=== PATIENT | female | born 1955 | race Caucasian/White ===

== ENCOUNTER 2017-07-22 06:58 | Inpatient (IN) | payer OTHER ==
[2017-07-22] MEDS ORDERED: PANTOPRAZOLE SODIUM 40 MG in SODIUM CHLORIDE 100 ML IVPB ONE (08:08)
[2017-07-22 08:09] LABS: BASOPHIL 0.5 % (0-2.0); EOSINOPHIL 3.2 % (0-4.5); MCH 30.1 pg (25.7-33.7); MCHC 33.1 g/dl (32.0-36.0); MEAN CELL VOLUME 90.8 fl (80-96); MEAN PLT VOLUME 9.5 fl (7.5-11.1); NEUTROPHILS 77.1 % (42.8-82.8); PLATELET COUNT 285 K/MM3 (134-434); RDW 13.4 % (11.6-15.6); WHITE BLOOD COUNT 8.1 K/mm3 (4.0-10.0)
[2017-07-22 08:22] LABS: INR 1.79 (0.82-1.09); PROTHROMBIN TIME (PATIENT) 19.9 SEC (9.98-11.88)
[2017-07-22 08:24] LABS: ACTIVATED PTT 32.5 SECONDS (26.9-34.4)
[2017-07-22 08:38] LABS: ALBUMIN 2.9 g/dl (3.4-5.0); ALK PHOS 155 U/L (45-117); ANION GAP 5 (8-16); BILIRUBIN,TOTAL 0.3 mg/dL (0.2-1.0); CALCIUM 8.8 mg/dL (8.5-10.1); CO2 30 mmol/L (21-32); CREATININE 0.4 mg/dL (0.55-1.02); GLUCOSE,RANDOM 115 mg/dL (74-106); SGOT/AST 32 U/L (15-37); SGPT/ALT 14 U/L (12-78); TOT PROT 6.4 g/dl (6.4-8.2)
[2017-07-22] MEDS ORDERED: PANTOPRAZOLE SODIUM 100 ML IVPB ONE (08:42)
--- NOTE | 2017-07-22 08:50 | PDOC ---
History of Present Illness <Denisse Potts - Last Filed: 07/22/17 12:14> - History of Present Illness Initial Comments: 07/22/17 08:49 "The patient is a 62 year old female, with a significant past medical history of Parkinsons disease, anemia, A-Fib(s/p AICD; on xarelto), NICM, CHF, and hypertension, who presents to the emergency department with rectal bleeding since this morning. As per daughter, home health aide reported noting bright red blood in the patients diaper at approximately 05:30. Daughter states, patient went to bed with no blood per rectum and at her baseline. Daughter states patient is typically constipated, but during the past 2 days patient has had increased bowel movements. Daughter reports noting dark black stool in the toilet bowl during patients bowel movement yesterday. Patient denies any associated abdominal pain, nausea, vomiting, diarrhea, or constipation. Daughter denies any history of GI bleeds or aneurysm. Patient denies any fever, chills, headache, or dizziness. She denies any chest pain, shortness of breath, diaphoresis, palpitations, or lower extremity edema. Last dose of xarelto was last night at 7:30PM. Allergies: NKDA Past Surgical History: AICD Social History: Nonsmoker. No ETOH or recreational drug use. <Hans Roa - Last Filed: 07/26/17 12:56> - General Chief Complaint: Rectal Bleed Stated Complaint: RECTAL BLEED Time Seen by Provider: 07/22/17 07:17 Past History <Denisse Potts - Last Filed: 07/22/17 12:14> - Past Medical History Anemia: Yes Asthma: No Cardiac Disorders: Yes (A fib, ICD IMPLANT) CHF: Yes GI Disorders: Yes (incontinence) Disorders: Yes (incontinence) HTN: Yes Suicide Attempt (Hx): No Thyroid Disease: No Other medical history: Deny's - Surgical History Cardiac Surgery: Yes (CARDIAC CATH 2009) Orthopedic Surgery: Yes (B/L KNEE REPLACEMENT 2007 2008) - Immunization History Immunization Up to Date: Yes - Suicide/Smoking/Psychosocial Hx Anxiety: No Suicidal Ideation: No Smoking History: Never smoked Have you smoked in the past 12 months: No Information on smoking cessation initiated: No Hx Alcohol Use: No Drug/Substance Use Hx: No Substance Use Type: None Hx Substance Use Treatment: No <Hans Roa - Last Filed: 07/26/17 12:56> - Past Medical History Allergies/Adverse Reactions: Allergies Allergy/AdvReac Type Severity Reaction Status Date / Time No Known Allergies Allergy Verified 07/22/17 07:42 Home Medications: Ambulatory Orders Ascorbic Acid [Vitamin C] 250 mg PO DAILY 07/22/17 Ca/D3/Mag#11/Zinc/Hotel [employer] Motel Room Service Supervisor/Dre/Bor [Caltrate 600+D Plus Tablet] 2 each PO DAILY Carbidopa/Levodopa [Carbidopa-Levodopa 25-100 Tab] 1 each PO QID 07/22/17 Carbidopa/Levodopa [Rytary ER 23.75 mg-95 mg Cap] 1 each PO QID 07/22/17 Carbidopa/Levodopa [Rytary ER 36.25 mg-145 mg Cap] 1 each PO QID 07/22/17 Collagenase Clostridium Hist. [Santyl] 90 gm TP DAILY 07/22/17 Metoprolol Succinate [Toprol Xl] 100 mg PO DAILY 07/22/17 Multivitamin [Zoo Chews] 1 each PO DAILY 07/22/17 Mupirocin Cream [Bactroban 2% Cream -] 1 applic TP DAILY 07/22/17 Patient's Own Medication [Patient's Own Med (Nf) -] 1 each PO DAILY 07/22/17 Pimavanserin Tartrate [Nuplazid] 34 mg PO DAILY 07/22/17 Quetiapine Fumarate [Seroquel -] 50 mg PO HS 07/22/17 RX: Furosemide 20 mg PO DAILY 07/22/17 RX: Iron 65 mg PO DAILY 07/22/17 RX: Losartan Potassium 25 mg PO DAILY 07/22/17 RX: Melatonin 3 mg PO DAILY 07/22/17 RX: Olanzapine 2.5 mg PO DAILY 07/22/17 RX: Spironolactone 25 mg PO DAILY 07/22/17 RX: Zinc 50 mg PO DAILY 07/22/17 Rasagiline Mesylate [Azilect] 1 mg PO DAILY 07/22/17 Rivaroxaban [Xarelto -] 20 mg PO DAILY 07/22/17 Rotigotine [Neupro] 1 each TD DAILY 07/22/17 Review of Systems - Review of Systems Comments:: 07/22/17 08:57 "GENERAL/CONSTITUTIONAL: No fever or chills. No weakness. HEAD, EYES, EARS, NOSE AND THROAT: No change in vision. No ear pain or discharge. No sore throat. CARDIOVASCULAR: No chest pain or shortness of breath. RESPIRATORY: No cough, wheezing, or hemoptysis. GASTROINTESTINAL: Yes: +melena, +hematochezia. No nausea, vomiting, diarrhea or constipation. GENITOURINARY: No dysuria, frequency, or change in urination. MUSCULOSKELETAL: No joint or muscle swelling or pain. No neck or back pain. SKIN: No rash NEUROLOGIC: No headache, vertigo, loss of consciousness, or change in strength/ sensation. ENDOCRINE: No increased thirst. No abnormal weight change. HEMATOLOGIC/LYMPHATIC: No anemia, easy bleeding, or history of blood clots. ALLERGIC/IMMUNOLOGIC: No hives or skin allergy." <Hans Roa - Last Filed: 07/26/17 12:56> *Physical Exam - Vital Signs Last Vital Signs Temp Pulse Resp BP Pulse Ox 98.2 F 120 H 20 88/62 100 07/22/17 10:10 07/22/17 10:25 07/22/17 10:25 07/22/17 10:25 07/22/17 10:25 <Denisse Potts - Last Filed: 07/22/17 12:14> - Vital Signs Last Vital Signs Temp Pulse Resp BP Pulse Ox 98.1 F 104 H 16 87/67 97 07/22/17 07:10 07/22/17 07:10 07/22/17 07:10 07/22/17 07:10 07/22/17 07:10 - Physical Exam Comments: 07/22/17 08:58 "GENERAL: Awake, alert, and fully oriented, in no acute distress HEAD: No signs of trauma EYES: PERRLA, EOMI, sclera anicteric, conjunctiva clear ENT: Auricles normal inspection, hearing grossly normal, nares patent, oropharynx clear without exudates. Moist mucosa NECK: Nontender, no stepoffs, Normal ROM, supple, no lymphadenopathy, JVD, or masses LUNGS: Breath sounds equal, clear to auscultation bilaterally. No wheezes, and no crackles HEART: Regular rate and rhythm, normal S1 and S2, no murmurs, rubs or gallops ABDOMEN: Soft, nontender, NO pulsatile masses, normoactive bowel sounds. No guarding, no rebound. RECTAL: bright red blood oozing from rectum, no melena EXTREMITIES: Normal range of motion, no edema. No clubbing or cyanosis. No cords, erythema, or tenderness NEUROLOGICAL: Cranial nerves II through XII intact. 5/5 strength and sensation in all extremities, Normal speech, normal gait SKIN: Warm, Dry, normal turgor, no rashes or lesions noted. " <Hans Roa - Last Filed: 07/26/17 12:56> ED Treatment Course - LABORATORY CBC & Chemistry Diagram: 07/22/17 08:02 07/22/17 08:02 - ADDITIONAL ORDERS Additional order review: Laboratory Results 07/22/17 07/22/17 07/22/17 08:26 08:02 08:02 PT with INR INR PTT (Actin FS) Sodium Potassium Chloride Carbon Dioxide Anion Gap BUN Creatinine Creat Clearance w eGFR Random Glucose Lactic Acid 2.4 H* Calcium Total Bilirubin AST ALT Alkaline Phosphatase Total Protein Albumin Blood Type A POSITIVE A POSITIVE Antibody Screen Cancelled Negative Crossmatch See Detail Spec Expiration Date Cancelled 07/22/17 07/22/17 08:02 08:02 PT with INR 19.90 H INR 1.79 H D PTT (Actin FS) 32.5 Sodium 141 Potassium 3.6 Chloride 106 Carbon Dioxide 30 Anion Gap 5 L BUN 32 H D Creatinine 0.4 L D Creat Clearance w eGFR > 60 Random Glucose 115 H D Lactic Acid Calcium 8.8 Total Bilirubin 0.3 AST 32 D ALT 14 D Alkaline Phosphatase 155 H D Total Protein 6.4 Albumin 2.9 L Blood Type Antibody Screen Crossmatch Spec Expiration Date 07/22/17 08:02 RBC 3.86 MCV 90.8 MCHC 33.1 RDW 13.4 MPV 9.5 Neutrophils % 77.1 Lymphocytes % 12.5 Monocytes % 6.7 Eosinophils % 3.2 D Basophils % 0.5 - RADIOLOGY Radiograph Interpretation: 07/22/17 11:32 EXAM: CXR INTERPRETED BY: Dr. Hahn REVIEWED BY: Dr. Roa IMPRESSION: No acute pathology. No significant change since 01/07/2015. Pacemaker. - Medications Given in the ED: ED Medications Discontinued Medications Generic Name Dose Route Start Last Admin Trade Name Freq PRN Reason Stop Dose Admin Pantoprazole Sodium 40 mg/ 100 mls @ 200 mls/hr 07/22/17 08:08 07/22/17 08:50 Sodium Chloride IVPB 07/22/17 08:37 200 mls/hr ONCE ONE Administration <Denisse Potts - Last Filed: 07/22/17 12:14> - LABORATORY CBC & Chemistry Diagram: 07/26/17 08:20 07/26/17 08:20 - ADDITIONAL ORDERS Additional order review: Laboratory Results 07/22/17 07/22/17 07/22/17 08:02 08:02 08:02 PT with INR 19.90 H INR 1.79 H D PTT (Actin FS) 32.5 Sodium 141 Potassium 3.6 Chloride 106 Carbon Dioxide 30 Anion Gap 5 L BUN 32 H D Creatinine 0.4 L D Creat Clearance w eGFR > 60 Random Glucose 115 H D Calcium 8.8 Total Bilirubin 0.3 AST 32 D ALT 14 D Alkaline Phosphatase 155 H D Total Protein 6.4 Albumin 2.9 L Crossmatch See Detail 07/22/17 08:02 RBC 3.86 MCV 90.8 MCHC 33.1 RDW 13.4 MPV 9.5 Neutrophils % 77.1 Lymphocytes % 12.5 Monocytes % 6.7 Eosinophils % 3.2 D Basophils % 0.5 - RADIOLOGY Radiology Studies Ordered: Category Date Time Status CHEST X-RAY PORTABLE* [RAD] Stat Radiology 07/22/17 08:09 Completed <Hans Roa - Last Filed: 07/26/17 12:56> Medical Decision Making - Medical Decision Making 07/22/17 12:14 First call placed to Dr. Aguilar at 08:17. Awaiting call back. Case discussed with Dr. Aguilar at 08:48. <Denisse Potts - Last Filed: 07/22/17 12:14> - Critical Care Time Total Critical Care Time (minutes): 30 Critical Care Statement: The care of this patient involved high complexity decision making to prevent further life threatening deterioration of the patient 's condition and/or to evaluate & treat vital organ system(s) failure or risk of failure. - Medical Decision Making 07/22/17 08:59 62 F with afib on xarelto presenting with rectal bleed x 1 day, hypotensive and tachycardic in ER. Likely lower GI source. However, family reports seeing dark stools yesterday, suggestive of possible UGIB. Pt with benign abdomen. Aortoenteric fistula possible as bleed is relatively brisk. However, pt with no h/o AAA and no palpable masses on exam. Bedside sono reveals no evidence of AAA. Will send lactate to r/o ischemic bowel. - Labs, T&S, coags - PPI - Transfuse - GI consult - Admit ICU 07/22/17 09:16 Pt accepted to ICU. 2u PRBC ordered. <Hans Roa - Last Filed: 07/26/17 12:56> *DC/Admit/Observation/Transfer - Attestations Scribe Attestion: 07/22/17 11:31 Documentation prepared by Denisse Potts, acting as back office medical assistant for Hans Roa MD. <Denisse Potts - Last Filed: 07/22/17 12:14> - Discharge Dispostion Admit: Yes - Attestations Physician Attestion: 07/22/17 09:18 I, Dr. Hans Roa MD, attest that this document has been prepared under my direction and personally reviewed by me in its entirety. I further attest, that it accurately reflects all work, treatment, procedures and medical decision -making performed by me. <Hans Roa - Last Filed: 07/26/17 12:56> Diagnosis at time of Disposition: Anticoagulant-induced bleeding, GI bleed - Discharge Dispostion Condition at time of disposition: Guarded
--- NOTE | 2017-07-22 10:58 | HP ---
CHIEF COMPLAINT: Lower GI bleed x1 day PCP: Basket Patcher: Dr Gilbert HISTORY OF PRESENT ILLNESS: Patient is a 62 year old female with parkinson's disease, afib on xarelto (last dose yesterday, 7.30pm) and s/p AICD, CHF, NICM , immobile at baseline living now with brother at home with 24hr care. Found this morning to have significant bleed in diaper when the aid tried to change her this morning. Patient was found still sleeping when the bleeding was discovered. There was a two day history of dark colored stool prior, soft, non diarrheal. Prior to that she had hard stools, that she got prune juice on Sunday for, but no medication. No other bleeding from any other site. Patient in the past has had nose bleeds that resolve on their own with pressure, last episode of nose bleeds was December 2016. No history of abdominal pain, nausea or vomiting. No diarrhea. Patient at baseline usually is constipated. No history of fever or chills. No history of trauma or fall. Patient has not been on NSAIDS or ASA. No SOB, no chest pain or abdominal pain. No episode of syncope, headaches or dizziness. 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 90 gm TP DAILY 07/22/17 [Santyl] Furosemide 20 mg PO DAILY 07/22/17 Iron 65 mg PO DAILY 07/22/17 Losartan Potassium 25 mg PO DAILY 07/22/17 Melatonin 3 mg PO DAILY 07/22/17 Metoprolol Succinate [Toprol Xl] 100 mg PO DAILY 07/22/17 Multivitamin [Zoo Chews] 1 each PO DAILY 07/22/17 Mupirocin Cream [Bactroban 2% 1 applic TP DAILY 07/22/17 Cream -] Olanzapine 2.5 mg PO DAILY 07/22/17 Pimavanserin Tartrate [Nuplazid] 2 tab PO DAILY 07/22/17 Quetiapine Fumarate [Seroquel -] 25 mg PO BID 07/22/17 Rasagiline Mesylate [Azilect] 1 mg PO DAILY 07/22/17 Rivaroxaban [Xarelto -] 20 mg PO DAILY 07/22/17 Rotigotine [Neupro] 1 each TD DAILY 07/22/17 Spironolactone 25 mg PO DAILY 07/22/17 REVIEW OF SYSTEMS CONSTITUTIONAL: Absent: fever, chills, diaphoresis, generalized weakness, malaise, loss of appetite, weight change HEENT: Absent: rhinorrhea, nasal congestion, throat pain, throat swelling, difficulty swallowing, mouth swelling, ear pain, eye pain, visual changes CARDIOVASCULAR: Absent: chest pain, syncope, palpitations, irregular heart rate, lightheadedness , peripheral edema RESPIRATORY: Absent: cough, shortness of breath, dyspnea with exertion, orthopnea, wheezing, stridor, hemoptysis GASTROINTESTINAL: Absent: abdominal pain, abdominal distension, nausea, vomiting, diarrhea, constipation, melena, hematochezia GENITOURINARY: Absent: dysuria, frequency, urgency, hesitancy, hematuria, flank pain, genital pain MUSCULOSKELETAL: Absent: myalgia, arthralgia, joint swelling, back pain, neck pain SKIN: Absent: rash, itching, pallor HEMATOLOGIC/IMMUNOLOGIC: Absent: easy bleeding, easy bruising, lymphadenopathy, frequent infections ENDOCRINE: Absent: unexplained weight gain, unexplained weight loss, heat intolerance, cold intolerance NEUROLOGIC: Absent: headache, focal weakness or paresthesias, dizziness, unsteady gait, seizure, mental status changes, bladder or bowel incontinence PSYCHIATRIC: Absent: anxiety, depression, suicidal or homicidal ideation, hallucinations. PHYSICAL EXAMINATION Vital Signs - 24 hr 07/22/17 07/22/17 07/22/17 09:46 09:53 10:10 Temperature 98.1 F 98 F 98.2 F Pulse Rate [ 116 H 116 H 121 H Left Radial] Respiratory 18 18 21 Rate Blood Pressure 88/71 90/64 84/62 [Right Arm] O2 Sat by Pulse 98 98 99 Oximetry (%) 07/22/17 10:25 Temperature Pulse Rate [ 120 H Left Radial] Respiratory 20 Rate Blood Pressure 88/62 [Right Arm] O2 Sat by Pulse 100 Oximetry (%) GENERAL: Awake, alert, some confusion, memory loss and difficult verbal expression at baseline, in no acute respiratory distress. HEAD: Normal with no signs of trauma. EYES: Pupils equal, round and reactive to light, extraocular movements intact, sclera anicteric, conjunctiva clear. No lid lag. EARS, NOSE, THROAT: Nares patent, some redness seen around the opening of the nostrils, oropharynx clear without exudates, no evidence of bleeding in mouth NECK: No JVD. LUNGS: Breath sounds equal, clear to auscultation bilaterally. No wheezes, and no crackles. No accessory muscle use. HEART: Regular rate and rhythm, normal S1 and S2 without murmur, rub or gallop. ABDOMEN: Soft, nontender, not distended, normoactive bowel sounds, no guarding, no rebound, no masses. No hepatomegaly or splenomegaly. TANJA : Diaper was soaked in dark blood, with some clots, with impacted feces palpated within the rectum. MUSCULOSKELETAL: Normal range of motion at all joints. No bony deformities or tenderness. No CVA tenderness. UPPER EXTREMITIES: 2+ pulses, warm, well-perfused. No cyanosis. No clubbing. No peripheral edema. LOWER EXTREMITIES: 2+ pulses, warm, well-perfused. No calf tenderness. No peripheral edema. Pressure point on left sole NEUROLOGICAL: Hypertonia with rigidity in upper limbs. Babinski- upward bilaterally. PSYCHIATRIC: Cooperative. Good eye contact. Some confusion, memory loss and difficult verbal expression ASSESSMENT/PLAN: #Active Massive upper GI bleeding R/O Lower GI bleed: 2 PRBCS stat Iv lasix 20mg in between transfusion Hold xarelto IV pantoprazole 40mg stat Repeat CBC after transfusion EKG- Normal sinus rhythm with PVCs GI consult Per GI - give Vit K stat for elevated INR Tachycardic following lasix administration, up to 146 and hypotensive at 60/36 - gave bolus 500mls IV N/saline stat Vitals pr-136, BP-88/60 #Pressure point Left sole: Foot padding Frequent turns #Afib: Hold Xarelto for now Reduce metoprolol to 50mg XL Cardiology consult #Parkinsons disease: Currently immobile with some difficult to comprehend speech' In diapers- continue Carbidopa/Levodopa- hold for now Continue Collagenase Clostridium Hist. Continue Mupirocin Cream Continue Rasagiline Mesylate Rotigotine [Neupro] #Psychosis Continue Pimavanserin Tartrate [Nuplazid] Continue Olanzapine #CHF No signs of failure Hold spironolactone for now Hold Losartan Potassium for now Hold Furosemide PO for now Hold Metoprolol for now, reduce to 50mg XL Strict ins and outs #NICM Hold spironolactone for now Hold Losartan Potassium for now #FEN: Iv Normal saline Continue [place] oral fluids CBC NPO for now #Prophylaxis: DVT: SCD Heparin contraindicated due to current bleed GI: Pepcid #Dispo: Admit ICU Visit type - Emergency Visit Emergency Visit: Yes ED Registration Date: 07/22/17 Care time: The patient presented to the Emergency Department on the above date and was hospitalized for further evaluation of their emergent condition. - New Patient This patient is new to me today: Yes Date on this admission: 07/22/17 - Critical Care Critical Care patient: Yes Total Critical Care Time (in minutes): 40 Critical Care Statement: The care of this patient involved high complexity decision making to prevent further life threatening deterioration of the patient 's condition and/or to evaluate & treat vital organ system(s) failure or risk of failure.
--- NOTE | 2017-07-22 11:22 | PN ---
Teaching Attending Note Name of Resident: Gracia Casillas ATTENDING PHYSICIAN STATEMENT I saw and evaluated the patient. I reviewed the resident's note and discussed the case with the resident. I agree with the resident's findings and plan as documented. SUBJECTIVE: Patient is 62yo female presented with active GI bleeding. with hx of Parkinsonism. OBJECTIVE: Vital Signs Temperature 98.2 F 07/22/17 10:10 Pulse Rate 120 H 07/22/17 10:25 Respiratory Rate 20 07/22/17 10:25 Blood Pressure 88/62 07/22/17 10:25 O2 Sat by Pulse Oximetry (%) 100 07/22/17 10:25 CBCD WBC 8.1 K/mm3 (4.0-10.0) D 07/22/17 08:02 RBC 3.86 M/mm3 (3.60-5.2) 07/22/17 08:02 Hgb 11.6 GM/dL (10.7-15.3) 07/22/17 08:02 Hct 35.1 % (32.4-45.2) 07/22/17 08:02 MCV 90.8 fl (80-96) 07/22/17 08:02 MCHC 33.1 g/dl (32.0-36.0) 07/22/17 08:02 RDW 13.4 % (11.6-15.6) 07/22/17 08:02 Plt Count 285 K/MM3 (134-434) D 07/22/17 08:02 MPV 9.5 fl (7.5-11.1) 07/22/17 08:02 CMP Sodium 141 mmol/L (136-145) 07/22/17 08:02 Potassium 3.6 mmol/L (3.5-5.1) 07/22/17 08:02 Chloride 106 mmol/L (98-107) 07/22/17 08:02 Carbon Dioxide 30 mmol/L (21-32) 07/22/17 08:02 Anion Gap 5 (8-16) L 07/22/17 08:02 BUN 32 mg/dL (7-18) H D 07/22/17 08:02 Creatinine 0.4 mg/dL (0.55-1.02) L D 07/22/17 08:02 Creat Clearance w eGFR > 60 (>60) 07/22/17 08:02 Random Glucose 115 mg/dL (74-106) H D 07/22/17 08:02 Calcium 8.8 mg/dL (8.5-10.1) 07/22/17 08:02 Total Bilirubin 0.3 mg/dL (0.2-1.0) 07/22/17 08:02 AST 32 U/L (15-37) D 07/22/17 08:02 ALT 14 U/L (12-78) D 07/22/17 08:02 Alkaline Phosphatase 155 U/L (45-117) H D 07/22/17 08:02 Total Protein 6.4 g/dl (6.4-8.2) 07/22/17 08:02 Albumin 2.9 g/dl (3.4-5.0) L 07/22/17 08:02 Home Medications Medication Instructions Recorded Ca/D3/Mag#11/Zinc/Senior Application Programmer/Dre/Bor 2 each PO DAILY 07/22/17 [Caltrate 600+D Plus Tablet] Carbidopa/Levodopa 1 each PO QID 07/22/17 [Carbidopa-Levodopa 25-100 Tab] Carbidopa/Levodopa [Rytary ER 1 each PO QID 07/22/17 23.75 mg-95 mg Cap] Carbidopa/Levodopa [Rytary ER 1 each PO QID 07/22/17 36.25 mg-145 mg Cap] Collagenase Clostridium Hist. 90 gm TP DAILY 07/22/17 [Santyl] Furosemide 20 mg PO DAILY 07/22/17 Iron 65 mg PO DAILY 07/22/17 Losartan Potassium 25 mg PO DAILY 07/22/17 Melatonin 3 mg PO DAILY 07/22/17 Metoprolol Succinate [Toprol Xl] 100 mg PO DAILY 07/22/17 Multivitamin [Zoo Chews] 1 each PO DAILY 07/22/17 Mupirocin Cream [Bactroban 2% 1 applic TP DAILY 07/22/17 Cream -] Olanzapine 2.5 mg PO DAILY 07/22/17 Pimavanserin Tartrate [Nuplazid] 2 tab PO DAILY 07/22/17 Quetiapine Fumarate [Seroquel -] 25 mg PO BID 07/22/17 Rasagiline Mesylate [Azilect] 1 mg PO DAILY 07/22/17 Rivaroxaban [Xarelto -] 20 mg PO DAILY 07/22/17 Rotigotine [Neupro] 1 each TD DAILY 07/22/17 Spironolactone 25 mg PO DAILY 07/22/17 PE: per resident's note Rectal exam as per resident: grossly blood, positive for hard stool in the vault ASSESSMENT AND PLAN: Patient is a 62 year old female with PMHx of parkinson's disease, afib on xarelto for 3 years (last dose 7.30pm, last night) and s/p AICD, CHF, NICM, immobile at baseline living now with brother at home with 24hr care presented with Acute GI bleed. # Acute GI bleed Upper vs Lower : patient was on Xarelto for 3 yrs. with hx of Afib.possible and possible diverticulosis as well ,H/h q6h, GI consult for consult. Protonix IV 8mg/hr. Patient is getting transfused since bleeding actively, give lasix in b/t transfusion # Hx of Afib with AICD on Xarelto, hold the xarelto for now, cardio consult for consult # Hx of Parkinsonism continue home meds. # hx of systolic CHF s/p AICD on lasix, Losartan , will hold for now since presented with low BP. DVT Px: SCds only since actively bleeding contraindicated. critical care time of 35 mintues
[2017-07-22] MEDS ORDERED: FUROSEMIDE 40 MG/4 ML INJECTABLE VIAL IVPB SCH (11:32)
[2017-07-22 11:57] VITALS: BMI 21.3
--- NOTE | 2017-07-22 12:33 | HP ---
Admitting History and Physical - Primary Care Physician PCP: Arelis Lehman - Admission Chief Complaint: GI bleeding History of Present Illness: 62F with PMH significant for parkinsons disease (bed bound as a result), A-Fib( s/p AICD; on xarelto), Non ischemic cardiomyopathy, CHF s/p AICD, and hypertension, who presents to the emergency department with a chief complaint of rectal bleeding since this morning. As per the sister and brother, home health aide reported noting bright red blood in the patients diaper at approximately 05:30am while she was changing her diaper. Of note the patient is bed bound has 24hour home health aide and her brotherly recently moved in with her. Sister is the healthcare proxy. Family is very involved with patient's care and they are knowledgable about her history and ongoing medical problems. Per the sister and brother they noticed her stools were black for the past 2 days and have been coming darker and darker until this Am when she had red blood per rectum. The family states she is usually constipated at baseline and has very hard pebble like stools but last couple of days she has had increase in frequency of stools. The patient is able to understand and is able to answer a little more than yes or no and has a hard time talking due to parkinson's. Patient denies any associated abdominal pain, nausea, vomiting, diarrhea, or constipation. She denies fevers chills chest pain palpitations orthopneaor shortness of breath. She denies dizziness lightheadedness or visual changes. Family denies any new medication changes or recent intake of large amount of NSAIDs. family denies any history of GI bleeds or aneurysm. Last dose of xarelto was last night at 7:30PM. Sister stated she recently received a letter that the patient is due for colonoscopy not sure of she has had it once or twice and not cure when the last colonoscopy. She recently had a mammogram in the last year and it was negative per sister. Denies recent travel or recent illness. In the ED she was noted to be hypotensive to low 90's SBP and tachycardic to 110's. Per sister and brother patiet's BP is constantly monitored and she runs low 90's persistently due to parkinsons medications. 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 ) - Past Surgical History Past Surgical History: Yes: Joint Replacement (TKR, bilaterally) Additional Past Surgical History: AICD - Smoking History Smoking history: Never smoked Have you smoked in the past 12 months: No - Alcohol/Substance Use Hx Alcohol Use: No - Social History ADL: Support Services (8 hour day home health aid) History of Recent Travel: No Home Medications - Allergies Allergies/Adverse Reactions: Allergies Allergy/AdvReac Type Severity Reaction Status Date / Time No Known Allergies Allergy Verified 07/22/17 07:42 - Home Medications Home Medications: Ambulatory Orders Ascorbic Acid [Vitamin C] 250 mg PO DAILY 07/22/17 Ca/D3/Mag#11/Zinc/Formulator/Dre/Bor [Caltrate 600+D Plus Tablet] 2 each PO DAILY Carbidopa/Levodopa [Carbidopa-Levodopa 25-100 Tab] 1 each PO QID 07/22/17 Carbidopa/Levodopa [Rytary ER 23.75 mg-95 mg Cap] 4 each PO QID 07/22/17 Carbidopa/Levodopa [Rytary ER 36.25 mg-145 mg Cap] 4 each PO QID 07/22/17 Collagenase Clostridium Hist. [Santyl] 90 gm TP DAILY 07/22/17 Furosemide 20 mg PO DAILY 07/22/17 Iron 65 mg PO DAILY 07/22/17 Losartan Potassium 25 mg PO DAILY 07/22/17 Melatonin 3 mg PO DAILY 07/22/17 Metoprolol Succinate [Toprol Xl] 100 mg PO DAILY 07/22/17 Multivitamin [Zoo Chews] 1 each PO DAILY 07/22/17 Mupirocin Cream [Bactroban 2% Cream -] 1 applic TP DAILY 07/22/17 Olanzapine 2.5 mg PO DAILY 07/22/17 Patient's Own Medication [Patient's Own Med (Nf) -] 1 each PO DAILY 07/22/17 Pimavanserin Tartrate [Nuplazid] 34 mg PO DAILY 07/22/17 Quetiapine Fumarate [Seroquel -] 25 mg PO BID 07/22/17 Rasagiline Mesylate [Azilect] 1 mg PO DAILY 07/22/17 Rivaroxaban [Xarelto -] 20 mg PO DAILY 07/22/17 Rotigotine [Neupro] 1 each TD DAILY 07/22/17 Spironolactone 25 mg PO DAILY 07/22/17 Zinc 50 mg PO DAILY 07/22/17 Family Disease History - Family Disease History Family Disease History: Other: Brother (CAD), Sister (DVT thought to be related to inactivity and control pills. She is now off anticoagulation) Physical Examination Vital Signs: Vital Signs Temperature 98.4 F 07/22/17 11:35 Pulse Rate 128 H 07/22/17 11:35 Respiratory Rate 21 07/22/17 10:28 Blood Pressure 82/65 07/22/17 10:28 O2 Sat by Pulse Oximetry (%) 97 07/22/17 10:28 Constitutional: Yes: No Distress, Thin Eyes: Yes: Other (slight conjunctival pallor) HENT: Yes: Atraumatic, Normocephalic, Other (dry mucous membranes) Neck: Yes: Supple, Trachea Midline Cardiovascular: Yes: Regular Rate and Rhythm Respiratory: Yes: CTA Bilaterally Gastrointestinal: Yes: Soft, Rectal Bleeding. No: Palpable Mass, Pulsatile Mass , Tenderness, Tenderness, Epigastrium, Tenderness, Rebound ...Rectal Exam: Yes: Sphincter Tone Normal, Other (macy red blood with clots and melena) Extremities: Yes: Other (extremtities tremulous and shaking. with cogwheel rigidity) Edema: No Neurological: Yes: Alert, Oriented Imaging - Results Chest X-ray: Report Reviewed, Image Reviewed Assessment/Plan 62F with mutliple medical problems presents with GI bleed. hypovolemic shock stage 3 secondary to acute blood loss anemia-tachycardic and hypotensive Hematochezia possible Upper GI Bleed likely lower GI bleed-diverticular bleed vs stercoral ulcer GI bleed in the setting of Xarelto use bed bound functional quadriplegia Parkinsons non ischemic cardiomyopathy CHF consitpation-chronic hypotension HTN A fib medical marijuana use elevated INR Plan: Admit to ICU 2 units PRBCs and transfuse more PRN-lasix between units trend CBC GI consult NPO IVF PRN Restart home meds-patient on many non formulary meds patient's family to bring medications restart metoprolol at half the dose with hold parameters restart cinemet Stop Xarelto DVT PPx with SCDs Will give FFP Protonix gtt echo cardiology consult continue zyprexa family to bring in home meds that are not on formulary FUll H&P to follow case discussed with attending Dr. Ambrocio Proof Operator on the case Full H&P to follow Visit type - Emergency Visit Emergency Visit: Yes ED Registration Date: 07/22/17 Care time: The patient presented to the Emergency Department on the above date and was hospitalized for further evaluation of their emergent condition. - New Patient This patient is new to me today: Yes Date on this admission: 07/22/17 - Critical Care Critical Care patient: Yes Total Critical Care Time (in minutes): 60 Critical Care Statement: The care of this patient involved high complexity decision making to prevent further life threatening deterioration of the patient 's condition and/or to evaluate & treat vital organ system(s) failure or risk of failure.
[2017-07-22] MEDS ORDERED: METOPROLOL SUCCINATE 50 MG TAB.SR.24H (FP) PO ONE (13:03)
[2017-07-22] MEDS ORDERED: COLLAGENASE CLOSTRIDIUM HIST. 30 GRAMS TUBE TP SCH (14:00)
--- NOTE | 2017-07-22 14:07 | CONSULT ---
Consult Consult Specialty:: PULM/CCM Referred by:: DUKE Reason for Consultation:: Acute GI Bleed - History of Present Illness Chief Complaint: Bright blood from rectum History of Present Illness: 62 F, Parkinson's disease, AFib on xarelto (last dose 7:30pm last night) and S /p AICD, CHF, NICM, with baseline immobilization. This AM was found to have significant bright blood in her diaper. Apparently there was a 2 day history of dark colored stool. No fever or chills. No CP or SOB. 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 ) - Past Surgical History Past Surgical History: Yes: Joint Replacement (TKR, bilaterally) - Alcohol/Substance Use Hx Alcohol Use: No - Smoking History Smoking history: Never smoked Have you smoked in the past 12 months: No - Social History Usual Living Arrangement: Alone ADL: Support Services (8 hour day home health aid) History of Recent Travel: No Home Medications - Allergies Allergies/Adverse Reactions: Allergies Allergy/AdvReac Type Severity Reaction Status Date / Time No Known Allergies Allergy Verified 07/22/17 07:42 - Home Medications Home Medications: Ambulatory Orders Ascorbic Acid [Vitamin C] 250 mg PO DAILY 07/22/17 Ca/D3/Mag#11/Zinc/Collar Pointer/Dre/Bor [Caltrate 600+D Plus Tablet] 2 each PO DAILY Carbidopa/Levodopa [Carbidopa-Levodopa 25-100 Tab] 1 each PO QID 07/22/17 Carbidopa/Levodopa [Rytary ER 23.75 mg-95 mg Cap] 4 each PO QID 07/22/17 Carbidopa/Levodopa [Rytary ER 36.25 mg-145 mg Cap] 4 each PO QID 07/22/17 Collagenase Clostridium Hist. [Santyl] 90 gm TP DAILY 07/22/17 Furosemide 20 mg PO DAILY 07/22/17 Iron 65 mg PO DAILY 07/22/17 Losartan Potassium 25 mg PO DAILY 07/22/17 Melatonin 3 mg PO DAILY 07/22/17 Metoprolol Succinate [Toprol Xl] 100 mg PO DAILY 07/22/17 Multivitamin [Zoo Chews] 1 each PO DAILY 07/22/17 Mupirocin Cream [Bactroban 2% Cream -] 1 applic TP DAILY 07/22/17 Olanzapine 2.5 mg PO DAILY 07/22/17 Patient's Own Medication [Patient's Own Med (Nf) -] 1 each PO DAILY 07/22/17 Pimavanserin Tartrate [Nuplazid] 34 mg PO DAILY 07/22/17 Quetiapine Fumarate [Seroquel -] 25 mg PO BID 07/22/17 Rasagiline Mesylate [Azilect] 1 mg PO DAILY 07/22/17 Rivaroxaban [Xarelto -] 20 mg PO DAILY 07/22/17 Rotigotine [Neupro] 1 each TD DAILY 07/22/17 Spironolactone 25 mg PO DAILY 07/22/17 Zinc 50 mg PO DAILY 07/22/17 Family Disease History - Family Disease History Family Disease History: Other: Brother (CAD), Sister (DVT thought to be related to inactivity and control pills. She is now off anticoagulation) Review of Systems Unable to obtain ROS, reason: Not able to provide Physical Exam Vital Signs: Vital Signs Temperature 98.4 F 07/22/17 11:35 Pulse Rate 128 H 07/22/17 11:35 Respiratory Rate 21 07/22/17 10:28 Blood Pressure 82/65 07/22/17 10:28 O2 Sat by Pulse Oximetry (%) 97 07/22/17 10:28 Constitutional: Yes: No Distress, Thin. No: Diaphoresis Eyes: Yes: Conjunctiva Clear HENT: Yes: Atraumatic, Normocephalic Neck: Yes: Supple, Trachea Midline Cardiovascular: Yes: Pulse Irregular Respiratory: Yes: CTA Bilaterally, On Nasal O2. No: Accessory Muscle Use Gastrointestinal: Yes: Normal Bowel Sounds, Soft Renal/: Yes: WNL Musculoskeletal: Yes: WNL Extremities: Yes: WNL Edema: No Peripheral Pulses WNL: Yes Integumentary: Yes: WNL Neurological: Yes: Confusion Imaging - Results Chest X-ray: Report Reviewed, Image Reviewed Problem List - Problems (1) Anticoagulant-induced bleeding Code(s): T45.7X1A - POISN BY ANTICOAG ANTAG, VITAMIN K AND OTH COAG, ACC, INIT D68.9 - COAGULATION DEFECT, UNSPECIFIED (2) Atrial fibrillation Code(s): I48.91 - UNSPECIFIED ATRIAL FIBRILLATION (3) GI bleed Code(s): K92.2 - GASTROINTESTINAL HEMORRHAGE, UNSPECIFIED (4) CHF (congestive heart failure), NYHA class I Code(s): I50.9 - HEART FAILURE, UNSPECIFIED (5) HTN (hypertension) Code(s): I10 - ESSENTIAL (PRIMARY) HYPERTENSION (6) Nonischemic cardiomyopathy Code(s): I42.9 - CARDIOMYOPATHY, UNSPECIFIED (7) Parkinson disease Code(s): G20 - PARKINSON'S DISEASE Assessment/Plan Follow H&H Normal transfusion thresholds O2 as needed GI evaluation NPO IVF PPI ICU monitoring Thank you. Dr Lewis Critical care time spent in reviewing chart, evaluating patient and formulating plan - 35 minutes.
--- NOTE | 2017-07-22 14:35 | PN ---
Progress Note (short form) - Note Progress Note: GI CONSULTATION: SEE FULL DICTATION IN BRIEF: 62F UNABLE TO ELICIT ANY HX VIA CHART--NUMEROUS MEDICAL PROBLEMS NOTED ADMIT WITH ACUTE ONSET HEMATOCHEZIA ON A/C WITH XARELTO INITIALLY HEMODYNE UNSTABLE, NOW MORE STABLE AFTER INITIAL RESUCCITATION AND NOW GETTING PRBC'S LUANN BRBPR NO OTHER C/O PRE-HYDRATION HGB 11.4 INR 1.8 XARELTO SHOULD WEAR OFF IN 10-12 HOURS IF BLEED ESCALATES WOULD CONSIDER [facility] AND FFP ADMINISTRATION AND OBTAIN CT ANGIO IF NECESSARY COULD OCTREOTIDE WELL WHICH HAS HAD SOME SUCCESS IN DIVERTICULAR BLEEDING UNCLEAR IF PT HAD PRIOR GI EVAL NOT SEEN BY OUR TEAM IN PAST SUPP CARE F/U H/H OBSERVE NPO FOR NOW THANKS, MD INES
[2017-07-22] MEDS ORDERED: FLU VACCINE QUAD 60 MCG/0.5 ML (MDV 17-18) IM ONE (16:00)
--- NOTE | 2017-07-22 16:07 | CON.CARD ---
Consult Consult Specialty:: Cardiology for dr. Haynes Reason for Consultation:: af aicd - History of Present Illness History of Present Illness: "The patient is a 62 year old female, with a significant past medical history of Parkinsons disease, anemia, A-Fib(s/p AICD; on xarelto), NICM, CHF, and hypertension, who presents to the emergency department with rectal bleeding since this morning. As per daughter, home health aide reported noting bright red blood in the patients diaper at approximately 05:30. Daughter states, patient went to bed with no blood per rectum and at her baseline. Daughter states patient is typically constipated, but during the past 2 days patient has had increased bowel movements. Daughter reports noting dark black stool in the toilet bowl during patients bowel movement yesterday. Patient denies any associated abdominal pain, nausea, vomiting, diarrhea, or constipation. Daughter denies any history of GI bleeds or aneurysm. Patient denies any fever, chills, headache, or dizziness. She denies any chest pain, shortness of breath, diaphoresis, palpitations, or lower extremity edema. Last dose of xarelto was last night at 7:30PM. Allergies: NKDA Past Surgical History: AICD Social History: Nonsmoker. No ETOH or recreational drug use. 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 ) - Past Surgical History Past Surgical History: Yes: Joint Replacement (TKR, bilaterally) - Alcohol/Substance Use Hx Alcohol Use: No - Smoking History Smoking history: Never smoked Have you smoked in the past 12 months: No - Social History Usual Living Arrangement: Alone ADL: Support Services (8 hour day home health aid) History of Recent Travel: No Home Medications - Allergies Allergies/Adverse Reactions: Allergies Allergy/AdvReac Type Severity Reaction Status Date / Time No Known Allergies Allergy Verified 07/22/17 07:42 - Home Medications Home Medications: Ambulatory Orders Ascorbic Acid [Vitamin C] 250 mg PO DAILY 07/22/17 Ca/D3/Mag#11/Zinc/Rehab Director Occupational Therapist/Dre/Bor [Caltrate 600+D Plus Tablet] 2 each PO DAILY Carbidopa/Levodopa [Carbidopa-Levodopa 25-100 Tab] 1 each PO QID 07/22/17 Carbidopa/Levodopa [Rytary ER 23.75 mg-95 mg Cap] 4 each PO QID 07/22/17 Carbidopa/Levodopa [Rytary ER 36.25 mg-145 mg Cap] 4 each PO QID 07/22/17 Collagenase Clostridium Hist. [Santyl] 90 gm TP DAILY 07/22/17 Furosemide 20 mg PO DAILY 07/22/17 Iron 65 mg PO DAILY 07/22/17 Losartan Potassium 25 mg PO DAILY 07/22/17 Melatonin 3 mg PO DAILY 07/22/17 Metoprolol Succinate [Toprol Xl] 100 mg PO DAILY 07/22/17 Multivitamin [Zoo Chews] 1 each PO DAILY 07/22/17 Mupirocin Cream [Bactroban 2% Cream -] 1 applic TP DAILY 07/22/17 Olanzapine 2.5 mg PO DAILY 07/22/17 Patient's Own Medication [Patient's Own Med (Nf) -] 1 each PO DAILY 07/22/17 Pimavanserin Tartrate [Nuplazid] 34 mg PO DAILY 07/22/17 Quetiapine Fumarate [Seroquel -] 25 mg PO BID 07/22/17 Rasagiline Mesylate [Azilect] 1 mg PO DAILY 07/22/17 Rivaroxaban [Xarelto -] 20 mg PO DAILY 07/22/17 Rotigotine [Neupro] 1 each TD DAILY 07/22/17 Spironolactone 25 mg PO DAILY 07/22/17 Zinc 50 mg PO DAILY 07/22/17 Family Disease History - Family Disease History Family Disease History: Other: Brother (CAD), Sister (DVT thought to be related to inactivity and control pills. She is now off anticoagulation) Vital Signs: Vital Signs Temperature 97.5 F L 07/22/17 13:35 Pulse Rate 144 H 07/22/17 13:35 Respiratory Rate 21 07/22/17 14:34 Blood Pressure 82/71 07/22/17 13:35 O2 Sat by Pulse Oximetry (%) 97 07/22/17 14:34 Constitutional: Yes: Well Nourished, No Distress, Calm Eyes: Yes: WNL, Conjunctiva Clear, EOM Intact HENT: Yes: WNL, Atraumatic, Normocephalic Neck: Yes: WNL, Supple, Trachea Midline Respiratory: Yes: WNL, Regular, CTA Bilaterally Gastrointestinal: Yes: WNL, Normal Bowel Sounds Renal/: Yes: WNL Cardiovascular: Yes: WNL, Regular Rate and Rhythm Musculoskeletal: Yes: WNL Extremities: Yes: WNL Integumentary: Yes: WNL ...Motor Strength: WNL Psychiatric: Yes: WNL, Alert, Oriented - Other Data Labs, Other Data: INR, PTT INR 1.79 (0.82-1.09) H D 07/22/17 08:02 Laboratory Tests 07/22/17 07/22/17 07/22/17 08:02 08:02 08:02 WBC 8.1 D RBC 3.86 Hgb 11.6 Hct 35.1 MCV 90.8 MCH 30.1 MCHC 33.1 RDW 13.4 Plt Count 285 D MPV 9.5 Neutrophils % 77.1 Lymphocytes % 12.5 Monocytes % 6.7 Eosinophils % 3.2 D Basophils % 0.5 PT with INR 19.90 H INR 1.79 H D PTT (Actin FS) 32.5 Sodium 141 Potassium 3.6 Chloride 106 Carbon Dioxide 30 Anion Gap 5 L BUN 32 H D Creatinine 0.4 L D Creat Clearance w eGFR > 60 Random Glucose 115 H D Lactic Acid Calcium 8.8 Total Bilirubin 0.3 AST 32 D ALT 14 D Alkaline Phosphatase 155 H D Total Protein 6.4 Albumin 2.9 L Blood Type Antibody Screen Crossmatch Spec Expiration Date 07/22/17 07/22/17 07/22/17 08:02 08:02 08:26 WBC RBC Hgb Hct MCV MCH MCHC RDW Plt Count MPV Neutrophils % Lymphocytes % Monocytes % Eosinophils % Basophils % PT with INR INR PTT (Actin FS) Sodium Potassium Chloride Carbon Dioxide Anion Gap BUN Creatinine Creat Clearance w eGFR Random Glucose Lactic Acid 2.4 H* Calcium Total Bilirubin AST ALT Alkaline Phosphatase Total Protein Albumin Blood Type A POSITIVE A POSITIVE Antibody Screen Negative Cancelled Crossmatch See Detail Spec Expiration Date Cancelled 07/22/17 12:00 WBC RBC Hgb Hct MCV MCH MCHC RDW Plt Count MPV Neutrophils % Lymphocytes % Monocytes % Eosinophils % Basophils % PT with INR INR PTT (Actin FS) Sodium Potassium Chloride Carbon Dioxide Anion Gap BUN Creatinine Creat Clearance w eGFR Random Glucose Lactic Acid 2.0 Calcium Total Bilirubin AST ALT Alkaline Phosphatase Total Protein Albumin Blood Type Antibody Screen Crossmatch Spec Expiration Date Imaging - Results Chest X-ray: Image Reviewed (no i/e icd in place) EKG: Image Reviewed (s tachy at 104 rep abn) Problem List - Problems (1) Anticoagulant-induced bleeding Code(s): T45.7X1A - POISN BY ANTICOAG ANTAG, VITAMIN K AND OTH COAG, ACC, INIT D68.9 - COAGULATION DEFECT, UNSPECIFIED (2) Atrial fibrillation Code(s): I48.91 - UNSPECIFIED ATRIAL FIBRILLATION (3) GI bleed Code(s): K92.2 - GASTROINTESTINAL HEMORRHAGE, UNSPECIFIED (4) CHF (congestive heart failure), NYHA class I Code(s): I50.9 - HEART FAILURE, UNSPECIFIED (5) HTN (hypertension) Code(s): I10 - ESSENTIAL (PRIMARY) HYPERTENSION (6) Nonischemic cardiomyopathy Code(s): I42.9 - CARDIOMYOPATHY, UNSPECIFIED (7) Parkinson disease Code(s): G20 - PARKINSON'S DISEASE (8) Hypomagnesemia Code(s): 275.2 - DIS MAGNESIUM METABOLISM (9) Chest pain Code(s): R07.9 - CHEST PAIN, UNSPECIFIED Assessment/Plan Parkinsons disease, anemia, pA-Fib in SR CMP (s/p AICD; on xarelto), NICM, CHF systolic, hypertension, lactic acidosis hypovolemic shock admitted with rectal bleeding Plan Agree with holding xarelto ICU monitoring prbc transfussion echo
[2017-07-22] MEDS ORDERED: SODIUM CHLORIDE 1,000 ML IV SCH (16:15)
[2017-07-22] MEDS: CARBIDOPA/LEVODOPA 25/100 TABLET (FP) PO SCH ×4 (16:39→21:53)
[2017-07-22] MEDS: PANTOPRAZOLE SODIUM 80 MG in SODIUM CHLORIDE 100 ML IVPB SCH (16:54)
[2017-07-22 17:28] LABS: MCH 30.3 pg (25.7-33.7); MCHC 34.7 g/dl (32.0-36.0); MEAN CELL VOLUME 87.3 fl (80-96); MEAN PLT VOLUME 9.5 fl (7.5-11.1); PLATELET COUNT 290 K/MM3 (134-434); RDW 14.5 % (11.6-15.6)
--- NOTE | 2017-07-22 20:01 | CONS ---
DATE OF CONSULTATION: 07/22/2017 I was asked by the ICU and to evaluate this patient for hematochezia. The patient is a 62-year-old woman, whom we have never seen before. She is poor informant and unable to be understood in terms of her spoken history. Apparently she has multiple medical problems including Parkinson disease, chronic anemia, and atrial fibrillation. She is status post an AICD. She is on chronic anticoagulation Xarelto. She has a history of congestive heart failure, hypertension, and cardiomyopathy. Apparently she came to the hospital this morning when she awakened at 5:30 and when it was noted that her home health aide noted that she had bright red blood in her diaper. The patient was brought to the hospital. The daughter came and stated that the patient is typically constipated but had had diarrhea for the past 2 days. It was noted that she has been having some rectal bleeding but no associated complaints of pain, nausea, vomiting, fevers, chills, or sweats. She has no prior history of gastrointestinal disease. The patient received a dose of Xarelto last evening. It is unclear whether she has ever had GI evaluation. The patient's history, again, is unreliable and unable to be understood. The patient apparently does not have diabetes. She has no known drug allergies. She comes in on a lot of medications, including vitamin C, Sinemet, Lasix, iron, losartan, melatonin, metoprolol multivitamins, Bactroban, olanzapine, Nuplazid, Seroquel, Azilect, Xarelto, Nepro, Aldactone, and zinc. At the present time, on physical exam, the patient is not in acute distress but she is pale, she is tachycardic, and she is mildly hypotensive. She is not diaphoretic. Her dentition is extremely poor. Her abdomen is flat and dull-like. There is no significant scarring. Bowel sounds are quite active. There is no tenderness to deep palpation. It is thin, symmetric, with no masses, rebound, or guarding. Rectal exam reveals macy maroon blood. The patient had received a unit of packed cells in the ER and she is now receiving a 2nd unit of packed cells. In addition, at the hospital the patient is also getting Sinemet, Nuplazid, Azilect, Nepro, Zyprexa, Seroquel, Toprol, Sinemet, Lasix, and IV Protonix. The social history and family history is essentially unobtainable. Currently her heart rate is in the 120s, 130s, and her blood pressure has been in the 80s to 90s systolic. Her laboratory data notes a sodium 141, potassium 3.6, chloride 106, bicarbonate of 30, BUN 32, creatinine 0.4, calcium 8.8, total bilirubin 0.3, AST 32, ALT 14, alkaline phosphatase 155, albumin 2.9. Her coagulation studies reveal an INR of 1.8 and her hemoglobin is 11.6, hematocrit 35, with a white count of 8.1, and 285,000 platelets. It is my impression that the patient is a 62-year-old woman with numerous medical problems, significant cardiac disease as noted, who has history of arrhythmia status post AICD, she is on anticoagulation, and she comes in with acute onset of hematochezia with some hemodynamic instability in the setting of chronic anticoagulation with Xarelto. At this time I would recommend, as you are doing, complete supportive care. If the bleeding does not slow down or resolve, then we may need to give reversal agents for Xarelto. In addition, she should probably get some FFP as her INR is elevated at this time as well. For now, we can keep her on proton pump inhibition. It is unclear that will be helpful but it certainly will not hurt, and in addition, if need be, we can add IV octreotide. If the bleeding becomes more aggressive, then we can obtain a CT angiogram and possible embolization. We will continue to be available to aid in management of this patient. Thank you kindly. DINO CHACON M.D. CHUCK/[id number]
[2017-07-22] MEDS: CARBIDOPA PO SCH ×2 (21:52)
[2017-07-22] MEDS: LEVODOPA PO SCH ×2 (21:52)
[2017-07-22] MEDS: MUPIROCIN 2% TOPICAL OINTMENT FOR DECOLONIZATION NS SCH (21:53)
[2017-07-22] MEDS: QUEtiapine FUMARATE 25 MG TABLET (FP) PO SCH (21:53)
[2017-07-22] MEDS: CHLORHEXIDINE GLUCONATE 4% CLEANSER FOR DECOLONIZATION TP SCH (21:53)
[2017-07-22 23:37] LABS: BASOPHIL 0.2 % (0-2.0); MCH 30.5 pg (25.7-33.7); MCHC 35.3 g/dl (32.0-36.0); MEAN CELL VOLUME 86.4 fl (80-96); MEAN PLT VOLUME 9.6 fl (7.5-11.1); NEUTROPHILS 86.1 % (42.8-82.8); PLATELET COUNT 219 K/MM3 (134-434); RDW 14.4 % (11.6-15.6)
--- NOTE | 2017-07-23 01:08 | PN ---
Progress Note (short form) - Note Progress Note: Was signed out from the day team resident regarding patient's medical condition- GI bleed. Evaluated the patient, currently sleeping comfortably. DENTAL HYGIENE INSTRUCTOR notified that patients heart rate increased to 160's, had bright red blood per rectum, received total of three PRBC and 2 units of FFP. Vitals: BP: 90/71 mmHg MAP 78; HR- 140's; Afebrile A/P: Patient is a 62 year old Female with PMH significant for parkinsons disease ( bed bound as a result), A-Fib(s/p AICD; on xarelto), Non ischemic cardiomyopathy , CHF s/p AICD, and hypertension, who presented to the emergency department with the chief complaint of rectal bleeding x1 day. # Possible lower GI bleed Bright red blood per rectum Another PRBC ordered, she will receive total of 4 PRBC today. 2 FFP received Octreotide drip started. Will continue to monitor. Discussed with patients sister in the evening. 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 Kenna Dasilva [phone] Neurologist: Dr. Saul Espinoza [phone] Alfaro.
[2017-07-23] MEDS ORDERED: OCTREOTIDE ACETATE 1,200 MCG in DEXTROSE 5%-WATER - 488 ML IVPB SCH (01:15)
[2017-07-23] MEDS: OCTREOTIDE ACETATE 1,200 MCG in DEXTROSE 5%-WATER - 488 ML IVPB SCH (01:29)
[2017-07-23] MEDS ORDERED: SODIUM CHLORIDE 1,000 ML IV SCH (02:30)
--- NOTE | 2017-07-23 02:39 | HOSP ---
Subjective - Review of Symptoms Subjective: Saw pt. for GI Bleed, with decreased BP 40/60, repeat 90/60 - Pt. already on Sandostatin, Protonix gtt - STAT CBC and Coags, 2 FPP given Recieved total 4U PRBC and 2 FFP so far - STAT transfusion PRBCs - CT Angio pending will contact IR - GI Called awaiting call back - [address] L[address] in [address] - H/O consulted- Cryo ordered Repeat VS 91/61 HR 135 Rectal Exam: Maroon blood from rectum with clots in diaper Rest as per resident note Physical Examination Vital Signs: Vital Signs Temperature 98.5 F 07/22/17 22:00 Pulse Rate 125 H 07/22/17 22:00 Respiratory Rate 18 07/22/17 22:00 Blood Pressure 106/73 07/22/17 22:00 O2 Sat by Pulse Oximetry (%) 95 07/22/17 21:00 Labs: CBC, BMP 07/22/17 23:20
[2017-07-23 02:41] LABS: MCHC 34.7 g/dl (32.0-36.0); MEAN CELL VOLUME 86.4 fl (80-96); MEAN PLT VOLUME 9.4 fl (7.5-11.1); PLATELET COUNT 154 K/MM3 (134-434); RDW 13.8 % (11.6-15.6); WHITE BLOOD COUNT 8.2 K/mm3 (4.0-10.0)
[2017-07-23 02:54] LABS: INR 1.58 (0.82-1.09); PROTHROMBIN TIME (PATIENT) 17.5 SEC (9.98-11.88)
--- NOTE | 2017-07-23 04:39 | HOSP ---
Physical Examination Vital Signs: Vital Signs Temperature 97.8 F 07/23/17 02:00 Pulse Rate 122 H 07/23/17 04:00 Respiratory Rate 18 07/23/17 04:00 Blood Pressure 93/57 07/23/17 04:00 O2 Sat by Pulse Oximetry (%) 95 07/22/17 21:00 Labs: CBC, BMP 07/23/17 01:50 Hospitalist Encounter Assessment: At around 2:30 am, patient started having massive bleed-bright red blood per rectum with clots. She became hypotensive to 40/30mm Hg and HR 160's. After fluid resuscitation and additional 2PRBCs to 4 PRBC that patient had received earlier, patient's blood pressure improved to 80/90mm Hg with a MAP of 60. She stopped bleeding. Dr. Aguilar was called and informed. He recommended Hemonc to be on board. Call placed to Dr Bowens (Hemon) who recommended to give PCC. However, pharmacy doesn't carry PCC. Hence she recommended to give 1 bag of Cryoppt and to give another bag of cryoppt after [address] she bleeds. Dr. Bowens asked to let Dr. Aguilar know about the situation (not having PCC in the pharmacy). Call placed to Dr. Aguilar (as per Dr. Bowens) and conveyed the message from her that patient might need emergent IR guided or GI guided arterial embolization. Discussed with Dr. Alfaro. Visit type - Emergency Visit Emergency Visit: Yes ED Registration Date: 07/22/17 Care time: The patient presented to the Emergency Department on the above date and was hospitalized for further evaluation of their emergent condition. - New Patient This patient is new to me today: Yes Date on this admission: 07/23/17 - Critical Care Critical Care patient: No
--- NOTE | 2017-07-23 05:52 | PROC ---
Central Line Insertion Indication: Poor Venous Access Risks and Benefits Explained: Yes Consent on Chart: Yes (Sister over phone, Corinne) Central Line: Other (Introducter 10ga. 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 Placed without incident
[2017-07-23 06:24] LABS: MCH 30.6 pg (25.7-33.7); MCHC 35.4 g/dl (32.0-36.0); MEAN CELL VOLUME 86.3 fl (80-96); MEAN PLT VOLUME 9.6 fl (7.5-11.1); PLATELET COUNT 133 K/MM3 (134-434); RDW 13.7 % (11.6-15.6); WHITE BLOOD COUNT 9.8 K/mm3 (4.0-10.0)
[2017-07-23 06:41] LABS: INR 1.41 (0.82-1.09); PROTHROMBIN TIME (PATIENT) 15.6 SEC (9.98-11.88)
[2017-07-23 06:44] LABS: ACTIVATED PTT 24.7 SECONDS (26.9-34.4)
[2017-07-23 06:51] LABS: ALBUMIN 2.1 g/dl (3.4-5.0); ALK PHOS 70 U/L (45-117); ANION GAP 9 (8-16); BILIRUBIN,TOTAL 2.3 mg/dL (0.2-1.0); CO2 24 mmol/L (21-32); CREATININE 0.4 mg/dL (0.55-1.02); GLUCOSE,RANDOM 168 mg/dL (74-106); MAGNESIUM 1.7 mg/dL (1.8-2.4); SGOT/AST 18 U/L (15-37); SGPT/ALT < 6 U/L (12-78); TOT PROT 3.9 g/dl (6.4-8.2)
[2017-07-23 07:02] LABS: CALCIUM 6.3 mg/dL (8.5-10.1)
--- NOTE | 2017-07-23 07:52 | PN ---
Physical Exam: 24H Events: -RIJ placed 07/23 -s/p 6U PRBC, 2x FFP, 1x cryo SUBJECTIVE: Patient seen and examined in ICU. Poor verbal expression, and difficult to understand. States "no" when asked if having any abdominal pain, nausea, SOB or chest pain. OBJECTIVE: Vital Signs Period Temp Pulse Resp BP Sys/German Pulse Ox Last 24 Hr 96.8 F-98.5 F 116-153 18-22 60-106/30-75 95-100 Intake & Output 07/20/17 07/21/17 07/22/17 07/23/17 23:59 23:59 23:59 23:59 Intake Total 1450 5291.6 Balance 1450 5291.6 Weight 51.256 kg 47.854 kg GENERAL: The patient is awake, alert and interactive. some confusion, nad EYES: sclera anicteric, conjunctiva clear ENT: moist mucous membranes LUNGS: CTAB, no wheezes, rales or crackles HEART: tachycardic, normal rhythm, normal S1/S2, no murmur, rub or gallop ABDOMEN: Soft, ntnd EXTREMITIES: 2+ pulses, warm, well-perfused, no LE edema NEUROLOGICAL: UE rigidity SKIN: Warm, dry, normal turgor CBC, BMP 07/23/17 06:00 07/23/17 06:00 Laboratory Tests 07/22/17 07/23/17 07/23/17 23:20 01:50 06:00 Hgb 8.1 L D 8.6 L 10.8 D Laboratory Results - last 24 hr 07/22/17 07/22/17 07/22/17 08:02 08:02 08:02 WBC 8.1 D RBC 3.86 Hgb 11.6 Hct 35.1 MCV 90.8 MCH 30.1 MCHC 33.1 RDW 13.4 Plt Count 285 D MPV 9.5 Neutrophils % 77.1 Lymphocytes % 12.5 Monocytes % 6.7 Eosinophils % 3.2 D Basophils % 0.5 PT with INR 19.90 H INR 1.79 H D PTT (Actin FS) 32.5 Sodium 141 Potassium 3.6 Chloride 106 Carbon Dioxide 30 Anion Gap 5 L BUN 32 H D Creatinine 0.4 L D Creat Clearance w eGFR > 60 Random Glucose 115 H D Lactic Acid Calcium 8.8 Phosphorus Magnesium Total Bilirubin 0.3 AST 32 D ALT 14 D Alkaline Phosphatase 155 H D Total Protein 6.4 Albumin 2.9 L Blood Type Antibody Screen Crossmatch Spec Expiration Date 07/22/17 07/22/17 07/22/17 08:02 08:02 08:26 WBC RBC Hgb Hct MCV MCH MCHC RDW Plt Count MPV Neutrophils % Lymphocytes % Monocytes % Eosinophils % Basophils % PT with INR INR PTT (Actin FS) Sodium Potassium Chloride Carbon Dioxide Anion Gap BUN Creatinine Creat Clearance w eGFR Random Glucose Lactic Acid 2.4 H* Calcium Phosphorus Magnesium Total Bilirubin AST ALT Alkaline Phosphatase Total Protein Albumin Blood Type A POSITIVE A POSITIVE Antibody Screen Negative Cancelled Crossmatch See Detail See Detail Spec Expiration Date Cancelled 07/22/17 07/22/17 07/22/17 12:00 17:20 23:20 WBC 15.0 H D 10.0 D RBC 4.15 2.66 L D Hgb 12.6 8.1 L D Hct 36.2 23.0 L D MCV 87.3 86.4 MCH 30.3 30.5 MCHC 34.7 35.3 RDW 14.5 14.4 Plt Count 290 219 D MPV 9.5 9.6 Neutrophils % 86.1 H Lymphocytes % 7.2 L D Monocytes % 6.5 Eosinophils % 0.0 D Basophils % 0.2 PT with INR INR PTT (Actin FS) Sodium Potassium Chloride Carbon Dioxide Anion Gap BUN Creatinine Creat Clearance w eGFR Random Glucose Lactic Acid 2.0 Calcium Phosphorus Magnesium Total Bilirubin AST ALT Alkaline Phosphatase Total Protein Albumin Blood Type Antibody Screen Crossmatch Spec Expiration Date 07/23/17 07/23/17 07/23/17 01:50 01:50 06:00 WBC 8.2 RBC 2.85 L Hgb 8.6 L Hct 24.6 L MCV 86.4 MCH 30.0 MCHC 34.7 RDW 13.8 Plt Count 154 D MPV 9.4 Neutrophils % Lymphocytes % Monocytes % Eosinophils % Basophils % PT with INR 17.50 H 15.60 H INR 1.58 H 1.41 H PTT (Actin FS) 30.0 24.7 L Sodium Potassium Chloride Carbon Dioxide Anion Gap BUN Creatinine Creat Clearance w eGFR Random Glucose Lactic Acid Calcium Phosphorus Magnesium Total Bilirubin AST ALT Alkaline Phosphatase Total Protein Albumin Blood Type Antibody Screen Crossmatch Spec Expiration Date 07/23/17 07/23/17 06:00 06:00 WBC 9.8 RBC 3.53 L D Hgb 10.8 D Hct 30.4 L D MCV 86.3 MCH 30.6 MCHC 35.4 RDW 13.7 Plt Count 133 L MPV 9.6 Neutrophils % Lymphocytes % Monocytes % Eosinophils % Basophils % PT with INR INR PTT (Actin FS) Sodium 151 H Potassium 3.4 L Chloride 118 H D Carbon Dioxide 24 Anion Gap 9 BUN 44 H D Creatinine 0.4 L Creat Clearance w eGFR > 60 Random Glucose 168 H D Lactic Acid Calcium 6.3 L* D Phosphorus 3.0 Magnesium 1.7 L Total Bilirubin 2.3 H D AST 18 D ALT < 6 L D Alkaline Phosphatase 70 D Total Protein 3.9 L D Albumin 2.1 L D Blood Type Antibody Screen Crossmatch Spec Expiration Date Imaging: ECHO 07/23/17: The study was technically limited. No regional wall motion abnormalities noted. There is mild MR, mild TR, elevated R ventricular systolic pressure at 30-40mmHg. Mild Pulm hypertension with pace maker lead in R ventricle. No pericardial effusion. Abdominal/pelvis CTA 07/23/17: No CTA e/o acute upper or lower GIB. Large amount of stool throughout colon particularly in the rectum which demonstrates significant wall thickening, hyperemia, and perirectal edema. Active Medications Calcium Gluconate (Calcium Gluconate 10% -) 1,000 mg IVPB ONCE ONE Stop: 07/23/17 07:29 Carbidopa/Levodopa (Sinemet 25/100 -) 1 each PO QID JOE Last Admin: 07/22/17 21:53 Dose: 1 each Chlorhexidine Gluconate (Hibiclens For Decolonization -) 1 applic TP HS JOE Last Admin: 07/22/17 21:53 Dose: 1 applic Collagenase (Santyl -) 1 applic TP DAILY JOE Last Admin: 07/22/17 16:36 Dose: Not Given Pantoprazole Sodium 80 mg/ (Sodium Chloride) 100 mls @ 10 mls/hr IVPB Q10H JOE PRN Reason: 8 MG/HR Last Admin: 07/22/17 16:54 Dose: 10 mls/hr Octreotide Acetate 1,200 mcg/ (Dextrose) 500 mls @ 20.83 mls/hr IVPB ASDIR JOE ; 50 MCG/HR PRN Reason: Protocol Last Admin: 07/23/17 01:29 Dose: 20.83 mls/hr Sodium Chloride (1/2 Normal Saline) 1,000 mls @ 150 mls/hr IV ASDIR [facility] Magnesium Sulfate (Magnesium Sulfate) 1 gm IVPB ONCE ONE Stop: 07/23/17 07:57 Metoprolol Succinate (Toprol Xl -) 50 mg PO DAILY [facility] Mupirocin (Bactroban Ointment (For Decolonization) -) 1 applic NS BID [facility] Stop: 07/27/17 21:59 Last Admin: 07/22/17 21:53 Dose: 1 applic Ptt's Own Med( Carbidopa/Levodopa [ Rytary Er 23.75 Mg- 95 Mg Cap 4 each PO QID [facility] Last Admin: 07/22/17 21:52 Dose: 4 each Ptnt's Own Med (Non- Formulary) ( Carbidopa/Levodopa [ Rytary Er 36.25 Mg- 145 Mg Ca 4 each PO QID [facility] Last Admin: 07/22/17 21:52 Dose: 4 each Ptnt's Own Med( Pimavanserin Tartrate [Nuplazid] 34 Mg) 34 mg PO DAILY [facility] Ptnt's Own Med ( Rasagiline Mesylate [Azilect] 1 Mg) 1 mg PO DAILY [facility] Ptnt's Own Med( Rotigotine [Neupro] 1 Each) 1 each TD DAILY [facility] Olanzapine (Zyprexa -) 2.5 mg PO DAILY [facility] Quetiapine Fumarate (Seroquel -) 25 mg PO BID [facility] Last Admin: 07/22/17 21:53 Dose: 25 mg ASSESSMENT/PLAN: 62yo woman with PMH of PD (bed bound), A-Fib (s/p AICD; on xarelto, last dose 7:30pm), non-ischemic cardiomyopathy, CHF s/p AICD, and HTN who presented to the emergency department yesterday with PRBPR x1day. Patient was transferred to ICU overnight for hypovolemia and rectal bleeding. Abdominal/pelvis CTA this morning did not reveal any e/o acute bleed. Patient to have EGD and colonoscopy tomorrow for further assessment of bleeding source. #GI -GI following -Tagged RBC nuclear scan pending -EGD/Colonoscopy planned for tomorrow -Continue octreotide and pantoprazole gtt #Heme -Heme/Onc following -Hold home Xarelto -Monitor H&H q6H, transfuse 1U if hgb<7, -Give plts if <100K #CV -Cardiology following, per recommendations: -continue Metoprolol if BP permits -hold home losartan, lasix #Neuro -Continue home meds #Pulm -NC O2 therapy PRN, maintain pSaO2 >90% #FEN -D5 1/2NS with 40mEq KCl -Monitor lytes daily: s/p Mg sulfate 2gm IVPB and 10%Ca gluconate IVPB repletion this AM -NPO #PPX -DVT - SCDs only 2/2 to acute bleeding -GI - on protonix gtt #Dispo -FULL code -Continue ICU monitoring d/w with ICU attending Dr. Joshua Lisa MD PGY-1 Visit type - Emergency Visit Emergency Visit: No - New Patient This patient is new to me today: Yes Date on this admission: 07/23/17 - Critical Care Critical Care patient: Yes Total Critical Care Time (in minutes): 35 Critical Care Statement: The care of this patient involved high complexity decision making to prevent further life threatening deterioration of the patient 's condition and/or to evaluate & treat vital organ system(s) failure or risk of failure.
[2017-07-23] MEDS ORDERED: SODIUM CHLORIDE 0.45% 1,000 ML IV SCH (08:00)
[2017-07-23] MEDS ORDERED: CALCIUM GLUCONATE 10% - 1,000 MG/10 ML VIAL IVPB ONE (08:30)
[2017-07-23] MEDS ORDERED: LACTATED RINGERS SOLUTION 1,000 ML IV SCH (08:45)
[2017-07-23] MEDS ORDERED: MAGNESIUM SULF 50% (8.12 MEQ/2 ML-1 GM VIAL) IVPB ONE ×2 (09:30)
[2017-07-23] MEDS: CARBIDOPA PO SCH ×8 (09:51→21:06)
[2017-07-23] MEDS: LEVODOPA PO SCH ×8 (09:51→21:06)
[2017-07-23] MEDS: PANTOPRAZOLE SODIUM 80 MG in SODIUM CHLORIDE 100 ML IVPB SCH ×3 (09:51→21:00)
[2017-07-23] MEDS: [UNRECOGNIZED DRUG - OTHER] PO SCH (09:52)
[2017-07-23] MEDS: CARBIDOPA/LEVODOPA 25/100 TABLET (FP) PO SCH ×4 (09:52→21:06)
[2017-07-23] MEDS: QUEtiapine FUMARATE 25 MG TABLET (FP) PO SCH ×2 (09:52→21:06)
[2017-07-23] MEDS: OLANZapine 2.5 MG TABLET PO SCH (09:52)
[2017-07-23] MEDS: [UNRECOGNIZED DRUG - OTHER] TD SCH ×2 (09:52→18:36)
[2017-07-23] MEDS: [UNRECOGNIZED DRUG - OTHER] PO SCH (09:52)
[2017-07-23] MEDS: METOPROLOL SUCCINATE 50 MG TAB.SR.24H (FP) PO SCH (09:52)
[2017-07-23] MEDS: MUPIROCIN 2% TOPICAL OINTMENT FOR DECOLONIZATION NS SCH ×2 (09:53→21:06)
[2017-07-23] MEDS ORDERED: PT OWN MED DRAWER 7, Y5N ONE ×2 (09:55→18:32)
--- NOTE | 2017-07-23 09:59 | PN ---
Progress Note, Physician History of Present Illness: Patient seen and examined at bedside. Patient is able to speak but it is difficult for her to form coherent words and phrases. She is resting comfortably in no acute distress. - Current Medication List Current Medications: Active Medications Carbidopa/Levodopa (Sinemet 25/100 -) 1 each PO QID [facility] Last Admin: 07/22/17 21:53 Dose: 1 each Chlorhexidine Gluconate (Hibiclens For Decolonization -) 1 applic TP HS [facility] Last Admin: 07/22/17 21:53 Dose: 1 applic Pantoprazole Sodium 80 mg/ (Sodium Chloride) 100 mls @ 10 mls/hr IVPB Q10H JOE PRN Reason: 8 MG/HR Last Admin: 07/22/17 16:54 Dose: 10 mls/hr Octreotide Acetate 1,200 mcg/ (Dextrose) 500 mls @ 20.83 mls/hr IVPB ASDIR JOE ; 50 MCG/HR PRN Reason: Protocol Last Admin: 07/23/17 01:29 Dose: 20.83 mls/hr Lactated Ringer's (Lactated Ringers Solution) 1,000 mls @ 150 mls/hr IV ASDIR [facility] Last Admin: 07/23/17 09:23 Dose: 150 mls/hr Metoprolol Succinate (Toprol Xl -) 50 mg PO DAILY [facility] Mupirocin (Bactroban Ointment (For Decolonization) -) 1 applic NS BID [facility] Stop: 07/27/17 21:59 Last Admin: 07/22/17 21:53 Dose: 1 applic Ptt's Own Med( Carbidopa/Levodopa [ Rytary Er 23.75 Mg- 95 Mg Cap 4 each PO QID [facility] Last Admin: 07/22/17 21:52 Dose: 4 each Ptnt's Own Med (Non- Formulary) ( Carbidopa/Levodopa [ Rytary Er 36.25 Mg- 145 Mg Ca 4 each PO QID [facility] Last Admin: 07/22/17 21:52 Dose: 4 each Ptnt's Own Med( Pimavanserin Tartrate [Nuplazid] 34 Mg) 34 mg PO DAILY [facility] Ptnt's Own Med ( Rasagiline Mesylate [Azilect] 1 Mg) 1 mg PO DAILY [facility] Ptnt's Own Med( Rotigotine [Neupro] 1 Each) 1 each TD DAILY [facility] Olanzapine (Zyprexa -) 2.5 mg PO DAILY [facility] Quetiapine Fumarate (Seroquel -) 25 mg PO BID [facility] Last Admin: 07/22/17 21:53 Dose: 25 mg - Objective Vital Signs: Vital Signs Temperature 98.5 F 07/23/17 06:00 Pulse Rate 123 H 07/23/17 08:00 Respiratory Rate 18 07/23/17 08:00 Blood Pressure 88/50 07/23/17 08:00 O2 Sat by Pulse Oximetry (%) 95 07/22/17 21:00 Constitutional: Yes: No Distress, Calm Eyes: Yes: Conjunctiva Clear, EOM Intact HENT: Yes: Atraumatic, Normocephalic Neck: Yes: Supple, Trachea Midline Cardiovascular: Yes: Tachycardia, S1, S2 Respiratory: Yes: Regular, CTA Bilaterally Gastrointestinal: Yes: Normal Bowel Sounds, Soft, Melena (Noted in diaper), Rectal Bleeding ...Rectal Exam: Yes: Guaiac Positive Extremities: Yes: WNL Edema: No Peripheral Pulses WNL: Yes Psychiatric: Yes: Alert, Oriented Labs: CBC, BMP 07/23/17 06:00 07/23/17 06:00 INR, PTT INR 1.41 (0.82-1.09) H 07/23/17 06:00 CBC,CMP WBC 9.8 K/mm3 (4.0-10.0) 07/23/17 06:00 RBC 3.53 M/mm3 (3.60-5.2) L D 07/23/17 06:00 Hgb 10.8 GM/dL (10.7-15.3) D 07/23/17 06:00 Hct 30.4 % (32.4-45.2) L D 07/23/17 06:00 MCV 86.3 fl (80-96) 07/23/17 06:00 MCH 30.6 pg (25.7-33.7) 07/23/17 06:00 MCHC 35.4 g/dl (32.0-36.0) 07/23/17 06:00 RDW 13.7 % (11.6-15.6) 07/23/17 06:00 Plt Count 133 K/MM3 (134-434) L 07/23/17 06:00 MPV 9.6 fl (7.5-11.1) 07/23/17 06:00 Neutrophils % 86.1 % (42.8-82.8) H 07/22/17 23:20 Lymphocytes % 7.2 % (8-40) L D 07/22/17 23:20 Monocytes % 6.5 % (3.8-10.2) 07/22/17 23:20 Eosinophils % 0.0 % (0-4.5) D 07/22/17 23:20 Basophils % 0.2 % (0-2.0) 07/22/17 23:20 Sodium 151 mmol/L (136-145) H 07/23/17 06:00 Potassium 3.4 mmol/L (3.5-5.1) L 07/23/17 06:00 Chloride 118 mmol/L (98-107) H D 07/23/17 06:00 Carbon Dioxide 24 mmol/L (21-32) 07/23/17 06:00 Anion Gap 9 (8-16) 07/23/17 06:00 BUN 44 mg/dL (7-18) H D 07/23/17 06:00 Creatinine 0.4 mg/dL (0.55-1.02) L 07/23/17 06:00 Creat Clearance w eGFR > 60 (>60) 07/23/17 06:00 Random Glucose 168 mg/dL (74-106) H D 07/23/17 06:00 Lactic Acid 2.0 mmol/L (0.4-2.0) 07/22/17 12:00 Calcium 6.3 mg/dL (8.5-10.1) L* D 07/23/17 06:00 Phosphorus 3.0 mg/dL (2.5-4.9) 07/23/17 06:00 Magnesium 1.7 mg/dL (1.8-2.4) L 07/23/17 06:00 Total Bilirubin 2.3 mg/dL (0.2-1.0) H D 07/23/17 06:00 AST 18 U/L (15-37) D 07/23/17 06:00 ALT < 6 U/L (12-78) L D 07/23/17 06:00 Alkaline Phosphatase 70 U/L (45-117) D 07/23/17 06:00 Total Protein 3.9 g/dl (6.4-8.2) L D 07/23/17 06:00 Albumin 2.1 g/dl (3.4-5.0) L D 07/23/17 06:00 - ....Imaging Chest X-ray: Image Reviewed (No acute chest pathology) Cat Scan: Image Reviewed Problem List - Problems (1) Anticoagulant-induced bleeding Code(s): T45.7X1A - POISN BY ANTICOAG ANTAG, VITAMIN K AND OTH COAG, ACC, INIT D68.9 - COAGULATION DEFECT, UNSPECIFIED (2) Atrial fibrillation Code(s): I48.91 - UNSPECIFIED ATRIAL FIBRILLATION (3) GI bleed Code(s): K92.2 - GASTROINTESTINAL HEMORRHAGE, UNSPECIFIED Assessment/Plan 62 year old female with multiple past medical problems presents for hematochezia likely 2/2 xarelto use -patient is still having guiac positive, black stools -NGT inserted and revealed bilious return with no evidence of acute bleeding -Dr. Villanueva will defer EGD until tomorrow -consent for EGD/colonoscopy was obtained by Dr. Villanueva -obtain bleeding scan. suspect bleeding from R colon -Hgb stable at 10.8 and blood pressure MAP of 75 -retained stool in colon, stool softeners and disimpaction recommended -f/u report of CTA abdomen -octreotide is running -supportive care -correct electrolytes
[2017-07-23] MEDS ORDERED: METOPROLOL SUCCINATE 50 MG TAB.SR.24H (FP) PO SCH (10:00)
--- NOTE | 2017-07-23 11:59 | PN ---
<Agaba,Comfort I - Last Filed: 07/23/17 16:32> Physical Exam: SUBJECTIVE: Patient seen and examined. Received 1 cryoptt, 2 FFPs, 6PRBC since presentation. Severe hypotension improved since morning. Had CT scan today. OBJECTIVE: Vital Signs Period Temp Pulse Resp BP Sys/German Pulse Ox Last 24 Hr 96.8 F-98.5 F 118-153 18-22 60-106/30-75 95-97 GENERAL: Awake, alert, some confusion, memory loss and difficult verbal expression at baseline, in no acute respiratory distress. HEAD: Normal with no signs of trauma. EYES: Pupils equal, round and reactive to light, extraocular movements intact, sclera anicteric, conjunctiva clear. No lid lag. EARS, NOSE, THROAT: Nares patent, some redness seen around the opening of the nostrils, oropharynx clear without exudates, no evidence of bleeding in mouth NECK: No JVD. LUNGS: Breath sounds equal, clear to auscultation bilaterally. No wheezes, and no crackles. No accessory muscle use. HEART: Regular rate and rhythm, normal S1 and S2 without murmur, rub or gallop. ABDOMEN: Soft, nontender, not distended, normoactive bowel sounds, no guarding, no rebound, no masses. No hepatomegaly or splenomegaly. TANJA : Diaper now melena stools, no more macy blood, with impacted feces palpated within the rectum. MUSCULOSKELETAL: Normal range of motion at all joints. No bony deformities or tenderness. No CVA tenderness. UPPER EXTREMITIES: 2+ pulses, warm, well-perfused. No cyanosis. No clubbing. No peripheral edema. LOWER EXTREMITIES: 2+ pulses, warm, well-perfused. No calf tenderness. No peripheral edema. Pressure point on left sole NEUROLOGICAL: Hypertonia with rigidity in upper limbs. Babinski- upward bilaterally. PSYCHIATRIC: Cooperative. Good eye contact. Some confusion, memory loss and difficult verbal expression Laboratory Results - last 24 hr Laboratory Tests 07/22/17 07/23/17 07/23/17 23:20 01:50 06:00 Hgb 8.1 L D 8.6 L 10.8 D 07/23/17 12:27 Hgb 9.0 L D Laboratory Tests 07/23/17 07/23/17 06:00 12:27 Sodium 151 H 150 H Potassium 3.4 L 3.3 L ECHO: The study was technically limited. No regional wall motion abnormalities noted. There is mild MR, mild TR, elevated R ventricular systolic pressure at 30 -40mmHg. Mild Pulm hypertension with pace maker lead in R ventricle. No pericardial effusion. 07/22/17 07/22/17 07/22/17 12:00 17:20 23:20 WBC 15.0 H D 10.0 D RBC 4.15 2.66 L D Hgb 12.6 8.1 L D Hct 36.2 23.0 L D MCV 87.3 86.4 MCH 30.3 30.5 MCHC 34.7 35.3 RDW 14.5 14.4 Plt Count 290 219 D MPV 9.5 9.6 Neutrophils % 86.1 H Lymphocytes % 7.2 L D Monocytes % 6.5 Eosinophils % 0.0 D Basophils % 0.2 PT with INR INR PTT (Actin FS) Sodium Potassium Chloride Carbon Dioxide Anion Gap BUN Creatinine Creat Clearance w eGFR Random Glucose Lactic Acid 2.0 Calcium Phosphorus Magnesium Total Bilirubin AST ALT Alkaline Phosphatase Total Protein Albumin 07/23/17 07/23/17 07/23/17 01:50 01:50 06:00 WBC 8.2 RBC 2.85 L Hgb 8.6 L Hct 24.6 L MCV 86.4 MCH 30.0 MCHC 34.7 RDW 13.8 Plt Count 154 D MPV 9.4 Neutrophils % Lymphocytes % Monocytes % Eosinophils % Basophils % PT with INR 17.50 H 15.60 H INR 1.58 H 1.41 H PTT (Actin FS) 30.0 24.7 L Sodium Potassium Chloride Carbon Dioxide Anion Gap BUN Creatinine Creat Clearance w eGFR Random Glucose Lactic Acid Calcium Phosphorus Magnesium Total Bilirubin AST ALT Alkaline Phosphatase Total Protein Albumin 07/23/17 07/23/17 06:00 06:00 WBC 9.8 RBC 3.53 L D Hgb 10.8 D Hct 30.4 L D MCV 86.3 MCH 30.6 MCHC 35.4 RDW 13.7 Plt Count 133 L MPV 9.6 Neutrophils % Lymphocytes % Monocytes % Eosinophils % Basophils % PT with INR INR PTT (Actin FS) Sodium 151 H Potassium 3.4 L Chloride 118 H D Carbon Dioxide 24 Anion Gap 9 BUN 44 H D Creatinine 0.4 L Creat Clearance w eGFR > 60 Random Glucose 168 H D Lactic Acid Calcium 6.3 L* D Phosphorus 3.0 Magnesium 1.7 L Total Bilirubin 2.3 H D AST 18 D ALT < 6 L D Alkaline Phosphatase 70 D Total Protein 3.9 L D Albumin 2.1 L D Active Medications Generic Name Dose Route Start Last Admin Trade Name Radha PRN Reason Stop Dose Admin Carbidopa/Levodopa 1 each 07/22/17 14:00 07/23/17 09:52 Sinemet 25/100 - PO Not Given QID JOE Chlorhexidine Gluconate 1 applic 07/22/17 22:00 07/22/17 21:53 Hibiclens For Decolonization - TP 1 applic HS JOE Administration Pantoprazole Sodium 80 mg/ 100 mls @ 10 mls/hr 07/22/17 13:30 07/23/17 09:51 Sodium Chloride IVPB Not Given Q10H JOE 8 MG/HR Octreotide Acetate 1,200 mcg/ 500 mls @ 20.83 mls/hr 07/23/17 01:15 07/23/17 01 :29 Dextrose IVPB 20.83 mls/hr ASDIR JOE Administration Protocol 50 MCG/HR Lactated Ringer's 1,000 mls @ 150 mls/hr 07/23/17 08:45 07/23/17 09:23 Lactated Ringers Solution IV 150 mls/hr ASDIR JOE Administration Metoprolol Succinate 50 mg 07/23/17 10:00 07/23/17 09:52 Toprol Xl - PO Not Given DAILY JOE Mupirocin 1 applic 07/22/17 22:00 07/23/17 09:53 Bactroban Ointment (For Decolonization) - NS 07/27/17 21:59 1 applic BID JOE Administration Ptt's Own Med( 4 each 07/22/17 14:00 07/23/17 09:51 Carbidopa/Levodopa [ PO Not Given Rytary Er 23.75 Mg- QID JOE 95 Mg Cap Ptnt's Own Med (Non- 4 each 07/22/17 14:00 07/23/17 09:51 Formulary) ( PO Not Given Carbidopa/Levodopa [ QID JOE Rytary Er 36.25 Mg- 145 Mg Ca Ptnt's Own Med( 34 mg 07/23/17 10:00 07/23/17 09:52 Pimavanserin PO Not Given Tartrate [Nuplazid] DAILY [facility] 34 Mg) Ptnt's Own Med ( 1 mg 07/23/17 10:00 07/23/17 09:52 Rasagiline Mesylate PO Not Given [Azilect] 1 Mg) DAILY JOE Ptnt's Own Med( 1 each 07/23/17 10:00 07/23/17 09:52 Rotigotine [Neupro] TD Not Given 1 Each) DAILY [facility] Olanzapine 2.5 mg 07/23/17 10:00 07/23/17 09:52 Zyprexa - PO Not Given DAILY [facility] Quetiapine Fumarate 25 mg 07/22/17 22:00 07/23/17 09:52 Seroquel - PO Not Given BID [facility] ASSESSMENT/PLAN: #Upper GI bleeding R/O Lower GI bleed: Currently having more of melena stools Received 1 cryoptt, 2 FFPs, 6PRBC since presentation Hold xarelto IV pantoprazole 40mg stat On octreotide Follow CBC GI consulted- -retained stool in colon, stool softeners and disimpaction recommended #Pressure point Left sole: Foot padding Frequent turns #Hypernatremia Stop IVF N/saline Give D5in 1/2 Normal saline- per critical care team Follow BMP- #Hypomagnesemia Iv Magnesium sulphate 2 gm once #Afib: Hold Xarelto for now- per Cardio Reduce metoprolol to 50mg XL Cardiology consulted- recommended to continue metoprolol if the BP permits #Parkinsons disease: Currently immobile with some difficult to comprehend speech' In diapers- continue Carbidopa/Levodopa- hold for now Continue Collagenase Clostridium Hist. Continue Mupirocin Cream Continue Rasagiline Mesylate Rotigotine [Neupro] #Psychosis Continue Pimavanserin Tartrate [Nuplazid] Continue Olanzapine #CHF No signs of failure Hold spironolactone for now Hold Losartan Potassium for now Hold Furosemide PO for now To continue Metoprolol per cardio if BP permits Strict ins and outs #NICM Hold spironolactone for now Hold Losartan Potassium for now Pace maker in R ventricle #FEN: Iv Normal saline Continue [place] oral fluids CBC NPO for now #Prophylaxis: DVT: SCD Heparin contraindicated due to current bleed GI: Pepcid #Dispo: Admit ICU -f/u report of CTA abdomen -supportive care Visit type - Emergency Visit Emergency Visit: Yes ED Registration Date: 07/22/17 Care time: The patient presented to the Emergency Department on the above date and was hospitalized for further evaluation of their emergent condition. - New Patient This patient is new to me today: No - Critical Care Critical Care patient: Yes Total Critical Care Time (in minutes): 40 Critical Care Statement: The care of this patient involved high complexity decision making to prevent further life threatening deterioration of the patient 's condition and/or to evaluate & treat vital organ system(s) failure or risk of failure. - Discharge Referral Referred to [facility] No <Precious Ambrocio - Last Filed: 07/24/17 08:07> Physical Exam: Assessment: correction: Acute GIB upper vs lower.
--- NOTE | 2017-07-23 12:16 | CONSULT ---
- Consultation REQUESTING PROVIDER: Radha YORK CONSULT REQUEST: We have been asked to surgically evaluate this patient for GI bleeding PCP:Precious Ambrocio HISTORY OF PRESENT ILLNESS: ELMIRA who is a 62 y/o W/female wheelchair bound/bed bound for the past # years due to progressive Parkinsons disease; she was found to have BRBPR earlier yesterday prior to xfer to the ER; hx. obtained from family; received 6 units PRBC's ? since admission. PMHx: reviewed PSHx: b/l TKR; AICD placement Home Medications Medication Instructions Recorded Ascorbic Acid [Vitamin C] 250 mg PO DAILY 07/22/17 Ca/D3/Mag#11/Zinc/Travel Insurance Agent/Dre/Bor 2 each PO DAILY 07/22/17 [Caltrate 600+D Plus Tablet] Carbidopa/Levodopa 1 each PO QID 07/22/17 [Carbidopa-Levodopa 25-100 Tab] Carbidopa/Levodopa [Rytary ER 4 each PO QID 07/22/17 23.75 mg-95 mg Cap] Carbidopa/Levodopa [Rytary ER 4 each PO QID 07/22/17 36.25 mg-145 mg Cap] Collagenase Clostridium Hist. 90 gm TP DAILY 07/22/17 [Santyl] Furosemide 20 mg PO DAILY 07/22/17 Iron 65 mg PO DAILY 07/22/17 Losartan Potassium 25 mg PO DAILY 07/22/17 Melatonin 3 mg PO DAILY 07/22/17 Metoprolol Succinate [Toprol Xl] 100 mg PO DAILY 07/22/17 Multivitamin [Zoo Chews] 1 each PO DAILY 07/22/17 Mupirocin Cream [Bactroban 2% 1 applic TP DAILY 07/22/17 Cream -] Olanzapine 2.5 mg PO DAILY 07/22/17 Patient's Own Medication 1 each PO DAILY 07/22/17 [Patient's Own Med (Nf) -] Pimavanserin Tartrate [Nuplazid] 34 mg PO DAILY 07/22/17 Quetiapine Fumarate [Seroquel -] 25 mg PO BID 07/22/17 Rasagiline Mesylate [Azilect] 1 mg PO DAILY 07/22/17 Rivaroxaban [Xarelto -] 20 mg PO DAILY 07/22/17 Rotigotine [Neupro] 1 each TD DAILY 07/22/17 Spironolactone 25 mg PO DAILY 07/22/17 Zinc 50 mg PO DAILY 07/22/17 Allergies Allergy/AdvReac Type Severity Reaction Status Date / Time No Known Allergies Allergy Verified 07/22/17 07:42 ROS: obtained from family PHYSICAL EXAM: GENERAL: Awake, alert, and not oriented, in no acute distress. HEAD: Normal with no signs of trauma. EYES: sclera anicteric, conjunctiva clear. ABDOMEN: Soft, nontender, not distended, normoactive bowel sounds, no guarding, no rebound, no masses. No organomegaly. NO hernias; no scars UPPER EXTREMITIES: 2+ pulses, warm, well-perfused. No cyanosis. Cap refill <2 seconds. No peripheral edema. LOWER EXTREMITIES: 2+ pulses, warm, well-perfused. No calf tenderness. No peripheral edema. NEUROLOGICAL: gait not observed. RECTAL: No mass; dark stool; no fresh blood SKIN: Warm, dry, normal turgor, no rashes or lesions noted. Vital Signs Temperature 98.3 F 07/23/17 10:00 Pulse Rate 118 H 07/23/17 11:57 Respiratory Rate 18 07/23/17 11:57 Blood Pressure 90/66 07/23/17 11:57 O2 Sat by Pulse Oximetry (%) 95 07/22/17 21:00 Lab Results WBC 9.8 K/mm3 (4.0-10.0) 07/23/17 06:00 RBC 3.53 M/mm3 (3.60-5.2) L D 07/23/17 06:00 Hgb 10.8 GM/dL (10.7-15.3) D 07/23/17 06:00 Hct 30.4 % (32.4-45.2) L D 07/23/17 06:00 MCV 86.3 fl (80-96) 07/23/17 06:00 MCHC 35.4 g/dl (32.0-36.0) 07/23/17 06:00 RDW 13.7 % (11.6-15.6) 07/23/17 06:00 Plt Count 133 K/MM3 (134-434) L 07/23/17 06:00 Sodium 151 mmol/L (136-145) H 07/23/17 06:00 Potassium 3.4 mmol/L (3.5-5.1) L 07/23/17 06:00 Chloride 118 mmol/L (98-107) H D 07/23/17 06:00 Carbon Dioxide 24 mmol/L (21-32) 07/23/17 06:00 Anion Gap 9 (8-16) 07/23/17 06:00 BUN 44 mg/dL (7-18) H D 07/23/17 06:00 Creatinine 0.4 mg/dL (0.55-1.02) L 07/23/17 06:00 Random Glucose 168 mg/dL (74-106) H D 07/23/17 06:00 Calcium 6.3 mg/dL (8.5-10.1) L* D 07/23/17 06:00 Blood Type A POSITIVE 07/22/17 08:26 Antibody Screen Negative 07/22/17 08:02 INR 1.41 (0.82-1.09) H 07/23/17 06:00 CTA a/p done; results pending IMP: GIB PLAN: Continue present tx; asper GI/primary care team; will f/u; pt will have NGT inserted and have EGD and/or colonoscopy; d/w family. Hans Rodriguez MD FACS Visit type - Case Type Case Type: ED Admission - Emergency Emergency Visit: Yes ED Registration Date: 07/22/17 Care time: The patient presented to the Emergency Department on the above date and was hospitalized for further evaluation of their emergent condition. - New patient This patient is new to me today: Yes Date on this admission: 07/23/17 - Critical Care Total Critical Care Time: 20
[2017-07-23 12:40] LABS: MCH 30.6 pg (25.7-33.7); MCHC 36.1 g/dl (32.0-36.0); MEAN CELL VOLUME 84.5 fl (80-96); MEAN PLT VOLUME 9.3 fl (7.5-11.1); PLATELET COUNT 126 K/MM3 (134-434); RDW 14.1 % (11.6-15.6); WHITE BLOOD COUNT 9.2 K/mm3 (4.0-10.0)
--- NOTE | 2017-07-23 12:51 | PN ---
Teaching Attending Note Name of Resident: Latrice Lisa ATTENDING PHYSICIAN STATEMENT I saw and evaluated the patient. I reviewed the resident's note and discussed the case with the resident. I agree with the resident's findings and plan as documented. SUBJECTIVE: Patient seen and examined in the ICU. Hypotensive overnight requiring multiple transfusions and CVC placement. She is awake and interactive, but confused. No fever or chills. No CP or SOB. Intake & Output 07/20/17 07/21/17 07/22/17 07/23/17 23:59 23:59 23:59 23:59 Intake Total 1450 2872 Balance 1450 2872 Weight 113 lb 105 lb 8 oz Last Vital Signs Temp Pulse Resp BP Pulse Ox 98.3 F 118 H 18 90/66 95 07/23/17 10:00 07/23/17 11:57 07/23/17 11:57 07/23/17 11:57 07/22/17 21:00 Active Medications Carbidopa/Levodopa (Sinemet 25/100 -) 1 each PO QID JOE Last Admin: 07/23/17 09:52 Dose: Not Given Chlorhexidine Gluconate (Hibiclens For Decolonization -) 1 applic TP HS JOE Last Admin: 07/22/17 21:53 Dose: 1 applic Pantoprazole Sodium 80 mg/ (Sodium Chloride) 100 mls @ 10 mls/hr IVPB Q10H JOE PRN Reason: 8 MG/HR Last Admin: 07/23/17 09:51 Dose: Not Given Octreotide Acetate 1,200 mcg/ (Dextrose) 500 mls @ 20.83 mls/hr IVPB ASDIR JOE ; 50 MCG/HR PRN Reason: Protocol Last Admin: 07/23/17 01:29 Dose: 20.83 mls/hr Lactated Ringer's (Lactated Ringers Solution) 1,000 mls @ 150 mls/hr IV ASDIR JOE Last Admin: 07/23/17 09:23 Dose: 150 mls/hr Metoprolol Succinate (Toprol Xl -) 50 mg PO DAILY JOE Last Admin: 07/23/17 09:52 Dose: Not Given Mupirocin (Bactroban Ointment (For Decolonization) -) 1 applic NS BID JOE Stop: 07/27/17 21:59 Last Admin: 07/23/17 09:53 Dose: 1 applic Ptt's Own Med( Carbidopa/Levodopa [ Rytary Er 23.75 Mg- 95 Mg Cap 4 each PO QID [facility] Last Admin: 07/23/17 09:51 Dose: Not Given Ptnt's Own Med (Non- Formulary) ( Carbidopa/Levodopa [ Rytary Er 36.25 Mg- 145 Mg Ca 4 each PO QID [facility] Last Admin: 07/23/17 09:51 Dose: Not Given Ptnt's Own Med( Pimavanserin Tartrate [Nuplazid] 34 Mg) 34 mg PO DAILY [facility] Last Admin: 07/23/17 09:52 Dose: Not Given Ptnt's Own Med ( Rasagiline Mesylate [Azilect] 1 Mg) 1 mg PO DAILY [facility] Last Admin: 07/23/17 09:52 Dose: Not Given Ptnt's Own Med( Rotigotine [Neupro] 1 Each) 1 each TD DAILY [facility] Last Admin: 07/23/17 09:52 Dose: Not Given Olanzapine (Zyprexa -) 2.5 mg PO DAILY [facility] Last Admin: 07/23/17 09:52 Dose: Not Given Quetiapine Fumarate (Seroquel -) 25 mg PO BID [facility] Last Admin: 07/23/17 09:52 Dose: Not Given Constitutional: Yes: No Distress, Thin. No: Diaphoresis Eyes: Yes: Conjunctiva Clear HENT: Yes: Atraumatic, Normocephalic Neck: Yes: Supple, Trachea Midline Cardiovascular: Yes: Pulse Irregular Respiratory: Yes: CTA Bilaterally, On Nasal O2. No: Accessory Muscle Use Gastrointestinal: Yes: Normal Bowel Sounds, Soft Renal/: Yes: WNL Musculoskeletal: Yes: WNL Extremities: Yes: WNL Edema: No Peripheral Pulses WNL: Yes Integumentary: Yes: WNL Neurological: Yes: Confusion Laboratory Results - last 24 hr 07/22/17 07/22/17 07/22/17 08:02 08:26 17:20 WBC 15.0 H D RBC 4.15 Hgb 12.6 Hct 36.2 MCV 87.3 MCH 30.3 MCHC 34.7 RDW 14.5 Plt Count 290 MPV 9.5 Neutrophils % Lymphocytes % Monocytes % Eosinophils % Basophils % PT with INR INR PTT (Actin FS) Sodium Potassium Chloride Carbon Dioxide Anion Gap BUN Creatinine Creat Clearance w eGFR Random Glucose Calcium Phosphorus Magnesium Total Bilirubin AST ALT Alkaline Phosphatase Total Protein Albumin Blood Type A POSITIVE A POSITIVE Antibody Screen Negative Cancelled Crossmatch See Detail See Detail Spec Expiration Date Cancelled 07/22/17 07/23/17 07/23/17 23:20 01:50 01:50 WBC 10.0 D 8.2 RBC 2.66 L D 2.85 L Hgb 8.1 L D 8.6 L Hct 23.0 L D 24.6 L MCV 86.4 86.4 MCH 30.5 30.0 MCHC 35.3 34.7 RDW 14.4 13.8 Plt Count 219 D 154 D MPV 9.6 9.4 Neutrophils % 86.1 H Lymphocytes % 7.2 L D Monocytes % 6.5 Eosinophils % 0.0 D Basophils % 0.2 PT with INR 17.50 H INR 1.58 H PTT (Actin FS) 30.0 Sodium Potassium Chloride Carbon Dioxide Anion Gap BUN Creatinine Creat Clearance w eGFR Random Glucose Calcium Phosphorus Magnesium Total Bilirubin AST ALT Alkaline Phosphatase Total Protein Albumin Blood Type Antibody Screen Crossmatch Spec Expiration Date 07/23/17 07/23/17 07/23/17 06:00 06:00 06:00 WBC 9.8 RBC 3.53 L D Hgb 10.8 D Hct 30.4 L D MCV 86.3 MCH 30.6 MCHC 35.4 RDW 13.7 Plt Count 133 L MPV 9.6 Neutrophils % Lymphocytes % Monocytes % Eosinophils % Basophils % PT with INR 15.60 H INR 1.41 H PTT (Actin FS) 24.7 L Sodium 151 H Potassium 3.4 L Chloride 118 H D Carbon Dioxide 24 Anion Gap 9 BUN 44 H D Creatinine 0.4 L Creat Clearance w eGFR > 60 Random Glucose 168 H D Calcium 6.3 L* D Phosphorus 3.0 Magnesium 1.7 L Total Bilirubin 2.3 H D AST 18 D ALT < 6 L D Alkaline Phosphatase 70 D Total Protein 3.9 L D Albumin 2.1 L D Blood Type Antibody Screen Crossmatch Spec Expiration Date 07/23/17 12:27 WBC 9.2 RBC 2.95 L Hgb 9.0 L D Hct 25.0 L D MCV 84.5 MCH 30.6 MCHC 36.1 H RDW 14.1 Plt Count 126 L MPV 9.3 Neutrophils % Lymphocytes % Monocytes % Eosinophils % Basophils % PT with INR INR PTT (Actin FS) Sodium Potassium Chloride Carbon Dioxide Anion Gap BUN Creatinine Creat Clearance w eGFR Random Glucose Calcium Phosphorus Magnesium Total Bilirubin AST ALT Alkaline Phosphatase Total Protein Albumin Blood Type Antibody Screen Crossmatch Spec Expiration Date Problem List - Problems (1) Anticoagulant-induced bleeding Code(s): T45.7X1A - POISN BY ANTICOAG ANTAG, VITAMIN K AND OTH COAG, ACC, INIT D68.9 - COAGULATION DEFECT, UNSPECIFIED (2) Atrial fibrillation Code(s): I48.91 - UNSPECIFIED ATRIAL FIBRILLATION (3) GI bleed Code(s): K92.2 - GASTROINTESTINAL HEMORRHAGE, UNSPECIFIED (4) CHF (congestive heart failure), NYHA class I Code(s): I50.9 - HEART FAILURE, UNSPECIFIED (5) HTN (hypertension) Code(s): I10 - ESSENTIAL (PRIMARY) HYPERTENSION (6) Nonischemic cardiomyopathy Code(s): I42.9 - CARDIOMYOPATHY, UNSPECIFIED (7) Parkinson disease Code(s): G20 - PARKINSON'S DISEASE Assessment/Plan Follow H&H Normal transfusion thresholds NGT O2 as needed NPO IVF PPI For possible endoscopy ICU monitoring Dr Lewis Critical care time spent in reviewing chart, evaluating patient and formulating plan - 35 minutes. Problem List - Problems (1) Anticoagulant-induced bleeding Code(s): T45.7X1A - POISN BY ANTICOAG ANTAG, VITAMIN K AND OTH COAG, ACC, INIT D68.9 - COAGULATION DEFECT, UNSPECIFIED (2) Atrial fibrillation Code(s): I48.91 - UNSPECIFIED ATRIAL FIBRILLATION (3) GI bleed Code(s): K92.2 - GASTROINTESTINAL HEMORRHAGE, UNSPECIFIED (4) CHF (congestive heart failure), NYHA class I Code(s): I50.9 - HEART FAILURE, UNSPECIFIED (5) HTN (hypertension) Code(s): I10 - ESSENTIAL (PRIMARY) HYPERTENSION (6) Nonischemic cardiomyopathy Code(s): I42.9 - CARDIOMYOPATHY, UNSPECIFIED (7) Parkinson disease Code(s): G20 - PARKINSON'S DISEASE
--- NOTE | 2017-07-23 12:53 | PN ---
Progress Note, Physician History of Present Illness: seen and examined today after coming back from CT abd. speaking but difficult to understand. nad currently. - Current Medication List Current Medications: Active Medications Carbidopa/Levodopa (Sinemet 25/100 -) 1 each PO QID [facility] Last Admin: 07/23/17 09:52 Dose: Not Given Chlorhexidine Gluconate (Hibiclens For Decolonization -) 1 applic TP HS JOE Last Admin: 07/22/17 21:53 Dose: 1 applic Pantoprazole Sodium 80 mg/ (Sodium Chloride) 100 mls @ 10 mls/hr IVPB Q10H JOE PRN Reason: 8 MG/HR Last Admin: 07/23/17 09:51 Dose: Not Given Octreotide Acetate 1,200 mcg/ (Dextrose) 500 mls @ 20.83 mls/hr IVPB ASDIR JOE ; 50 MCG/HR PRN Reason: Protocol Last Admin: 07/23/17 01:29 Dose: 20.83 mls/hr Lactated Ringer's (Lactated Ringers Solution) 1,000 mls @ 150 mls/hr IV ASDIR JOE Last Admin: 07/23/17 09:23 Dose: 150 mls/hr Metoprolol Succinate (Toprol Xl -) 50 mg PO DAILY [facility] Last Admin: 07/23/17 09:52 Dose: Not Given Mupirocin (Bactroban Ointment (For Decolonization) -) 1 applic NS BID [facility] Stop: 07/27/17 21:59 Last Admin: 07/23/17 09:53 Dose: 1 applic Ptt's Own Med( Carbidopa/Levodopa [ Rytary Er 23.75 Mg- 95 Mg Cap 4 each PO QID [facility] Last Admin: 07/23/17 09:51 Dose: Not Given Ptnt's Own Med (Non- Formulary) ( Carbidopa/Levodopa [ Rytary Er 36.25 Mg- 145 Mg Ca 4 each PO QID [facility] Last Admin: 07/23/17 09:51 Dose: Not Given Ptnt's Own Med( Pimavanserin Tartrate [Nuplazid] 34 Mg) 34 mg PO DAILY [facility] Last Admin: 07/23/17 09:52 Dose: Not Given [facility] Own Med ( Rasagiline Mesylate [Azilect] 1 Mg) 1 mg PO DAILY [facility] Last Admin: 07/23/17 09:52 Dose: Not Given [facility] Own Med( Rotigotine [Neupro] 1 Each) 1 each TD DAILY [facility] Last Admin: 07/23/17 09:52 Dose: Not Given Olanzapine (Zyprexa -) 2.5 mg PO DAILY [facility] Last Admin: 07/23/17 09:52 Dose: Not Given Quetiapine Fumarate (Seroquel -) 25 mg PO BID [facility] Last Admin: 07/23/17 09:52 Dose: Not Given - Objective Vital Signs: Vital Signs Temperature 98.3 F 07/23/17 10:00 Pulse Rate 118 H 07/23/17 11:57 Respiratory Rate 18 07/23/17 11:57 Blood Pressure 90/66 07/23/17 11:57 O2 Sat by Pulse Oximetry (%) 95 07/22/17 21:00 Constitutional: Yes: No Distress, Calm Eyes: Yes: Conjunctiva Clear HENT: Yes: Atraumatic, Normocephalic Cardiovascular: Yes: Tachycardia, S1, S2. No: Bradycardia, Pulse Irregular, Bruit, JVD, Gallop, Murmur, Rub, S3, S4, Varicosities Respiratory: Yes: Regular, CTA Bilaterally. No: Rales, Rhonchi, Wheezes Gastrointestinal: Yes: Normal Bowel Sounds, Soft. No: Tenderness Extremities: Yes: Other (ecchymosis on RLE) Edema: No Peripheral Pulses WNL: Yes Peripheral Pulses: Left Doralis Pedis: 2+, Right Dorsalis Pedis: 2+ Neurological: Yes: Alert Psychiatric: Yes: Alert Labs: CBC, BMP 07/23/17 12:27 INR, PTT INR 1.41 (0.82-1.09) H 07/23/17 06:00 - ....Imaging Chest X-ray: Report Reviewed, Image Reviewed EKG: Report Reviewed, Image Reviewed Other: Report Reviewed, Image Reviewed (tele-sinus tach, PVCs, no afib recorded since admission) Assessment/Plan 59 year old woman with a history of a cardiomyopathy s/p [place] ICD, prior cardiac cath 2009 showed mild non-obs cad, Pafib on xarelto admitted with GI bleed. 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
[2017-07-23 13:01] LABS: ANION GAP 5 (8-16); BILIRUBIN,TOTAL 1.7 mg/dL (0.2-1.0); CALCIUM 7.2 mg/dL (8.5-10.1); CO2 25 mmol/L (21-32); CREATININE 0.3 mg/dL (0.55-1.02); GLUCOSE,RANDOM 149 mg/dL (74-106); SGOT/AST 18 U/L (15-37); SGPT/ALT 6 U/L (12-78); TOT PROT 3.8 g/dl (6.4-8.2)
[2017-07-23 13:02] LABS: ALK PHOS 61 U/L (45-117)
--- NOTE | 2017-07-23 13:05 | PN ---
GI Progress Note Subjective: GI NOte: Brisk bleeding now requiring 6 units of blood. Inserted NG tube which yielded bile and only small amount of bleeding which is likely NG trauma. I have obtained informed consent for both EGD and colonoscopy from Mahogany the sister of Sasha but also discussed the procedure with her brother Solo. I have informed them of the risks of perforation and hemorrhage. Will defer EGD unless brisk bleeding occur via NG tube and instead obtain bleeding scan and prep for EGD and colonoscopy tomorrow. . - Objective Vital Signs: Vital Signs Temperature 98.3 F 07/23/17 10:00 Pulse Rate 118 H 07/23/17 11:57 Respiratory Rate 18 07/23/17 11:57 Blood Pressure 90/66 07/23/17 11:57 O2 Sat by Pulse Oximetry (%) 95 07/22/17 21:00 Laboratory Tests 07/23/17 12:27 WBC 9.2 Hgb 9.0 L D Eyes: Yes: Conjunctiva Clear Cardiovascular: Yes: Regular Rate and Rhythm Respiratory: Yes: CTA Bilaterally ...Auscultate: Yes: Hyperactive Bowel Sounds ...Palpate: Yes: Soft, Other (nontender) Labs: CBC, BMP 07/23/17 12:27 INR, PTT INR 1.41 (0.82-1.09) H 07/23/17 06:00 Assessment/Plan Suspect right colon bleed. Will get bleeding scan. Will prep for EGD and colonoscopy tomorrow.
[2017-07-23] MEDS ORDERED: PEG3350/SOD SULF,BICARB,CL/KCL 4,000 ML SOLN.RECON PO ONE (13:09)
--- NOTE | 2017-07-23 13:55 | EKG ---
Test Reason : Blood Pressure : / mmHG Vent. Rate : 150 BPM Atrial Rate : 150 BPM P-R Int : 116 ms QRS Dur : 068 ms QT Int : 272 ms P-R-T Axes : 060 040 089 degrees QTc Int : 429 ms SINUS TACHYCARDIA WITH OCCASIONAL PREMATURE VENTRICULAR COMPLEXES NONSPECIFIC ST AND T WAVE ABNORMALITY ABNORMAL ECG WHEN COMPARED WITH ECG OF 22-JUL-2017 07:17, ST NOW DEPRESSED IN ANTEROLATERAL LEADS VENT. RATE HAS INCREASED Confirmed by ADELIA YORK, BRANDY ([id number]) on 07/23/2017 1:54:58 PM Referred By: Confirmed By:BRANDY DELVALLE MD
[2017-07-23] MEDS ORDERED: D5-1/2NS+40 MEQ KCL - 1,000 ML IV SCH (14:00)
--- NOTE | 2017-07-23 16:21 | PN ---
Teaching Attending Note Name of Resident: Gracia Casillas ATTENDING PHYSICIAN STATEMENT I saw and evaluated the patient. I reviewed the resident's note and discussed the case with the resident. I agree with the resident's findings and plan as documented. SUBJECTIVE: in ICU lying in bed, looks very lethargic, Allison color blood in the diaper. OBJECTIVE: Vital Signs Temperature 98 F 07/23/17 14:29 Pulse Rate 110 H 07/23/17 16:17 Respiratory Rate 22 07/23/17 16:17 Blood Pressure 101/59 07/23/17 16:17 O2 Sat by Pulse Oximetry (%) 97 07/23/17 09:00 CBCD WBC 9.2 K/mm3 (4.0-10.0) 07/23/17 12:27 RBC 2.95 M/mm3 (3.60-5.2) L 07/23/17 12:27 Hgb 9.0 GM/dL (10.7-15.3) L D 07/23/17 12:27 Hct 25.0 % (32.4-45.2) L D 07/23/17 12:27 MCV 84.5 fl (80-96) 07/23/17 12:27 MCHC 36.1 g/dl (32.0-36.0) H 07/23/17 12:27 RDW 14.1 % (11.6-15.6) 07/23/17 12:27 Plt Count 126 K/MM3 (134-434) L 07/23/17 12:27 MPV 9.3 fl (7.5-11.1) 07/23/17 12:27 CMP Sodium 150 mmol/L (136-145) H 07/23/17 12:27 Potassium 3.3 mmol/L (3.5-5.1) L 07/23/17 12:27 Chloride 120 mmol/L (98-107) H 07/23/17 12:27 Carbon Dioxide 25 mmol/L (21-32) 07/23/17 12:27 Anion Gap 5 (8-16) L 07/23/17 12:27 BUN 33 mg/dL (7-18) H D 07/23/17 12:27 Creatinine 0.3 mg/dL (0.55-1.02) L D 07/23/17 12:27 Creat Clearance w eGFR > 60 (>60) 07/23/17 12:27 Random Glucose 149 mg/dL (74-106) H 07/23/17 12:27 Calcium 7.2 mg/dL (8.5-10.1) L 07/23/17 12:27 Total Bilirubin 1.7 mg/dL (0.2-1.0) H D 07/23/17 12:27 AST 18 U/L (15-37) 07/23/17 12:27 ALT 6 U/L (12-78) L 07/23/17 12:27 Alkaline Phosphatase 61 U/L (45-117) 07/23/17 12:27 Total Protein 3.8 g/dl (6.4-8.2) L 07/23/17 12:27 Albumin 2.0 g/dl (3.4-5.0) L 07/23/17 12:27 Current Medications Generic Name Dose Route Start Last Admin Trade Name Freq PRN Reason Stop Dose Admin Carbidopa/Levodopa 1 each 07/22/17 14:00 07/23/17 14:00 Sinemet 25/100 - PO Not Given QID JOE Chlorhexidine Gluconate 1 applic 07/22/17 22:00 07/22/17 21:53 Hibiclens For Decolonization - TP 1 applic HS JOE Administration Pantoprazole Sodium 80 mg/ 100 mls @ 10 mls/hr 07/22/17 13:30 07/23/17 09:51 Sodium Chloride IVPB Not Given Q10H JOE 8 MG/HR Octreotide Acetate 1,200 mcg/ 500 mls @ 20.83 mls/hr 07/23/17 01:15 07/23/17 01 :29 Dextrose IVPB 20.83 mls/hr ASDIR JOE Administration Protocol 50 MCG/HR Dextrose/Sodium Chloride 1,000 mls @ 150 mls/hr 07/23/17 14:00 D5-1/2ns+40 Meq Kcl - IV ASDIR JOE Metoprolol Succinate 50 mg 07/23/17 10:00 07/23/17 09:52 Toprol Xl - PO Not Given DAILY JOE Mupirocin 1 applic 07/22/17 22:00 07/23/17 09:53 Bactroban Ointment (For Decolonization) - NS 07/27/17 21:59 1 applic BID JOE Administration Ptt's Own Med( 4 each 07/22/17 14:00 07/23/17 14:00 Carbidopa/Levodopa [ PO Not Given Rytary Er 23.75 Mg- QID JOE 95 Mg Cap Ptnt's Own Med (Non- 4 each 07/22/17 14:00 07/23/17 14:00 Formulary) ( PO Not Given Carbidopa/Levodopa [ QID JOE Rytary Er 36.25 Mg- 145 Mg Ca Ptnt's Own Med( 34 mg 07/23/17 10:00 07/23/17 09:52 Pimavanserin PO Not Given Tartrate [Nuplazid] DAILY JOE 34 Mg) Ptnt's Own Med ( 1 mg 07/23/17 10:00 07/23/17 09:52 Rasagiline Mesylate PO Not Given [Azilect] 1 Mg) DAILY JOE Ptnt's Own Med( 1 each 07/23/17 10:00 07/23/17 09:52 Rotigotine [Neupro] TD Not Given 1 Each) DAILY [facility] Olanzapine 2.5 mg 07/23/17 10:00 07/23/17 09:52 Zyprexa - PO Not Given DAILY [facility] Quetiapine Fumarate 25 mg 07/22/17 22:00 07/23/17 09:52 Seroquel - PO Not Given BID [facility] Home Medications Medication Instructions Recorded Ascorbic Acid [Vitamin C] 250 mg PO DAILY 07/22/17 Ca/D3/Mag#11/Zinc/Internal Grinder Set Up Operator/Dre/Bor 2 each PO DAILY 07/22/17 [Caltrate 600+D Plus Tablet] Carbidopa/Levodopa 1 each PO QID 07/22/17 [Carbidopa-Levodopa 25-100 Tab] Carbidopa/Levodopa [Rytary ER 4 each PO QID 07/22/17 23.75 mg-95 mg Cap] Carbidopa/Levodopa [Rytary ER 4 each PO QID 07/22/17 36.25 mg-145 mg Cap] Collagenase Clostridium Hist. 90 gm TP DAILY 07/22/17 [Santyl] Furosemide 20 mg PO DAILY 07/22/17 Iron 65 mg PO DAILY 07/22/17 Losartan Potassium 25 mg PO DAILY 07/22/17 Melatonin 3 mg PO DAILY 07/22/17 Metoprolol Succinate [Toprol Xl] 100 mg PO DAILY 07/22/17 Multivitamin [Zoo Chews] 1 each PO DAILY 07/22/17 Mupirocin Cream [Bactroban 2% 1 applic TP DAILY 07/22/17 Cream -] Olanzapine 2.5 mg PO DAILY 07/22/17 Patient's Own Medication 1 each PO DAILY 07/22/17 [Patient's Own Med (Nf) -] Pimavanserin Tartrate [Nuplazid] 34 mg PO DAILY 07/22/17 Quetiapine Fumarate [Seroquel -] 25 mg PO BID 07/22/17 Rasagiline Mesylate [Azilect] 1 mg PO DAILY 07/22/17 Rivaroxaban [Xarelto -] 20 mg PO DAILY 07/22/17 Rotigotine [Neupro] 1 each TD DAILY 07/22/17 Spironolactone 25 mg PO DAILY 07/22/17 Zinc 50 mg PO DAILY 07/22/17 PE: per resident's note :active gross bleeding ASSESSMENT AND PLAN: Patient is a 62 year old female with PMHx of parkinson's disease, afib on xarelto for 3 years (last dose 7.30pm, last night) and s/p AICD, CHF, NICM, immobile at baseline living now with brother at home with 24hr care presented with Acute GI bleed. # Acute GI bleed Upper vs Lower : patient was on Xarelto for 3 yrs. for Afib.possible diverticulosis as well ,H/h q6h, GI consult for consult. Protonix IV 8mg/hr. Patient is getting transfused since bleeding actively, give lasix in b/t transfusion, Octreotide drip # Hx of Afib with AICD on Xarelto, hold the xarelto for now, cardio consult for consult # Hx of Parkinsonism , since NPO can't give po meds. # hx of systolic CHF s/p AICD on lasix, Losartan , will hold for now since presented with low BP and patient is npo . DVT Px: SCds only since actively bleeding contraindicated. EGD/Colonoscopy in am as per critical care time of 35 minutes
--- NOTE | 2017-07-23 16:41 | CONSULT ---
Consult - text type - Consultation Consultation Note: 62 F, Parkinson's disease, AFib on xarelto (last dose 7:30pm Sat. 07/21 night) and S/p AICD, CHF, NICM, with baseline immobilization. On sunday am was found to have significant bright blood in her diaper. minimally conversant Sister and brother at bedside Received 6 units PRBCS since day Was seen by GI team - Past Medical History VIDEO EDITING INTERN: Yes: Parkinson's Cardio/Vascular: Yes: CHF (s/p AICD), HTN, Other (Atrial fibrillation, on Xarelto) Musculoskeletal: Yes: Other (h/o bilateral knee replacements. ) - Past Surgical History Past Surgical History: Yes: Joint Replacement (TKR, bilaterally) - Smoking History Smoking history: Never smoked - Social History Usual Living Arrangement: Alone ADL: Support Services (8 hour day home health aid) - Allergies Allergies/Adverse Reactions: Allergies Allergy/AdvReac Type Severity Reaction Status Date / Time No Known Allergies Allergy Verified 07/22/17 07:42 - Home Medications Home Medications: Ambulatory Orders Ascorbic Acid [Vitamin C] 250 mg PO DAILY 07/22/17 Ca/D3/Mag#11/Zinc/Patient Support Tech/Dre/Bor [Caltrate 600+D Plus Tablet] 2 each PO DAILY Carbidopa/Levodopa [Carbidopa-Levodopa 25-100 Tab] 1 each PO QID 07/22/17 Carbidopa/Levodopa [Rytary ER 23.75 mg-95 mg Cap] 4 each PO QID 07/22/17 Carbidopa/Levodopa [Rytary ER 36.25 mg-145 mg Cap] 4 each PO QID 07/22/17 Collagenase Clostridium Hist. [Santyl] 90 gm TP DAILY 07/22/17 Furosemide 20 mg PO DAILY 07/22/17 Iron 65 mg PO DAILY 07/22/17 Losartan Potassium 25 mg PO DAILY 07/22/17 Melatonin 3 mg PO DAILY 07/22/17 Metoprolol Succinate [Toprol Xl] 100 mg PO DAILY 07/22/17 Multivitamin [Zoo Chews] 1 each PO DAILY 07/22/17 Mupirocin Cream [Bactroban 2% Cream -] 1 applic TP DAILY 07/22/17 Olanzapine 2.5 mg PO DAILY 07/22/17 Patient's Own Medication [Patient's Own Med (Nf) -] 1 each PO DAILY 07/22/17 Pimavanserin Tartrate [Nuplazid] 34 mg PO DAILY 07/22/17 Quetiapine Fumarate [Seroquel -] 25 mg PO BID 07/22/17 Rasagiline Mesylate [Azilect] 1 mg PO DAILY 07/22/17 Rivaroxaban [Xarelto -] 20 mg PO DAILY 07/22/17 Rotigotine [Neupro] 1 each TD DAILY 07/22/17 Spironolactone 25 mg PO DAILY 07/22/17 Zinc 50 mg PO DAILY 07/22/17 Family Disease History - Family Disease History Family Disease History: Other: Brother (CAD), Sister (DVT thought to be related to inactivity and control pills. She is now off anticoagulation) Physical Exam Vital Signs: Last Vital Signs Temp Pulse Resp BP Pulse Ox 98 F 93 H 18 90/60 97 07/23/17 14:29 07/23/17 19:55 07/23/17 19:55 07/23/17 19:55 07/23/17 20:04 Cardiovascular: Yes: Pulse Irregular Respiratory: Yes: CTA Bilaterally, On Nasal O2. No: Accessory Muscle Use Gastrointestinal: Yes: Normal Bowel Sounds, Soft Renal/: Yes: WNL Musculoskeletal: Yes: WNL Extremities: Yes: WNL Edema: No Imaging - Results Chest X-ray: Report Reviewed, Image Reviewed Problem List - Problems (1) Anticoagulant-induced bleeding Code(s): T45.7X1A - POISN BY ANTICOAG ANTAG, VITAMIN K AND OTH COAG, ACC, INIT D68.9 - COAGULATION DEFECT, UNSPECIFIED (2) Atrial fibrillation Code(s): I48.91 - UNSPECIFIED ATRIAL FIBRILLATION (3) GI bleed Code(s): K92.2 - GASTROINTESTINAL HEMORRHAGE, UNSPECIFIED (4) CHF (congestive heart failure), NYHA class I Code(s): I50.9 - HEART FAILURE, UNSPECIFIED (5) HTN (hypertension) Code(s): I10 - ESSENTIAL (PRIMARY) HYPERTENSION (6) Nonischemic cardiomyopathy Code(s): I42.9 - CARDIOMYOPATHY, UNSPECIFIED (7) Parkinson disease Code(s): G20 - PARKINSON'S DISEASE Assessment/Plan 62 y/o with parkinsons disease, afib, on xeralto comes in with gi bleed. ? diverticular blee last dose xeralto--07/21 at 730pm received 6 units of PRBCs based on her nl renal fxn expect xeralto to have been cleared in 24-36 hrs. from last dosed dilutional thrombocytopenia--monitor and transfuse for plarelets <100,000 monitor CBC, transfuxe PRBCs as necessary f/u gi recommendations
[2017-07-23 17:06] LABS: URINE APPEARANCE SLCLOUDY; URINE BILIRUBIN NEGATIVE (NEGATIVE); URINE BLOOD NEGATIVE (NEGATIVE); URINE COLOR YELLOW; URINE GLUCOSE (UA) NEGATIVE (NEGATIVE); URINE KETONE TRACE (NEGATIVE); URINE LEUK ESTERASE NEGATIVE (NEGATIVE); URINE NITRITE NEGATIVE (NEGATIVE); URINE PROTEIN NEGATIVE (NEGATIVE); URINE UROBILINOGEN NEGATIVE mg/dL (0.2-1.0)
[2017-07-23 18:26] LABS: MCH 30.5 pg (25.7-33.7); MCHC 35.8 g/dl (32.0-36.0); MEAN CELL VOLUME 85.1 fl (80-96); MEAN PLT VOLUME 9.8 fl (7.5-11.1); PLATELET COUNT 133 K/MM3 (134-434); RDW 13.8 % (11.6-15.6); WHITE BLOOD COUNT 8.6 K/mm3 (4.0-10.0)
[2017-07-23 18:49] LABS: ALBUMIN 1.9 g/dl (3.4-5.0); ALK PHOS 57 U/L (45-117); ANION GAP 7 (8-16); BILIRUBIN,TOTAL 1.3 mg/dL (0.2-1.0); CO2 24 mmol/L (21-32); CREATININE 0.4 mg/dL (0.55-1.02); GLUCOSE,RANDOM 194 mg/dL (74-106); SGOT/AST 15 U/L (15-37); SGPT/ALT 6 U/L (12-78); TOT PROT 3.7 g/dl (6.4-8.2)
[2017-07-23 18:52] LABS: CALCIUM 6.9 mg/dL (8.5-10.1)
--- NOTE | 2017-07-23 20:15 | HOSP ---
Subjective - Review of Symptoms Events since last encounter: Tagged RBC scan negative. 5PM CBC notable for Hgb 8.0, down from 9.8, in setting IVFs. Platelets 133K. Per hematology, transfuse 1 unit platelets at count <100k. Midnight CBC ordered. Transfuse 1 unit at Hgb <7. Physical Examination Vital Signs: Vital Signs Temperature 98 F 07/23/17 14:29 Pulse Rate 93 H 07/23/17 19:55 Respiratory Rate 18 07/23/17 19:55 Blood Pressure 90/60 07/23/17 19:55 O2 Sat by Pulse Oximetry (%) 97 07/23/17 20:04 Labs: CBC, BMP 07/23/17 17:00 07/23/17 17:00 Visit type - Emergency Visit Emergency Visit: No - New Patient This patient is new to me today: Yes Date on this admission: 07/23/17 - Critical Care Critical Care patient: Yes Total Critical Care Time (in minutes): 15
[2017-07-23] MEDS: CHLORHEXIDINE GLUCONATE 4% CLEANSER FOR DECOLONIZATION TP SCH (21:06)
[2017-07-23 23:20] LABS: MCH 30.1 pg (25.7-33.7); MCHC 34.9 g/dl (32.0-36.0); MEAN CELL VOLUME 86.1 fl (80-96); PLATELET COUNT 131 K/MM3 (134-434); RDW 14.1 % (11.6-15.6); WHITE BLOOD COUNT 8.6 K/mm3 (4.0-10.0)
[2017-07-24] MEDS: OCTREOTIDE ACETATE 1,200 MCG in DEXTROSE 5%-WATER - 488 ML IVPB SCH (01:00)
[2017-07-24 04:32] LABS: MCH 29.7 pg (25.7-33.7); MCHC 35.2 g/dl (32.0-36.0); MEAN CELL VOLUME 84.4 fl (80-96); MEAN PLT VOLUME 8.9 fl (7.5-11.1); PLATELET COUNT 128 K/MM3 (134-434); RDW 14.8 % (11.6-15.6); WHITE BLOOD COUNT 8.4 K/mm3 (4.0-10.0)
[2017-07-24] MEDS: PANTOPRAZOLE SODIUM 80 MG in SODIUM CHLORIDE 100 ML IVPB SCH ×2 (06:26→11:14)
[2017-07-24 06:30] LABS: MCHC 35.7 g/dl (32.0-36.0); MEAN CELL VOLUME 84.1 fl (80-96); MEAN PLT VOLUME 9.4 fl (7.5-11.1); PLATELET COUNT 133 K/MM3 (134-434); WHITE BLOOD COUNT 8.5 K/mm3 (4.0-10.0)
[2017-07-24 06:45] LABS: INR 1.23 (0.82-1.09); PROTHROMBIN TIME (PATIENT) 13.6 SEC (9.98-11.88)
[2017-07-24 06:47] LABS: ACTIVATED PTT 26.7 SECONDS (26.9-34.4)
[2017-07-24 06:50] LABS: ALBUMIN 1.9 g/dl (3.4-5.0); ANION GAP 7 (8-16); CO2 26 mmol/L (21-32); GLUCOSE,RANDOM 171 mg/dL (74-106)
[2017-07-24 07:01] LABS: ALK PHOS 57 U/L (45-117); BILIRUBIN,TOTAL 0.8 mg/dL (0.2-1.0); CREATININE 0.2 mg/dL (0.55-1.02); SGOT/AST 18 U/L (15-37); SGPT/ALT 19 U/L (12-78); TOT PROT 3.8 g/dl (6.4-8.2)
[2017-07-24 07:04] LABS: CALCIUM 6.6 mg/dL (8.5-10.1); PHOSPHOROUS 0.8 mg/dL (2.5-4.9)
--- NOTE | 2017-07-24 08:28 | PN ---
Progress Note, Physician Chief Complaint: sleeping Per RN, prepped for C-scope - Current Medication List Current Medications: Active Medications Carbidopa/Levodopa (Sinemet 25/100 -) 1 each PO QID [facility] Last Admin: 07/23/17 21:06 Dose: Not Given Chlorhexidine Gluconate (Hibiclens For Decolonization -) 1 applic TP HS [facility] Last Admin: 07/23/17 21:06 Dose: 1 applic Pantoprazole Sodium 80 mg/ (Sodium Chloride) 100 mls @ 10 mls/hr IVPB Q10H JOE PRN Reason: 8 MG/HR Last Admin: 07/24/17 06:26 Dose: 10 mls/hr Octreotide Acetate 1,200 mcg/ (Dextrose) 500 mls @ 20.83 mls/hr IVPB ASDIR JOE ; 50 MCG/HR PRN Reason: Protocol Last Admin: 07/24/17 01:00 Dose: 20.83 mls/hr Dextrose/Sodium Chloride (D5-1/2ns+40 Meq Kcl -) 1,000 mls @ 150 mls/hr IV ASDIR [facility] Last Admin: 07/23/17 14:00 Dose: 150 mls/hr Insulin Aspart (Novolog Vial Sliding Scale -) 1 vial SQ Q6HPO [facility] PRN Reason: Protocol Metoprolol Succinate (Toprol Xl -) 50 mg PO DAILY [facility] Last Admin: 07/23/17 09:52 Dose: Not Given Mupirocin (Bactroban Ointment (For Decolonization) -) 1 applic NS BID [facility] Stop: 07/27/17 21:59 Last Admin: 07/23/17 21:06 Dose: 1 applic Ptt's Own Med( Carbidopa/Levodopa [ Rytary Er 23.75 Mg- 95 Mg Cap 4 each PO QID [facility] Last Admin: 07/23/17 21:06 Dose: Not Given Ptnt's Own Med (Non- Formulary) ( Carbidopa/Levodopa [ Rytary Er 36.25 Mg- 145 Mg Ca 4 each PO QID [facility] Last Admin: 07/23/17 21:06 Dose: Not Given Ptnt's Own Med( Pimavanserin Tartrate [Nuplazid] 34 Mg) 34 mg PO DAILY [facility] Last Admin: 07/23/17 09:52 Dose: Not Given Ptnt's Own Med ( Rasagiline Mesylate [Azilect] 1 Mg) 1 mg PO DAILY [facility] Last Admin: 07/23/17 09:52 Dose: Not Given Ptnt's Own Med( Rotigotine [Neupro] 1 Each) 1 each TD DAILY [facility] Last Admin: 07/23/17 18:36 Dose: 1 each Olanzapine (Zyprexa -) 2.5 mg PO DAILY [facility] Last Admin: 07/23/17 09:52 Dose: Not Given Quetiapine Fumarate (Seroquel -) 25 mg PO BID [facility] Last Admin: 07/23/17 21:06 Dose: Not Given - Objective Vital Signs: Vital Signs Temperature 98.2 F 07/24/17 06:00 Pulse Rate 92 H 07/24/17 06:00 Respiratory Rate 18 07/24/17 06:00 Blood Pressure 108/73 07/24/17 06:00 O2 Sat by Pulse Oximetry (%) 97 07/23/17 20:04 Constitutional: Yes: No Distress Cardiovascular: Yes: Pulse Irregular Respiratory: Yes: CTA Bilaterally (no rales or wheezing) Gastrointestinal: Yes: Soft Edema: No Labs: CBC, BMP 07/24/17 05:30 07/24/17 05:30 INR, PTT INR 1.23 (0.82-1.09) H 07/24/17 05:30 Fibrinogen 284.0 mg/dL (238-498) 07/23/17 12:27 Laboratory Tests 07/23/17 07/24/17 07/24/17 06:00 05:30 05:30 WBC Hgb 10.8 D Plt Count INR 1.23 H Sodium 149 H Potassium 3.8 Creatinine 0.2 L D Calcium 6.6 L* Phosphorus 0.8 L* 07/24/17 05:30 WBC 8.5 Hgb 8.3 L Plt Count 133 L INR Sodium Potassium Creatinine Calcium Phosphorus - ....Imaging EKG: Image Reviewed (Tremor artifact- no sustained V arrhythmias) Assessment/Plan GI Bleed PAF (maintained on Xarelto) Cardiomyopathy s/p ICD Parkinson's Disease REC: Holding AC for Colonoscopy. Resume when feasible from GI standpoint after source of bleeding determined and treated.
[2017-07-24] MEDS: INSULIN SLIDING SCALE (NOVOLOG) 1 VIAL SQ SCH ×3 (08:30→18:20)
--- NOTE | 2017-07-24 08:37 | PN ---
Physical Exam: 24H Events: overnight: 1U PRBC, golytely prep with dark brown stool SUBJECTIVE: Patient seen and examined in ICU. Improved mental status today, but remains confused. Denies fever, chills, abdominal pain, SOB, and chest pain. OBJECTIVE: Vital Signs Period Temp Pulse Resp BP Sys/German Pulse Ox Last 24 Hr 98 F-98.4 F 91-118 17-22 87-126/48-73 97-97 Intake & Output 07/21/17 07/22/17 07/23/17 07/24/17 23:59 23:59 23:59 23:59 Intake Total 1450 58100.1 4006.2 Output Total 500 700 Balance 1450 9692.1 3306.2 Weight 51.256 kg 47.854 kg 54.998 kg GENERAL: The patient is awake, alert and interactive. some confusion EYES: sclera anicteric, conjunctiva clear ENT: moist mucous membranes LUNGS: CTAB, no wheezes, rales or crackles HEART: tachycardic, irregular rhythm, normal S1/S2, no murmur, rub or gallop ABDOMEN: Soft, ntnd EXTREMITIES: 2+ pulses, warm, well-perfused, no LE edema NEUROLOGICAL: UE rigidity SKIN: Warm, dry, normal turgor CBC, BMP 07/24/17 05:30 07/24/17 05:30 Laboratory Results - last 24 hr 07/23/17 07/24/17 07/24/17 23:05 04:15 05:30 WBC 8.6 8.4 RBC 2.49 L 2.90 L Hgb 7.5 L 8.6 L D Hct 21.5 L 24.4 L MCV 86.1 84.4 MCH 30.1 29.7 MCHC 34.9 35.2 RDW 14.1 14.8 Plt Count 131 L 128 L MPV 9.0 8.9 PT with INR INR PTT (Actin FS) Fibrinogen Sodium 149 H Potassium 3.8 Chloride 116 H Carbon Dioxide 26 Anion Gap 7 L BUN 18 D Creatinine 0.2 L D Creat Clearance w eGFR > 60 Random Glucose 171 H Calcium 6.6 L* Phosphorus 0.8 L* Magnesium 2.0 Total Bilirubin 0.8 D AST 18 ALT 19 D Alkaline Phosphatase 57 Total Protein 3.8 L Albumin 1.9 L Urine Color Urine Appearance Urine pH Ur Specific [place] Urine Protein Urine Glucose (UA) Urine Ketones Urine Blood Urine Nitrite Urine Bilirubin Urine Urobilinogen 07/24/17 07/24/17 05:30 05:30 WBC 8.5 RBC 2.78 L Hgb 8.3 L Hct 23.3 L MCV 84.1 MCH 30.0 MCHC 35.7 RDW 15.0 Plt Count 133 L MPV 9.4 PT with INR 13.60 H INR 1.23 H PTT (Actin FS) 26.7 L Fibrinogen Sodium Potassium Chloride Carbon Dioxide Anion Gap BUN Creatinine Creat Clearance w eGFR Random Glucose Calcium Phosphorus Magnesium Total Bilirubin AST ALT Alkaline Phosphatase Total Protein Albumin Urine Color Urine Appearance Urine pH Ur Specific [place] Urine Protein Urine Glucose (UA) Urine Ketones Urine Blood Urine Nitrite Urine Bilirubin Urine Urobilinogen Active Medications Generic Name Dose Route Start Last Admin Trade Name Freq PRN Reason Stop Dose Admin Calcium Gluconate 2,000 mg 07/24/17 08:31 Calcium Gluconate 10% - IVPUSH 07/24/17 08:32 ONCE ONE Carbidopa/Levodopa 1 each 07/22/17 14:00 07/23/17 21:06 Sinemet 25/100 - PO Not Given QID JOE Chlorhexidine Gluconate 1 applic 07/22/17 22:00 07/23/17 21:06 Hibiclens For Decolonization - TP 1 applic HS JOE Administration Pantoprazole Sodium 80 mg/ 100 mls @ 10 mls/hr 07/22/17 13:30 07/24/17 06:26 Sodium Chloride IVPB 10 mls/hr Q10H JOE Administration 8 MG/HR Octreotide Acetate 1,200 mcg/ 500 mls @ 20.83 mls/hr 07/23/17 01:15 07/24/17 01 :00 Dextrose IVPB 20.83 mls/hr ASDIR JOE Administration Protocol 50 MCG/HR Potassium Phosphate 30 mm/ 260 mls @ 62.5 mls/hr 07/24/17 08:33 Dextrose IVPB 07/24/17 12:42 ONCE ONE Dextrose/Sodium Chloride 1,000 mls @ 125 mls/hr 07/24/17 08:45 D5-1/2ns - IV ASDIR JOE Insulin Aspart 1 vial 07/24/17 08:30 Novolog Vial Sliding Scale - SQ Q6HPO JOE Protocol Metoprolol Succinate 50 mg 07/23/17 10:00 07/23/17 09:52 Toprol Xl - PO Not Given DAILY JOE Mupirocin 1 applic 07/22/17 22:00 07/23/17 21:06 Bactroban Ointment (For Decolonization) - NS 07/27/17 21:59 1 applic BID JOE Administration Ptt's Own Med( 4 each 07/22/17 14:00 07/23/17 21:06 Carbidopa/Levodopa [ PO Not Given Rytary Er 23.75 Mg- QID JOE 95 Mg Cap Ptnt's Own Med (Non- 4 each 07/22/17 14:00 07/23/17 21:06 Formulary) ( PO Not Given Carbidopa/Levodopa [ QID JOE Rytary Er 36.25 Mg- 145 Mg Ca Ptnt's Own Med( 34 mg 07/23/17 10:00 07/23/17 09:52 Pimavanserin PO Not Given Tartrate [Nuplazid] DAILY JOE 34 Mg) Ptnt's Own Med ( 1 mg 07/23/17 10:00 07/23/17 09:52 Rasagiline Mesylate PO Not Given [Azilect] 1 Mg) DAILY JOE Ptnt's Own Med( 1 each 07/23/17 10:00 07/23/17 18:36 Rotigotine [Neupro] TD 1 each 1 Each) DAILY JOE Administration Olanzapine 2.5 mg 07/23/17 10:00 07/23/17 09:52 Zyprexa - PO Not Given DAILY JOE Quetiapine Fumarate 25 mg 07/22/17 22:00 07/23/17 21:06 Seroquel - PO Not Given BID JOE ASSESSMENT/PLAN: 62yo woman with PMH of PD (bed bound), A-Fib (s/p AICD; on xarelto, last dose 7:30pm), non-ischemic cardiomyopathy, CHF s/p AICD, and HTN who presents with hypovolemia and rectal bleeding. Abdominal/pelvis CTA and RBC tagged nuclear scan did not reveal any e/o of acute bleed. Patient prepped overnight with golytely for colonoscopy this morning; no dark stool per nursing. #GI -GI following -EGD/Colonoscopy planned for today -Continue octreotide and pantoprazole gtt #Heme -Heme/Onc following -Hold home Xarelto -Monitor H&H q6H, transfuse 1U if hgb<7, -Give plts if <100K #CV -Cardiology following, per recommendations: -continue Metoprolol if BP permits -hold home losartan, lasix #Neuro -Continue home meds #Pulm -NC O2 therapy PRN, maintain pSaO2 >90% #FEN -D5 1/2NS @ 125cc/hr -Mg, Phos, and Ca repleted -NPO #PPX -DVT - SCDs only 2/2 to acute bleeding -GI - on protonix gtt #Dispo -FULL code -Continue ICU monitoring d/w with ICU attending Dr. Joshua Lisa MD PGY-1 Visit type - Emergency Visit Emergency Visit: No - New Patient This patient is new to me today: No - Critical Care Critical Care patient: Yes Total Critical Care Time (in minutes): 35 Critical Care Statement: The care of this patient involved high complexity decision making to prevent further life threatening deterioration of the patient 's condition and/or to evaluate & treat vital organ system(s) failure or risk of failure.
[2017-07-24] MEDS ORDERED: CALCIUM GLUCONATE 10% - 1,000 MG/10 ML VIAL IVPUSH ONE (09:15)
--- NOTE | 2017-07-24 09:27 | PN ---
Progress Note, Physician History of Present Illness: Patient seen and examined at bedside. Patient is not speaking. Mild tremor is noted. She has an NGT in place. She is resting comfortably in no acute distress. Patient had no events overnight. She had course of GoLytely to prepare her for colonoscopy at 2pm today. She produced brown stool. - Current Medication List Current Medications: Active Medications Carbidopa/Levodopa (Sinemet 25/100 -) 1 each PO QID [facility] Last Admin: 07/23/17 21:06 Dose: Not Given Chlorhexidine Gluconate (Hibiclens For Decolonization -) 1 applic TP HS [facility] Last Admin: 07/23/17 21:06 Dose: 1 applic Pantoprazole Sodium 80 mg/ (Sodium Chloride) 100 mls @ 10 mls/hr IVPB Q10H JOE PRN Reason: 8 MG/HR Last Admin: 07/24/17 06:26 Dose: 10 mls/hr Octreotide Acetate 1,200 mcg/ (Dextrose) 500 mls @ 20.83 mls/hr IVPB ASDIR JOE ; 50 MCG/HR PRN Reason: Protocol Last Admin: 07/24/17 01:00 Dose: 20.83 mls/hr Potassium Phosphate 30 mm/ (Dextrose) 260 mls @ 62.5 mls/hr IVPB ONCE ONE Stop: 07/24/17 14:09 Dextrose/Sodium Chloride (D5-1/2ns -) 1,000 mls @ 125 mls/hr IV ASDIR JOE Insulin Aspart (Novolog Vial Sliding Scale -) 1 vial SQ Q6HPO JOE PRN Reason: Protocol Metoprolol Succinate (Toprol Xl -) 50 mg PO DAILY [facility] Last Admin: 07/23/17 09:52 Dose: Not Given Mupirocin (Bactroban Ointment (For Decolonization) -) 1 applic NS BID [facility] Stop: 07/27/17 21:59 Last Admin: 07/23/17 21:06 Dose: 1 applic Ptt's Own Med( Carbidopa/Levodopa [ Rytary Er 23.75 Mg- 95 Mg Cap 4 each PO QID [facility] Last Admin: 07/23/17 21:06 Dose: Not Given Ptnt's Own Med (Non- Formulary) ( Carbidopa/Levodopa [ Rytary Er 36.25 Mg- 145 Mg Ca 4 each PO QID [facility] Last Admin: 07/23/17 21:06 Dose: Not Given [facility]nt's Own Med( Pimavanserin Tartrate [Nuplazid] 34 Mg) 34 mg PO DAILY [facility] Last Admin: 07/23/17 09:52 Dose: Not Given [facility] Own Med ( Rasagiline Mesylate [Azilect] 1 Mg) 1 mg PO DAILY [facility] Last Admin: 07/23/17 09:52 Dose: Not Given Ptnt's Own Med( Rotigotine [Neupro] 1 Each) 1 each TD DAILY [facility] Last Admin: 07/23/17 18:36 Dose: 1 each Olanzapine (Zyprexa -) 2.5 mg PO DAILY [facility] Last Admin: 07/23/17 09:52 Dose: Not Given Quetiapine Fumarate (Seroquel -) 25 mg PO BID [facility] Last Admin: 07/23/17 21:06 Dose: Not Given - Objective Vital Signs: Vital Signs Temperature 98.2 F 07/24/17 06:00 Pulse Rate 90 07/24/17 08:00 Respiratory Rate 18 07/24/17 08:00 Blood Pressure 111/75 07/24/17 08:00 O2 Sat by Pulse Oximetry (%) 97 07/23/17 20:04 Constitutional: Yes: No Distress, Calm HENT: Yes: Atraumatic, Normocephalic Neck: Yes: Supple, Trachea Midline Cardiovascular: Yes: Regular Rate and Rhythm, S1, S2 Respiratory: Yes: Regular, CTA Bilaterally Gastrointestinal: Yes: Normal Bowel Sounds, Soft Edema: No Peripheral Pulses WNL: Yes Integumentary: Yes: WNL Neurological: No: Alert, Oriented Psychiatric: No: Alert, Oriented Labs: CBC, BMP 07/24/17 05:30 07/24/17 05:30 INR, PTT INR 1.23 (0.82-1.09) H 07/24/17 05:30 Fibrinogen 284.0 mg/dL (238-498) 07/23/17 12:27 Laboratory Tests 07/24/17 07/24/17 07/24/17 04:15 05:30 05:30 WBC 8.4 Hgb 8.6 L D Hct 24.4 L Plt Count 128 L INR 1.23 H Sodium 149 H Potassium 3.8 Chloride 116 H Carbon Dioxide 26 BUN 18 D Creatinine 0.2 L D Calcium 6.6 L* Phosphorus 0.8 L* Magnesium 2.0 Total Bilirubin 0.8 D AST 18 ALT 19 D Alkaline Phosphatase 57 - ....Imaging Other: Report Reviewed (Bleeding scan showed no abnormalities) Problem List - Problems (1) Anticoagulant-induced bleeding Code(s): T45.7X1A - POISN BY ANTICOAG ANTAG, VITAMIN K AND OTH COAG, ACC, INIT D68.9 - COAGULATION DEFECT, UNSPECIFIED (2) Atrial fibrillation Code(s): I48.91 - UNSPECIFIED ATRIAL FIBRILLATION (3) GI bleed Code(s): K92.2 - GASTROINTESTINAL HEMORRHAGE, UNSPECIFIED Assessment/Plan 62 year old female with multiple past medical problems presents for hematochezia likely 2/2 xarelto use -patient is producing brown stool, an improvement from yesterday -NGT inserted and revealed bilious return with no evidence of acute bleeding -consent for EGD/colonoscopy was obtained by Dr. Villanueva -bleeding scan negative -EGD/colonoscopy scheduled for 2pm -Hgb stable at 8.3 -supportive care -correct electrolytes
[2017-07-24] MEDS ORDERED: POTASSIUM PHOSPHATE 30 MM in DEXTROSE 5%-WATER - 250 ML IVPB ONE (10:00)
[2017-07-24] MEDS: MUPIROCIN 2% TOPICAL OINTMENT FOR DECOLONIZATION NS SCH ×2 (10:00→21:32)
[2017-07-24] MEDS: [UNRECOGNIZED DRUG - OTHER] TD SCH (10:00)
--- NOTE | 2017-07-24 10:14 | PN ---
Progress Note (short form) - Note Progress Note: Patient seen and examined. Chart/labs reviewed in detail Awaiting for GI procedures this am. Patient is sleepy, makes minimal conversation. Cardiovascular: Yes: Pulse Irregular Respiratory: Yes: CTA Bilaterally, On Nasal O2. No: Accessory Muscle Use Gastrointestinal: Yes: Normal Bowel Sounds, Soft Extremities: Yes: WNL Edema: No Last Vital Signs Temp Pulse Resp BP Pulse Ox 98.2 F 90 18 111/75 97 07/24/17 06:00 07/24/17 08:00 07/24/17 08:00 07/24/17 08:00 07/23/17 20:04 CBC, BMP 07/24/17 05:30 07/24/17 05:30 INR, PTT INR 1.23 (0.82-1.09) H 07/24/17 05:30 Fibrinogen 284.0 mg/dL (238-498) 07/23/17 12:27 Current Medications Generic Name Dose Route Start Last Admin Trade Name Freq PRN Reason Stop Dose Admin Carbidopa/Levodopa 1 each 07/22/17 14:00 07/23/17 21:06 Sinemet 25/100 - PO Not Given QID JOE Chlorhexidine Gluconate 1 applic 07/22/17 22:00 07/23/17 21:06 Hibiclens For Decolonization - TP 1 applic HS JOE Administration Pantoprazole Sodium 80 mg/ 100 mls @ 10 mls/hr 07/22/17 13:30 07/24/17 06:26 Sodium Chloride IVPB 10 mls/hr Q10H JOE Administration 8 MG/HR Octreotide Acetate 1,200 mcg/ 500 mls @ 20.83 mls/hr 07/23/17 01:15 07/24/17 01 :00 Dextrose IVPB 20.83 mls/hr ASDIR JOE Administration Protocol 50 MCG/HR Potassium Phosphate 30 mm/ 260 mls @ 62.5 mls/hr 07/24/17 10:00 Dextrose IVPB 07/24/17 14:09 ONCE ONE Dextrose/Sodium Chloride 1,000 mls @ 125 mls/hr 07/24/17 08:45 D5-1/2ns - IV ASDIR JOE Insulin Aspart 1 vial 07/24/17 08:30 Novolog Vial Sliding Scale - SQ Q6HPO JOE Protocol Metoprolol Succinate 50 mg 07/23/17 10:00 09/18/17 09:52 Toprol Xl - PO Not Given DAILY JOE Mupirocin 1 applic 07/22/17 22:00 07/23/17 21:06 Bactroban Ointment (For Decolonization) - NS 07/27/17 21:59 1 applic BID JOE Administration Ptt's Own Med( 4 each 07/22/17 14:00 07/23/17 21:06 Carbidopa/Levodopa [ PO Not Given Rytary Er 23.75 Mg- QID JOE 95 Mg Cap Ptnt's Own Med (Non- 4 each 07/22/17 14:00 07/23/17 21:06 Formulary) ( PO Not Given Carbidopa/Levodopa [ QID JOE Rytary Er 36.25 Mg- 145 Mg Ca Ptnt's Own Med( 34 mg 07/23/17 10:00 07/23/17 09:52 Pimavanserin PO Not Given Tartrate [Nuplazid] DAILY JOE 34 Mg) Ptnt's Own Med ( 1 mg 07/23/17 10:00 07/23/17 09:52 Rasagiline Mesylate PO Not Given [Azilect] 1 Mg) DAILY JOE Ptnt's Own Med( 1 each 07/23/17 10:00 07/23/17 18:36 Rotigotine [Neupro] TD 1 each 1 Each) DAILY JOE Administration Olanzapine 2.5 mg 07/23/17 10:00 07/23/17 09:52 Zyprexa - PO Not Given DAILY JOE Quetiapine Fumarate 25 mg 07/22/17 22:00 07/23/17 21:06 Seroquel - PO Not Given BID [facility] Assessment/Plan: 62 y/o with parkinsons disease, afib, on xeralto comes in with gi bleed. ? diverticular bleed last dose xeralto--07/21 at 730pm. based on her nl renal fxn expect xeralto to have been cleared in 24-36 hrs. from last dosed received 7 units of PRBCs, 1 cryo and 2 FFP. -pt at risk for dilutional coagulopathy, daily coags -and also at risk for severe hypocalcemia, daily Ca, s/p calcium gluconate -CBC [id number] and transfuse for platelets <100,000, maintain active type and screen. -transfuse PRBCs as necessary -f/u GI recommendations d/w
[2017-07-24] MEDS: [UNRECOGNIZED DRUG - OTHER] PO SCH (11:12)
[2017-07-24] MEDS: [UNRECOGNIZED DRUG - OTHER] PO SCH (11:12)
[2017-07-24] MEDS: LEVODOPA PO SCH ×8 (11:12→21:31)
[2017-07-24] MEDS: CARBIDOPA PO SCH ×8 (11:12→21:31)
[2017-07-24] MEDS: QUEtiapine FUMARATE 25 MG TABLET (FP) PO SCH ×2 (11:13→21:32)
[2017-07-24] MEDS: CARBIDOPA/LEVODOPA 25/100 TABLET (FP) PO SCH ×4 (11:13→21:32)
[2017-07-24] MEDS: METOPROLOL SUCCINATE 50 MG TAB.SR.24H (FP) PO SCH (11:14)
[2017-07-24] MEDS: OLANZapine 2.5 MG TABLET PO SCH (11:14)
--- NOTE | 2017-07-24 11:35 | PN ---
Progress Note (short form) - Note Progress Note: Attending Surgeon Seen in f/u; no c/o ?? VSS AF P 100 abdomen-soft; non tender; dark stool; no macy blood labs noted IMP: GIB PLAN: Colonoscopy today; will f/u. Hans Rodriguez MD FACS
[2017-07-24] MEDS: DEXTROSE 5%-0.45% SALINE 1,000 ML IV SCH (12:00)
[2017-07-24] MEDS ORDERED: ePHEDrine SULFATE 50 MG/1 ML AMPULE ONE (13:29)
[2017-07-24] MEDS ORDERED: PHENYLEPHRINE HCL 10 MG/1 ML SINGLE DOSE VIAL ONE (13:29)
[2017-07-24] MEDS ORDERED: PROPOFOL 20 ML ONE ×3 (13:29)
[2017-07-24] MEDS ORDERED: ATROPINE SULFATE 1 MG/10 ML DISP.SYRIN ONE (13:29)
--- NOTE | 2017-07-24 14:13 | PN ---
Progress Note (short form) - Note Progress Note: EGD report placed in procedural section of physical chart and to be scanned into [employer] No source of bleeding noted on upper endoscopy Unable to perform colonoscopy. Patient impacted and needed to be manually disimpacted: dark brown stool NGT replaced: 16Fr. at bedside post procedures without resistance. Air yusuf auscultated in LUQ / Upper abdomen Obtain CXR/AXR prior to using NGT Needs repeat bowel prep for colonoscopy tomorrow Replete lytes: repeat phosphorous ordered
--- NOTE | 2017-07-24 14:30 | PN ---
Teaching Attending Note Name of Resident: Latrice Lisa ATTENDING PHYSICIAN STATEMENT I saw and evaluated the patient. I reviewed the resident's note and discussed the case with the resident. I agree with the resident's findings and plan as documented. SUBJECTIVE: Patient seen and examined in the ICU. Mental status better today, but confused. No fever or chills. Denies CP or SOB. Intake & Output 07/21/17 07/22/17 07/23/17 07/24/17 23:59 23:59 23:59 23:59 Intake Total 1450 44320.1 1765.6 Output Total 500 700 Balance 1450 9692.1 1065.6 Weight 113 lb 105 lb 8 oz 121 lb 4 oz Last Vital Signs Temp Pulse Resp BP Pulse Ox 98 F 95 H 18 121/68 97 07/24/17 10:00 07/24/17 12:00 07/24/17 12:00 07/24/17 12:00 07/24/17 09:00 Active Medications Carbidopa/Levodopa (Sinemet 25/100 -) 1 each PO QID JOE Last Admin: 07/24/17 11:13 Dose: Not Given Chlorhexidine Gluconate (Hibiclens For Decolonization -) 1 applic TP HS JOE Last Admin: 07/23/17 21:06 Dose: 1 applic Pantoprazole Sodium 80 mg/ (Sodium Chloride) 100 mls @ 10 mls/hr IVPB Q10H JOE PRN Reason: 8 MG/HR Last Admin: 07/24/17 11:14 Dose: 10 mls/hr Octreotide Acetate 1,200 mcg/ (Dextrose) 500 mls @ 20.83 mls/hr IVPB ASDIR JOE ; 50 MCG/HR PRN Reason: Protocol Last Admin: 07/24/17 01:00 Dose: 20.83 mls/hr Dextrose/Sodium Chloride (D5-1/2ns -) 1,000 mls @ 125 mls/hr IV ASDIR JOE Last Admin: 07/24/17 12:00 Dose: 125 mls/hr Insulin Aspart (Novolog Vial Sliding Scale -) 1 vial SQ Q6HPO JOE PRN Reason: Protocol Last Admin: 07/24/17 08:30 Dose: Not Given Metoprolol Succinate (Toprol Xl -) 50 mg PO DAILY JOE Last Admin: 07/24/17 11:14 Dose: Not Given Mupirocin (Bactroban Ointment (For Decolonization) -) 1 applic NS BID [facility] Stop: 07/27/17 21:59 Last Admin: 07/24/17 10:00 Dose: 1 applic Ptt's Own Med( Carbidopa/Levodopa [ Rytary Er 23.75 Mg- 95 Mg Cap 4 each PO QID [facility] Last Admin: 07/24/17 11:12 Dose: Not Given Ptnt's Own Med (Non- Formulary) ( Carbidopa/Levodopa [ Rytary Er 36.25 Mg- 145 Mg Ca 4 each PO QID [facility] Last Admin: 07/24/17 11:12 Dose: Not Given Ptnt's Own Med( Pimavanserin Tartrate [Nuplazid] 34 Mg) 34 mg PO DAILY [facility] Last Admin: 07/24/17 11:12 Dose: Not Given [facility]'s Own Med ( Rasagiline Mesylate [Azilect] 1 Mg) 1 mg PO DAILY [facility] Last Admin: 07/24/17 11:12 Dose: Not Given [facility]nt's Own Med( Rotigotine [Neupro] 1 Each) 1 each TD DAILY [facility] Last Admin: 07/24/17 10:00 Dose: 1 each Olanzapine (Zyprexa -) 2.5 mg PO DAILY [facility] Last Admin: 07/24/17 11:14 Dose: Not Given Quetiapine Fumarate (Seroquel -) 25 mg PO BID [facility] Last Admin: 07/24/17 11:13 Dose: Not Given Constitutional: Yes: No Distress, Thin. No: Diaphoresis Eyes: Yes: Conjunctiva Clear HENT: Yes: Atraumatic, Normocephalic Neck: Yes: Supple, Trachea Midline Cardiovascular: Yes: Pulse Irregular Respiratory: Yes: Scattered bilateral rhonchi, On NC O2. No: Accessory Muscle Use Gastrointestinal: Yes: Normal Bowel Sounds, Soft Renal/: Yes: WNL Musculoskeletal: Yes: WNL Extremities: Yes: WNL Edema: No Peripheral Pulses WNL: Yes Integumentary: Yes: WNL Neurological: Yes: Confusion Laboratory Results - last 24 hr 07/22/17 07/23/17 07/23/17 08:26 16:45 17:00 WBC 8.6 RBC 2.63 L Hgb 8.0 L D Hct 22.4 L MCV 85.1 MCH 30.5 MCHC 35.8 RDW 13.8 Plt Count 133 L MPV 9.8 PT with INR INR PTT (Actin FS) Sodium Potassium Chloride Carbon Dioxide Anion Gap BUN Creatinine Creat Clearance w eGFR POC Glucometer Random Glucose Calcium Phosphorus Magnesium Total Bilirubin AST ALT Alkaline Phosphatase Total Protein Albumin Urine Color Yellow Urine Appearance Slcloudy Urine pH 5.0 Ur Specific Jeremiah 1.010 Urine Protein Negative Urine Glucose (UA) Negative Urine Ketones Trace H Urine Blood Negative Urine Nitrite Negative Urine Bilirubin Negative Urine Urobilinogen Negative Blood Type A POSITIVE Antibody Screen Cancelled Crossmatch See Detail Spec Expiration Date Cancelled 07/23/17 07/23/17 07/24/17 17:00 23:05 04:15 WBC 8.6 8.4 RBC 2.49 L 2.90 L Hgb 7.5 L 8.6 L D Hct 21.5 L 24.4 L MCV 86.1 84.4 MCH 30.1 29.7 MCHC 34.9 35.2 RDW 14.1 14.8 Plt Count 131 L 128 L MPV 9.0 8.9 PT with INR INR PTT (Actin FS) Sodium 150 H Potassium 3.7 Chloride 119 H Carbon Dioxide 24 Anion Gap 7 L BUN 28 H Creatinine 0.4 L D Creat Clearance w eGFR > 60 POC Glucometer Random Glucose 194 H D Calcium 6.9 L* Phosphorus Magnesium Total Bilirubin 1.3 H D AST 15 ALT 6 L Alkaline Phosphatase 57 Total Protein 3.7 L Albumin 1.9 L Urine Color Urine Appearance Urine pH Ur Specific Jeremiah Urine Protein Urine Glucose (UA) Urine Ketones Urine Blood Urine Nitrite Urine Bilirubin Urine Urobilinogen Blood Type Antibody Screen Crossmatch Spec Expiration Date 07/24/17 07/24/17 07/24/17 05:30 05:30 05:30 WBC 8.5 RBC 2.78 L Hgb 8.3 L Hct 23.3 L MCV 84.1 MCH 30.0 MCHC 35.7 RDW 15.0 Plt Count 133 L MPV 9.4 PT with INR 13.60 H INR 1.23 H PTT (Actin FS) 26.7 L Sodium 149 H Potassium 3.8 Chloride 116 H Carbon Dioxide 26 Anion Gap 7 L BUN 18 D Creatinine 0.2 L D Creat Clearance w eGFR > 60 POC Glucometer Random Glucose 171 H Calcium 6.6 L* Phosphorus 0.8 L* Magnesium 2.0 Total Bilirubin 0.8 D AST 18 ALT 19 D Alkaline Phosphatase 57 Total Protein 3.8 L Albumin 1.9 L Urine Color Urine Appearance Urine pH Ur Specific Jeremiah Urine Protein Urine Glucose (UA) Urine Ketones Urine Blood Urine Nitrite Urine Bilirubin Urine Urobilinogen Blood Type Antibody Screen Crossmatch Spec Expiration Date 07/24/17 11:33 WBC RBC Hgb Hct MCV MCH MCHC RDW Plt Count MPV PT with INR INR PTT (Actin FS) Sodium Potassium Chloride Carbon Dioxide Anion Gap BUN Creatinine Creat Clearance w eGFR POC Glucometer [phone] Random Glucose Calcium Phosphorus Magnesium Total Bilirubin AST ALT Alkaline Phosphatase Total Protein Albumin Urine Color Urine Appearance Urine pH Ur Specific Jeremiah Urine Protein Urine Glucose (UA) Urine Ketones Urine Blood Urine Nitrite Urine Bilirubin Urine Urobilinogen Blood Type Antibody Screen Crossmatch Spec Expiration Date Problem List - Problems (1) Anticoagulant-induced bleeding Code(s): T45.7X1A - POISN BY ANTICOAG ANTAG, VITAMIN K AND OTH COAG, ACC, INIT D68.9 - COAGULATION DEFECT, UNSPECIFIED (2) Atrial fibrillation Code(s): I48.91 - UNSPECIFIED ATRIAL FIBRILLATION (3) GI bleed Code(s): K92.2 - GASTROINTESTINAL HEMORRHAGE, UNSPECIFIED (4) CHF (congestive heart failure), NYHA class I Code(s): I50.9 - HEART FAILURE, UNSPECIFIED (5) HTN (hypertension) Code(s): I10 - ESSENTIAL (PRIMARY) HYPERTENSION (6) Nonischemic cardiomyopathy Code(s): I42.9 - CARDIOMYOPATHY, UNSPECIFIED (7) Parkinson disease Code(s): G20 - PARKINSON'S DISEASE Assessment/Plan Follow H&H Normal transfusion thresholds NGT O2 as needed NPO IVF PPI For endoscopy Dr Lewis Critical care time spent in reviewing chart, evaluating patient and formulating plan - 35 minutes. Problem List - Problems (1) Anticoagulant-induced bleeding Code(s): T45.7X1A - POISN BY ANTICOAG ANTAG, VITAMIN K AND OTH COAG, ACC, INIT D68.9 - COAGULATION DEFECT, UNSPECIFIED (2) Atrial fibrillation Code(s): I48.91 - UNSPECIFIED ATRIAL FIBRILLATION (3) GI bleed Code(s): K92.2 - GASTROINTESTINAL HEMORRHAGE, UNSPECIFIED (4) CHF (congestive heart failure), NYHA class I Code(s): I50.9 - HEART FAILURE, UNSPECIFIED (5) HTN (hypertension) Code(s): I10 - ESSENTIAL (PRIMARY) HYPERTENSION (6) Nonischemic cardiomyopathy Code(s): I42.9 - CARDIOMYOPATHY, UNSPECIFIED (7) Parkinson disease Code(s): G20 - PARKINSON'S DISEASE
[2017-07-24 15:21] LABS: MCH 29.7 pg (25.7-33.7); MEAN CELL VOLUME 84.7 fl (80-96); MEAN PLT VOLUME 9.5 fl (7.5-11.1); PLATELET COUNT 134 K/MM3 (134-434); RDW 15.4 % (11.6-15.6); WHITE BLOOD COUNT 8.5 K/mm3 (4.0-10.0)
[2017-07-24] MEDS ORDERED: PEG3350/SOD SULF,BICARB,CL/KCL 4,000 ML SOLN.RECON PO ONE ×2 (16:00→20:48)
--- NOTE | 2017-07-24 18:16 | PN ---
Teaching Attending Note Name of Resident: Gracia Casillas ATTENDING PHYSICIAN STATEMENT I saw and evaluated the patient. I reviewed the resident's note and discussed the case with the resident. I agree with the resident's findings and plan as documented. SUBJECTIVE: Patient looks better today, back to her normal color. OBJECTIVE: Vital Signs Temperature 99.4 F 07/24/17 16:00 Pulse Rate 89 07/24/17 16:00 Respiratory Rate 18 07/24/17 16:00 Blood Pressure 120/70 07/24/17 16:00 O2 Sat by Pulse Oximetry (%) 97 07/24/17 09:00 CBCD WBC 8.5 K/mm3 (4.0-10.0) 07/24/17 15:07 RBC 2.72 M/mm3 (3.60-5.2) L 07/24/17 15:07 Hgb 8.1 GM/dL (10.7-15.3) L 07/24/17 15:07 Hct 23.1 % (32.4-45.2) L 07/24/17 15:07 MCV 84.7 fl (80-96) 07/24/17 15:07 MCHC 35.0 g/dl (32.0-36.0) 07/24/17 15:07 RDW 15.4 % (11.6-15.6) 07/24/17 15:07 Plt Count 134 K/MM3 (134-434) 07/24/17 15:07 MPV 9.5 fl (7.5-11.1) 07/24/17 15:07 CMP Sodium 149 mmol/L (136-145) H 07/24/17 05:30 Potassium 3.8 mmol/L (3.5-5.1) 07/24/17 05:30 Chloride 116 mmol/L (98-107) H 07/24/17 05:30 Carbon Dioxide 26 mmol/L (21-32) 07/24/17 05:30 Anion Gap 7 (8-16) L 07/24/17 05:30 BUN 18 mg/dL (7-18) D 07/24/17 05:30 Creatinine 0.2 mg/dL (0.55-1.02) L D 07/24/17 05:30 Creat Clearance w eGFR > 60 (>60) 07/24/17 05:30 Random Glucose 171 mg/dL (74-106) H 07/24/17 05:30 Calcium 6.6 mg/dL (8.5-10.1) L* 07/24/17 05:30 Total Bilirubin 0.8 mg/dL (0.2-1.0) D 07/24/17 05:30 AST 18 U/L (15-37) 07/24/17 05:30 ALT 19 U/L (12-78) D 07/24/17 05:30 Alkaline Phosphatase 57 U/L (45-117) 07/24/17 05:30 Total Protein 3.8 g/dl (6.4-8.2) L 07/24/17 05:30 Albumin 1.9 g/dl (3.4-5.0) L 07/24/17 05:30 Current Medications Generic Name Dose Route Start Last Admin Trade Name Freq PRN Reason Stop Dose Admin Carbidopa/Levodopa 1 each 07/22/17 14:00 07/24/17 15:47 Sinemet 25/100 - PO Not Given QID [facility] Chlorhexidine Gluconate 1 applic 07/22/17 22:00 07/23/17 21:06 Hibiclens For Decolonization - TP 1 applic HS JOE Administration Dextrose/Sodium Chloride 1,000 mls @ 125 mls/hr 07/24/17 08:45 07/24/17 12:00 D5-1/2ns - IV 125 mls/hr ASDIR JOE Administration Insulin Aspart 1 vial 07/24/17 08:30 07/24/17 12:00 Novolog Vial Sliding Scale - SQ Not Given Q6HPO [facility] Protocol Metoprolol Succinate 50 mg 07/23/17 10:00 07/24/17 11:14 Toprol Xl - PO Not Given DAILY JOE Mupirocin 1 applic 07/22/17 22:00 07/24/17 10:00 Bactroban Ointment (For Decolonization) - NS 07/27/17 21:59 1 applic BID JOE Administration Ptt's Own Med( 4 each 07/22/17 14:00 07/24/17 15:47 Carbidopa/Levodopa [ PO Not Given Rytary Er 23.75 Mg- QID JOE 95 Mg Cap [facility] Own [facility] (Non- 4 each 07/22/17 14:00 07/24/17 15:47 Formulary) ( PO Not Given Carbidopa/Levodopa [ QID JOE Rytary Er 36.25 Mg- 145 Mg Ca [facility]( 34 mg 07/23/17 10:00 07/24/17 11:12 Pimavanserin PO Not Given Tartrate [Nuplazid] DAILY JOE 34 Mg) [facility] ( 1 mg 07/23/17 10:00 07/24/17 11:12 Rasagiline Mesylate PO Not Given [Azilect] 1 Mg) DAILY JOE [facility]nt[facility] Own Med( 1 each 07/23/17 10:00 07/24/17 10:00 Rotigotine [Neupro] TD 1 each 1 Each) DAILY JOE Administration Olanzapine 2.5 mg 07/23/17 10:00 07/24/17 11:14 Zyprexa - PO Not Given DAILY JOE Quetiapine Fumarate 25 mg 07/22/17 22:00 07/24/17 11:13 Seroquel - PO Not Given BID JOE PE: per resident's note :No active gross bleeding today in the diaper ASSESSMENT AND PLAN: Patient is a 62 year old female with PMHx of parkinson's disease, afib on xarelto for 3 years (last dose 7.30pm, last night) and s/p AICD, CHF, NICM, immobile at baseline living now with brother at home with 24hr care presented with Acute GI bleed. # Acute GI bleed Upper vs Lower : Xarelto is on hold, with hx of Afib. now NSR , continue H/h q6h, GI consult appreciated Continue .s/p transfusions of total of 7 units of PRBC and 2 units of FFP, and one unit of pooled cryoppt. Patient had EGD today. not able to do colonoscopy since fullof stool. going for possible colonscopy in am # Hx of Afib with AICD , now NSR, Xarelto is on hold , cardio consult appreciated # Hx of Parkinsonism , continue meds.. # hx of systolic CHF s/p AICD on lasix, Losartan , will hold for now since presented with low BP DVT Px: SCds only since actively bleeding contraindicated. critical care time of 35 minutes
[2017-07-24 18:28] LABS: MCH 29.4 pg (25.7-33.7); MCHC 34.7 g/dl (32.0-36.0); MEAN CELL VOLUME 84.6 fl (80-96); MEAN PLT VOLUME 9.2 fl (7.5-11.1); PLATELET COUNT 138 K/MM3 (134-434); RDW 15.5 % (11.6-15.6); WHITE BLOOD COUNT 9.4 K/mm3 (4.0-10.0)
--- NOTE | 2017-07-24 18:32 | PN ---
Physical Exam: SUBJECTIVE: Patient seen and examined. No macy bleeding per rectum seen. Patient still having dark stools. Communicating more clearly. OBJECTIVE: Vital Signs Period Temp Pulse Resp BP Sys/German Pulse Ox Last 24 Hr 98 F-99.4 F 89-96 18-18 88-126/48-77 97-97 GENERAL: Awake, alert, verbal expression improved from before, in no acute respiratory distress. HEAD: Normal with no signs of trauma. EYES: Patient kept eyes closed during the exam EARS, NOSE, THROAT: NGT in place LUNGS: Breath sounds equal, clear to auscultation bilaterally. No wheezes, and no crackles. No accessory muscle use. HEART: Regular rate and rhythm, normal S1 and S2 . ABDOMEN: Soft, nontender, not distended, bowel sounds present. Rectal exam: Diaper with dark brown stools, no more macy blood MUSCULOSKELETAL: Increased tone and upper limb tremors more on R UPPER EXTREMITIES: 2+ pulses, warm, well-perfused. LOWER EXTREMITIES: 2+ pulses, warm, well-perfused. No calf tenderness. No peripheral edema. Pressure point on left sole NEUROLOGICAL: Hypertonia with rigidity in upper limbs. PSYCHIATRIC: Verbal expression improving Laboratory Results - last 24 hr 07/23/17 07/23/17 07/23/17 16:45 17:00 17:00 WBC 8.6 RBC 2.63 L Hgb 8.0 L D Hct 22.4 L MCV 85.1 MCH 30.5 MCHC 35.8 RDW 13.8 Plt Count 133 L MPV 9.8 PT with INR INR PTT (Actin FS) Sodium 150 H Potassium 3.7 Chloride 119 H Carbon Dioxide 24 Anion Gap 7 L BUN 28 H Creatinine 0.4 L D Creat Clearance w eGFR > 60 POC Glucometer Random Glucose 194 H D Calcium 6.9 L* Phosphorus Magnesium Total Bilirubin 1.3 H D AST 15 ALT 6 L Alkaline Phosphatase 57 Total Protein 3.7 L Albumin 1.9 L Urine Color Yellow Urine Appearance Slcloudy Urine pH 5.0 Ur Specific [place] 1.010 Urine Protein Negative Urine Glucose (UA) Negative Urine Ketones Trace H Urine Blood Negative Urine Nitrite Negative Urine Bilirubin Negative Urine Urobilinogen Negative 07/23/17 07/24/17 07/24/17 23:05 04:15 05:30 WBC 8.6 8.4 RBC 2.49 L 2.90 L Hgb 7.5 L 8.6 L D Hct 21.5 L 24.4 L MCV 86.1 84.4 MCH 30.1 29.7 MCHC 34.9 35.2 RDW 14.1 14.8 Plt Count 131 L 128 L MPV 9.0 8.9 PT with INR INR PTT (Actin FS) Sodium 149 H Potassium 3.8 Chloride 116 H Carbon Dioxide 26 Anion Gap 7 L BUN 18 D Creatinine 0.2 L D Creat Clearance w eGFR > 60 POC Glucometer Random Glucose 171 H Calcium 6.6 L* Phosphorus 0.8 L* Magnesium 2.0 Total Bilirubin 0.8 D AST 18 ALT 19 D Alkaline Phosphatase 57 Total Protein 3.8 L Albumin 1.9 L Urine Color Urine Appearance Urine pH Ur Specific [place] Urine Protein Urine Glucose (UA) Urine Ketones Urine Blood Urine Nitrite Urine Bilirubin Urine Urobilinogen 07/24/17 07/24/17 07/24/17 05:30 05:30 11:33 WBC 8.5 RBC 2.78 L Hgb 8.3 L Hct 23.3 L MCV 84.1 MCH 30.0 MCHC 35.7 RDW 15.0 Plt Count 133 L MPV 9.4 PT with INR 13.60 H INR 1.23 H PTT (Actin FS) 26.7 L Sodium Potassium Chloride Carbon Dioxide Anion Gap BUN Creatinine Creat Clearance w eGFR POC Glucometer [id number] Random Glucose Calcium Phosphorus Magnesium Total Bilirubin AST ALT Alkaline Phosphatase Total Protein Albumin Urine Color Urine Appearance Urine pH Ur Specific [place] Urine Protein Urine Glucose (UA) Urine Ketones Urine Blood Urine Nitrite Urine Bilirubin Urine Urobilinogen 07/24/17 15:07 WBC 8.5 RBC 2.72 L Hgb 8.1 L Hct 23.1 L MCV 84.7 MCH 29.7 MCHC 35.0 RDW 15.4 Plt Count 134 MPV 9.5 PT with INR INR PTT (Actin FS) Sodium Potassium Chloride Carbon Dioxide Anion Gap BUN Creatinine Creat Clearance w eGFR POC Glucometer Random Glucose Calcium Phosphorus Magnesium Total Bilirubin AST ALT Alkaline Phosphatase Total Protein Albumin Urine Color Urine Appearance Urine pH Ur Specific [place] Urine Protein Urine Glucose (UA) Urine Ketones Urine Blood Urine Nitrite Urine Bilirubin Urine Urobilinogen EGD: Did not reveal source of bleeding, gastric polyp noted for evaluation as outpatient with resolution of acute events Active Medications Generic Name Dose Route Start Last Admin Trade Name Freq PRN Reason Stop Dose Admin Carbidopa/Levodopa 1 each 07/22/17 14:00 07/24/17 15:47 Sinemet 25/100 - PO Not Given QID [facility] Chlorhexidine Gluconate 1 applic 07/22/17 22:00 07/23/17 21:06 Hibiclens For Decolonization - TP 1 applic HS JOE Administration Dextrose/Sodium Chloride 1,000 mls @ 125 mls/hr 07/24/17 08:45 07/24/17 12:00 D5-1/2ns - IV 125 mls/hr ASDIR JOE Administration Insulin Aspart 1 vial 07/24/17 08:30 07/24/17 12:00 Novolog Vial Sliding Scale - SQ Not Given Q6HPO [facility] Protocol Metoprolol Succinate 50 mg 07/23/17 10:00 07/24/17 11:14 Toprol Xl - PO Not Given DAILY JOE Mupirocin 1 applic 07/22/17 22:00 07/24/17 10:00 Bactroban Ointment (For Decolonization) - NS 07/27/17 21:59 1 applic BID JOE Administration Ptt's Own Med( 4 each 07/22/17 14:00 07/24/17 15:47 Carbidopa/Levodopa [ PO Not Given Rytary Er 23.75 Mg- QID JOE 95 Mg Cap Ptnt's Own Med (Non- 4 each 07/22/17 14:00 07/24/17 15:47 Formulary) ( PO Not Given Carbidopa/Levodopa [ QID JOE Rytary Er 36.25 Mg- 145 Mg Ca Ptnt's Own Med( 34 mg 07/23/17 10:00 07/24/17 11:12 Pimavanserin PO Not Given Tartrate [Nuplazid] DAILY JOE 34 Mg) Ptnt's Own Med ( 1 mg 07/23/17 10:00 07/24/17 11:12 Rasagiline Mesylate PO Not Given [Azilect] 1 Mg) DAILY JOE Ptnt's Own Med( 1 each 07/23/17 10:00 07/24/17 10:00 Rotigotine [Neupro] TD 1 each 1 Each) DAILY JOE Administration Olanzapine 2.5 mg 07/23/17 10:00 07/24/17 11:14 Zyprexa - PO Not Given DAILY JOE Quetiapine Fumarate 25 mg 07/22/17 22:00 07/24/17 11:13 Seroquel - PO Not Given BID [facility] ASSESSMENT/PLAN: #GI bleeding : Upper vs Lower GI bleed: NGT drained serous fluid Dark brown stools stools Hold xarelto IV pantoprazole 40mg stat GI on board did EGD: No source of bleeding noted on upper endoscopy Unable to perform colonoscopy. Patient impacted and needed to be manually disimpacted: dark brown stool NGT replaced: 16Fr. at bedside post procedures without resistance. Air yusuf auscultated in LUQ / Upper abdomen Obtain CXR/AXR prior to using NGT Needs repeat bowel prep for colonoscopy tomorrow Replete lytes: repeat phosphorous ordered Stop octreotide per GI Follow CBC #Anemia: Stable post transfusion CBC #Electrolyte abnormalities: BMP correct as needed #Pressure point Left sole: Foot padding Frequent turns #Hypernatremia Resolved Follow BMP- D5 in 11/06 NSaline #Hypomagnesemia Iv Magnesium sulphate 2 gm once #Afib: Hold Xarelto for now- per Cardio Reduce metoprolol to 50mg XL Cardiology consulted- recommended to continue metoprolol if the BP permits #Parkinsons disease: Currently immobile with some difficult to comprehend speech' In diapers- continue Carbidopa/Levodopa Continue Collagenase Clostridium Hist. Continue Mupirocin Cream Continue Rasagiline Mesylate Rotigotine [Neupro] #Psychosis Pimavanserin Tartrate [Nuplazid] Olanzapine #CHF No signs of failure Hold spironolactone for now Hold Losartan Potassium for now Hold Furosemide PO for now To continue Metoprolol per cardio if BP permits Strict ins and outs #NICM Hold spironolactone for now Hold Losartan Potassium for now Pace maker in R ventricle #FEN: Iv Normal saline Continue [place] oral fluids CBC NPO for now #Prophylaxis: DVT: SCD Heparin contraindicated due to current bleed GI: Pepcid #Dispo: Admit ICU -supportive care Visit type - Emergency Visit Emergency Visit: Yes ED Registration Date: 07/22/17 Care time: The patient presented to the Emergency Department on the above date and was hospitalized for further evaluation of their emergent condition. - New Patient This patient is new to me today: No - Critical Care Critical Care patient: Yes Total Critical Care Time (in minutes): 50 Critical Care Statement: The care of this patient involved high complexity decision making to prevent further life threatening deterioration of the patient 's condition and/or to evaluate & treat vital organ system(s) failure or risk of failure. - Discharge Referral Referred to [facility] No
[2017-07-24 19:07] LABS: ANION GAP 6 (8-16); CALCIUM 7.3 mg/dL (8.5-10.1); CO2 27 mmol/L (21-32); CREATININE 0.2 mg/dL (0.55-1.02); GLUCOSE,RANDOM 119 mg/dL (74-106); PHOSPHOROUS 3.3 mg/dL (2.5-4.9)
--- NOTE | 2017-07-24 21:18 | HOSP ---
Subjective - Review of Symptoms Events since last encounter: Pt 6PM BMP, CBC notable for stable Hgb 8.1->8.2, k 4.2, phos of 3.3 (up from 0.8 ). Given corrected lytes, pt started on golytely bowel prep for colonoscopy in AM via NGT. Physical Examination Vital Signs: Vital Signs Temperature 99 F 07/24/17 18:00 Pulse Rate 110 H 07/24/17 18:00 Respiratory Rate 18 07/24/17 18:00 Blood Pressure 120/70 07/24/17 18:00 O2 Sat by Pulse Oximetry (%) 97 07/24/17 09:00 Labs: CBC, BMP 07/24/17 18:19 07/24/17 18:19 Visit type - Emergency Visit Emergency Visit: No - New Patient This patient is new to me today: Yes Date on this admission: 07/24/17 - Critical Care Critical Care patient: Yes Total Critical Care Time (in minutes): 15
[2017-07-24] MEDS: CHLORHEXIDINE GLUCONATE 4% CLEANSER FOR DECOLONIZATION TP SCH (21:32)
[2017-07-25] MEDS ORDERED: HEMOQUE TEST 1 EACH EACH ONE (00:36)
[2017-07-25] MEDS: INSULIN SLIDING SCALE (NOVOLOG) 1 VIAL SQ SCH ×4 (00:55→17:11)
[2017-07-25 07:01] LABS: BASOPHIL 0.4 % (0-2.0); EOSINOPHIL 4.7 % (0-4.5); MCH 30.1 pg (25.7-33.7); MCHC 35.5 g/dl (32.0-36.0); MEAN PLT VOLUME 9.1 fl (7.5-11.1); NEUTROPHILS 74.6 % (42.8-82.8); PLATELET COUNT 133 K/MM3 (134-434); RDW 15.3 % (11.6-15.6); WHITE BLOOD COUNT 8.6 K/mm3 (4.0-10.0)
[2017-07-25 07:23] LABS: ANION GAP 8 (8-16); CO2 28 mmol/L (21-32); GLUCOSE,RANDOM 129 mg/dL (74-106); MAGNESIUM 1.7 mg/dL (1.8-2.4)
[2017-07-25 07:28] LABS: ALK PHOS 84 U/L (45-117); BILIRUBIN,TOTAL 0.4 mg/dL (0.2-1.0); CREATININE 0.2 mg/dL (0.55-1.02); PHOSPHOROUS 1.6 mg/dL (2.5-4.9); SGOT/AST 43 U/L (15-37); SGPT/ALT 37 U/L (12-78); TOT PROT 3.8 g/dl (6.4-8.2)
[2017-07-25 07:42] LABS: INR 1.14 (0.82-1.09); PROTHROMBIN TIME (PATIENT) 12.6 SEC (9.98-11.88)
[2017-07-25 07:45] LABS: ACTIVATED PTT 27.9 SECONDS (26.9-34.4)
[2017-07-25 07:51] LABS: CALCIUM 6.8 mg/dL (8.5-10.1)
[2017-07-25] MEDS ORDERED: MAGNESIUM SULF 50% (8.12 MEQ/2 ML-1 GM VIAL) IVPB ONE (07:56)
--- NOTE | 2017-07-25 07:57 | PN ---
Physical Exam: 24H Events: yesterday - EGD completed, colonoscopy prep incomplete o/n: 2nd colonoscopy prep, dark brown stool AM: SUBJECTIVE: Patient seen and examined in ICU. Denies any chest pain, abdominal pain, or SOB. OBJECTIVE: Vital Signs Period Temp Pulse Resp BP Sys/German Pulse Ox Last 24 Hr 97.7 F-99.4 F 65-110 12-20 97-126/59-77 97-98 Intake & Output 07/22/17 07/23/17 07/24/17 07/25/17 23:59 23:59 23:59 23:59 Intake Total 1450 44440.1 6506.2 2000 Output Total 500 1200 800 Balance 1450 9692.1 5306.2 1200 Weight 51.256 kg 47.854 kg 54.998 kg 54.885 kg GENERAL: The patient is awake, alert and interactive. some confusion EYES: sclera anicteric, conjunctiva clear ENT: moist mucous membranes LUNGS: CTAB, no wheezes, rales or crackles HEART: tachycardic, irregular rhythm ABDOMEN: Soft, ntnd EXTREMITIES: 2+ pulses, warm, well-perfused, no LE edema NEUROLOGICAL: UE rigidity SKIN: Warm, dry, normal turgor CBC, BMP 07/25/17 05:15 07/25/17 05:15 Hepatic Panel Total Bilirubin 0.4 mg/dL (0.2-1.0) D 07/25/17 05:15 AST 43 U/L (15-37) H D 07/25/17 05:15 ALT 37 U/L (12-78) D 07/25/17 05:15 Alkaline Phosphatase 84 U/L (45-117) D 07/25/17 05:15 Albumin 2.0 g/dl (3.4-5.0) L 07/25/17 05:15 Ca - 6.8 (corrected 8.4) Mg - 1.7 Phos - 1.6 Active Medications Carbidopa/Levodopa (Sinemet 25/100 -) 1 each PO QID JOE Last Admin: 07/24/17 21:32 Dose: Not Given Chlorhexidine Gluconate (Hibiclens For Decolonization -) 1 applic TP HS [facility] Last Admin: 07/24/17 21:32 Dose: 1 applic Dextrose/Sodium Chloride (D5-1/2ns -) 1,000 mls @ 125 mls/hr IV ASDIR [facility] Last Admin: 07/24/17 12:00 Dose: 125 mls/hr Insulin Aspart (Novolog Vial Sliding Scale -) 1 vial SQ Q6HPO [facility] PRN Reason: Protocol Last Admin: 07/25/17 06:30 Dose: Not Given Metoprolol Succinate (Toprol Xl -) 50 mg PO DAILY [facility] Last Admin: 07/24/17 11:14 Dose: Not Given Mupirocin (Bactroban Ointment (For Decolonization) -) 1 applic NS BID [facility] Stop: 07/27/17 21:59 Last Admin: 07/24/17 21:32 Dose: 1 applic Ptt's Own Med( Carbidopa/Levodopa [ Rytary Er 23.75 Mg- 95 Mg Cap 4 each PO QID [facility] Last Admin: 07/24/17 21:31 Dose: Not Given Ptnt's Own Med (Non- Formulary) ( Carbidopa/Levodopa [ Rytary Er 36.25 Mg- 145 Mg Ca 4 each PO QID [facility] Last Admin: 07/24/17 21:31 Dose: Not Given Ptnt's Own Med( Pimavanserin Tartrate [Nuplazid] 34 Mg) 34 mg PO DAILY [facility] Last Admin: 07/24/17 11:12 Dose: Not Given [facility] Own [facility] ( Rasagiline Mesylate [Azilect] 1 Mg) 1 mg PO DAILY [facility] Last Admin: 07/24/17 11:12 Dose: Not Given [facility]'s Own Med( Rotigotine [Neupro] 1 Each) 1 each TD DAILY [facility] Last Admin: 07/24/17 10:00 Dose: 1 each Olanzapine (Zyprexa -) 2.5 mg PO DAILY [facility] Last Admin: 07/24/17 11:14 Dose: Not Given Quetiapine Fumarate (Seroquel -) 25 mg PO BID [facility] Last Admin: 07/24/17 21:32 Dose: Not Given ASSESSMENT/PLAN: 62yo woman with PMH of PD (bed bound), A-Fib (s/p AICD; on xarelto, last dose 7:30pm), non-ischemic cardiomyopathy, CHF s/p AICD, and HTN who presents with hypovolemia and rectal bleeding 2/2 to suspected LGIB. Abdominal/pelvis CTA and RBC tagged nuclear scan did not reveal any e/o of active bleeding. EGD completed yesterday with no source of bleeding. Patient prepped with golytely for colonoscopy last night and today; no dark stool per nursing. Received 1U PRBC today. #GI -GI following -Colonoscopy planned for tomorrow -Continue octreotide and pantoprazole gtt #Heme -Heme/Onc following -Hold home Xarelto -Transfusing 1U PRBCs today -Monitor H&H #CV -Cardiology following, per recommendations: -continue Metoprolol if BP permits -hold home losartan, lasix #Neuro -Continue home PD meds #Pulm -NC O2 therapy PRN, maintain pSaO2 >90% #FEN -D5 1/2NS @ 125cc/hr -Repleted Mg 2gm IVPB and KPhos 30mm IVPB -Clear liquids today, NPO after midnight #PPX -DVT - SCDs only 2/2 to acute bleeding -GI - on protonix gtt #Dispo -FULL code -Continue ICU monitoring d/w with ICU attending Dr. Florian Lisa MD PGY-1 Visit type - Emergency Visit Emergency Visit: No - New Patient This patient is new to me today: No - Critical Care Critical Care patient: Yes Total Critical Care Time (in minutes): 35 Critical Care Statement: The care of this patient involved high complexity decision making to prevent further life threatening deterioration of the patient 's condition and/or to evaluate & treat vital organ system(s) failure or risk of failure.
[2017-07-25] MEDS ORDERED: POTASSIUM PHOSPHATE 30 MM in DEXTROSE 5%-WATER - 250 ML IVPB ONE (08:15)
--- NOTE | 2017-07-25 08:34 | PN ---
Progress Note (short form) - Note Progress Note: GI NOte: Stools are still brown. Has electrolyte imbalances. Will allow clear liquids and give another 4 liter lavage of Golytely in hope of colonoscopy tomorrow.
--- NOTE | 2017-07-25 08:36 | PN ---
Progress Note, Physician Chief Complaint: Alert no distress - Current Medication List Current Medications: Active Medications Carbidopa/Levodopa (Sinemet 25/100 -) 1 each PO QID [facility] Last Admin: 07/24/17 21:32 Dose: Not Given Chlorhexidine Gluconate (Hibiclens For Decolonization -) 1 applic TP HS [facility] Last Admin: 07/24/17 21:32 Dose: 1 applic Dextrose/Sodium Chloride (D5-1/2ns -) 1,000 mls @ 125 mls/hr IV ASDIR [facility] Last Admin: 07/24/17 12:00 Dose: 125 mls/hr Potassium Phosphate 30 mm/ (Dextrose) 260 mls @ 62.5 mls/hr IVPB ONCE ONE Stop: 07/25/17 12:24 Insulin Aspart (Novolog Vial Sliding Scale -) 1 vial SQ Q6HPO [facility] PRN Reason: Protocol Last Admin: 07/25/17 06:30 Dose: Not Given Metoprolol Succinate (Toprol Xl -) 50 mg PO DAILY [facility] Last Admin: 07/24/17 11:14 Dose: Not Given Mupirocin (Bactroban Ointment (For Decolonization) -) 1 applic NS BID [facility] Stop: 07/27/17 21:59 Last Admin: 07/24/17 21:32 Dose: 1 applic Ptt's Own Med( Carbidopa/Levodopa [ Rytary Er 23.75 Mg- 95 Mg Cap 4 each PO QID [facility] Last Admin: 07/24/17 21:31 Dose: Not Given Ptnt's Own Med (Non- Formulary) ( Carbidopa/Levodopa [ Rytary Er 36.25 Mg- 145 Mg Ca 4 each PO QID [facility] Last Admin: 07/24/17 21:31 Dose: Not Given Ptnt's Own Med( Pimavanserin Tartrate [Nuplazid] 34 Mg) 34 mg PO DAILY [facility] Last Admin: 07/24/17 11:12 Dose: Not Given Ptnt's Own Med ( Rasagiline Mesylate [Azilect] 1 Mg) 1 mg PO DAILY [facility] Last Admin: 07/24/17 11:12 Dose: Not Given Ptnt's Own Med( Rotigotine [Neupro] 1 Each) 1 each TD DAILY [facility] Last Admin: 07/24/17 10:00 Dose: 1 each Olanzapine (Zyprexa -) 2.5 mg PO DAILY [facility] Last Admin: 07/24/17 11:14 Dose: Not Given Quetiapine Fumarate (Seroquel -) 25 mg PO BID [facility] Last Admin: 07/24/17 21:32 Dose: Not Given - Objective Vital Signs: Vital Signs Temperature 98.6 F 07/25/17 08:00 Pulse Rate 62 07/25/17 08:00 Respiratory Rate 16 07/25/17 08:00 Blood Pressure 108/71 07/25/17 08:00 O2 Sat by Pulse Oximetry (%) 98 07/24/17 21:00 Constitutional: Yes: No Distress Cardiovascular: Yes: Regular Rate and Rhythm Respiratory: Yes: CTA Bilaterally Gastrointestinal: Yes: Soft Edema: No Labs: CBC, BMP 07/25/17 05:15 07/25/17 05:15 INR, PTT INR 1.14 (0.82-1.09) 07/25/17 05:15 Fibrinogen 284.0 mg/dL (238-498) 07/23/17 12:27 Laboratory Tests 07/25/17 07/25/17 07/25/17 05:15 05:15 05:15 WBC 8.6 Hgb 7.7 L Plt Count 133 L INR 1.14 PTT (Actin FS) 27.9 Potassium 3.3 L D Creatinine 0.2 L Calcium 6.8 L* Magnesium 1.7 L - ....Imaging Other: Image Reviewed (NSR) Assessment/Plan GI Bleed, EGD clear PAF (maintained on Xarelto) Cardiomyopathy s/p ICD Parkinson's Disease REC: Holding AC for repeat colonoscopy, bowel prep was not adequate yesterday. Resume when feasible from GI standpoint after source of bleeding determined and treated.
[2017-07-25] MEDS: DEXTROSE 5%-0.45% SALINE 1,000 ML IV SCH ×3 (08:45→16:44)
--- NOTE | 2017-07-25 08:50 | PN ---
Progress Note (short form) - Note Progress Note: Pt to have colonscopy today, it was attempted yesterday but prep not sufficient. She received another prep and had dark brown/no macy blood with prep. Vital Signs Period Temp Pulse Resp BP Sys/German Pulse Ox Last 24 Hr 97.7 F-99.4 F 62-110 12-20 97-126/59-77 97-98 NGT: clamped GEN: appears comfortable, alert ABD: soft, non-distended, non-tender CBC, BMP 07/25/17 05:15 07/25/17 05:15 EGD-07/24-no active bleeding 07/23- CTA and nuclear bleeding scan negative A/p: 62 yo female with GI bleed. s/p EGD with no active bleeding source Plan for repeat colonoscopy today, H&H with slight drop transfuse as needed Surgery to follow, she remains hemodynamically stable no further blood products overnight Will continue to follow the patient, at this time no active source of her bleeding located but has received 7 Units PRBC/FFP and cryoparcipatate D/w Dr. Rodriguez
[2017-07-25] MEDS: MUPIROCIN 2% TOPICAL OINTMENT FOR DECOLONIZATION NS SCH (09:43)
--- NOTE | 2017-07-25 09:47 | PN ---
Progress Note (short form) - Note Progress Note: Patient seen and examined. Chart/labs reviewed in detail s/p EGD , Colonoscopy not done due to poor prep. Chart reviewed in detail More awake and bit conversant than yesterday. Sister at bedside, reportedly no further bleeding and having brown stools. Cardiovascular: Yes: Pulse Irregular Respiratory: Yes: CTA Bilaterally, On Nasal O2. No: Accessory Muscle Use Gastrointestinal: Yes: Normal Bowel Sounds, Soft Extremities: Yes: WNL Edema: No Last Vital Signs Temp Pulse Resp BP Pulse Ox 98.6 F 62 16 108/71 98 07/25/17 08:00 07/25/17 08:00 07/25/17 08:00 07/25/17 08:00 07/24/17 21:00 CBC, BMP 07/25/17 05:15 07/25/17 05:15 Current Medications Generic Name Dose Route Start Last Admin Trade Name Freq PRN Reason Stop Dose Admin Carbidopa/Levodopa 1 each 07/22/17 14:00 07/24/17 21:32 Sinemet 25/100 - PO Not Given QID [facility] Chlorhexidine Gluconate 1 applic 07/22/17 22:00 07/24/17 21:32 Hibiclens For Decolonization - TP 1 applic HS JOE Administration Dextrose/Sodium Chloride 1,000 mls @ 125 mls/hr 07/24/17 08:45 07/25/17 08:45 D5-1/2ns - IV 125 mls/hr ASDIR JOE Administration Potassium Phosphate 30 mm/ 260 mls @ 62.5 mls/hr 07/25/17 08:15 07/25/17 09:28 Dextrose IVPB 07/25/17 12:24 62.5 mls/hr ONCE ONE Administration Insulin Aspart 1 vial 07/24/17 08:30 07/25/17 06:30 Novolog Vial Sliding Scale - SQ Not Given Q6HPO [facility] Protocol Metoprolol Succinate 50 mg 07/23/17 10:00 07/24/17 11:14 Toprol Xl - PO Not Given DAILY JOE Mupirocin 1 applic 07/22/17 22:00 07/25/17 09:43 Bactroban Ointment (For Decolonization) - NS 07/27/17 21:59 1 applic BID JOE Administration Ptt's Own Med( 4 each 07/22/17 14:00 07/24/17 21:31 Carbidopa/Levodopa [ PO Not Given Rytary Er 23.75 Mg- QID JOE 95 Mg Cap Ptnt's Own Med (Non- 4 each 07/22/17 14:00 07/24/17 21:31 Formulary) ( PO Not Given Carbidopa/Levodopa [ QID JOE Rytary Er 36.25 Mg- 145 Mg Ca [facility] Own Med( 34 mg 07/23/17 10:00 07/24/17 11:12 Pimavanserin PO Not Given Tartrate [Nuplazid] DAILY JOE 34 Mg) Ptnt's Own Med ( 1 mg 07/23/17 10:00 07/24/17 11:12 Rasagiline Mesylate PO Not Given [Azilect] 1 Mg) DAILY JOE Ptnt's Own Med( 1 each 07/23/17 10:00 07/24/17 10:00 Rotigotine [Neupro] TD 1 each 1 Each) DAILY JOE Administration Olanzapine 2.5 mg 07/23/17 10:00 07/24/17 11:14 Zyprexa - PO Not Given DAILY JOE Quetiapine Fumarate 25 mg 07/22/17 22:00 07/24/17 21:32 Seroquel - PO Not Given BID JOE Assessment/Plan: 62 y/o with parkinsons disease, afib, on xeralto comes in with gi bleed. ? diverticular bleed last dose xeralto--07/21 at 730pm. based on her nl renal fxn expect xeralto to have been cleared in 24-36 hrs. from last dosed received 7 units of PRBCs, 1 cryo and 2 FFP. -transfuse PRBCs as necessary, order for one unit today, Hct continues to trend down. Do not think she would need plasma products today. -lyte repletion, at risk for hypocalcemia, replete as needed -for colonoscopy tomorrow am. EGD with no source of bleeding. will follow.
[2017-07-25] MEDS ORDERED: PT OWN MED DRAWER 7, Y5N ONE ×6 (09:50→18:15)
[2017-07-25] MEDS ORDERED: PEG3350/SOD SULF,BICARB,CL/KCL 4,000 ML SOLN.RECON PO ONE (10:00)
[2017-07-25] MEDS: [UNRECOGNIZED DRUG - OTHER] PO SCH (10:35)
[2017-07-25] MEDS: QUEtiapine FUMARATE 25 MG TABLET (FP) PO SCH (10:53)
[2017-07-25] MEDS: METOPROLOL SUCCINATE 50 MG TAB.SR.24H (FP) PO SCH (10:53)
[2017-07-25] MEDS: CARBIDOPA/LEVODOPA 25/100 TABLET (FP) PO SCH ×3 (10:59→18:17)
[2017-07-25] MEDS: OLANZapine 2.5 MG TABLET PO SCH (10:59)
[2017-07-25] MEDS: [UNRECOGNIZED DRUG - OTHER] TD SCH (11:00)
[2017-07-25] MEDS: [UNRECOGNIZED DRUG - OTHER] PO SCH (11:00)
[2017-07-25] MEDS: LEVODOPA PO SCH ×2 (11:01→11:02)
[2017-07-25] MEDS: CARBIDOPA PO SCH ×2 (11:01→11:02)
[2017-07-25] MEDS: PATIENT'S OWN MEDICATION (NON-FORMULARY) (Carbidopa/Levodopa [Rytary Er 23.75 Mg-95 Mg Cap PO SCH ×2 (13:57→18:17)
[2017-07-25] MEDS: PATIENT'S OWN MEDICATION (NON-FORMULARY) (Carbidopa/Levodopa [Rytary Er 36.25 Mg-145 Mg Ca PO SCH ×2 (13:57→18:17)
[2017-07-25 14:43] LABS: ALBUMIN 2.1 g/dl (3.4-5.0); ANION GAP 9 (8-16); CALCIUM 7.2 mg/dL (8.5-10.1); CO2 28 mmol/L (21-32); GLUCOSE,RANDOM 109 mg/dL (74-106)
[2017-07-25 14:46] LABS: ALK PHOS 97 U/L (45-117); BILIRUBIN,TOTAL 0.7 mg/dL (0.2-1.0); CREATININE 0.2 mg/dL (0.55-1.02); SGOT/AST 36 U/L (15-37); SGPT/ALT 26 U/L (12-78); TOT PROT 4.2 g/dl (6.4-8.2)
--- NOTE | 2017-07-25 15:09 | PN ---
Teaching Attending Note Name of Resident: Latrice Lisa ATTENDING PHYSICIAN STATEMENT I saw and evaluated the patient. I reviewed the resident's note and discussed the case with the resident. I agree with the resident's findings and plan as documented. SUBJECTIVE: Pt seen and examined in the ICU. No further bleeding overnight. Colonscopy prep incomplete. OBJECTIVE: Last Vital Signs Temp Pulse Resp BP Pulse Ox 98.4 F 99 H 15 122/73 99 07/25/17 14:00 07/25/17 14:00 07/25/17 14:00 07/25/17 14:00 07/25/17 08:00 Intake & Output 07/22/17 07/23/17 07/24/17 07/25/17 23:59 23:59 23:59 23:59 Intake Total 1450 71906.1 6506.2 2600 Output Total 500 1200 2700 Balance 1450 9692.1 5306.2 -100 Weight 113 lb 105 lb 8 oz 121 lb 4 oz 121 lb Gen: NAD at rest Heart: RRR Lung: decreased breath sounds at the bases Abd: soft, nontender Ext: no edema CBC, BMP 07/25/17 05:15 07/25/17 14:00 Active Medications Carbidopa/Levodopa (Sinemet 25/100 -) 1 each PO QID [facility] Last Admin: 07/25/17 13:56 Dose: 1 each Chlorhexidine Gluconate (Hibiclens For Decolonization -) 1 applic TP HS [facility] Last Admin: 07/24/17 21:32 Dose: 1 applic Dextrose/Sodium Chloride (D5-1/2ns -) 1,000 mls @ 100 mls/hr IV ASDIR [facility] Last Admin: 07/25/17 10:10 Dose: 100 mls/hr Insulin Aspart (Novolog Vial Sliding Scale -) 1 vial SQ Q6HPO [facility] PRN Reason: Protocol Last Admin: 07/25/17 11:34 Dose: Not Given Metoprolol Succinate (Toprol Xl -) 50 mg PO DAILY [facility] Last Admin: 07/25/17 10:53 Dose: Not Given Mupirocin (Bactroban Ointment (For Decolonization) -) 1 applic NS BID [facility] Stop: 07/27/17 21:59 Last Admin: 07/25/17 09:43 Dose: 1 applic Ptnt's Own Med( Pimavanserin Tartrate [Nuplazid] 34 Mg) 34 mg PO DAILY [facility] Last Admin: 07/25/17 10:35 Dose: 34 mg Ptnt's Own Med ( Rasagiline Mesylate [Azilect] 1 Mg) 1 mg PO DAILY [facility] Last Admin: 07/25/17 11:00 Dose: 1 mg Ptnt's Own Med( Rotigotine [Neupro] 1 Each) 1 each TD DAILY [facility] Last Admin: 07/25/17 11:00 Dose: 1 each Non-Formulary Medication (Carbidopa/Levodopa [Rytary Er 23.75 Mg-95 Mg Cap]) 1 each PO QID [facility] Last Admin: 07/25/17 13:57 Dose: 1 each Non-Formulary Medication (Carbidopa/Levodopa [Rytary Er 36.25 Mg-145 Mg Cap]) 1 each PO QID [facility] Last Admin: 07/25/17 13:57 Dose: 1 each Olanzapine (Zyprexa -) 2.5 mg PO DAILY [facility] Last Admin: 07/25/17 10:59 Dose: 2.5 mg Quetiapine Fumarate (Seroquel -) [address] [facility] ASSESSMENT AND PLAN: GI Bleed likely Lower Acute Blood Loss Anemia LV Systolic Dysfunction s/p ICD Atrial Fibrillation Parkinson's Disease - monitor H/H - transfuse as needed - for colonoscopy - IVF - O2 to keep SpO2 >90% - replete lytes - DVT prophylaxis - continue ICU monitoring
--- NOTE | 2017-07-25 15:59 | PN ---
Teaching Attending Note Name of Resident: Gracia Casillas ATTENDING PHYSICIAN STATEMENT I saw and evaluated the patient. I reviewed the resident's note and discussed the case with the resident. I agree with the resident's findings and plan as documented. SUBJECTIVE: no abd pain , no fever or chills, feels better . OBJECTIVE: NAD, awake and alert Cv : RRR, no MRG Lungs : decreased breath sounds at bases , no wheezing of cracjkles, no JVD Abd: soft, NT, ND , NL BS Ext : no edema , course tremor in feet. rigidity in upper extremities ASSESSMENT AND PLAN: 62 y/o lady with h/o NICM, s/p ICD , P A fib on xarelto, Parkinson's , who presented with rectal bleed . 1-Acute Lower GI bleed : could be diverticular vs ischemic .Can't r/o tumor or AVMS CTA, RBC scan , and EGD reviewed. - cont prep - colonoscopy tomorrow - RBC transfusion - IVF while receiving preb . no signs of fluid overload - clears today 2- Cute blood loss anemia , 2/2 #1 . - RBC transfusion today . repeat H&H. 3- h/o NICM, s/p ICD . no signs of fluid overload. - cont IVF carefully while receiving the preb - monitor BP on BB with holding parameters . 4- H/o PArkinson's: cont oral meds , might not be able to give extended release meds yet 5- Electrolyte ABnormalities: replete and repeat SCDs
--- NOTE | 2017-07-25 16:02 | PN ---
Physical Exam: SUBJECTIVE: Patient seen and examined More alert today and speaks clearer and is more easily understood. OBJECTIVE: Vital Signs Period Temp Pulse Resp BP Sys/German Pulse Ox Last 24 Hr 97.7 F-99.4 F 62-110 12-20 97-126/59-73 98-99 GENERAL: Awake, alert, verbal expression improved from before, in no acute respiratory distress. HEAD: Normal with no signs of trauma. NECK: Right jugular vein line in place EYES: Anicteric, not pale, pupils equal, round and reactive to light EARS, NOSE, THROAT: NGT in place, being fed by sister LUNGS: Breath sounds equal, clear to auscultation bilaterally. No wheezes, and no crackles. No accessory muscle use. HEART: Regular rate and rhythm, normal S1 and S2 . ABDOMEN: Soft, nontender, not distended, bowel sounds present. Rectal exam: Reduced dark brown stools, no macy blood seen MUSCULOSKELETAL: Increased tone and upper limb tremors more on R UPPER EXTREMITIES: 2+ pulses, warm, well-perfused. LOWER EXTREMITIES: 2+ pulses, warm, well-perfused. No calf tenderness. No peripheral edema. Pressure point on left sole. Legs elevated on pillows NEUROLOGICAL: Tremor, hypertonia and with rigidity in upper limbs. PSYCHIATRIC: Verbal expression improving, smiled while communicating with sister Laboratory Results - last 24 hr CXR: Reduced congestive changes since am CXR. Minimal pleural reaction left lung base. 07/24/17 07/24/17 07/24/17 17:57 18:19 18:19 WBC 9.4 RBC 2.80 L Hgb 8.2 L Hct 23.7 L MCV 84.6 MCH 29.4 MCHC 34.7 RDW 15.5 Plt Count 138 MPV 9.2 Neutrophils % Lymphocytes % Monocytes % Eosinophils % Basophils % PT with INR INR PTT (Actin FS) Sodium 145 Potassium 4.2 Chloride 112 H Carbon Dioxide 27 Anion Gap 6 L BUN 10 D Creatinine 0.2 L Creat Clearance w eGFR POC Glucometer 147.51001 Random Glucose 119 H D Hemoglobin A1c % Calcium 7.3 L Phosphorus 3.3 D Magnesium Total Bilirubin AST ALT Alkaline Phosphatase Total Protein Albumin Blood Type Antibody Screen Crossmatch 07/25/17 07/25/17 07/25/17 00:40 05:15 05:15 WBC 8.6 RBC 2.57 L Hgb 7.7 L Hct 21.9 L MCV 85.0 MCH 30.1 MCHC 35.5 RDW 15.3 Plt Count 133 L MPV 9.1 Neutrophils % 74.6 Lymphocytes % 11.0 D Monocytes % 9.3 Eosinophils % 4.7 H D Basophils % 0.4 PT with INR 12.60 H INR 1.14 PTT (Actin FS) 27.9 Sodium Potassium Chloride Carbon Dioxide Anion Gap BUN Creatinine Creat Clearance w eGFR POC Glucometer 158.72948 Random Glucose Hemoglobin A1c % Calcium Phosphorus Magnesium Total Bilirubin AST ALT Alkaline Phosphatase Total Protein Albumin Blood Type Antibody Screen Crossmatch 07/25/17 07/25/17 07/25/17 05:15 05:15 05:15 WBC RBC Hgb Hct MCV MCH MCHC RDW Plt Count MPV Neutrophils % Lymphocytes % Monocytes % Eosinophils % Basophils % PT with INR INR PTT (Actin FS) Sodium 143 Potassium 3.3 L D Chloride 107 Carbon Dioxide 28 Anion Gap 8 BUN 6 L D Creatinine 0.2 L Creat Clearance w eGFR > 60 POC Glucometer 161.57191 Random Glucose 129 H Hemoglobin A1c % 5.6 Calcium 6.8 L* Phosphorus 1.6 L D Magnesium 1.7 L Total Bilirubin 0.4 D AST 43 H D ALT 37 D Alkaline Phosphatase 84 D Total Protein 3.8 L Albumin 2.0 L Blood Type Antibody Screen Crossmatch 07/25/17 07/25/17 10:45 14:00 WBC RBC Hgb Hct MCV MCH MCHC RDW Plt Count MPV Neutrophils % Lymphocytes % Monocytes % Eosinophils % Basophils % PT with INR INR PTT (Actin FS) Sodium 142 Potassium 3.8 Chloride 105 Carbon Dioxide 28 Anion Gap 9 BUN 3 L D Creatinine 0.2 L Creat Clearance w eGFR > 60 POC Glucometer Random Glucose 109 H Hemoglobin A1c % Calcium 7.2 L Phosphorus Magnesium Total Bilirubin 0.7 D AST 36 ALT 26 D Alkaline Phosphatase 97 Total Protein 4.2 L Albumin 2.1 L Blood Type A POSITIVE Antibody Screen Negative Crossmatch See Detail Active Medications Generic Name Dose Route Start Last Admin Trade Name Freq PRN Reason Stop Dose Admin Carbidopa/Levodopa 1 each 07/22/17 14:00 07/25/17 13:56 Sinemet 25/100 - PO 1 each QID [facility]E Administration Chlorhexidine Gluconate 1 applic 07/22/17 22:00 07/24/17 21:32 Hibiclens For Decolonization - TP 1 applic HS JOE Administration Dextrose/Sodium Chloride 1,000 mls @ 100 mls/hr 07/25/17 10:10 07/25/17 10:10 D5-1/2ns - IV 100 mls/hr ASDIR [facility] Administration Insulin Aspart 1 vial 07/24/17 08:30 07/25/17 11:34 Novolog Vial Sliding Scale - SQ Not Given Q6HPO [facility] Protocol Metoprolol Succinate 50 mg 07/23/17 10:00 07/25/17 10:53 Toprol Xl - PO Not Given DAILY [facility] Mupirocin 1 applic 07/22/17 22:00 07/25/17 09:43 Bactroban Ointment (For Decolonization) - NS 07/27/17 21:59 1 applic BID [facility] Administration Ptnt's Own Med( 34 mg 07/23/17 10:00 07/25/17 10:35 Pimavanserin PO 34 mg Tartrate [Nuplazid] DAILY [facility] Administration 34 Mg) Ptnt's Own Med ( 1 mg 07/23/17 10:00 07/25/17 11:00 Rasagiline Mesylate PO 1 mg [Azilect] 1 Mg) DAILY [facility] Administration Ptnt's Own Med( 1 each 07/23/17 10:00 07/25/17 11:00 Rotigotine [Neupro] TD 1 each 1 Each) DAILY [facility] Administration Non-Formulary Medication 1 each 07/25/17 10:46 07/25/17 13:57 Carbidopa/Levodopa [Rytary Er 23.75 Mg-95 Mg Cap] PO 1 each QID [facility] Administration Non-Formulary Medication 1 each 07/25/17 10:46 07/25/17 13:57 Carbidopa/Levodopa [Rytary Er 36.25 Mg-145 Mg Cap] PO 1 each QID [facility] Administration Olanzapine 2.5 mg 07/23/17 10:00 07/25/17 10:59 Zyprexa - PO 2.5 mg DAILY [facility] Administration Quetiapine Fumarate 50 mg 07/25/17 22:00 Seroquel - PO HS [facility] ASSESSMENT/PLAN: #GI bleeding :likely lower GI bleed: NGT in situ Dark brown stools stools Hold xarelto IV pantoprazole 40mg Per GI Will allow clear liquids and give another 4 liter lavage of Golyt[place] in hope of colonoscopy tomorrow. D5 in 1/ NSaline reduced to 100/hr #Anemia: Post transfusion PRBCs-1 unit received CBC- #Electrolyte abnormalities: BMP correct as needed #Pressure point Left sole: Foot padding Frequent turns #Afib: Hold Xarelto for now- per Cardio for procedure Continue metoprolol #Parkinsons disease: In diapers- continue Carbidopa/Levodopa Continue Collagenase Clostridium Hist. Continue Mupirocin Cream Continue Rasagiline Mesylate Rotigotine [Neupro] #Psychosis Pimavanserin Tartrate [Nuplazid] Olanzapine #CHF No signs of failure Hold spironolactone for now Hold Losartan Potassium for now Hold Furosemide PO for now To continue Metoprolol per cardio if BP permits Strict ins and outs #NICM Hold spironolactone for now Hold Losartan Potassium for now Pace maker in R ventricle #FEN: IvDw 1/ Normal saline Continue [place] oral fluids CBC Clear liquids #Prophylaxis: DVT: SCD Heparin contraindicated due to current bleed GI: Pepcid #Dispo: In ICU Visit type - Emergency Visit Emergency Visit: Yes ED Registration Date: 07/22/17 Care time: The patient presented to the Emergency Department on the above date and was hospitalized for further evaluation of their emergent condition. - New Patient This patient is new to me today: No - Critical Care Critical Care patient: Yes Total Critical Care Time (in minutes): 41 Critical Care Statement: The care of this patient involved high complexity decision making to prevent further life threatening deterioration of the patient 's condition and/or to evaluate & treat vital organ system(s) failure or risk of failure. - Discharge Referral Referred to [facility] No
[2017-07-25 18:25] LABS: BASOPHIL 0.2 % (0-2.0); EOSINOPHIL 4.1 % (0-4.5); MCH 30.1 pg (25.7-33.7); MCHC 34.8 g/dl (32.0-36.0); MEAN CELL VOLUME 86.5 fl (80-96); MEAN PLT VOLUME 8.9 fl (7.5-11.1); NEUTROPHILS 78.8 % (42.8-82.8); PLATELET COUNT 91 K/MM3 (134-434); RDW 14.9 % (11.6-15.6); WHITE BLOOD COUNT 9.8 K/mm3 (4.0-10.0)
[2017-07-25 18:47] LABS: ANION GAP 6 (8-16); CALCIUM 7.3 mg/dL (8.5-10.1); CO2 28 mmol/L (21-32); CREATININE < 0.2 mg/dL (0.55-1.02); GLUCOSE,RANDOM 102 mg/dL (74-106)
[2017-07-25] MEDS: KCL 10 MEQ IVPB 100 ML IVPB SCH ×3 (19:30→22:30)
[2017-07-25] MEDS ORDERED: ONDANSETRON 4 MG/2 ML VIAL IVPB ONE (20:30)
--- NOTE | 2017-07-25 21:48 | HOSP ---
Subjective - Review of Symptoms Events since last encounter: Pt receiving second bowel prep today due to incomplete colonic clearance from prior prep. AM labs notable for hypoK, hypoMg, hypophos, received 2 mg, 45 meq K -phos IV. 6PM BMP notable for hypoK 3.2, order for 10meq IV KCl x3 w/ repeat BMP , CBC, phos at midnight. Pt w/ N/V during bowel prep, given zofran 4mg IV. Pt going for repeat colonoscopy tomorrow AM. Physical Examination Vital Signs: Vital Signs Temperature 98.2 F 07/25/17 18:00 Pulse Rate 92 H 07/25/17 18:00 Respiratory Rate 22 07/25/17 18:00 Blood Pressure 112/76 07/25/17 18:00 O2 Sat by Pulse Oximetry (%) 99 07/25/17 08:00 Labs: CBC, BMP 07/25/17 18:00 07/25/17 18:00 Visit type - Emergency Visit Emergency Visit: No - New Patient This patient is new to me today: No - Critical Care Critical Care patient: Yes Total Critical Care Time (in minutes): 15
[2017-07-25] MEDS ORDERED: QUEtiapine FUMARATE 25 MG TABLET (FP) PO SCH (22:00)
[2017-07-26] MEDS: MUPIROCIN 2% TOPICAL OINTMENT FOR DECOLONIZATION NS SCH ×2 (00:33→10:08)
[2017-07-26] MEDS: CHLORHEXIDINE GLUCONATE 4% CLEANSER FOR DECOLONIZATION TP SCH (00:36)
[2017-07-26] MEDS: PATIENT'S OWN MEDICATION (NON-FORMULARY) (Carbidopa/Levodopa [Rytary Er 36.25 Mg-145 Mg Ca PO SCH ×5 (00:36→22:29)
[2017-07-26] MEDS: PATIENT'S OWN MEDICATION (NON-FORMULARY) (Carbidopa/Levodopa [Rytary Er 23.75 Mg-95 Mg Cap PO SCH ×5 (00:36→22:28)
[2017-07-26] MEDS: INSULIN SLIDING SCALE (NOVOLOG) 1 VIAL SQ SCH ×4 (00:37→17:45)
[2017-07-26] MEDS: CARBIDOPA/LEVODOPA 25/100 TABLET (FP) PO SCH ×5 (00:37→22:26)
[2017-07-26 03:31] LABS: ANION GAP 6 (8-16); CO2 30 mmol/L (21-32); CREATININE 0.2 mg/dL (0.55-1.02); GLUCOSE,RANDOM 118 mg/dL (74-106)
[2017-07-26 03:33] LABS: CALCIUM 6.9 mg/dL (8.5-10.1)
[2017-07-26 06:46] LABS: ANION GAP 7 (8-16); BILIRUBIN,TOTAL 0.4 mg/dL (0.2-1.0); CALCIUM 7.1 mg/dL (8.5-10.1); CO2 30 mmol/L (21-32); CREATININE < 0.2 mg/dL (0.55-1.02); GLUCOSE,RANDOM 111 mg/dL (74-106); PHOSPHOROUS 2.1 mg/dL (2.5-4.9); SGOT/AST 30 U/L (15-37); SGPT/ALT 8 U/L (12-78); TOT PROT 3.9 g/dl (6.4-8.2)
[2017-07-26 06:47] LABS: ALK PHOS 93 U/L (45-117)
[2017-07-26] MEDS ORDERED: POTASSIUM PHOSPHATE 40 MM in DEXTROSE 5%-WATER - 250 ML IVPB ONE (07:22)
[2017-07-26] MEDS ORDERED: D5-1/2NS+40 MEQ KCL - 1,000 ML IV SCH ×2 (07:30)
[2017-07-26 08:48] LABS: BASOPHIL 0.4 % (0-2.0); EOSINOPHIL 4.2 % (0-4.5); MCH 29.5 pg (25.7-33.7); MEAN CELL VOLUME 84.3 fl (80-96); MEAN PLT VOLUME 8.6 fl (7.5-11.1); NEUTROPHILS 80.4 % (42.8-82.8); PLATELET COUNT 137 K/MM3 (134-434); RDW 15.1 % (11.6-15.6); WHITE BLOOD COUNT 8.8 K/mm3 (4.0-10.0)
[2017-07-26] MEDS ORDERED: PROPOFOL 20 ML ONE ×2 (08:59)
[2017-07-26 09:13] LABS: ANION GAP 6 (8-16); CALCIUM 7.1 mg/dL (8.5-10.1); CO2 31 mmol/L (21-32); CREATININE < 0.2 mg/dL (0.55-1.02); GLUCOSE,RANDOM 100 mg/dL (74-106); MAGNESIUM 1.9 mg/dL (1.8-2.4); PHOSPHOROUS 2.6 mg/dL (2.5-4.9)
--- NOTE | 2017-07-26 09:18 | PN ---
Progress Note, Physician Chief Complaint: alert, sister at bedside For C-scope today TELE: sinus, rare PVCs - Current Medication List Current Medications: Active Medications Carbidopa/Levodopa (Sinemet 25/100 -) 1 each PO QID [facility] Last Admin: 07/26/17 00:37 Dose: 1 each Chlorhexidine Gluconate (Hibiclens For Decolonization -) 1 applic TP HS [facility] Last Admin: 07/26/17 00:36 Dose: 1 applic Dextrose/Sodium Chloride (D5-1/2ns+40 Meq Kcl -) 1,000 mls @ 100 mls/hr IV ASDIR [facility] Last Admin: 07/26/17 07:25 Dose: 100 mls/hr Potassium Phosphate 40 mm/ (Dextrose) 263.3333 mls @ 62.5 mls/hr IVPB ONCE ONE Stop: 07/26/17 11:34 Last Admin: 07/26/17 07:50 Dose: 62.5 mls/hr Insulin Aspart (Novolog Vial Sliding Scale -) 1 vial SQ Q6HPO [facility] PRN Reason: Protocol Last Admin: 07/26/17 07:20 Dose: Not Given Metoprolol Succinate (Toprol Xl -) 50 mg PO DAILY [facility] Last Admin: 07/25/17 10:53 Dose: Not Given Mupirocin (Bactroban Ointment (For Decolonization) -) 1 applic NS BID [facility] Stop: 07/27/17 21:59 Last Admin: 07/26/17 00:33 Dose: 1 applic Ptnt's Own Med( Pimavanserin Tartrate [Nuplazid] 34 Mg) 34 mg PO DAILY [facility] Last Admin: 07/25/17 10:35 Dose: 34 mg [facility] Own Med ( Rasagiline Mesylate [Azilect] 1 Mg) 1 mg PO DAILY [facility] Last Admin: 07/25/17 11:00 Dose: 1 mg Ptnt's Own Med( Rotigotine [Neupro] 1 Each) 1 each TD DAILY [facility] Last Admin: 07/25/17 11:00 Dose: 1 each Non-Formulary Medication (Carbidopa/Levodopa [Rytary Er 23.75 Mg-95 Mg Cap]) 1 each PO QID [facility] Last Admin: 07/26/17 00:36 Dose: 1 each Non-Formulary Medication (Carbidopa/Levodopa [Rytary Er 36.25 Mg-145 Mg Cap]) 1 each PO QID [facility] Last Admin: 07/26/17 00:36 Dose: 1 each Olanzapine (Zyprexa -) 2.5 mg PO DAILY [facility] Last Admin: 07/25/17 10:59 Dose: 2.5 mg Quetiapine Fumarate (Seroquel -) 50 mg PO HS [facility] Last Admin: 07/26/17 00:36 Dose: 50 mg - Objective Vital Signs: Vital Signs Temperature 98.9 F 07/26/17 08:00 Pulse Rate 92 H 07/26/17 08:00 Respiratory Rate 07/26/17 08:00 Blood Pressure 121/77 07/26/17 08:00 O2 Sat by Pulse Oximetry (%) 100 07/26/17 08:00 Constitutional: Yes: Calm Cardiovascular: Yes: Regular Rate and Rhythm Respiratory: Yes: CTA Bilaterally Gastrointestinal: Yes: Soft Edema: No Neurological: Yes: Alert Labs: CBC, BMP 07/26/17 08:20 INR, PTT INR 1.14 (0.82-1.09) 07/25/17 05:15 Fibrinogen 284.0 mg/dL (238-498) 07/23/17 12:27 Laboratory Tests 07/25/17 07/26/17 07/26/17 05:15 08:20 08:20 WBC 8.8 Hgb 10.3 L Hct 29.4 L Plt Count 137 D INR 1.14 Potassium Pending Creatinine Pending - ....Imaging EKG: Image Reviewed Assessment/Plan Assessment/Plan GI Bleed, EGD clear PAF (maintained on Xarelto) Cardiomyopathy s/p ICD Parkinson's Disease REC: For colonoscopy today, resume AC when feasible.
[2017-07-26] MEDS: [UNRECOGNIZED DRUG - OTHER] PO SCH (10:09)
[2017-07-26] MEDS: OLANZapine 2.5 MG TABLET PO SCH (10:09)
[2017-07-26] MEDS: METOPROLOL SUCCINATE 50 MG TAB.SR.24H (FP) PO SCH (10:09)
[2017-07-26] MEDS: [UNRECOGNIZED DRUG - OTHER] PO SCH (10:09)
--- NOTE | 2017-07-26 10:25 | PN ---
Progress Note (short form) - Note Progress Note: Colonoscopy complete. Procedure report placed in procedural section of chart and to be scanned into [employer]
[2017-07-26] MEDS ORDERED: SENNOSIDES 8.6MG TABLET (FP) PO PRN ×2 (10:45→19:16)
[2017-07-26] MEDS ORDERED: PT OWN MED DRAWER 7, Y5N ONE ×4 (11:18→20:11)
[2017-07-26] MEDS: [UNRECOGNIZED DRUG - OTHER] TD SCH (11:23)
--- NOTE | 2017-07-26 13:36 | PN ---
Teaching Attending Note Name of Resident: Latrice Lisa ATTENDING PHYSICIAN STATEMENT I saw and evaluated the patient. I reviewed the resident's note and discussed the case with the resident. I agree with the resident's findings and plan as documented. SUBJECTIVE: Patient seen and examined in the ICU. No occult bleeding overnight. S/P colonscopy -> rectal ulcers. Awake and interactive. Denies CP. Intake & Output 07/23/17 07/24/17 07/25/17 07/26/17 23:59 23:59 23:59 23:59 Intake Total 85845.1 6506.2 8375 1050 Output Total 500 1200 5600 2100 Balance 9692.1 5306.2 2775 -1050 Weight 105 lb 8 oz 121 lb 4 oz 121 lb 118 lb 14.4 oz Last Vital Signs Temp Pulse Resp BP Pulse Ox 97.7 F 78 20 109/72 100 07/26/17 12:00 07/26/17 12:00 07/26/17 12:00 07/26/17 12:00 07/26/17 08:00 Active Medications Carbidopa/Levodopa (Sinemet 25/100 -) 1 each PO QID [facility] Last Admin: 07/26/17 13:03 Dose: 1 each Chlorhexidine Gluconate (Hibiclens For Decolonization -) 1 applic TP HS [facility] Last Admin: 07/26/17 00:36 Dose: 1 applic Dextrose/Sodium Chloride (D5-1/2ns+40 Meq Kcl -) 1,000 mls @ 100 mls/hr IV ASDIR [facility] Last Admin: 07/26/17 07:25 Dose: 100 mls/hr Insulin Aspart (Novolog Vial Sliding Scale -) 1 vial SQ Q6HPO [facility] PRN Reason: Protocol Last Admin: 07/26/17 11:09 Dose: Not Given Metoprolol Succinate (Toprol Xl -) 50 mg PO DAILY [facility] Last Admin: 07/26/17 10:09 Dose: Not Given Mupirocin (Bactroban Ointment (For Decolonization) -) 1 applic NS BID [facility] Stop: 07/27/17 21:59 Last Admin: 07/26/17 10:08 Dose: Not Given Ptnt's Own Med( Pimavanserin Tartrate [Nuplazid] 34 Mg) 34 mg PO DAILY [facility] Last Admin: 07/26/17 10:09 Dose: Not Given Ptnt's Own Med ( Rasagiline Mesylate [Azilect] 1 Mg) 1 mg PO DAILY [facility] Last Admin: 07/26/17 10:09 Dose: Not Given Ptnt's Own Med( Rotigotine [Neupro] 1 Each) 1 each TD DAILY [facility] Last Admin: 07/26/17 11:23 Dose: 1 each Non-Formulary Medication (Carbidopa/Levodopa [Rytary Er 23.75 Mg-95 Mg Cap]) 1 each PO QID [facility] Last Admin: 07/26/17 13:03 Dose: 1 each Non-Formulary Medication (Carbidopa/Levodopa [Rytary Er 36.25 Mg-145 Mg Cap]) 1 each PO QID [facility] Last Admin: 07/26/17 13:04 Dose: 1 each Olanzapine (Zyprexa -) 2.5 mg PO DAILY [facility] Last Admin: 07/26/17 10:09 Dose: Not Given Polyethylene Glycol (Miralax (For Daily Use) -) 17 gm PO DAILY [facility] Quetiapine Fumarate (Seroquel -) 50 mg PO HS [facility] Last Admin: 07/26/17 00:36 Dose: 50 mg Senna (Senna -) 2 tab PO HS PRN PRN Reason: CONSTIPATION Gen: NAD at rest Heart: RRR Lung: decreased breath sounds at the bases Abd: soft, nontender Ext: no edema Laboratory Results - last 24 hr 07/22/17 07/22/17 07/25/17 08:02 08:26 11:30 WBC Corrected WBC (auto) RBC Hgb Hct MCV MCH MCHC RDW Plt Count MPV Neutrophils % Lymphocytes % Monocytes % Eosinophils % Basophils % Platelet Estimate Platelet Comment RBC Morphology Sodium Potassium Chloride Carbon Dioxide Anion Gap BUN Creatinine Creat Clearance w eGFR POC Glucometer 169.66432 Random Glucose Calcium Phosphorus Magnesium Total Bilirubin AST ALT Alkaline Phosphatase Total Protein Albumin Blood Type A POSITIVE A POSITIVE Antibody Screen Negative Cancelled Crossmatch See Detail See Detail Spec Expiration Date Cancelled 07/25/17 07/25/17 07/25/17 13:55 14:00 16:42 WBC Corrected WBC (auto) RBC Hgb Hct MCV MCH MCHC RDW Plt Count MPV Neutrophils % Lymphocytes % Monocytes % Eosinophils % Basophils % Platelet Estimate Platelet Comment RBC Morphology Sodium 142 Potassium 3.8 Chloride 105 Carbon Dioxide 28 Anion Gap 9 BUN 3 L D Creatinine 0.2 L Creat Clearance w eGFR > 60 POC Glucometer 119.88876 Random Glucose 109 H Calcium 7.2 L Phosphorus 3.3 D Magnesium Total Bilirubin 0.7 D AST 36 ALT 26 D Alkaline Phosphatase 97 Total Protein 4.2 L Albumin 2.1 L Blood Type Antibody Screen Crossmatch Spec Expiration Date 07/25/17 07/25/17 07/26/17 18:00 18:00 03:00 WBC 9.8 Corrected WBC (auto) RBC 3.27 L D Hgb 9.8 L D Hct 28.3 L D MCV 86.5 MCH 30.1 MCHC 34.8 RDW 14.9 Plt Count 91 L D MPV 8.9 Neutrophils % 78.8 Lymphocytes % 9.3 Monocytes % 7.6 Eosinophils % 4.1 Basophils % 0.2 Platelet Estimate Platelet Comment RBC Morphology Sodium 141 142 Potassium 3.2 L 3.3 L Chloride 107 106 Carbon Dioxide 28 30 Anion Gap 6 L 6 L BUN 4 L D 1 L* D Creatinine < 0.2 L 0.2 L Creat Clearance w eGFR POC Glucometer Random Glucose 102 118 H Calcium 7.3 L 6.9 L* Phosphorus Magnesium Total Bilirubin AST ALT Alkaline Phosphatase Total Protein Albumin Blood Type Antibody Screen Crossmatch Spec Expiration Date 07/26/17 07/26/17 07/26/17 05:50 05:50 08:20 WBC Cancelled 8.8 Corrected WBC (auto) Cancelled RBC Cancelled 3.49 L Hgb Cancelled 10.3 L Hct Cancelled 29.4 L MCV Cancelled 84.3 MCH Cancelled 29.5 MCHC Cancelled 35.0 RDW Cancelled 15.1 Plt Count Cancelled 137 D MPV Cancelled 8.6 Neutrophils % Cancelled 80.4 Lymphocytes % Cancelled 7.6 L Monocytes % Cancelled 7.4 Eosinophils % Cancelled 4.2 Basophils % Cancelled 0.4 Platelet Estimate Cancelled Platelet Comment Cancelled RBC Morphology Cancelled Sodium 142 Potassium 3.2 L Chloride 105 Carbon Dioxide 30 Anion Gap 7 L BUN 2 L* D Creatinine < 0.2 L Creat Clearance w eGFR > 60 POC Glucometer Random Glucose 111 H Calcium 7.1 L Phosphorus 2.1 L D Magnesium 2.0 Total Bilirubin 0.4 D AST 30 ALT 8 L D Alkaline Phosphatase 93 Total Protein 3.9 L Albumin 2.0 L Blood Type Antibody Screen Crossmatch Spec Expiration Date 07/26/17 08:20 WBC Corrected WBC (auto) RBC Hgb Hct MCV MCH MCHC RDW Plt Count MPV Neutrophils % Lymphocytes % Monocytes % Eosinophils % Basophils % Platelet Estimate Platelet Comment RBC Morphology Sodium 141 Potassium 3.2 L Chloride 104 Carbon Dioxide 31 Anion Gap 6 L BUN 1 L* D Creatinine < 0.2 L Creat Clearance w eGFR POC Glucometer Random Glucose 100 Calcium 7.1 L Phosphorus 2.6 D Magnesium 1.9 Total Bilirubin AST ALT Alkaline Phosphatase Total Protein Albumin Blood Type Antibody Screen Crossmatch Spec Expiration Date ASSESSMENT AND PLAN: GI Bleed likely Lower Acute Blood Loss Anemia LV Systolic Dysfunction s/p ICD Atrial Fibrillation Parkinson's Disease - monitor H/H - Normal transfusion thresholds - PO per GI - IVF - O2 to keep SpO2 >90% - replete lytes - DVT prophylaxis - Cardiac Telemetry monitoring Dr Lewis Critical care time spent in reviewing chart, evaluating patient and formulating plan - 36 minutes. Problem List - Problems (1) Anticoagulant-induced bleeding Code(s): T45.7X1A - POISN BY ANTICOAG ANTAG, VITAMIN K AND OTH COAG, ACC, INIT D68.9 - COAGULATION DEFECT, UNSPECIFIED (2) Atrial fibrillation Code(s): I48.91 - UNSPECIFIED ATRIAL FIBRILLATION (3) GI bleed Code(s): K92.2 - GASTROINTESTINAL HEMORRHAGE, UNSPECIFIED (4) CHF (congestive heart failure), NYHA class I Code(s): I50.9 - HEART FAILURE, UNSPECIFIED (5) HTN (hypertension) Code(s): I10 - ESSENTIAL (PRIMARY) HYPERTENSION (6) Nonischemic cardiomyopathy Code(s): I42.9 - CARDIOMYOPATHY, UNSPECIFIED (7) Parkinson disease Code(s): G20 - PARKINSON'S DISEASE
[2017-07-26] MEDS ORDERED: KCL 10 MEQ IVPB 100 ML IVPB SCH (14:30)
--- NOTE | 2017-07-26 14:41 | PN ---
Physical Exam: SUBJECTIVE: Patient seen and examined in ICU. No events o/n. Colonoscopy revealed rectal ulcers, no e/o active bleeding source. Patient denies abdominal pain, chest pain, SOB. OBJECTIVE: Vital Signs Period Temp Pulse Resp BP Sys/German Pulse Ox Last 24 Hr 97.6 F-99.5 F 67-100 17-22 102-127/45-89 100-100 Intake & Output 07/23/17 07/24/17 07/25/17 07/26/17 23:59 23:59 23:59 23:59 Intake Total 50331.1 6506.2 8375 2800 Output Total 500 1200 5600 4100 Balance 9692.1 5306.2 2775 -1300 Weight 47.854 kg 54.998 kg 54.885 kg 53.932 kg GENERAL: The patient is awake, alert and interactive. some confusion EYES: sclera anicteric, conjunctiva clear ENT: moist mucous membranes LUNGS: CTAB, no wheezes, rales or crackles HEART: tachycardic, irregular rhythm ABDOMEN: Soft, ntnd EXTREMITIES: 2+ pulses, warm, well-perfused, no LE edema NEUROLOGICAL: UE rigidity SKIN: Warm, dry, normal turgor LABS WBC 8.8 K/mm3 (4.0-10.0) 07/26/17 08:20 RBC 3.49 M/mm3 (3.60-5.2) L 07/26/17 08:20 Hgb 10.3 GM/dL (10.7-15.3) L 07/26/17 08:20 Hct 29.4 % (32.4-45.2) L 07/26/17 08:20 MCV 84.3 fl (80-96) 07/26/17 08:20 MCHC 35.0 g/dl (32.0-36.0) 07/26/17 08:20 RDW 15.1 % (11.6-15.6) 07/26/17 08:20 Plt Count 137 K/MM3 (134-434) D 07/26/17 08:20 MPV 8.6 fl (7.5-11.1) 07/26/17 08:20 Ca- 7.0 (corrected 8.7) Mg- 1.9 --> 1.8 Phos - 2.6 --> 3.2 Sodium 141 mmol/L (136-145) 07/26/17 15:10 Potassium 3.8 mmol/L (3.5-5.1) 07/26/17 15:10 Chloride 107 mmol/L (98-107) 07/26/17 15:10 Carbon Dioxide 30 mmol/L (21-32) 07/26/17 15:10 Anion Gap 4 (8-16) L 07/26/17 15:10 BUN 1 mg/dL (7-18) L* 07/26/17 15:10 Creatinine 0.2 mg/dL (0.55-1.02) L 07/26/17 15:10 Creat Clearance w eGFR > 60 (>60) 07/26/17 15:10 Random Glucose 98 mg/dL (74-106) 07/26/17 15:10 Calcium 7.0 mg/dL (8.5-10.1) L 07/26/17 15:10 Total Bilirubin 0.3 mg/dL (0.2-1.0) D 07/26/17 15:10 AST 24 U/L (15-37) 07/26/17 15:10 ALT 10 U/L (12-78) L D 07/26/17 15:10 Alkaline Phosphatase 89 U/L (45-117) 07/26/17 15:10 Total Protein 4.1 g/dl (6.4-8.2) L 07/26/17 15:10 Albumin 1.9 g/dl (3.4-5.0) L 07/26/17 15:10 Active Medications Carbidopa/Levodopa (Sinemet 25/100 -) 1 each PO QID JOE Chlorhexidine Gluconate (Hibiclens For Decolonization -) 1 applic TP HS JOE Potassium Chloride/Dextrose/Sod Cl (D5-1/2ns+20 Meq Kcl -) 1,000 mls @ 75 mls/ hr IV [facility] Last Admin: 07/26/17 17:00 Dose: 75 mls/hr Insulin Aspart (Novolog Vial Sliding Scale -) 1 vial SQ Q6HPO [facility] PRN Reason: Protocol Metoprolol Succinate (Toprol Xl -) 50 mg PO DAILY [facility] Mupirocin (Bactroban Ointment (For Decolonization) -) 1 applic NS BID [facility] Stop: 09/22/17 21:59 Non-Formulary Medication (Carbidopa/Levodopa [Rytary Er 23.75 Mg-95 Mg Cap]) 1 each PO QID JOE Non-Formulary Medication (Pimavanserin Tartrate [Nuplazid]) 34 mg PO DAILY JOE Non-Formulary Medication (Rasagiline Mesylate [Azilect]) 1 mg PO DAILY JOE Non-Formulary Medication (Rotigotine [Neupro]) 1 each TD DAILY JOE Non-Formulary Medication (Carbidopa/Levodopa [Rytary Er 36.25 Mg-145 Mg Cap]) 1 each PO QID JOE Olanzapine (Zyprexa -) 2.5 mg PO DAILY JOE Quetiapine Fumarate (Seroquel -) 50 mg PO HS JOE Senna (Senna -) 2 tab PO HS PRN PRN Reason: CONSTIPATION ASSESSMENT/PLAN: 62yo woman with PMH of PD (bed bound), A-Fib (s/p AICD; on xarelto, last dose 7:30pm), non-ischemic cardiomyopathy, CHF s/p AICD, and HTN who presents with hypovolemia and rectal bleeding 2/2 to suspected LGIB. EGD and colonoscopy revealed no active bleeding source. #GI -GI following -Continue octreotide and pantoprazole gtt #Heme -Hold home Xarelto for now -Monitor H&H #CV -Cardiology following, per recommendations: -continue Metoprolol if BP permits -hold home losartan, lasix #Neuro -Continue home PD meds #Pulm -NC O2 therapy PRN, maintain pSaO2 >90% #FEN -D5 1/2NS with 40mEq @ 125cc/hr -Repleting K, Phos, and Mg; follow-up labs pending -Per SPL eval, Dysphagia diet with thin liquids #PPX -DVT - SCDs only 2/2 to acute bleeding -GI - on protonix gtt -Physical therapy #Dispo -FULL code -transfer to floors d/w with ICU attending Dr. Joshua Lisa MD PGY-1 Visit type - Emergency Visit Emergency Visit: No - New Patient This patient is new to me today: No - Critical Care Critical Care patient: Yes Total Critical Care Time (in minutes): 35 Critical Care Statement: The care of this patient involved high complexity decision making to prevent further life threatening deterioration of the patient 's condition and/or to evaluate & treat vital organ system(s) failure or risk of failure.
--- NOTE | 2017-07-26 15:35 | PN ---
Teaching Attending Note Name of Resident: Gracia Casillas ATTENDING PHYSICIAN STATEMENT I saw and evaluated the patient. I reviewed the resident's note and discussed the case with the resident. I agree with the resident's findings and plan as documented. SUBJECTIVE:seen after colonoscopy no fever or chills, has no pain. no N/v OBJECTIVE: NAD, awake and alert CV : RRR, no MRG Lungs : decreased breath sounds at bases , no wheezing or crackles, no JVD Abd: soft, NT, ND , NL BS Ext: no edema , course tremor in feet. rigidity in upper extremities ASSESSMENT AND PLAN: 62 y/o lady with h/o NICM, s/p ICD , P A fib on xarelto, Parkinson's , who presented with rectal bleed . 1- Acute Lower GI bleed : likely form a stercoral ulcer seen on Colonoscopy today stable Hb after transfusion . - Repeat Hb tomorrow - decrease IVF rate and hopefully stop tomorrow 2-Acute blood loss anemia , 2/2 #1 . - stable HB 3- H/o P A fib: - cont to hold xarelto and monitor for any bleed. - will d/w patient and family , her options of AC ( NOACS vs coumadin ) due to availability of reversal. 4- H/o NICM, s/p ICD . no signs of fluid overload. - Careful monitoring of volume status on IVF. might dc tomorrow - Echo reviewed 5- H/o PArkinson's: cont oral meds , might not be able to give extended release meds yet 6- Electrolyte Abnormalities: replete and repeat Tx to floor SCDs
[2017-07-26 15:44] LABS: ALBUMIN 1.9 g/dl (3.4-5.0); ANION GAP 4 (8-16); BILIRUBIN,TOTAL 0.3 mg/dL (0.2-1.0); CO2 30 mmol/L (21-32); CREATININE 0.2 mg/dL (0.55-1.02); GLUCOSE,RANDOM 98 mg/dL (74-106); MAGNESIUM 1.8 mg/dL (1.8-2.4); PHOSPHOROUS 3.2 mg/dL (2.5-4.9); SGOT/AST 24 U/L (15-37); SGPT/ALT 10 U/L (12-78); TOT PROT 4.1 g/dl (6.4-8.2)
[2017-07-26 15:45] LABS: ALK PHOS 89 U/L (45-117)
[2017-07-26] MEDS ORDERED: SODIUM CHLORIDE 500 ML IV STA (16:23)
[2017-07-26] MEDS ORDERED: MAGNESIUM SULF 50% (8.12 MEQ/2 ML-1 GM VIAL) IVPB ONE (16:27)
--- NOTE | 2017-07-26 16:27 | CONSULT ---
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 ) - Past Surgical History Past Surgical History: Yes: Joint Replacement (TKR, bilaterally) Additional Past Surgical History: AICD - Smoking History Smoking history: Never smoked Have you smoked in the past 12 months: No - Alcohol/Substance Use Hx Alcohol Use: No - Social History ADL: Support Services (8 hour day home health aid) History of Recent Travel: No History - Admission Reason For Visit: GASTROINTESTINAL BLEEDING - Hearing Hearing: Normal Speech Evaluation - Communication Primary Language: CYPRIOT Communication: Yes: Dysarthria (secondary to advanced Parkinson's) - Speech Production Dysarthria: Yes: Flaccid Apraxia: No Able to Make Needs Known: Yes: Moderately Impaired Intelligibility: Yes: Moderately Impaired (single words better than phrases and sentences.) - Speech Characteristics Voice Loudness: Mildly Soft/Quiet Voice Pitch: Yes: Limited Variation Voice Phonatory-based Quality: Yes: Quivering, Weak Speech Pattern: Impaired Speech Clarity: < 50% Nasal Resonance: Normal Articulation: Yes: Imprecise Rate of Speech: Intact Voice, Other Observations: Yes: Progressively Weak Voice - Language/Auditory Comprehension Follows: Yes: 1 Stage Simple Commands (WFL), 2 Stage Simple Commands (WFL) Observation: Able to respond to yes/no queries: Yes, Yes/No Confusion: No, Comprehends Conversational Speech: Yes, Benefits from Slow Speech: No, Benefits from Repetiton: Yes, Benefits from Increased Volume of Speech: No - Language/Verbal Expression Able to Respond to Simple Queries: Yes: Mildly Impaired Able to Communicate Wants and Needs: Yes: Moderately Impaired Functional Communication Status: Yes: Moderately Impaired Aware of Errors: Yes Attempts to Correct Errors: Yes Use of Gestures: No Written Expression: Not examined Oral Expression: impaired secondary to advanced Parkison's Reading Comprehension: Not examined Calculations: Not examined Attention: Yes: Intact - Memory/Perception terminal block assembler Memory: Yes: Mildly Impaired Short Term Memory: Yes: Mildly Impaired - Swallow Evaluation/Bedside Assessment Current Nutritional Intake: Clear Liquids (pending swallow eval) Oral Secretions: Yes: WFL Tracheostomy Present: No Patient on Ventilator: No Dentition: Yes: Adequate Facial Symmetry at Rest: Symmetrical Facial Symmetry on Retraction: Symmetrical Facial Movement: Controlled Sensation: Normal Facial Comment: WFL for speech and swallowing purposes. Jaw Position: Open at Rest Against Resistance Opening: Normal Against Resistance Closing: Normal Pucker Lips: Normal Smile: Normal Lips, Comment: WFL for speech and swallowing purposes. Lingual Movement: Apraxic Lingual Speed of Movement: Reduced Lingual Movement Strgth Against Opposition: Normal Lingual Movement Characteristics: Fasciculations Lingual Comment: reduced but WFL for speech and swallowing purposes. Soft Palate Description: Normal Color Hard Palate Description: Normal Color Gag Reflex: Weak Bite Reflex: Present Velopharyngeal Movement: Normal Laryngeal Elevation: WFL Laryngeal Movement: Able to Palpate Needs Assistance: Yes Rate of Intake: Slow/Holding Bolus Size: Small Sensation: Bite Reflex Labial Seal: WFL Chewing: WFL Oral Prep Time: WFL A-P Transit: WFL Pocketing: None Timing of Swallow: WFL Odynophagia: Oral Coughing/Throat Clear: No Change in Voice: No Other Findings/Remarks: 62 yo female seen for swallow eval to rule out dysphagia. Pt is verbal cooperative, A&Ox1. PMHX includes advanced Parkinson's disease, A-fib, HTN and CHF. Current diet :clear liquids secondary to GI bleed? Vocal quality is reduced (consistent with PD) with reduced intensity and pitch range. Pt given po trials of pureed and mech soft solids with total assistance revealed good acceptance, adequate mastication, bolus formation and transport. Pharyngeal swallow appears timely with no s/s of aspiration. Bolus residue observed after the swallow with mech soft solids. Thin liquids trials via cup and straw with total assistance was unremarkable for aspiration at this time. Recommendations - Speech Evaluation, Impression/Plan Impression: Pt presents with mild oral phase dysphagia for mech soft solids. No evidence of aspiration observed with puree and thin liquids at this time. Youth Nutritional Monitor Goals: tolerate the least restrictive diet consistency without s/s of aspiration. Short Term Goals: tolerate puree and thin liquids without s/s of aspiration. - Dysphagia Impressions/Plan Swallowing Skills: Impaired (secondary to Parkinson's) Dysphagia Impressions: Mild Impairment *Silent aspiration: cannot be R/O at bedside Dysphagia Treatment Plan: Small Bites, Safe Rate, 1/2 tsp. at a time, Elevate HOB during feed, Other (Pt requires increase time for consuming meals.) Dysphagia Evaluation Summary: Trial pureed and continue thin liquids with total assistance as tolerated. Crush meds as appropriate in applesauce. Results given verbally to police communications dispatcherALEJANDRO Gates, menagerie caretaker and to pcp via chart. RESOURCE MANAGEMENT PLANNER to follow up for diet tolerance and possible upgrade if warranted. - Recommendations Diet Consistency: Dysphagia Pureed Medication Administration: Crushed with applesauce Liquids: Thin Liquids
[2017-07-26] MEDS ORDERED: D5-1/2NS+20 MEQ KCL - 1,000 ML IV SCH ×2 (16:45)
--- NOTE | 2017-07-26 18:40 | PN ---
Physical Exam: SUBJECTIVE: Patient seen and examined No new complaints today. Had colonoscopy today OBJECTIVE: Vital Signs Period Temp Pulse Resp BP Sys/German Pulse Ox Last 24 Hr 97.6 F-99.5 F 70-105 17-22 91-121/45-89 100-100 GENERAL: The patient is awake, alert, in no acute distress. HEAD: Normal with no signs of trauma. EYES: PERRL, extraocular movements intact, sclera anicteric, conjunctiva clear. No ptosis. ENT: Ears normal, nares patent, oropharynx clear without exudates, moist mucous membranes. NECK: Trachea midline, full range of motion, supple. LUNGS: Breath sounds reduced lung bases, no wheezes, no crackles, no accessory muscle use. HEART: Regular rate and rhythm, S1, S2 without murmur, rub or gallop. ABDOMEN: Soft, nontender, nondistended, normoactive bowel sounds, no guarding, no rebound, no hepatosplenomegaly, no masses. EXTREMITIES: 2+ pulses, warm, well-perfused, no edema. NEUROLOGICAL: Cranial nerves II through XII grossly intact. Normal speech, gait not observed. PSYCH: Normal mood, normal affect. SKIN: Warm, dry, normal turgor, no rashes or lesions noted Laboratory Results - last 24 hr 07/25/17 07/25/17 07/25/17 11:30 16:42 18:00 WBC Corrected WBC (auto) RBC Hgb Hct MCV MCH MCHC RDW Plt Count MPV Neutrophils % Lymphocytes % Monocytes % Eosinophils % Basophils % Platelet Estimate Platelet Comment RBC Morphology Sodium 141 Potassium 3.2 L Chloride 107 Carbon Dioxide 28 Anion Gap 6 L BUN 4 L D Creatinine < 0.2 L Creat Clearance w eGFR POC Glucometer 169.24101 119.95611 Random Glucose 102 Calcium 7.3 L Phosphorus Magnesium Total Bilirubin AST ALT Alkaline Phosphatase Total Protein Albumin 07/25/17 07/26/17 07/26/17 18:00 03:00 05:50 WBC 9.8 Cancelled Corrected WBC (auto) Cancelled RBC 3.27 L D Cancelled Hgb 9.8 L D Cancelled Hct 28.3 L D Cancelled MCV 86.5 Cancelled MCH 30.1 Cancelled MCHC 34.8 Cancelled RDW 14.9 Cancelled Plt Count 91 L D Cancelled MPV 8.9 Cancelled Neutrophils % 78.8 Cancelled Lymphocytes % 9.3 Cancelled Monocytes % 7.6 Cancelled Eosinophils % 4.1 Cancelled Basophils % 0.2 Cancelled Platelet Estimate Cancelled Platelet Comment Cancelled RBC Morphology Cancelled Sodium 142 Potassium 3.3 L Chloride 106 Carbon Dioxide 30 Anion Gap 6 L BUN 1 L* D Creatinine 0.2 L Creat Clearance w eGFR POC Glucometer Random Glucose 118 H Calcium 6.9 L* Phosphorus Magnesium Total Bilirubin AST ALT Alkaline Phosphatase Total Protein Albumin 07/26/17 07/26/17 07/26/17 05:50 08:20 08:20 WBC 8.8 Corrected WBC (auto) RBC 3.49 L Hgb 10.3 L Hct 29.4 L MCV 84.3 MCH 29.5 MCHC 35.0 RDW 15.1 Plt Count 137 D MPV 8.6 Neutrophils % 80.4 Lymphocytes % 7.6 L Monocytes % 7.4 Eosinophils % 4.2 Basophils % 0.4 Platelet Estimate Platelet Comment RBC Morphology Sodium 142 141 Potassium 3.2 L 3.2 L Chloride 105 104 Carbon Dioxide 30 31 Anion Gap 7 L 6 L BUN 2 L* D 1 L* D Creatinine < 0.2 L < 0.2 L Creat Clearance w eGFR > 60 POC Glucometer Random Glucose 111 H 100 Calcium 7.1 L 7.1 L Phosphorus 2.1 L D 2.6 D Magnesium 2.0 1.9 Total Bilirubin 0.4 D AST 30 ALT 8 L D Alkaline Phosphatase 93 Total Protein 3.9 L Albumin 2.0 L 07/26/17 07/26/17 15:10 15:10 WBC Corrected WBC (auto) RBC Hgb Hct MCV MCH MCHC RDW Plt Count MPV Neutrophils % Lymphocytes % Monocytes % Eosinophils % Basophils % Platelet Estimate Platelet Comment RBC Morphology Sodium 141 Potassium 3.8 3.7 Chloride 107 Carbon Dioxide 30 Anion Gap 4 L BUN 1 L* Creatinine 0.2 L Creat Clearance w eGFR > 60 POC Glucometer Random Glucose 98 Calcium 7.0 L Phosphorus 3.2 D Magnesium 1.8 Total Bilirubin 0.3 D AST 24 ALT 10 L D Alkaline Phosphatase 89 Total Protein 4.1 L Albumin 1.9 L Active Medications Generic Name Dose Route Start Last Admin Trade Name Freq PRN Reason Stop Dose Admin Carbidopa/Levodopa 1 each 07/22/17 14:00 07/26/17 17:49 Sinemet 25/100 - PO 1 each QID JOE Administration Chlorhexidine Gluconate 1 applic 07/22/17 22:00 07/26/17 00:36 Hibiclens For Decolonization - TP 1 applic HS JOE Administration Potassium Chloride/Dextrose/Sod Cl 1,000 mls @ 75 mls/hr 07/26/17 16:45 17:00 D5-1/2ns+20 Meq Kcl - IV 75 mls/hr ASDIR JOE Administration Insulin Aspart 1 vial 07/24/17 08:30 07/26/17 17:45 Novolog Vial Sliding Scale - SQ Not Given Q6HPO [facility] Protocol Metoprolol Succinate 50 mg 07/23/17 10:00 07/26/17 10:09 Toprol Xl - PO Not Given DAILY [facility] Mupirocin 1 applic 07/22/17 22:00 07/26/17 10:08 Bactroban Ointment (For Decolonization) - NS 07/27/17 21:59 Not Given BID JOE Ptnt's Own Med( 34 mg 07/23/17 10:00 07/26/17 10:09 Pimavanserin PO Not Given Tartrate [Nuplazid] DAILY JOE 34 Mg) Ptnt's Own Med ( 1 mg 07/23/17 10:00 07/26/17 10:09 Rasagiline Mesylate PO Not Given [Azilect] 1 Mg) DAILY JOE Ptnt's Own Med( 1 each 07/23/17 10:00 07/26/17 11:23 Rotigotine [Neupro] TD 1 each 1 Each) DAILY [facility] Administration Non-Formulary Medication 1 each 07/25/17 10:46 07/26/17 17:50 Carbidopa/Levodopa [Rytary Er 23.75 Mg-95 Mg Cap] PO 1 each QID JOE Administration Non-Formulary Medication 1 each 07/25/17 10:46 07/26/17 17:50 Carbidopa/Levodopa [Rytary Er 36.25 Mg-145 Mg Cap] PO 1 each QID JOE Administration Olanzapine 2.5 mg 07/23/17 10:00 07/26/17 10:09 Zyprexa - PO Not Given DAILY JOE Polyethylene Glycol 17 gm 07/27/17 10:00 Miralax (For Daily Use) - PO DAILY JOE Quetiapine Fumarate 50 mg 07/25/17 22:00 07/26/17 00:36 Seroquel - PO 50 mg HS JOE Administration Senna 2 tab 07/26/17 10:45 Senna - PO HS PRN CONSTIPATION ASSESSMENT/PLAN: 62 y/o lady with h/o NICM, s/p ICD , PMHX Afib on xarelto, Parkinson's , who presented with rectal bleed #GI bleed: Post colonoscpy- likely form a stercoral ulcer No active bleed currently #Anemia: CBC- stable #Electrolyte abnormalities: BMP correct as needed #Pressure point Left sole: Foot padding Frequent turns #Afib: For discussion with family about the risks and benefits of anticoagulation and the agent-coumadin vs NOAC Continue metoprolol #Parkinsons disease: In diapers- continue Carbidopa/Levodopa Continue Collagenase Clostridium Hist. Continue Mupirocin Cream Continue Rasagiline Mesylate Rotigotine [Neupro] #Psychosis Pimavanserin Tartrate [Nuplazid] Olanzapine #CHF Stable To continue Metoprolol per cardio if BP permits Strict ins and outs #NICM Stable #FEN: IvDw 1/2 Normal saline Continue [place] oral fluids CBC Clear liquids #Prophylaxis: DVT: SCD Heparin contraindicated due to current bleed GI: Pepcid #Dispo: Transfer to Med surg for likely discharge tomorrow Visit type - Emergency Visit Emergency Visit: Yes ED Registration Date: 07/22/17 Care time: The patient presented to the Emergency Department on the above date and was hospitalized for further evaluation of their emergent condition. - New Patient This patient is new to me today: No - Critical Care Critical Care patient: Yes Total Critical Care Time (in minutes): 40 Critical Care Statement: The care of this patient involved high complexity decision making to prevent further life threatening deterioration of the patient 's condition and/or to evaluate & treat vital organ system(s) failure or risk of failure. - Discharge Referral Referred to [facility] No
[2017-07-26] MEDS ORDERED: METOPROLOL TARTRATE 50 MG TABLET (FP) PO ONE ×2 (19:18→22:15)
[2017-07-26 19:57] LABS: ANION GAP 6 (8-16); CALCIUM 7.4 mg/dL (8.5-10.1); CO2 28 mmol/L (21-32); CREATININE 0.3 mg/dL (0.55-1.02); GLUCOSE,RANDOM 101 mg/dL (74-106); MAGNESIUM 2.4 mg/dL (1.8-2.4); PHOSPHOROUS 2.6 mg/dL (2.5-4.9)
[2017-07-26] MEDS ORDERED: MUPIROCIN 2% TOPICAL OINTMENT FOR DECOLONIZATION NS SCH (22:00)
[2017-07-26] MEDS ORDERED: CHLORHEXIDINE GLUCONATE 4% CLEANSER FOR DECOLONIZATION TP SCH (22:00)
[2017-07-26] MEDS: QUEtiapine FUMARATE 25 MG TABLET (FP) PO SCH (22:26)
[2017-07-27] MEDS: INSULIN SLIDING SCALE (NOVOLOG) 1 VIAL SQ SCH ×4 (00:12→17:57)
[2017-07-27] MEDS ORDERED: SODIUM CHLORIDE 500 ML IV STA ×2 (02:21→03:10)
[2017-07-27] MEDS ORDERED: DOCUSATE NA 100 MG/10 ML UNIT-DOSE CUPS PO PRN (06:10)
[2017-07-27] MEDS ORDERED: POLYETHYLENE GLYCOL 3350 119 GM BTL PO ONE (06:11)
--- NOTE | 2017-07-27 07:03 | PN ---
Progress Note, Physician Chief Complaint: no distress C-scope findings noted - Current Medication List Current Medications: Active Medications Carbidopa/Levodopa (Sinemet 25/100 -) 1 each PO QID [facility] Last Admin: 07/26/17 22:26 Dose: 1 each Docusate Sodium (Colace Liquid -) 100 mg PO DAILY PRN PRN Reason: CONSTIPATION Potassium Chloride/Dextrose/Sod Cl (D5-1/2ns+20 Meq Kcl -) 1,000 mls @ 75 mls/ hr IV ASDIR [facility] Last Admin: 07/26/17 17:00 Dose: 75 mls/hr Insulin Aspart (Novolog Vial Sliding Scale -) 1 vial SQ Q6HPO [facility] PRN Reason: Protocol Last Admin: 07/27/17 05:29 Dose: Not Given Metoprolol Succinate (Toprol Xl -) 50 mg PO DAILY [facility] Non-Formulary Medication (Carbidopa/Levodopa [Rytary Er 23.75 Mg-95 Mg Cap]) 1 each PO QID [facility] Last Admin: 07/26/17 22:28 Dose: 1 each Non-Formulary Medication (Pimavanserin Tartrate [Nuplazid]) 34 mg PO DAILY [facility] Non-Formulary Medication (Rasagiline Mesylate [Azilect]) 1 mg PO DAILY [facility] Non-Formulary Medication (Rotigotine [Neupro]) 1 each TD DAILY [facility] Non-Formulary Medication (Carbidopa/Levodopa [Rytary Er 36.25 Mg-145 Mg Cap]) 1 each PO QID [facility] Last Admin: 07/26/17 22:29 Dose: 1 each Olanzapine (Zyprexa -) 2.5 mg PO DAILY [facility] Quetiapine Fumarate (Seroquel -) 50 mg PO HS [facility] Last Admin: 07/26/17 22:26 Dose: 50 mg Senna (Senna -) 2 tab PO HS PRN PRN Reason: CONSTIPATION - Objective Vital Signs: Vital Signs Temperature 98.1 F 07/26/17 18:00 Pulse Rate 73 07/27/17 06:00 Respiratory Rate 18 07/27/17 06:00 Blood Pressure 89/59 07/27/17 06:00 O2 Sat by Pulse Oximetry (%) 100 07/26/17 21:00 Constitutional: Yes: No Distress Cardiovascular: Yes: Regular Rate and Rhythm (sinus rhythm) Respiratory: Yes: CTA Bilaterally Gastrointestinal: Yes: Soft Edema: No Labs: CBC, BMP 07/26/17 08:20 07/26/17 19:22 INR, PTT INR 1.14 (0.82-1.09) 07/25/17 05:15 Fibrinogen 284.0 mg/dL (238-498) 07/23/17 12:27 Laboratory Tests 07/25/17 07/26/17 07/27/17 05:15 19:22 06:50 WBC 7.4 Hgb 9.9 L Plt Count 182 D INR 1.14 Potassium 3.8 Creatinine 0.3 L D Magnesium 2.4 D Assessment/Plan GI Bleed s/p EGD and colonoscopy with stercoral ulcer PAF (maintained on Xarelto) Cardiomyopathy s/p ICD Parkinson's Disease REC: Resume AC if feasible with careful monitoring of H/H. PCP notes reviewed, has been discussed with patient and family: warfarin may be better option as it is readily reversible.
[2017-07-27 07:35] LABS: MCH 29.5 pg (25.7-33.7); MEAN CELL VOLUME 86.6 fl (80-96); MEAN PLT VOLUME 8.6 fl (7.5-11.1); PLATELET COUNT 182 K/MM3 (134-434); RDW 15.3 % (11.6-15.6); WHITE BLOOD COUNT 7.4 K/mm3 (4.0-10.0)
[2017-07-27 08:45] LABS: ALBUMIN 2.1 g/dl (3.4-5.0); ALK PHOS 93 U/L (45-117); ANION GAP 8 (8-16); BILIRUBIN,TOTAL 0.6 mg/dL (0.2-1.0); CALCIUM 7.6 mg/dL (8.5-10.1); CO2 25 mmol/L (21-32); CREATININE 0.2 mg/dL (0.55-1.02); GLUCOSE,RANDOM 84 mg/dL (74-106); MAGNESIUM 2.2 mg/dL (1.8-2.4); PHOSPHOROUS 2.4 mg/dL (2.5-4.9); SGOT/AST 22 U/L (15-37); SGPT/ALT 8 U/L (12-78); TOT PROT 4.3 g/dl (6.4-8.2)
[2017-07-27] MEDS ORDERED: POLYETHYLENE GLYCOL 3350 119 GM BTL PO SCH (10:00)
[2017-07-27] MEDS ORDERED: METOPROLOL SUCCINATE 50 MG TAB.SR.24H (FP) PO SCH (10:00)
[2017-07-27] MEDS: CARBIDOPA/LEVODOPA 25/100 TABLET (FP) PO SCH ×4 (11:32→22:22)
[2017-07-27] MEDS: OLANZapine 2.5 MG TABLET PO SCH (11:33)
[2017-07-27] MEDS: PATIENT'S OWN MEDICATION (NON-FORMULARY) (Rotigotine [Neupro] 1 EACH) TD SCH (11:34)
[2017-07-27] MEDS: RASAGILINE MESYLATE 1 MG PO SCH (11:35)
[2017-07-27] MEDS: PATIENT'S OWN MEDICATION (NON-FORMULARY) (Pimavanserin Tartrate [Nuplazid] 34 MG) PO SCH (11:36)
[2017-07-27] MEDS: PATIENT'S OWN MEDICATION (NON-FORMULARY) (Carbidopa/Levodopa [Rytary Er 23.75 Mg-95 Mg Cap PO SCH ×4 (11:37→22:23)
[2017-07-27] MEDS: PATIENT'S OWN MEDICATION (NON-FORMULARY) (Carbidopa/Levodopa [Rytary Er 36.25 Mg-145 Mg Ca PO SCH ×4 (11:38→22:23)
[2017-07-27] MEDS ORDERED: SODIUM CHLORIDE 1,000 ML IV SCH (11:45)
--- NOTE | 2017-07-27 11:54 | PATH ---
Surgical Pathology Report Patient Name: AMOL STONE [facility]. Rec. #: [id number] /Age/Gender: 1955 (Age: 62) / F Account: [id number] Location: [address] [place] [address]/[facility] Taken: 07/26/2017 Received: 07/26/2017 Reported: 07/27/2017 Physicians: Pastor Jacinto D.O. Specimen(s) Received BX RECTAL ULCER Clinical History Rectal bleeding, anemia Diverticulosis, rectal ulcers Final Diagnosis COLON, RECTUM, BIOPSY: COLONIC MUCOSA WITH FOCAL SUPERFICIAL ULCERATION, AND HYPERPLASTIC CHANGES. NO NEOPLASM IS IDENTIFIED. NO CRYPT ARCHITECTURAL DISTORTION, GRANULOMAS, OR DYSPLASIA IDENTIFIED. Comment: Recommend correlation with clinical findings and follow up as clinically indicated. Electronically Signed Frank Kramer M.D. Gross Description Received in formalin, labeled "biopsy rectal ulcer" are 2 velasquez, irregular portions of soft tissue measuring 0.3 and 0.4 cm. in greatest dimension. The specimens are submitted in toto in one cassette. /07/26/2017 [facility]07/26/2017
--- NOTE | 2017-07-27 12:22 | PN ---
Progress Note (short form) - Note Progress Note: Patient seen and examined. Chart/labs reviewed in detail Reviewed colonoscopy results. no further bleeding. Cardiovascular: Yes: Pulse Irregular Respiratory: Yes: CTA Bilaterally, On Nasal O2. No: Accessory Muscle Use Gastrointestinal: Yes: Normal Bowel Sounds, Soft Extremities: Yes: WNL Edema: No Last Vital Signs Last Vital Signs Temp Pulse Resp BP Pulse Ox 96.1 F L 84 16 100/69 100 07/27/17 09:28 07/27/17 09:28 07/27/17 09:28 07/27/17 09:28 07/26/17 21:00 CBC, BMP 07/27/17 06:50 07/27/17 06:50 Current Medications Generic Name Dose Route Start Last Admin Trade Name Freq PRN Reason Stop Dose Admin Carbidopa/Levodopa 1 each 07/26/17 22:00 07/27/17 11:32 Sinemet 25/100 - PO 1 each QID JOE Administration Docusate Sodium 100 mg 07/27/17 06:10 Colace Liquid - PO DAILY PRN CONSTIPATION Sodium Phosphate 30 mm/ 510 mls @ 62.5 mls/hr 07/27/17 12:30 Dextrose IVPB 07/27/17 20:39 ONCE ONE Sodium Chloride 1,000 mls @ 75 mls/hr 07/27/17 11:45 07/27/17 12:10 Normal Saline - IV 75 mls/hr ASDIR JOE Administration Insulin Aspart 1 vial 07/27/17 00:00 07/27/17 12:06 Novolog Vial Sliding Scale - SQ Not Given Q6HPO JOE Protocol Non-Formulary Medication 1 each 07/26/17 22:00 07/27/17 11:37 Carbidopa/Levodopa [Rytary Er 23.75 Mg-95 Mg Cap] PO 1 each QID JOE Administration Non-Formulary Medication 34 mg 07/27/17 10:00 07/27/17 11:36 Pimavanserin Tartrate [Nuplazid] PO 34 mg DAILY JOE Administration Non-Formulary Medication 1 mg 07/27/17 10:00 07/27/17 11:35 Rasagiline Mesylate [Azilect] PO 1 mg DAILY JOE Administration Non-Formulary Medication 1 each 07/27/17 10:00 07/27/17 11:34 Rotigotine [Neupro] TD 1 each DAILY JOE Administration Non-Formulary Medication 1 each 07/26/17 22:00 07/27/17 11:38 Carbidopa/Levodopa [Rytary Er 36.25 Mg-145 Mg Cap] PO 1 each QID JOE Administration Olanzapine 2.5 mg 07/27/17 10:00 07/27/17 11:33 Zyprexa - PO 2.5 mg DAILY JOE Administration Quetiapine Fumarate 50 mg 07/26/17 22:00 07/26/17 22:26 Seroquel - PO 50 mg HS JOE Administration Senna 2 tab 07/26/17 19:16 Senna - PO HS PRN CONSTIPATION Assessment/Plan: 62 y/o with parkinsons disease, afib, on xeralto comes in with gi bleed who received 8 units of PRBCs, 1 cryo and 2 FFP and had mild thrombocytopenia post transfusion and hypocalcemia. Now s/p C-scope with a bleeding ulcer found. -monitor Hct -re-starting AC per GI/Primary team , crit needs to be stable -?coumadin
[2017-07-27] MEDS ORDERED: SODIUM PHOSPHATE - 30 MM in DEXTROSE 5%-WATER - 500 ML IVPB ONE (12:30)
--- NOTE | 2017-07-27 16:47 | PN ---
Physical Exam: SUBJECTIVE: Patient seen and examined Seen this am. Communicating better. OBJECTIVE: Vital Signs Period Temp Pulse Resp BP Sys/German Pulse Ox Last 24 Hr 96.1 F-98.1 F 67-105 16-18 80-122/46-75 100 GENERAL: Awake, alert, verbal expression improved from before, in no acute respiratory distress. HEAD: Normal with no signs of trauma. NECK: Right jugular vein line in place EYES: Anicteric, not pale, pupils equal, round and reactive to light EARS, NOSE, THROAT: NGT in place, being fed by sister LUNGS: Breath sounds equal, clear to auscultation bilaterally. No wheezes, and no crackles. No accessory muscle use. HEART: Regular rate and rhythm, normal S1 and S2 . ABDOMEN: Soft, nontender, not distended, bowel sounds present. Rectal exam: Reduced dark brown stools, no macy blood seen MUSCULOSKELETAL: Increased tone and upper limb tremors more on R UPPER EXTREMITIES: 2+ pulses, warm, well-perfused, tremor, hypertonia. LOWER EXTREMITIES: 2+ pulses, warm, well-perfused. No calf tenderness. No peripheral edema. Pressure point on left sole. Legs elevated on pillows NEUROLOGICAL: Tremor, hypertonia and with rigidity in upper limbs and lower limbs. Laboratory Results - last 24 hr 07/26/17 07/26/17 07/26/17 11:08 16:26 19:22 WBC RBC Hgb Hct MCV MCH MCHC RDW Plt Count MPV Sodium 142 Potassium 3.8 Chloride 108 H Carbon Dioxide 28 Anion Gap 6 L BUN 2 L* D Creatinine 0.3 L D Creat Clearance w eGFR POC Glucometer 115.79138 123.54615 Random Glucose 101 Calcium 7.4 L Phosphorus 2.6 Magnesium 2.4 D Total Bilirubin AST ALT Alkaline Phosphatase Total Protein Albumin 07/26/17 07/27/17 07/27/17 23:31 05:26 06:50 WBC 7.4 RBC 3.35 L Hgb 9.9 L Hct 29.0 L MCV 86.6 MCH 29.5 MCHC 34.0 RDW 15.3 Plt Count 182 D MPV 8.6 Sodium Potassium Chloride Carbon Dioxide Anion Gap BUN Creatinine Creat Clearance w eGFR POC Glucometer 110 71 Random Glucose Calcium Phosphorus Magnesium Total Bilirubin AST ALT Alkaline Phosphatase Total Protein Albumin 07/27/17 07/27/17 06:50 11:43 WBC RBC Hgb Hct MCV MCH MCHC RDW Plt Count MPV Sodium 141 Potassium 4.7 D Chloride 108 H Carbon Dioxide 25 Anion Gap 8 BUN 1 L* D Creatinine 0.2 L D Creat Clearance w eGFR > 60 POC Glucometer 83 Random Glucose 84 Calcium 7.6 L Phosphorus 2.4 L Magnesium 2.2 Total Bilirubin 0.6 D AST 22 ALT 8 L Alkaline Phosphatase 93 Total Protein 4.3 L Albumin 2.1 L Active Medications Generic Name Dose Route Start Last Admin Trade Name Freq PRN Reason Stop Dose Admin Carbidopa/Levodopa 1 each 07/26/17 22:00 07/27/17 15:12 Sinemet 25/100 - PO 1 each QID JOE Administration Docusate Sodium 100 mg 07/27/17 06:10 Colace Liquid - PO DAILY PRN CONSTIPATION Sodium Phosphate 30 mm/ 510 mls @ 62.5 mls/hr 07/27/17 12:30 07/27/17 13:42 Dextrose IVPB 07/27/17 20:39 62.5 mls/hr ONCE ONE Administration Sodium Chloride 1,000 mls @ 75 mls/hr 07/27/17 11:45 07/27/17 12:10 Normal Saline - IV 75 mls/hr ASDIR JOE Administration Insulin Aspart 1 vial 07/27/17 00:00 07/27/17 12:06 Novolog Vial Sliding Scale - SQ Not Given Q6HPO JOE Protocol Non-Formulary Medication 1 each 07/26/17 22:00 07/27/17 15:13 Carbidopa/Levodopa [Rytary Er 23.75 Mg-95 Mg Cap] PO 1 each QID JOE Administration Non-Formulary Medication 34 mg 07/27/17 10:00 07/27/17 11:36 Pimavanserin Tartrate [Nuplazid] PO 34 mg DAILY JOE Administration Non-Formulary Medication 1 mg 07/27/17 10:00 07/27/17 11:35 Rasagiline Mesylate [Azilect] PO 1 mg DAILY JOE Administration Non-Formulary Medication 1 each 07/27/17 10:00 07/27/17 11:34 Rotigotine [Neupro] TD 1 each DAILY JOE Administration Non-Formulary Medication 1 each 07/26/17 22:00 07/27/17 15:13 Carbidopa/Levodopa [Rytary Er 36.25 Mg-145 Mg Cap] PO 1 each QID JOE Administration Olanzapine 2.5 mg 07/27/17 10:00 07/27/17 11:33 Zyprexa - PO 2.5 mg DAILY JOE Administration Quetiapine Fumarate 50 mg 07/26/17 22:00 07/26/17 22:26 Seroquel - PO 50 mg HS JOE Administration Senna 2 tab 07/26/17 19:16 Senna - PO HS PRN CONSTIPATION ASSESSMENT/PLAN: 62 y/o lady with h/o NICM, s/p ICD , P A fib on xarelto, Parkinson's , who presented with rectal bleed . #Acute Lower GI bleed : likely form a stercoral ulcer seen on Colonoscopy stable Hb after transfusion . #Hypotension: Noticed after she received her metoprolol last night and had to receive a bolus of fluid Will hold metoprolol tonight to resume tomorrow Stop IVF with rising BP #Electrolyte abnormalities stable Afib: Team discussed with family about the risks and benefits of anticoagulation and the agent-coumadin vs NOAC Family elects against coumadin , would like to cont with NOACs, as per her experimental welder who will resume AC after f/u in office - Her experimental welder is Dr. Wade [phone]. covering card was notified . Apt early next week can be made Hold metoprolol tonight #Parkinsons disease: In diapers- continue Carbidopa/Levodopa Continue Collagenase Clostridium Hist. Continue Mupirocin Cream Continue Rasagiline Mesylate Rotigotine [Neupro] #Psychosis Pimavanserin Tartrate [Nuplazid] Olanzapine #CHF Stable To continue Metoprolol per cardio if BP permits Strict ins and outs #NICM Stable Visit type - Emergency Visit Emergency Visit: Yes ED Registration Date: 07/22/17 Care time: The patient presented to the Emergency Department on the above date and was hospitalized for further evaluation of their emergent condition. - New Patient This patient is new to me today: No - Critical Care Critical Care patient: No - Discharge Referral Referred to [facility] No
--- NOTE | 2017-07-27 17:33 | PN ---
Progress Note, GLASSWARE DEFECT REPAIRER - Note Progress Note: Pt seen at bedside as a follow up to swallow eval (07/26/17) with recommendation for pureed and thin liquids. Chart review indicates pt continues to have reduce oral intake for breakfast and lunch (25%). Pt still requires total assistance. Speech clarity continues to be reduced but consistent with Parkinson's. Recommendations: continue pureed with thin liquids as tolerated with total assistance. Results given to discharge specialist and pcp via chart. GLASSWARE DEFECT REPAIRER to follow up for nutritional intake.
--- NOTE | 2017-07-27 18:47 | PN ---
Teaching Attending Note Name of Resident: Gracia Casillas ATTENDING PHYSICIAN STATEMENT I saw and evaluated the patient. I reviewed the resident's note and discussed the case with the resident. I agree with the resident's findings and plan as documented. SUBJECTIVE: no fever or chills , feels better . OBJECTIVE: NAD, awake and alert CV : RRR, no MRG Lungs : decreased breath sounds at bases , no wheezing or crackles, no JVD Abd: soft, NT, ND , NL BS Ext: no edema , course tremor in feet. rigidity in upper extremities ASSESSMENT AND PLAN: 62 y/o lady with h/o NICM, s/p ICD , P A fib on xarelto, Parkinson's , who presented with rectal bleed . 1- Acute Lower GI bleed : likely form a stercoral ulcer seen on Colonoscopy stable Hb after transfusion . 2-Acute blood loss anemia , 2/2 #1 . - stable HB 3- H/o P A fib: - will resume AC in few days if no bleeding recurrence - option of AC d/w family this am, family elects against coumadin , would likel to cont with NOACs, as per her deputy sheriff court services who will resume AC after f/u in office - Her deputy sheriff court services is Dr. Wade [phone]. covering card was notified . Apt early next week can be made 4- H/o NICM, s/p ICD . no signs of fluid overload. - DC IVF - hypotension last night likely due to B given in evening . toprol was held in am , and will resume tomorrow with holding parameters. BP baseline is in 90s - cont to hold losartan 5- H/o PArkinson's: cont oral meds SCDs
[2017-07-27] MEDS: QUEtiapine FUMARATE 25 MG TABLET (FP) PO SCH (22:23)
--- NOTE | 2017-07-28 06:39 | PN ---
Progress Note, Physician History of Present Illness: seen and examined today in nad. no overnight events. difficult to understand pt due to physical impairment. - Current Medication List Current Medications: Active Medications Carbidopa/Levodopa (Sinemet 25/100 -) 1 each PO QID [facility] Last Admin: 07/27/17 22:22 Dose: 1 each Docusate Sodium (Colace Liquid -) 100 mg PO DAILY PRN PRN Reason: CONSTIPATION Insulin Aspart (Novolog Vial Sliding Scale -) 1 vial SQ Q6HPO JOE PRN Reason: Protocol Last Admin: 07/27/17 17:57 Dose: Not Given Metoprolol Succinate (Toprol Xl -) 50 mg PO DAILY [facility] Non-Formulary Medication (Carbidopa/Levodopa [Rytary Er 23.75 Mg-95 Mg Cap]) 1 each PO QID [facility] Last Admin: 07/27/17 22:23 Dose: 1 each Non-Formulary Medication (Pimavanserin Tartrate [Nuplazid]) 34 mg PO DAILY [facility] Last Admin: 07/27/17 11:36 Dose: 34 mg Non-Formulary Medication (Rasagiline Mesylate [Azilect]) 1 mg PO DAILY [facility] Last Admin: 07/27/17 11:35 Dose: 1 mg Non-Formulary Medication (Rotigotine [Neupro]) 1 each TD DAILY [facility] Last Admin: 07/27/17 11:34 Dose: 1 each Non-Formulary Medication (Carbidopa/Levodopa [Rytary Er 36.25 Mg-145 Mg Cap]) 1 each PO QID [facility] Last Admin: 07/27/17 22:23 Dose: 1 each Olanzapine (Zyprexa -) 2.5 mg PO DAILY [facility] Last Admin: 07/27/17 11:33 Dose: 2.5 mg Quetiapine Fumarate (Seroquel -) 50 mg PO HS [facility] Last Admin: 07/27/17 22:23 Dose: 50 mg Senna (Senna -) 2 tab PO HS PRN PRN Reason: CONSTIPATION - Objective Vital Signs: Vital Signs Temperature 99.2 F 07/27/17 21:03 Pulse Rate 110 H 07/27/17 21:03 Respiratory Rate 20 07/27/17 21:04 Blood Pressure 130/70 07/27/17 21:03 O2 Sat by Pulse Oximetry (%) 97 09/22/17 21:04 Constitutional: Yes: No Distress, Calm Eyes: Yes: Conjunctiva Clear, EOM Intact, PERRL HENT: Yes: Atraumatic, Normocephalic Neck: Yes: Supple, Trachea Midline Cardiovascular: Yes: Tachycardia, Pulse Irregular, S1, S2. No: Regular Rate and Rhythm, Bradycardia, Bruit, JVD, Gallop, Murmur, Rub, S3, S4, Varicosities Respiratory: Yes: Regular, Diminished. No: Rales, Rhonchi, Wheezes Gastrointestinal: Yes: Normal Bowel Sounds, Soft. No: Distention, Tenderness Edema: No Neurological: Yes: Alert Psychiatric: Yes: Alert Labs: CBC, BMP 07/27/17 06:50 07/27/17 06:50 INR, PTT INR 1.14 (0.82-1.09) 07/25/17 05:15 Fibrinogen 284.0 mg/dL (238-498) 07/23/17 12:27 - ....Imaging Chest X-ray: Report Reviewed, Image Reviewed EKG: Report Reviewed, Image Reviewed Other: Report Reviewed, Image Reviewed Assessment/Plan GI Bleed s/p EGD and colonoscopy with stercoral ulcer PAF (maintained on Xarelto) NICM s/p ICD Parkinson's Disease REC: As per hospitalist discussion with pts family they have discussed with her outpatient granite cutter apprentice and would like to attempt to resume NOAC after outpatient f/up visit with him, warfarin likely safer in terms of reversibility , will defer to pts outpatient granite cutter apprentice and family discussion Cont Toprol for HR control and for NICM Currently euvolemic No additional planned inpatient cardiac work up at this time, recc close outpatient f/up with her granite cutter apprentice.
[2017-07-28] MEDS: INSULIN SLIDING SCALE (NOVOLOG) 1 VIAL SQ SCH ×3 (06:40→11:57)
[2017-07-28 06:58] LABS: MCH 29.6 pg (25.7-33.7); MCHC 33.8 g/dl (32.0-36.0); MEAN CELL VOLUME 87.5 fl (80-96); MEAN PLT VOLUME 8.6 fl (7.5-11.1); PLATELET COUNT 234 K/MM3 (134-434); RDW 15.1 % (11.6-15.6); WHITE BLOOD COUNT 8.9 K/mm3 (4.0-10.0)
[2017-07-28 07:31] LABS: ANION GAP 8 (8-16); CALCIUM 8.2 mg/dL (8.5-10.1); CO2 28 mmol/L (21-32); CREATININE 0.3 mg/dL (0.55-1.02); GLUCOSE,RANDOM 92 mg/dL (74-106); PHOSPHOROUS 3.6 mg/dL (2.5-4.9)
[2017-07-28] MEDS: CARBIDOPA/LEVODOPA 25/100 TABLET (FP) PO SCH ×2 (09:18→14:21)
[2017-07-28] MEDS: OLANZapine 2.5 MG TABLET PO SCH (09:18)
[2017-07-28] MEDS: PATIENT'S OWN MEDICATION (NON-FORMULARY) (Pimavanserin Tartrate [Nuplazid] 34 MG) PO SCH (09:20)
[2017-07-28] MEDS: PATIENT'S OWN MEDICATION (NON-FORMULARY) (Carbidopa/Levodopa [Rytary Er 23.75 Mg-95 Mg Cap PO SCH ×2 (09:20→14:22)
[2017-07-28] MEDS: PATIENT'S OWN MEDICATION (NON-FORMULARY) (Carbidopa/Levodopa [Rytary Er 36.25 Mg-145 Mg Ca PO SCH ×2 (09:20→14:22)
[2017-07-28] MEDS: RASAGILINE MESYLATE 1 MG PO SCH (09:20)
[2017-07-28] MEDS: PATIENT'S OWN MEDICATION (NON-FORMULARY) (Rotigotine [Neupro] 1 EACH) TD SCH (09:21)
[2017-07-28] MEDS ORDERED: METOPROLOL SUCCINATE 50 MG TAB.SR.24H (FP) PO SCH ×2 (10:00→10:45)
[2017-07-28] MEDS ORDERED: POTASSIUM CHLORIDE TABS 20 MEQ TABLET.ER (FP) PO SCH (10:00)
[2017-07-28] MEDS ORDERED: PT OWN MED DRAWER 7, Y5N ONE (11:47)
--- NOTE | 2017-07-28 12:08 | PN ---
Teaching Attending Note Name of Resident: Gracia Casillas ATTENDING PHYSICIAN STATEMENT I saw and evaluated the patient. I reviewed the resident's note and discussed the case with the resident. I agree with the resident's findings and plan as documented. SUBJECTIVE: no fever or chills. has no abd pain or diarrhea . NO BM . OBJECTIVE: NAD, awake, alert and cooperative CV: RRR, no MRG Lungs: decreased breath sounds at bases , no wheezing or crackles, no JVD Abd: soft, NT, ND , NL BS Ext: no edema , course tremor in feet. rigidity in upper extremities ASSESSMENT AND PLAN: 62 y/o lady with h/o NICM, s/p ICD , P A fib on xarelto, Parkinson's , who presented with rectal bleed . 1- Acute Lower GI bleed : likely form a stercoral ulcer seen on Colonoscopy stable Hb after transfusion . 2-Acute blood loss anemia , 2/2 #1. - stable HB today 3- H/o P A fib: - Increase BB to full home dose - To resume AC in few days if no bleeding recurrence ( 3-4 days ) - Family prefers NOACS over coumadin - Further discussion about AC with primary vacuum technician Dr. Connor - family understands the risk of stroke while holding AC temporarily - Tachycardic this am, due to being on lower dose of BB. will obtain EKG. Unlikely tachycardia is due to a PE ( no SOB, no CP , no hypoxia ), with low clinical suspicion, will get US of LE .If NEg will stop. 4- H/o NICM, s/p ICD. no signs of fluid overload. - will resume diuretics at dc - Resume full dose BB ( toprol 100 daily) - cont to hold losartan until she sees her vacuum technician 5- H/o PArkinson's: cont oral meds SCDs will dc home with services this afternoon if US neg
[2017-07-28 15:29] VITALS: BP 110/65; PULSE 118; TEMP 96.9
--- NOTE | 2017-07-29 07:23 | DS ---
Physical Exam: SUBJECTIVE: Patient seen and examined No new complaint, no bleeding, SOB. OBJECTIVE: Vital Signs Period Temp Pulse Resp BP Sys/German Pulse Ox Last 24 Hr 96.9 F-97.1 F 118-121 20-20 107-110/60-65 99 PHYSICAL EXAM GENERAL: Awake, alert, verbal expression improved from before, in no acute respiratory distress. HEAD: Normal with no signs of trauma. NECK: Right jugular vein line in place EYES: Anicteric, not pale, pupils equal, round and reactive to light EARS, NOSE, THROAT: NGT in place, being fed by sister LUNGS: Breath sounds equal, clear to auscultation bilaterally. No wheezes, and no crackles. No accessory muscle use. HEART: Regular rate and rhythm, normal S1 and S2 . ABDOMEN: Soft, nontender, not distended, bowel sounds present. Rectal exam: Reduced dark brown stools, no macy blood seen MUSCULOSKELETAL: Increased tone and upper limb tremors more on R UPPER EXTREMITIES: 2+ pulses, warm, well-perfused, tremor, hypertonia. LOWER EXTREMITIES: 2+ pulses, warm, well-perfused. No calf tenderness. No peripheral edema. Pressure point on left sole. Legs elevated on pillows NEUROLOGICAL: Tremor, hypertonia and with rigidity in upper limbs and lower limbs. LABS Laboratory Results - last 24 hr 07/25/17 07/28/17 07/28/17 10:45 06:05 06:05 WBC 8.9 RBC 3.65 Hgb 10.8 Hct 31.9 L MCV 87.5 MCH 29.6 MCHC 33.8 RDW 15.1 Plt Count 234 D MPV 8.6 Sodium 141 Potassium 4.2 Chloride 105 Carbon Dioxide 28 Anion Gap 8 BUN 2 L* D Creatinine 0.3 L D POC Glucometer Random Glucose 92 Calcium 8.2 L Phosphorus 3.6 D Magnesium 2.0 Blood Type A POSITIVE Antibody Screen Negative Crossmatch See Detail 07/28/17 11:56 WBC RBC Hgb Hct MCV MCH MCHC RDW Plt Count MPV Sodium Potassium Chloride Carbon Dioxide Anion Gap BUN Creatinine POC Glucometer 139 Random Glucose Calcium Phosphorus Magnesium Blood Type Antibody Screen Crossmatch HOSPITAL COURSE: Date of Admission:07/22/17 Date of Discharge: 07/29/17 62 y/o lady with h/o NICM, s/p ICD , P A fib on xarelto, Parkinson's , psychosis , CHF, NICM, severe constipation, who presented with massive rectal bleed that was found to be likely caused by a stercoral ulcer seen on Colonoscopy. Patient became stable after transfusion of 8 units of PRBCs, 1 cryo and 2 FFP, fluid and electrolyte repletion. Afib: Following bleed, xarelto was discontinued, but the team discussed with family about the risks and benefits of anticoagulation and the agent-coumadin vs NOAC. They will follow up with the home weatherizing worker to discuss a choice early in the week since it was explained that the patient's risk for a stroke was very high. Constipation will need to be prevented by all means and patient was prescribed: Senna and Colace to be taken twice a day and Miralax to be used as needed. Patient is to follow up with her PCP: For CBC and whether or not to continue on losartan She is also to follow up with GI: For the stercoral ulcers and diverticulosis All other home meds should be continued as prescribed Minutes to complete discharge: 50 Discharge Summary Reason For Visit: GASTROINTESTINAL BLEEDING Current Active Problems Atrial fibrillation (Acute) CHF (congestive heart failure), NYHA class I (Chronic) HTN (hypertension) (Chronic) Nonischemic cardiomyopathy (Chronic) Parkinson disease (Chronic) Condition: Improved - Instructions Diet, Activity, Other Instructions: You were admitted for massive GI bleed requiring transfusion of : 8 units of PRBCs, 1 cryo and 2 FFP You also had several corrections of your electrolytes and received Intravenous fluids to control your volume loss The bleeding was likely due to ulcers in the rectum as a result of prolonged constipation You will need to avoid constipation by all means You have been placed on : Senna and Colace to be taken twice a day Please use them everyday and Miralax to be used as needed. Follow up: PCP Dr Arelis Lehman You will need to have your CBC done on 07/30 to check for anemia since you had a recent massive GI bleed and the results will be faxed to your PCP directly You will need to see your PCP within one week for follow up on the blood test and to determine whether or not to continue on losartan since you were off it while admitted for the GI bleed General Service Officer Dr. Pierson [phone]- Call on 07/30 to make an appointment for that day and to discuss choice of anticoagulation since you have been off xarelto because of massive GI bleed and your risk for stroke is very high Coning Machine Operator Dr Villanueva Make an appointment in a weeks's time to follow up with him for the ulcers found and diverticulosis You will continue all your other home meds as prescribed unless otherwise indicated. If you feel you are not getting better or your symptoms worsen, please see your PCP or go to the nearest emergency room Referrals: Arelis Lehman [Primary Care Provider] - 1 Week (Call on Monday 07/30 to see her with CBC result and check for anemai following massive GI bleed) Bonnie Villanueva MD [Staff Physician] - 1 Week (Please follow up for your massive upper GI bleed with stercoral ulcer and diverticulosis) Brown Pierson [Non Staff, Medical] - 1 Week (Please call on 07/30 to make an appointmant for that day to discuss anticoagulation choice since she is high risk for a stroke since she has been off her xarelto following a massive GI bleed) Quentin Pickett MD [Staff Physician] - Disposition: VNS/HOME HEALTH CARE - Home Medications Comprehensive Discharge Medication List: Ambulatory Orders Ascorbic Acid [Vitamin C] 250 mg PO DAILY 07/22/17 Ca/D3/Mag#11/Zinc/Senior Climate Advisor/Dre/Bor [Caltrate 600+D Plus Tablet] 2 each PO DAILY Carbidopa/Levodopa [Carbidopa-Levodopa 25-100 Tab] 1 each PO QID 07/22/17 Carbidopa/Levodopa [Rytary ER 23.75 mg-95 mg Cap] 1 each PO QID 07/22/17 Carbidopa/Levodopa [Rytary ER 36.25 mg-145 mg Cap] 1 each PO QID 07/22/17 Collagenase Clostridium Hist. [Santyl] 90 gm TP DAILY 07/22/17 Furosemide 20 mg PO DAILY 07/22/17 Iron 65 mg PO DAILY 07/22/17 Melatonin 3 mg PO DAILY 07/22/17 Metoprolol Succinate [Toprol Xl] 100 mg PO DAILY 07/22/17 Multivitamin [Zoo Chews] 1 each PO DAILY 07/22/17 Mupirocin Cream [Bactroban 2% Cream -] 1 applic TP DAILY 07/22/17 Olanzapine 2.5 mg PO DAILY 07/22/17 Patient's Own Medication [Patient's Own Med (Nf) -] 1 each PO DAILY 07/22/17 Pimavanserin Tartrate [Nuplazid] 34 mg PO DAILY 07/22/17 Quetiapine Fumarate [Seroquel -] 50 mg PO HS 07/22/17 Rasagiline Mesylate [Azilect] 1 mg PO DAILY 07/22/17 Rotigotine [Neupro] 1 each TD DAILY 07/22/17 Spironolactone 25 mg PO DAILY 07/22/17 Zinc 50 mg PO DAILY 07/22/17 Docusate Sodium [Colace Oral Solution -] 100 mg PO BID 30 Days 07/28/17 Miscellaneous Medical Supply [Outpatient Order] 1 each ASDIR #1 misc Polyethylene Glycol 3350 [Miralax 255 gm Btl -] 17 gm PO DAILY #1 bottle Quetiapine Fumarate [Seroquel -] 50 mg PO HS tablet 07/28/17 Sennosides/Docusate Sodium [Senna Laxative Tablet] 1 each PO BID 30 Days This patient is new to me today: No Emergency Visit: Yes ED Registration Date: 07/22/17 Care time: The patient presented to the Emergency Department on the above date and was hospitalized for further evaluation of their emergent condition. Critical Care patient: No - Discharge Referral Referred to [facility] No
--- NOTE | 2017-07-29 08:41 | EKG ---
Test Reason : Blood Pressure : / mmHG Vent. Rate : 131 BPM Atrial Rate : 131 BPM P-R Int : 142 ms QRS Dur : 068 ms QT Int : 292 ms P-R-T Axes : 047 018 081 degrees QTc Int : 431 ms SINUS TACHYCARDIA WITH OCCASIONAL PREMATURE VENTRICULAR COMPLEXES OTHERWISE NORMAL ECG WHEN COMPARED WITH ECG OF 23-JUL-2017 00:20, NO SIGNIFICANT CHANGE WAS FOUND Confirmed by MD JOLIE, CRISTÓBAL ([id number]) on 07/29/2017 8:41:07 AM Referred By: TRUDY SILVA Confirmed By:CRISTÓBAL DAVE MD
--- NOTE | 2017-07-31 20:31 | EKG ---
Test Reason : Blood Pressure : / mmHG Vent. Rate : 104 BPM Atrial Rate : 104 BPM P-R Int : 132 ms QRS Dur : 074 ms QT Int : 324 ms P-R-T Axes : 069 018 076 degrees QTc Int : 426 ms POOR DATA QUALITY, INTERPRETATION MAY BE ADVERSELY AFFECTED SINUS TACHYCARDIA WITH OCCASIONAL PREMATURE VENTRICULAR COMPLEXES NONSPECIFIC ST AND T WAVE ABNORMALITY ABNORMAL ECG WHEN COMPARED WITH ECG OF 07-JAN-2015 05:06, PREMATURE VENTRICULAR COMPLEXES ARE NOW PRESENT VENT. RATE HAS INCREASED BY 34 BPM SUBMITTED ON 07-31-2017 SUBOPTIMAL EKG NO CLINICAL INFORMATION IS AVAILABLE REPEAT EKG IF CLINICALLY INDICATED Confirmed by BENITO VIGIL MD ([id number] on 07/31/2017 8:31:36 PM Referred By: Confirmed By:BENITO VIGIL MD
== END 2017-07-28 15:35 | disposition home health service (06) | DRG 393 ==
LOC: JER 06:58 → JERBED 09:15 → JICU 10:50 → J5S 07-26 20:29
PROVIDERS: ADMIT Internal Medicine; ATTEND Internal Medicine
PROC: 30233N1 Transfusion of Nonautologous Red Blood Cells into Peripheral Vein, Percutaneous Approach (ICD-10-PCS; 2017-07-22)
PROC: 30233L1 Transfusion of Nonautologous Fresh Plasma into Peripheral Vein, Percutaneous Approach (ICD-10-PCS; 2017-07-22)
PROC: 30233K1 Transfusion of Nonautologous Frozen Plasma into Peripheral Vein, Percutaneous Approach (ICD-10-PCS; 2017-07-22)
PROC: 05HM33Z Insertion of Infusion Device into Right Internal Jugular Vein, Percutaneous Approach (ICD-10-PCS; principal; 2017-07-23)
PROC: 30233M1 Transfusion of Nonautologous Plasma Cryoprecipitate into Peripheral Vein, Percutaneous Approach (ICD-10-PCS; 2017-07-23)
PROC: 0DJ08ZZ Inspection of Upper Intestinal Tract, Via Natural or Artificial Opening Endoscopic (ICD-10-PCS; 2017-07-24)
PROC: 0DJD8ZZ Inspection of Lower Intestinal Tract, Via Natural or Artificial Opening Endoscopic (ICD-10-PCS; 2017-07-26)
DX: K63.3 Ulcer of intestine (principal); K57.91 Diverticulosis of intestine, part unspecified, without perforation or abscess with bleeding; R53.2 Functional quadriplegia; R57.1 Hypovolemic shock; I42.9 Cardiomyopathy, unspecified; D62 Acute posthemorrhagic anemia; I50.20 Unspecified systolic (congestive) heart failure; E87.0 Hyperosmolality and hypernatremia; E87.2 Acidosis; I11.0 Hypertensive heart disease with heart failure; G20 Parkinson's disease; I48.0 Paroxysmal atrial fibrillation; I95.9 Hypotension, unspecified; F29 Unspecified psychosis not due to a substance or known physiological condition; E87.6 Hypokalemia; E83.42 Hypomagnesemia; E83.39 Other disorders of phosphorus metabolism; K59.00 Constipation, unspecified; K31.7 Polyp of stomach and duodenum; D69.6 Thrombocytopenia, unspecified; E83.51 Hypocalcemia
CPT/HCPCS: 36415; 36430; 36511; 71010-TC; 74174-TC; 78278-TC; 80048; 80053; 81003; 83036; 83605; 83735; 84100; 84132; 85025; 85027; 85384; 85610; 85730; 86850; 86900; 86901; 86922; 88305-TC; 90688; 93005; 93010; 93306-TC; 93970-TC; 97161-GP; 99285-25; A9538; G0008; P9012; P9017; P9038; P9058

== ENCOUNTER 2018-12-10 12:58 | Inpatient (IN) | payer OTHER ==
--- NOTE | 2018-12-10 13:29 | PDOC ---
History of Present Illness - General Chief Complaint: Lethargy Stated Complaint: SEPSIS Time Seen by Provider: 12/10/18 13:29 - History of Present Illness Initial Comments: 63 year old lady with h/o NICM, s/p ICD , paroxysmal atrial fibrillation ( Xarelto) , Parkinson's , psychosis, CHF, NICM, and severe constipation presenting with generalized weakness and decreased PO intake for the past 4 days. Per family and home health aid at bedside (24 home care) she was only chewing some of her food and drinking some of her water but then spitting our or refusing to swallow the rest. They feel that a lot of her medications are dried up in her mouth and partially chewed. She did feel warm to the home health aid this morning but they did not attempt to measure a fever. Her speech is occasionally comprehensible but most recently she has become incomprehensible. She occasional is able to get up and walk with assistance but hasn't been over the past few days. Her urine is now darker as well but not obviously malodorous. She has no obvious vomiting, she does have loose stools at baseline, and has no obvious complaints. 12/10/18 13:37 Past History - Past Medical History Allergies/Adverse Reactions: Allergies Allergy/AdvReac Type Severity Reaction Status Date / Time No Known Allergies Allergy Verified 07/22/17 07:42 Home Medications: Ambulatory Orders Ascorbic Acid [Vitamin C] 250 mg PO DAILY 07/22/17 Willie/D3/Mag11/Zinc/Devulcanizer Charger/Dre/Bor [Caltrate 600+D Plus Tablet] 2 each PO DAILY Carbidopa/Levodopa [Carbidopa-Levodopa 25-100 Tab] 1 each PO QID 07/22/17 Carbidopa/Levodopa [Rytary ER 23.75 mg-95 mg Cap] 1 each PO QID 07/22/17 Carbidopa/Levodopa [Rytary ER 36.25 mg-145 mg Cap] 1 each PO QID 07/22/17 Collagenase Clostridium Hist. [Santyl] 90 gm TP DAILY 07/22/17 Furosemide 20 mg PO DAILY 07/22/17 Iron 65 mg PO DAILY 07/22/17 Melatonin 3 mg PO DAILY 07/22/17 Metoprolol Succinate [Toprol Xl] 100 mg PO DAILY 07/22/17 Multivitamin [Zoo Chews] 1 each PO DAILY 07/22/17 Mupirocin Cream [Bactroban 2% Cream -] 1 applic TP DAILY 07/22/17 Olanzapine 2.5 mg PO DAILY 07/22/17 Patient's Own Medication [Patient's Own Med (Nf) -] 1 each PO DAILY 07/22/17 Pimavanserin Tartrate [Nuplazid] 34 mg PO DAILY 07/22/17 Quetiapine Fumarate [Seroquel -] 50 mg PO HS 07/22/17 Rasagiline Mesylate [Azilect] 1 mg PO DAILY 07/22/17 Rotigotine [Neupro] 1 each TD DAILY 07/22/17 Spironolactone 25 mg PO DAILY 07/22/17 Zinc 50 mg PO DAILY 07/22/17 Docusate Sodium [Colace Oral Solution -] 100 mg PO BID 30 Days ml 07/28/17 Miscellaneous Medical Supply [Outpatient Order] 1 each ASDIR #1 misc Polyethylene Glycol 3350 [Miralax 255 gm Btl -] 17 gm PO DAILY #1 bottle Quetiapine Fumarate [Seroquel -] 50 mg PO HS tablet 07/28/17 Sennosides/Docusate Sodium [Senna Laxative Tablet] 1 each PO BID 30 Days tablet 07/28/17 Anemia: Yes Asthma: No Cardiac Disorders: Yes (A fib, ICD IMPLANT) CHF: Yes GI Disorders: Yes (incontinence) Disorders: Yes (incontinence) HTN: Yes Thyroid Disease: No - Surgical History Cardiac Surgery: Yes (CARDIAC CATH 2009) Orthopedic Surgery: Yes (B/L KNEE REPLACEMENT 2007 2008) - Immunization History Immunization Up to Date: Yes - Suicide/Smoking/Psychosocial Hx Smoking History: Never smoked Have you smoked in the past 12 months: No Hx Alcohol Use: No Drug/Substance Use Hx: No Substance Use Type: None Hx Substance Use Treatment: No Review of Systems - Review of Systems Constitutional: No: Chills, Diaphoresis, Fever HEENTM: No: Eye Pain, Blurred Vision Respiratory: No: Cough, Orthopnea, Shortness of Breath Cardiac (ROS): No: Chest Pain, Lightheadedness, Palpitations ABD/GI: No: Diarrhea, Nausea, Vomiting : No: Burning, Dysuria Musculoskeletal: No: Back Pain, Gout, Joint Pain Integumentary: No: Bruising, Dryness, Erythema, Flushing Neurological: No: Headache, Numbness Psychiatric: No: Anxiety, Depression Endocrine: Yes: Increased Urine. No: Increased Thirst Hematologic/Lymphatic: Yes: Blood Clots. No: Anemia, Easy Bleeding *Physical Exam - Physical Exam General Appearance: Yes: Appropriately Dressed, Thin. No: Nourished, Apparent Distress HEENT: positive: EOMI, VAN. negative: Normal ENT Inspection (dried pills and food at the margins of the mouth), Normal Voice (weak voice) Neck: positive: Trachea midline, Normal Thyroid, Supple. negative: Tender, Rigid Respiratory/Chest: positive: Lungs Clear, Normal Breath Sounds. negative: Chest Tender, Respiratory Distress, Accessory Muscle Use Cardiovascular: positive: Regular Rhythm, Tachycardia. negative: Regular Rate Gastrointestinal/Abdominal: positive: Normal Bowel Sounds, Flat, Soft. negative : Tender Lymphatic: negative: Adenopathy, Tenderness Musculoskeletal: positive: Decreased Range of Motion (weakned). negative: Normal Inspection (generally weakned) Extremity: positive: Normal Capillary Refill. negative: Normal Inspection, Normal Range of Motion, Tender Integumentary: positive: Normal Color, Dry, Warm Neurologic: positive: Alert. negative: Fully Oriented (completely disoriented) , Normal Mood/Affect, Normal Response, Motor Strength 5/5 (3/5 n all four extremities with spontaneous movement) ED Treatment Course - LABORATORY CBC & Chemistry Diagram: 12/10/18 13:49 12/10/18 13:49 Medical Decision Making - Medical Decision Making 63 year old with worsening mental status, weakness, and with failure to thrive all over the past 4 days. Her sodium returned at 154 (3.2L free water deficit). Given 1 L of NS here and will leave further sodium correction to admitting team. She is also has tachycardia, tachypnea, and temp to 100.2 so she has a septic picture likely secondary to UTI as her urine corroborates this. CXR appear clear but she is rotated and the official read is concerning for left loser base pathology. Ceftriaxone should cover most respiratory pathogens.Will admit for sepsis 2/2 to UTI and hypernatremia. 12/10/18 14:54 *DC/Admit/Observation/Transfer Diagnosis at time of Disposition: Sepsis due to urinary tract infection, Hypernatremia - Discharge Dispostion Decision to Admit order: Yes - Referrals Referrals: Arelis Lehman [Primary Care Provider] - - Patient Instructions - Post Discharge Activity
[2018-12-10] MEDS ORDERED: ACETAMINOPHEN 1000 MG/100 ML VIAL (NON FORMULARY) IVPB ONE (13:45)
[2018-12-10] MEDS ORDERED: SODIUM CHLORIDE 1,000 ML IV STA (13:45)
--- NOTE | 2018-12-10 13:45 | PDOC ---
Attending Attestation - HPI HPI: 12/10/18 14:51 The patient is a 63 year old female with a significant past medical history of NICM, s/p ICD , paroxysmal atrial fibrillation (Xarelto) , Parkinson's , psychosis, CHF, NICM, and severe constipation presenting to the ED with family for generalized weakness, increased fatigue, and decreased PO intake for the past 4 days. As per the family and home health aid, the patient was only chewing part of her food but spitting out the rest. The family is unsure how much of the medications the patient has been taking because they find dried up medications in her mouth. The patient is not complaining of anything at this time as she is difficult to arouse. - Physicial Exam PE: 12/10/18 14:55 GENERAL: (+) somnolent and difficult to arouse. The patient is in no acute distress. HEAD: Normal with no signs of trauma. EYES: PERRLA, EOMI, sclera anicteric, conjunctiva clear. ENT: Ears normal, nares patent, oropharynx clear without exudates. Moist mucous membranes. NECK: Normal range of motion, supple without lymphadenopathy, JVD, or masses. LUNGS: Breath sounds equal, clear to auscultation bilaterally. No wheezes, and no crackles. HEART:Regular rate and rhythm, normal S1 and S2 without murmur, rub or gallop. ABDOMEN: Soft, nontender, normoactive bowel sounds. No guarding, no rebound. No masses palpable. EXTREMITIES: Normal range of motion, no edema. No clubbing or cyanosis. No erythema, or tenderness. NEUROLOGICAL: (+) disoriented. Cranial nerves II through XII grossly intact. No focal neurological deficits. MUSCULOSKELETAL: Back non-tender to palpation, no CVA tenderness SKIN: Warm, Dry, normal turgor, no rashes or lesions noted. <Estefani Phillips - Last Filed: 12/10/18 14:55> - Resident Resident Name: Bubba Chanel - ED Attending Attestation I have performed the following: I have examined & evaluated the patient, The case was reviewed & discussed with the resident, I agree w/resident's findings & plan, Exceptions are as noted - Medical Decision Making 12/10/18 15:02 EKG: Sinus tachycardia rate of 132bpm, axis nml, intervals nml, no st elevation or depression, t wave inversion V2, v3, v4 Laboratory Tests 07/28/17 12/10/18 12/10/18 06:05 13:49 13:49 WBC 8.9 11.2 H Hgb 10.8 14.5 Hct 31.9 L 43.8 D Plt Count 234 D 390 D Sodium 159 H Potassium 4.0 Chloride 125 H Carbon Dioxide 27 Anion Gap 7 L BUN 45 H Random Glucose 123 H Creatine Kinase 50 Troponin I < 0.02 Urine Nitrite Urine Urobilinogen Ur Leukocyte Esterase Urine WBC (Auto) Urine RBC (Auto) Urine Bacteria Urine Mucus 12/10/18 13:59 WBC Hgb Hct Plt Count Sodium Potassium Chloride Carbon Dioxide Anion Gap BUN Random Glucose Creatine Kinase Troponin I Urine Nitrite Negative Urine Urobilinogen 2.0 H Ur Leukocyte Esterase 1+ H Urine WBC (Auto) 13 Urine RBC (Auto) None Urine Bacteria Many Urine Mucus Many 63 yo F h/o NICM s/p ICD, paroxysmal Afib (on Xarelto), HTN, Parkinson's, Psychosis and CHF Pt family reports a mental status change, lethargy, inability to take her home medications and poor oral intake. Found to have a UTI Found to have Hypernatremia Will admit to hospitalist service <Carmen Rosenbaum - Last Filed: 12/11/18 11:38> Attestations - Attestations 12/10/18 14:54 Documentation prepared by Estefani Phillips, acting as medical office assistant for Carmen Rosenbaum MD <Estefani Phillips - Last Filed: 12/10/18 14:55>
[2018-12-10] MEDS ORDERED: ACETAMINOPHEN INJECTION 100 ML IVPB ONE (13:47)
[2018-12-10 13:59] LABS: BASO % 0.5 % (0-2.0); EOS % 0.1 % (0-4.5); HEMATOCRIT 43.8 % (32.4-45.2); HEMOGLOBIN 14.5 GM/dL (10.7-15.3); LYMPH % 10.3 % (8-40); MCH 30.4 pg (25.7-33.7); MCHC 33.1 g/dl (32.0-36.0); MEAN CELL VOLUME 91.9 fl (80-96); MEAN PLT VOLUME 9.2 fl (7.5-11.1); MONO % 6.5 % (3.8-10.2); NEUT % 82.6 % (42.8-82.8); PLATELET COUNT 390 K/MM3 (134-434); RBC 4.77 M/mm3 (3.60-5.2); RDW 13.9 % (11.6-15.6); WHITE BLOOD COUNT 11.2 K/mm3 (4.0-10.0)
[2018-12-10 14:02] LABS: VENOUS PC02 39.2 mmHg (38-52); VENOUS PH 7.43 (7.32-7.42); VENOUS PO2 70.6 mmHg (28-48)
[2018-12-10 14:25] LABS: URINE APPEARANCE SLCLOUDY; URINE BILIRUBIN NEGATIVE (<2.0 mg/dL); URINE COLOR AMBER; URINE GLUCOSE (UA) NEGATIVE (NEGATIVE); URINE KETONE TRACE (NEGATIVE); URINE LEUK ESTERASE 1+ (NEGATIVE); URINE NITRITE NEGATIVE (NEGATIVE); URINE PROTEIN 1+ (NEGATIVE)
[2018-12-10 14:26] LABS: INR 1.44 (0.83-1.09)
[2018-12-10 14:29] LABS: ACTIVATED PTT 34.3 SECONDS (25.2-36.5)
[2018-12-10 14:38] LABS: ALBUMIN 3.3 g/dl (3.4-5.0); ALK PHOS 180 U/L (45-117); ANION GAP 7 MMOL/L (8-16); BILIRUBIN,TOTAL 0.6 mg/dL (0.2-1); BLOOD UREA NITROGEN 45 mg/dL (7-18); CALCIUM 9.2 mg/dL (8.5-10.1); CHLORIDE 125 mmol/L (98-107); CO2 27 mmol/L (21-32); CREATININE 0.7 mg/dL (0.55-1.3); GLUCOSE,RANDOM 123 mg/dL (74-106); SGOT/AST 22 U/L (15-37); SGPT/ALT 11 U/L (13-61); SODIUM 159 mmol/L (136-145); TOT PROT 7.8 g/dl (6.4-8.2)
[2018-12-10 14:56] LABS: URINE BACTERIA MANY /hpf (NONE SEEN); URINE MUCUS MANY
[2018-12-10] MEDS ORDERED: CEFTRIAXONE 1 GM/50 ML BAG ONE (15:14)
--- NOTE | 2018-12-10 15:59 | HP ---
CHIEF COMPLAINT:altered mental status PCP:Dr. Arelis Lehman HISTORY OF PRESENT ILLNESS: Patient is a 63 year old female with past medical history of NICM s/p ICD, paroxysmal Afib (on Xarelto), HTN, Parkinson's, Psychosis and CHF, BIBA from home due to lethargy and poor oral intake. Patient is a poor historian as she is occasionally incomprehensible at baseline. History from brother, Solo, who lives with the patient, and with her 24-hour home health aide. Brother reported in the last 4 days, patient was noted to have poor oral intake, chewing some of her food and drinking some of her water but then spitting out or refusing to swallow the rest. Patient has not been complaining of anything, but they noted she was warm this morning. No vomiting, no shortness of breath, no diarrhea. ER course was notable for: (1)UA: 1+NORA, 1+ LE, 13WBC (2)Ceftriaxone 1gm daily, IV NS 1L bolus (3) Recent Travel:denies PAST MEDICAL HISTORY: NICM s/p ICD paroxysmal Afib (on Xarelto) HTN Parkinson's Psychosis CHF PAST SURGICAL HISTORY: s/p ICD placement (2009) B/l knee replacement ([id number]) Social History: Smoking:denies Alcohol:denies Drugs: denies Family History: Allergies No Known Allergies Allergy (Verified 07/22/17 07:42) HOME MEDICATIONS: Home Medications Medication Instructions Recorded Ascorbic Acid [Vitamin C] 250 mg PO DAILY 07/22/17 Willie/D3/Mag11/Zinc/Projection Technician/Dre/Bor 2 each PO DAILY 07/22/17 [Caltrate 600+D Plus Tablet] Carbidopa/Levodopa 1 each PO QID 07/22/17 [Carbidopa-Levodopa 25-100 Tab] Carbidopa/Levodopa [Rytary ER 1 each PO QID 07/22/17 23.75 mg-95 mg Cap] Carbidopa/Levodopa [Rytary ER 1 each PO QID 07/22/17 36.25 mg-145 mg Cap] Collagenase Clostridium Hist. 90 gm TP DAILY 07/22/17 [Santyl] Furosemide 20 mg PO DAILY 07/22/17 Iron 65 mg PO DAILY 07/22/17 Melatonin 3 mg PO DAILY 07/22/17 Metoprolol Succinate [Toprol Xl] 100 mg PO DAILY 07/22/17 Multivitamin [Zoo Chews] 1 each PO DAILY 07/22/17 Mupirocin Cream [Bactroban 2% 1 applic TP DAILY 07/22/17 Cream -] Olanzapine 2.5 mg PO DAILY 07/22/17 Patient's Own Medication 1 each PO DAILY 07/22/17 [Patient's Own Med (Nf) -] Pimavanserin Tartrate [Nuplazid] 34 mg PO DAILY 07/22/17 Quetiapine Fumarate [Seroquel -] 50 mg PO HS 07/22/17 Rasagiline Mesylate [Azilect] 1 mg PO DAILY 07/22/17 Rotigotine [Neupro] 8 mg TD DAILY 07/22/17 Spironolactone 25 mg PO DAILY 07/22/17 Zinc 50 mg PO DAILY 07/22/17 Docusate Sodium [Colace Oral 100 mg PO BID 30 Days ml 07/28/17 Solution -] Miscellaneous Medical Supply 1 each ASDIR #1 misc 07/28/17 [Outpatient Order] Polyethylene Glycol 3350 [Miralax 17 gm PO DAILY #1 bottle 07/28/17 255 gm Btl -] Quetiapine Fumarate [Seroquel -] 50 mg PO HS tablet 07/28/17 Sennosides/Docusate Sodium [Senna 1 each PO BID 30 Days tablet 07/28/17 Laxative Tablet] Clotrimazole/Betamethasone Dip 45 grams TP BID 12/10/18 [Clotrimazole-Betamethasone Crm] Rivaroxaban [Xarelto -] 20 mg PO DAILY 12/10/18 REVIEW OF SYSTEMS CONSTITUTIONAL: Absent: fever, chills, diaphoresis, generalized weakness, malaise, loss of appetite, weight change HEENT: Absent: rhinorrhea, nasal congestion, throat pain, throat swelling, difficulty swallowing, mouth swelling, ear pain, eye pain, visual changes CARDIOVASCULAR: Absent: chest pain, syncope, palpitations, irregular heart rate, lightheadedness , peripheral edema RESPIRATORY: Absent: cough, shortness of breath, dyspnea with exertion, orthopnea, wheezing, stridor, hemoptysis GASTROINTESTINAL: Absent: abdominal pain, abdominal distension, nausea, vomiting, diarrhea, constipation, melena, hematochezia GENITOURINARY: Absent: dysuria, frequency, urgency, hesitancy, hematuria, flank pain, genital pain MUSCULOSKELETAL: Absent: myalgia, arthralgia, joint swelling, back pain, neck pain SKIN: Absent: rash, itching, pallor HEMATOLOGIC/IMMUNOLOGIC: Absent: easy bleeding, easy bruising, lymphadenopathy, frequent infections ENDOCRINE: Absent: unexplained weight gain, unexplained weight loss, heat intolerance, cold intolerance NEUROLOGIC: Absent: headache, focal weakness or paresthesias, dizziness, unsteady gait, seizure, mental status changes, bladder or bowel incontinence PSYCHIATRIC: Absent: anxiety, depression, suicidal or homicidal ideation, hallucinations. PHYSICAL EXAMINATION Vital Signs - 24 hr 12/10/18 12/10/18 13:00 15:25 Temperature 100.2 F H 99.7 F H Pulse Rate 128 H Respiratory 16 Rate Blood Pressure 110/81 O2 Sat by Pulse 95 Oximetry (%) GENERAL: Lethargic, tries to open eyes when told to, squeezes fingers when asked , on 2L NC HEAD: Normal with no signs of trauma. EYES: PERRLA, sclera anicteric, conjunctiva clear. EARS, NOSE, THROAT: Mouth full of food particles. Dry mucous membranes. LUNGS: Breath sounds equal, clear to auscultation bilaterally. HEART: Tachycardic, normal S1 and S2 without murmur, rub or gallop. ABDOMEN: Soft, nontender, not distended, normoactive bowel sounds. UPPER EXTREMITIES: 2+ pulses, warm, well-perfused. No peripheral edema. LOWER EXTREMITIES: 2+ pulses, warm, well-perfused. No peripheral edema. NEUROLOGICAL: Barely follows commands. Tries to open eyes when told to, squeezes fingers when asked. Answers yes to some questions. SKIN: Warm, dry, normal turgor, no rashes or lesions. Laboratory Results - last 24 hr 12/10/18 12/10/18 12/10/18 13:49 13:49 13:49 WBC 11.2 H RBC 4.77 Hgb 14.5 Hct 43.8 D MCV 91.9 MCH 30.4 MCHC 33.1 RDW 13.9 Plt Count 390 D MPV 9.2 Absolute Neuts (auto) 9.2 H Neutrophils % 82.6 Lymphocytes % 10.3 D Monocytes % 6.5 Eosinophils % 0.1 D Basophils % 0.5 Nucleated RBC % 0 PT with INR 17.00 H INR 1.44 H PTT (Actin FS) 34.3 VBG pH 7.43 H POC VBG pCO2 39.2 POC VBG pO2 70.6 H Mixed VBG HCO3 25.5 H Sodium Potassium Chloride Carbon Dioxide Anion Gap BUN Creatinine Creat Clearance w eGFR Random Glucose Lactic Acid Calcium Total Bilirubin AST ALT Alkaline Phosphatase Creatine Kinase CK-MB (CK-2) Troponin I Total Protein Albumin Urine Color Urine Appearance Urine pH Ur Specific [place] Urine Protein Urine Glucose (UA) Urine Ketones Urine Blood Urine Nitrite Urine Bilirubin Urine Urobilinogen Ur Leukocyte Esterase Urine WBC (Auto) Urine RBC (Auto) Urine Bacteria Urine Mucus 12/10/18 12/10/18 12/10/18 13:49 13:49 13:59 WBC RBC Hgb Hct MCV MCH MCHC RDW Plt Count MPV Absolute Neuts (auto) Neutrophils % Lymphocytes % Monocytes % Eosinophils % Basophils % Nucleated RBC % PT with INR INR PTT (Actin FS) VBG pH POC VBG pCO2 POC VBG pO2 Mixed VBG HCO3 Sodium 159 H Potassium 4.0 Chloride 125 H Carbon Dioxide 27 Anion Gap 7 L BUN 45 H Creatinine 0.7 Creat Clearance w eGFR > 60 Random Glucose 123 H Lactic Acid 2.0 Calcium 9.2 Total Bilirubin 0.6 AST 22 ALT 11 L Alkaline Phosphatase 180 H Creatine Kinase 50 CK-MB (CK-2) < 1.0 Troponin I < 0.02 Total Protein 7.8 Albumin 3.3 L Urine Color Azucena Urine Appearance Slcloudy Urine pH 5.0 Ur Specific [place] 1.028 Urine Protein 1+ H Urine Glucose (UA) Negative Urine Ketones Trace H Urine Blood Negative Urine Nitrite Negative Urine Bilirubin Negative Urine Urobilinogen 2.0 H Ur Leukocyte Esterase 1+ H Urine WBC (Auto) 13 Urine RBC (Auto) None Urine Bacteria Many Urine Mucus Many ASSESSMENT/PLAN: Patient is a 63 year old female with past medical history of NICM s/p ICD, paroxysmal Afib (on Xarelto), HTN, Parkinson's, Psychosis and CHF, BIBA from home due to lethargy and poor oral intake. #Sepsis likely 2/2 UTI -UA: 1+NORA 1+ LE, 13 wBC -Blood cultures and urine cultures pending -IV ceftriaxone 1gm daily -IV hydration #Hypernatremia likely 2/2 poor oral intake, dehydration -NA 159 -IV 1/2 NS @125cc/hr -Routine bmp monitoring -May need to consult nephro if will not improve by tomorrow #Failure to thrive -Speech and swallow evaluation -NPO for now -Nutrition evaluation #Acute metabolic encephalopathy probably 2/2 sepsis, hyperNa -On IV Ceftriaxone and IV fluids -Aspiration precautions -HOB > 30-45degrees #Parkinson's -Continue home medications: -Rasagiline, Sinemet, Rytary, Nuplazid, Olanzapine, Quetiapine #Paroxysmal Atrial fibrillation -Hold xarelto for now -Lovenox 50mg sq BID -Metoprolol 100mg daily for rate control #CHF -Not in exacerbation -Will hold lasix #FEN -IV 1/2 NS @125cc/hr -Hypernatremia -Routine bmp monitoring -NPO for now pending speech and swallow evaluation #Prophylaxis -Lovenox 50mg sq BID #Disposition -admit to med-surg Visit type - Emergency Visit Emergency Visit: Yes ED Registration Date: 12/10/18 Care time: The patient presented to the Emergency Department on the above date and was hospitalized for further evaluation of their emergent condition. - New Patient This patient is new to me today: Yes Date on this admission: 12/10/18 - Critical Care Critical Care patient: No
[2018-12-10] MEDS ORDERED: SODIUM CHLORIDE 0.45% 1,000 ML IV SCH (16:00)
--- NOTE | 2018-12-10 16:00 | EKG ---
Test Reason : Blood Pressure : / mmHG Vent. Rate : 132 BPM Atrial Rate : 132 BPM P-R Int : 124 ms QRS Dur : 074 ms QT Int : 318 ms P-R-T Axes : 061 006 084 degrees QTc Int : 471 ms SINUS TACHYCARDIA POSSIBLE LEFT ATRIAL ENLARGEMENT NONSPECIFIC ST AND T WAVE ABNORMALITY ABNORMAL ECG Confirmed by Suresh Underwood MD ([id number]) on 12/10/2018 4:00:21 PM Referred By: Confirmed By:Suresh Underwood MD
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
[2018-12-10] MEDS: SODIUM CHLORIDE 0.45% 1,000 ML IV SCH (17:28)
[2018-12-10] MEDS: CARBIDOPA/LEVODOPA 25/100 TABLET (FP) PO SCH ×2 (18:38→21:19)
[2018-12-10] MEDS ORDERED: ENOXAPARIN NA (PORCINE) 40 MG/0.4 ML DISP.SYRIN SQ SCH (22:00)
[2018-12-10] MEDS ORDERED: DOCUSATE SODIUM 100 MG CAPSULE (FP) PO SCH (22:00)
[2018-12-10] MEDS: ENOXAPARIN NA (PORCINE) 60 MG/0.6 ML DISP.SYRIN SQ SCH (23:47)
[2018-12-11 07:47] LABS: INR 1.47 (0.83-1.09); PROTHROMBIN TIME (PATIENT) 17.4 SEC (9.7-13.0)
[2018-12-11 07:49] LABS: BASO % 0.5 % (0-2.0); EOS % 0.3 % (0-4.5); HEMATOCRIT 35.2 % (32.4-45.2); HEMOGLOBIN 11.8 GM/dL (10.7-15.3); LYMPH % 10.3 % (8-40); MCHC 33.6 g/dl (32.0-36.0); MEAN CELL VOLUME 92.1 fl (80-96); MONO % 5.5 % (3.8-10.2); NEUT % 83.4 % (42.8-82.8); PLATELET COUNT 304 K/MM3 (134-434); RBC 3.82 M/mm3 (3.60-5.2); WHITE BLOOD COUNT 10.2 K/mm3 (4.0-10.0)
[2018-12-11 08:40] LABS: ALBUMIN 2.6 g/dl (3.4-5.0); ALK PHOS 147 U/L (45-117); ANION GAP 9 MMOL/L (8-16); BILIRUBIN,TOTAL 0.4 mg/dL (0.2-1); BLOOD UREA NITROGEN 38 mg/dL (7-18); CALCIUM 7.9 mg/dL (8.5-10.1); CHLORIDE 125 mmol/L (98-107); CO2 24 mmol/L (21-32); CREATININE 0.4 mg/dL (0.55-1.3); GLUCOSE,RANDOM 103 mg/dL (74-106); MAGNESIUM 2.6 mg/dL (1.8-2.4); PHOSPHOROUS 2.3 mg/dL (2.5-4.9); POTASSIUM 3.5 mmol/L (3.5-5.1); SGOT/AST 23 U/L (15-37); SGPT/ALT 14 U/L (13-61); SODIUM 157 mmol/L (136-145); TOT PROT 6.3 g/dl (6.4-8.2)
--- NOTE | 2018-12-11 11:10 | CONSULT ---
Admitting History and Physical - Primary Care Physician PCP: Shubham Campos - Admission History of Present Illness: Patient is a 63 year old female with past medical history of NICM s/p ICD, paroxysmal Afib (on Xarelto), HTN, Parkinson's, Psychosis and CHF, BIBA from home due to lethargy and poor oral intake. Sepsis likely 2/2 UTI Hypernatremia likely 2/2 poor oral intake, dehydration Failure to thrive This is my first consult with this pt. Pt was seen by my vacation coverage in 2017, and puree/thin liquid was recommended. Case discussed with Neurology and pt's sister. Per her sister, she has had previous MBS, she thinks at [place], that she "passed". She has been on reg food but softer than before, such as pasta, and thin liquids. She doesnt know if she coughs with food or liquid as she doesnt live with her but she said she has not had PNA or recurrent bronchitis/congestion. She said she no longer talks or communicates "because her tongue is stuck b/n her teeth", but she was able to chew. They have not discussed pt's end of life wishes and do not know her opinion on TF, DNR/DNI. 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 ) - Past Surgical History Past Surgical History: Yes: Joint Replacement (TKR, bilaterally) - Smoking History Smoking history: Never smoked Have you smoked in the past 12 months: No - Alcohol/Substance Use Hx Alcohol Use: No - Social History ADL: Support Services (8 hour day home health aid) History of Recent Travel: No History - Admission Reason For Visit: SEPSIS DUE TO UTI/ ATRIAL FIBRILLATION/ - Diagnostics X-ray: Report Reviewed CT Scan: Report Reviewed - General Mental Status: Awake and Alert, Able to Follow Commands (attempt to. Very rigid , motorically limited), Flat Affect Attention: Intact - Hearing Hearing: Normal Speech Evaluation - Communication Primary Language: KHMER Oral Expression Ability: Yes: Severe Impairment - Speech Production Dysarthria: Yes: Hypokinetic Apraxia: No Able to Make Needs Known: Yes: Severely Impaired Intelligibility: Yes: Severely Impaired - Speech Characteristics Voice Loudness: Severely Soft/Quiet Voice Pitch: Yes: Mildly High Voice Phonatory-based Quality: Yes: Normal Speech Pattern: Impaired Speech Clarity: < 25% Nasal Resonance: Normal Articulation: Yes: Imprecise Voice, Other Observations: Yes: Inadequate Breath Support - Language/Auditory Comprehension Observation: Able to respond to yes/no queries: Yes (but difficult to comprehend pt's headskake/nod-very limited excursion), Comprehends Conversational Speech: Yes - Language/Verbal Expression Able to Communicate Wants and Needs: Yes: Severely Impaired Functional Communication Status: Yes: Severely Impaired - Swallow Evaluation/Bedside Assessment Current Nutritional Intake: NPO Oral Secretions: Yes: WFL Dentition: Yes: Adequate Facial Symmetry at Rest: Symmetrical Jaw Position: Closed at Rest Against Resistance Opening: Weak Against Resistance Closing: Weak Pucker Lips: Weak Smile: Weak Lingual Speed of Movement: Reduced Lingual Movement Strgth Against Opposition: Reduced Velopharyngeal Movement: Normal Rate of Intake: Slow/Holding Bolus Size: Small Chewing: Impaired Oral Prep Time: Increased A-P Transit: Impaired Timing of Swallow: Absent Recommendations - Speech Evaluation, Impression/Plan Impression: Establishes eye contact. Quite rigid with Severe hypokinetic dysarthria, limited mouth opening/tongue protrusion, limited head movement for Y /N head nod/shake. Pt denies speech/swallow deficits. Cognitive deficits with impaired insight suspected. Poor ability to open mouth, form bolus and transfer posteriorally, with very delayed swallow observed. Swallow is not functional at this time. I suspect she will not tolerate sufficient PO diet at this time. Per family, she was eating fairly well a week ago, and has not had weightloss. She has not communicated verbally for brother in a couple of years. CHEERLEADING COACH said she does understand her occasionally but not over last week. Performance may be worse than baseline sec UTI and missing medication doses due to lethargy all week. - Disposition Discharge to: Home with Assist, To be Determined - Dysphagia Impressions/Plan Swallowing Skills: Impaired Dysphagia Impressions: Severe Impairment, Ongoing Evaluation, Suspect Aspiration *Silent aspiration: cannot be R/O at bedside Recommendations: Palliative Care (End of life wishes. At some point, may need PEG? at least for stability of medication, hydration, and to supplement nutrition.), Modified Barium Swallow (Once medication is in therapeutic range and UTI is treated), Other (Consider temporary NGT for nutrition, hydration, medication. Once improved, MBS for po trials and to decide if supplemental PEG is indication.) - Recommendations Diet Consistency: Other (NPO/NGT) Liquids: NPO
[2018-12-11] MEDS ORDERED: DEXTROSE 5%-WATER - 50 ML IVPB ONE (11:12)
[2018-12-11] MEDS ORDERED: cefTRIAXone SODIUM 1 GM VIAL ONE (11:12)
[2018-12-11] MEDS: SODIUM CHLORIDE 0.45% 1,000 ML IV SCH ×3 (11:15→20:03)
[2018-12-11] MEDS: CEFTRIAXONE 1 GM in DEXTROSE 5%-WATER - 50 ML IVPB SCH (11:16)
[2018-12-11] MEDS: ENOXAPARIN NA (PORCINE) 60 MG/0.6 ML DISP.SYRIN SQ SCH ×2 (11:24→22:54)
--- NOTE | 2018-12-11 11:26 | CON.NEURO ---
Consult - History of Present Illness History of Present Illness: 63 year old female with past medical history of NICM s/p ICD, paroxysmal Afib ( on Xarelto), HTN, DX in 2005 Parkinson's (outpt neuro DR WALTERS) , Psychosis and CHF, BIBA from home due to lethargy and poor oral intake. Patient is a poor historian as she is occasionally incomprehensible at baseline. History from brother, Solo, who lives with the patient, and with her 24-hour home health aide. Brother reported in the last 4 days, patient was noted to have poor oral intake, chewing some of her food and drinking some of her water but then spitting out or refusing to swallow the rest. Patient has not been complaining of anything, but they noted she was warm this morning. No vomiting, no shortness of breath, no diarrhea. Dx with +UTI. 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 ) - Past Surgical History Past Surgical History: Yes: Joint Replacement (TKR, bilaterally) - Alcohol/Substance Use Hx Alcohol Use: No - Smoking History Smoking history: Never smoked Have you smoked in the past 12 months: No - Social History Usual Living Arrangement: Alone ADL: Support Services (8 hour day home health aid) History of Recent Travel: No Home Medications - Allergies Allergies/Adverse Reactions: Allergies Allergy/AdvReac Type Severity Reaction Status Date / Time No Known Allergies Allergy Verified 07/22/17 07:42 - Home Medications Home Medications: Ambulatory Orders Carbidopa/Levodopa [Carbidopa-Levodopa 25-100 Tab] 1 each PO QID 12/10/18 Carbidopa/Levodopa [Rytary ER 23.75 mg-95 mg Cap] 1 each PO QID 12/10/18 Carbidopa/Levodopa [Rytary ER 36.25 mg-145 mg Cap] 1 each PO QID 12/10/18 Docusate Sodium [Colace] 100 mg PO BID 12/10/18 Furosemide [Lasix -] 20 mg PO DAILY 12/10/18 Losartan Potassium [Cozaar -] 25 mg PO DAILY 12/10/18 Metoprolol Succinate 100 mg PO DAILY 12/10/18 Olanzapine [Zyprexa -] 2.5 mg PO DAILY 12/10/18 Pimavanserin Tartrate [Nuplazid] 2 tab PO DAILY 12/10/18 Quetiapine Fumarate [Quetiapine Fumarate ER] 50 mg PO DAILY 12/10/18 Rasagiline Mesylate [Azilect -] 1 mg PO DAILY 12/10/18 Rivaroxaban [Xarelto -] 20 mg PO DAILY 12/10/18 Rotigotine [Neupro] 1 each TD DAILY 12/10/18 Sennosides [Senna Laxative] 2 tab PO DAILY 12/10/18 Spironolactone [Aldactone] 25 mg PO DAILY 12/10/18 Family Disease History - Family Disease History Family Disease History: Other: Brother (CAD), Sister (DVT thought to be related to inactivity and control pills. She is now off anticoagulation) Physical Exam-Neuro Vital Signs: Vital Signs Temperature 99.2 F 12/11/18 10:39 Pulse Rate 118 H 12/11/18 10:39 Respiratory Rate 18 12/11/18 10:39 Blood Pressure 119/75 12/11/18 10:39 O2 Sat by Pulse Oximetry (%) 96 12/10/18 21:00 Constitutional: Yes: Pallor, Thin Neck: Yes: Decreased ROM Labs: CBC, BMP 12/11/18 06:30 12/11/18 06:30 INR, PTT INR 1.47 (0.83-1.09) H 12/11/18 06:30 - Neuro Exam Level Of Consciousness: Yes: Sedated (arousable , but poorly attentive, dec verbal outpt, ansers name, hypophonic, diff making needs known, blinks to threat , + cogwheeling and ++Tremor, inc tone in all EXE , plantars dwn ) Imaging - Results Cat Scan: Report Reviewed, Image Reviewed Problem List - Problems (1) Decreased oral intake Code(s): R63.8 - OTHER SYMPTOMS AND SIGNS CONCERNING FOOD AND FLUID INTAKE (2) Atrial fibrillation Code(s): I48.91 - UNSPECIFIED ATRIAL FIBRILLATION (3) Parkinson disease Code(s): G20 - PARKINSON'S DISEASE Assessment/Plan 63 year old female with past medical history of NICM s/p ICD, paroxysmal Afib ( on Xarelto), HTN, DX in 2005 Parkinson's (outpt neuro DR WALTERS) , Psychosis and CHF, BIBA from home due to lethargy and poor oral intake. Patient is a poor historian as she is occasionally incomprehensible at baseline. History from brother, Solo, who lives with the patient, and with her 24-hour home health aide. Brother reported in the last 4 days, patient was noted to have poor oral intake, chewing some of her food and drinking some of her water but then spitting out or refusing to swallow the rest. Patient has not been complaining of anything, but they noted she was warm this morning. No vomiting, no shortness of breath, no diarrhea. Dx with +UTI. spoke to sister today PD DX in 2005 ( not formally Dx with LBD as per sister) dec PO intake, progressive decline last walked in 2017, lives home 24 hour aides, brother lives her well as per speech pathologist, cog impaired as well oupt NEURO as NUPLZID, AZILECT and SINEMET, Nuepro 8/day AP : Decompensated PD , ? ;possible LBD given age/progression, hx of hallucinations ; +UTI/dehyrrated and hypernatremia ? absorption of RX given dysphagia/poor MS -ABX for UTI , IV hydration -cont SINEMET 25/100 QID, AZLECT 1mg QD, ( Nuplazid NA, can hold till she gets back home) , and family to bring in NEUPRO PATCH --can use home dose MAY Need NG for meds in interim and SPEECH pathology on case, ( ? needs PEG correction) -PT as well - if she requires more supervised care LT/ palliative services DR RANDHAWA
[2018-12-11] MEDS: CARBIDOPA/LEVODOPA 25/100 TABLET (FP) PO SCH ×4 (13:14→22:56)
[2018-12-11] MEDS: OLANZapine 2.5 MG TABLET PO SCH (13:14)
[2018-12-11] MEDS: LOSARTAN POTASSIUM 25 MG TABLET PO SCH (13:15)
[2018-12-11] MEDS: PIMAVANSERIN TARTRATE PO SCH (16:03)
[2018-12-11] MEDS ORDERED: PT OWN MED DRAWER 7, Y5N ONE (16:34)
--- NOTE | 2018-12-11 17:57 | PN ---
Teaching Attending Note Name of Resident: Ronen Calhoun ATTENDING PHYSICIAN STATEMENT I saw and evaluated the patient. I reviewed the resident's note and discussed the case with the resident. I agree with the resident's findings and plan as documented. SUBJECTIVE: Not able to obtain hx OBJECTIVE: NAD , opens eyes, non verbal. dry MM, erythema around mouth angles contracted in bed. CV; RRR. no MRG Abd: sfot, NT, ND , N LBS Skin : No decub on sacral area. no ulcers on feet. Lungs: poor inspiratory effort, otherwise clear EXT : contracted , no edema or erythema ASSESSMENT AND PLAN: 63 y/o lady with h/o dementia, Parkinson's, NICM, PAF, psychosis, CHF, who presented with poor po intake and was found to have UTI and severe dehydration 1- Acute UTI: cont with ceftriaxone pending U cx ( lactose fermenting bacilli ) 2- Severe dehydration , and hypernatremia, due to poor po intake. Free water deficit 2.7 L - cont IVF at current rate 3- Poor po intake, due to acute illness. expect some degree of improvement with hydration and infection treatment. - per patietn living will, no FT are allowed. will revisit with family again ( ? temporary NG fro medication administration vs none ) 4- H/o PAF: cont with lovenox ( can;t take po eliquis ) . cont BB 5- Parkinson's: get Neupro patch from home. can't take po Sinemet. Will confirm dosages though Palliative care consult
[2018-12-11] MEDS: RASAGILINE MESYLATE 1 MG TABLET PO SCH (18:10)
[2018-12-11] MEDS: LEVODOPA PO SCH ×4 (18:12→22:56)
[2018-12-11] MEDS: CARBIDOPA PO SCH ×4 (18:12→22:56)
--- NOTE | 2018-12-11 18:41 | PN ---
Physical Exam: SUBJECTIVE: Patient seen and examined at bedside this morning. Patient is more alert and awake. Still incomprehensible. Denies any pain or shortness of breath. OBJECTIVE: Vital Signs Period Temp Pulse Resp BP Sys/German Pulse Ox Last 24 Hr 98.1 F-99.3 F 92-118 18-22 104-119/70-75 96-98 GENERAL: Awake, alert, answers yes/no to questions HEAD: Normal with no signs of trauma. EYES: PERRLA, sclera anicteric, conjunctiva clear. EARS, NOSE, THROAT: Dry mucous membranes. LUNGS: Breath sounds equal, clear to auscultation bilaterally. HEART: Tachycardic, normal S1 and S2 without murmur, rub or gallop. ABDOMEN: Soft, nontender, not distended, normoactive bowel sounds. UPPER EXTREMITIES: 2+ pulses, warm, well-perfused. No peripheral edema. LOWER EXTREMITIES: 2+ pulses, warm, well-perfused. No peripheral edema. NEUROLOGICAL:Awake, alert, answers yes/no to questions, can follow commands SKIN: Warm, dry, normal turgor, no rashes or lesions. Laboratory Results - last 24 hr 12/11/18 12/11/18 12/11/18 06:30 06:30 06:30 WBC 10.2 H RBC 3.82 Hgb 11.8 Hct 35.2 D MCV 92.1 MCH 31.0 MCHC 33.6 RDW 13.0 Plt Count 304 D MPV 9.0 Absolute Neuts (auto) 8.5 H Neutrophils % 83.4 H Lymphocytes % 10.3 Monocytes % 5.5 Eosinophils % 0.3 D Basophils % 0.5 Nucleated RBC % 0 PT with INR 17.40 H INR 1.47 H PTT (Actin FS) 32.0 Sodium 157 H Potassium 3.5 Chloride 125 H Carbon Dioxide 24 Anion Gap 9 BUN 38 H Creatinine 0.4 L Creat Clearance w eGFR > 60 Random Glucose 103 Calcium 7.9 L Phosphorus 2.3 L Magnesium 2.6 H Total Bilirubin 0.4 AST 23 ALT 14 Alkaline Phosphatase 147 H Total Protein 6.3 L Albumin 2.6 L 12/11/18 12:45 WBC RBC Hgb Hct MCV MCH MCHC RDW Plt Count MPV Absolute Neuts (auto) Neutrophils % Lymphocytes % Monocytes % Eosinophils % Basophils % Nucleated RBC % PT with INR INR PTT (Actin FS) Sodium 156 H Potassium Chloride Carbon Dioxide Anion Gap BUN Creatinine Creat Clearance w eGFR Random Glucose Calcium Phosphorus Magnesium Total Bilirubin AST ALT Alkaline Phosphatase Total Protein Albumin Active Medications Generic Name Dose Route Start Last Admin Trade Name Radha PRN Reason Stop Dose Admin Carbidopa/Levodopa 1 each 12/10/18 18:00 12/11/18 18:16 Sinemet 25/100 - PO 1 each QID JOE Administration Enoxaparin Sodium 50 mg 12/10/18 22:00 12/11/18 11:24 Lovenox - SQ 50 mg BID JOE Administration Ceftriaxone Sodium 1 gm/ 50 mls @ 100 mls/hr 12/11/18 10:00 12/11/18 11:16 Dextrose IVPB 100 mls/hr DAILY JOE Administration Sodium Chloride 1,000 mls @ 125 mls/hr 12/10/18 17:02 12/11/18 18:11 1/2 Normal Saline IV Not Given ASDIR JOE Losartan Potassium 25 mg 12/11/18 10:00 12/11/18 13:15 Cozaar - PO 25 mg DAILY JOE Administration Metoprolol Succinate 100 mg 12/11/18 10:00 12/11/18 13:46 Toprol Xl - PO Not Given DAILY JOE Pnt's Own Med( 1 each 12/11/18 18:00 12/11/18 18:13 Carbidopa/Levodopa [ PO 1 each Rytary Er 23.75 Mg- QID JOE Administration 95 Mg Cap Pnt's Own Med( 1 each 12/11/18 18:00 12/11/18 18:12 Carbidopa/Levodopa [ PO 1 each Rytary Er 36.25 Mg- QID JOE Administration 145 Mg Ca Pnt's Own Med( 1 tab 12/11/18 15:00 12/11/18 16:03 Pimavanserin PO 1 tab Tartrate [Nuplazid] DAILY JOE Administration 2 Tab) Ptnt's Own Med( 1 each 12/12/18 10:00 Rotigotine [Neupro] TD 1 Each) DAILY JOE Non-Formulary Medication 1 each 12/12/18 10:00 Patient's Own Med PO DAILY JOE Olanzapine 2.5 mg 12/11/18 10:00 12/11/18 13:14 Zyprexa - PO 2.5 mg DAILY JOE Administration Rasagiline 1 mg 12/11/18 10:00 12/11/18 18:10 Azilect - PO 1 mg DAILY JOE Administration ASSESSMENT/PLAN: Patient is a 63 year old female with past medical history of NICM s/p ICD, paroxysmal Afib (on Xarelto), HTN, Parkinson's, Psychosis and CHF, BIBA from home due to lethargy and poor oral intake. #Sepsis likely 2/2 UTI -UA: 1+NORA 1+ LE, 13 wBC -Blood cultures and urine cultures pending -IV ceftriaxone 1gm daily day 2 -IV hydration #Hypernatremia likely 2/2 poor oral intake, dehydration -NA 159 --> 156 -IV 1/2 NS @125cc/hr -Routine bmp monitoring -May need to consult nephro if will not improve #Failure to thrive -Speech and swallow evaluation -NPO except meds -May need NGT or PEG tube, will follow-up with family regarding goals of care -Nutrition evaluation #Acute metabolic encephalopathy probably 2/2 sepsis, hyperNa -On IV Ceftriaxone and IV fluids -Aspiration precautions -HOB > 30-45degrees #Parkinson's -Continue home medications: -Rasagiline, Sinemet, Rytary, Nuplazid, Olanzapine, Quetiapine, Neupro patch #Paroxysmal Atrial fibrillation -Hold xarelto for now -Lovenox 50mg sq BID -Metoprolol 100mg daily for rate control #CHF -Not in exacerbation -Will hold lasix #FEN -IV 1/2 NS @125cc/hr -Hypernatremia -Routine bmp monitoring -NPO except meds #Prophylaxis -Lovenox 50mg sq BID #Disposition -admit to med-surg Visit type - Emergency Visit Emergency Visit: Yes ED Registration Date: 12/10/18 Care time: The patient presented to the Emergency Department on the above date and was hospitalized for further evaluation of their emergent condition. - New Patient This patient is new to me today: No - Critical Care Critical Care patient: No
[2018-12-11] MEDS ORDERED: SENNOSIDES 8.6MG TABLET (FP) PO SCH (22:00)
[2018-12-12 09:13] LABS: BASO % 0.4 % (0-2.0); EOS % 0.8 % (0-4.5); HEMATOCRIT 35.5 % (32.4-45.2); HEMOGLOBIN 11.6 GM/dL (10.7-15.3); LYMPH % 9.9 % (8-40); MCH 30.4 pg (25.7-33.7); MCHC 32.8 g/dl (32.0-36.0); MEAN CELL VOLUME 92.8 fl (80-96); MEAN PLT VOLUME 9.4 fl (7.5-11.1); MONO % 5.3 % (3.8-10.2); NEUT % 83.6 % (42.8-82.8); PLATELET COUNT 246 K/MM3 (134-434); RBC 3.82 M/mm3 (3.60-5.2); RDW 13.4 % (11.6-15.6); WHITE BLOOD COUNT 9.2 K/mm3 (4.0-10.0)
[2018-12-12 09:36] LABS: ANION GAP 8 MMOL/L (8-16); BLOOD UREA NITROGEN 23 mg/dL (7-18); CALCIUM 8.2 mg/dL (8.5-10.1); CHLORIDE 122 mmol/L (98-107); CO2 23 mmol/L (21-32); CREATININE 0.3 mg/dL (0.55-1.3); GLUCOSE,RANDOM 75 mg/dL (74-106); MAGNESIUM 2.4 mg/dL (1.8-2.4); PHOSPHOROUS 2.1 mg/dL (2.5-4.9); POTASSIUM 3.3 mmol/L (3.5-5.1); SODIUM 153 mmol/L (136-145)
[2018-12-12] MEDS: CARBIDOPA PO SCH ×8 (10:03→22:29)
[2018-12-12] MEDS: LEVODOPA PO SCH ×8 (10:03→22:29)
[2018-12-12] MEDS: CARBIDOPA/LEVODOPA 25/100 TABLET (FP) PO SCH ×4 (10:06→22:30)
[2018-12-12] MEDS ORDERED: cefTRIAXone SODIUM 1 GM VIAL ONE (10:18)
[2018-12-12] MEDS ORDERED: DEXTROSE 5%-WATER - 50 ML IVPB ONE (10:19)
[2018-12-12] MEDS: ENOXAPARIN NA (PORCINE) 60 MG/0.6 ML DISP.SYRIN SQ SCH ×2 (10:25→22:30)
[2018-12-12] MEDS: CEFTRIAXONE 1 GM in DEXTROSE 5%-WATER - 50 ML IVPB SCH (10:25)
[2018-12-12] MEDS: SODIUM CHLORIDE 0.45% 1,000 ML IV SCH ×3 (10:35→18:14)
[2018-12-12] MEDS ORDERED: PT OWN MED DRAWER 7, Y5N ONE (10:41)
[2018-12-12] MEDS: [UNRECOGNIZED DRUG - OTHER] TD SCH (10:46)
--- NOTE | 2018-12-12 12:25 | PN ---
Progress Note, LOGGING EQUIPMENT MECHANIC - Note Progress Note: Pt continues to be NPO, PO meds. Applesauce and granules from medication noted on her hospital gown, from last night.Nursing tried with plain applesauce with it remaining in front of mouth,drooling out. Seen at 12 pm, no PO meds given yet today.Nursing tried with plain applesauce with it remaining in front of mouth,drooling out. Pt on IV A/B tx. Swallowing reassessed. Slightly better, more aware. Delayed swallow, somewhat brisk if triggered, with most of applesauce remaining in oral cavity. Impaired oral transfer c/w Parkinson's. Head flexed/stiff/unable to relax head back on pillow for improved posterior transfer of the bolus. Call placed to resident to discuss. Improving WBC/hydration. Not yet at baseline but better than yesterday. Consider temporary NGT for nutrition, hydration, medication. Hopefully with further improvement, MBS can be done tmw for po trials and to decide if supplemental PEG is indicated. Consider Palliative care consult for pt's wishes. Pt's brother said they have documentation at home,signed by her sister the POA, and the pt, that if there "is no hope for her", she would be DNR/DNI, no a/b tx,etc.However, they still hope she will return to baseline and don't want to bring it in or execute yet. She is not yet at baseline, per her brother. She able to eat and drink, and occasionally say a sentence, laugh etc. Her head support was better. He said she has not had her PD meds in a week, likely adversely saffecting speech/swallowing function at this time.
--- NOTE | 2018-12-12 15:45 | PN ---
Teaching Attending Note Name of Resident: Adele Lowery ATTENDING PHYSICIAN STATEMENT I saw and evaluated the patient. I reviewed the resident's note and discussed the case with the resident. I agree with the resident's findings and plan as documented. SUBJECTIVE: Denies any pain. No SOB. No events over night OBJECTIVE: NAD, more awake, answers yes/No questins , non verbal. dry MM, erythema around mouth angles CV; RRR. no MRG Abd: soft, NT, ND , N LBS Lungs: poor inspiratory effort, otherwise clear EXT : contracted , no edema or erythema ASSESSMENT AND PLAN: 63 y/o lady with h/o dementia, Parkinson's, NICM, PAF, psychosis, CHF, who presented with poor po intake and was found to have UTI and severe dehydration. 1- Acute UTI: cont with ceftriaxone 2- Severe dehydration, and hypernatremia, due to poor po intake. Free water deficit 2.2 L - cont IVF at current rate . repeat na 3- Poor po intake, due to acute illness. slightly improved today . Still not getting enough nutrition per speech eval. will d/w family 4- H/o PAF: will switch back to eliqus as able to take po meds 5- Parkinson's: cont cinemet Palliative care consult
[2018-12-12] MEDS: LOSARTAN POTASSIUM 25 MG TABLET PO SCH (16:28)
[2018-12-12] MEDS: OLANZapine 2.5 MG TABLET PO SCH (16:28)
[2018-12-12] MEDS: PIMAVANSERIN TARTRATE PO SCH (16:29)
[2018-12-12] MEDS: RASAGILINE MESYLATE 1 MG TABLET PO SCH (16:41)
--- NOTE | 2018-12-12 17:51 | PN ---
Physical Exam: SUBJECTIVE: Patient seen and examined at bedside this morning. No acute events overnight. Patient was not able to swallow medications today. NG tube inserted. Consent by HCP (sister, Mahogany) given through the phone and brother (Solo) at bedside. OBJECTIVE: Vital Signs Period Temp Pulse Resp BP Sys/German Pulse Ox Last 24 Hr 98.1 F-98.8 F 106-118 20-22 103-111/69-77 98 GENERAL: Awake, alert, answers yes/no to questions HEAD: Normal with no signs of trauma. EYES: PERRLA, sclera anicteric, conjunctiva clear. EARS, NOSE, THROAT: Dry mucous membranes. LUNGS: Breath sounds equal, clear to auscultation bilaterally. HEART: Tachycardic, normal S1 and S2 without murmur, rub or gallop. ABDOMEN: Soft, nontender, not distended, normoactive bowel sounds. UPPER EXTREMITIES: 2+ pulses, warm, well-perfused. No peripheral edema. LOWER EXTREMITIES: 2+ pulses, warm, well-perfused. No peripheral edema. NEUROLOGICAL:Awake, alert, answers yes/no to questions, can follow commands SKIN: Warm, dry, normal turgor, no rashes or lesions. Laboratory Results - last 24 hr 12/11/18 12/12/18 12/12/18 19:30 08:00 08:00 WBC 9.2 RBC 3.82 Hgb 11.6 Hct 35.5 MCV 92.8 MCH 30.4 MCHC 32.8 RDW 13.4 Plt Count 246 MPV 9.4 Absolute Neuts (auto) 7.7 Neutrophils % 83.6 H Lymphocytes % 9.9 Monocytes % 5.3 Eosinophils % 0.8 D Basophils % 0.4 Nucleated RBC % 0 Sodium 155 H 153 H Potassium 3.3 L Chloride 122 H Carbon Dioxide 23 Anion Gap 8 BUN 23 H Creatinine 0.3 L Creat Clearance w eGFR > 60 Random Glucose 75 Calcium 8.2 L Phosphorus 2.1 L Magnesium 2.4 12/12/18 15:00 WBC RBC Hgb Hct MCV MCH MCHC RDW Plt Count MPV Absolute Neuts (auto) Neutrophils % Lymphocytes % Monocytes % Eosinophils % Basophils % Nucleated RBC % Sodium 152 H Potassium Chloride Carbon Dioxide Anion Gap BUN Creatinine Creat Clearance w eGFR Random Glucose Calcium Phosphorus Magnesium Active Medications Generic Name Dose Route Start Last Admin Trade Name Freq PRN Reason Stop Dose Admin Carbidopa/Levodopa 1 each 12/10/18 18:00 12/12/18 14:07 Sinemet 25/100 - PO Not Given QID JOE Enoxaparin Sodium 50 mg 12/10/18 22:00 12/12/18 10:25 Lovenox - SQ 50 mg BID JOE Administration Ceftriaxone Sodium 1 gm/ 50 mls @ 100 mls/hr 12/11/18 10:00 12/12/18 10:25 Dextrose IVPB 100 mls/hr DAILY JOE Administration Sodium Chloride 1,000 mls @ 125 mls/hr 12/10/18 17:02 12/12/18 17:00 1/2 Normal Saline IV Not Given ASDIR JOE Losartan Potassium 25 mg 12/11/18 10:00 12/12/18 16:28 Cozaar - PO 25 mg DAILY JOE Administration Metoprolol Succinate 100 mg 12/11/18 10:00 12/12/18 10:08 Toprol Xl - PO Not Given DAILY JOE Pnt's Own Med( 1 each 12/11/18 18:00 12/12/18 14:04 Carbidopa/Levodopa [ PO Not Given Rytary Er 23.75 Mg- QID JOE 95 Mg Cap Pnt's Own Med( 1 each 12/11/18 18:00 12/12/18 14:05 Carbidopa/Levodopa [ PO Not Given Rytary Er 36.25 Mg- QID JOE 145 Mg Ca Pnt's Own Med( 1 tab 12/11/18 15:00 12/12/18 16:29 Pimavanserin PO 1 tab Tartrate [Nuplazid] DAILY JOE Administration 2 Tab) Ptnt's Own Med( 1 each 12/12/18 10:00 12/12/18 10:46 Rotigotine [Neupro] TD 1 each 1 Each) DAILY JOE Administration Olanzapine 2.5 mg 12/11/18 10:00 12/12/18 16:28 Zyprexa - PO 2.5 mg DAILY JOE Administration Rasagiline 1 mg 12/11/18 10:00 12/12/18 16:41 Azilect - PO 1 mg DAILY JOE Administration ASSESSMENT/PLAN: Patient is a 63 year old female with past medical history of NICM s/p ICD, paroxysmal Afib (on Xarelto), HTN, Parkinson's, Psychosis and CHF, BIBA from home due to lethargy and poor oral intake. #Sepsis likely 2/2 UTI -UA: 1+NORA 1+ LE, 13 wBC -Blood cultures - no growth -Urine culture - kessler sensitive E.coli -IV ceftriaxone 1gm daily day 3 -IV hydration #Hypernatremia likely 2/2 poor oral intake, dehydration: improving -Na 152 -Free water deficit 2.1L -IV 1/2 NS @125cc/hr -Routine bmp monitoring #Failure to thrive -Speech and swallow evaluation -NGT inserted for meds. -For re-evaluation tomorrow for possible tube feeding -Nutrition evaluation -As per brother, HCP will come in tomorrow and meet with palliative care for further management #Acute metabolic encephalopathy probably 2/2 sepsis, hyperNa -On IV Ceftriaxone and IV fluids -Aspiration precautions -HOB > 30-45degrees #Parkinson's -Continue home medications: -Rasagiline, Sinemet, Rytary, Nuplazid, Olanzapine, Quetiapine, Neupro patch #Paroxysmal Atrial fibrillation -Hold xarelto for now -Lovenox 50mg sq BID -Metoprolol 100mg daily for rate control #CHF -Not in exacerbation -Will hold lasix #FEN -IV 1/2 NS @125cc/hr -Hypernatremia -Routine bmp monitoring -NPO except meds #Prophylaxis -Lovenox 50mg sq BID #Disposition -admit to med-surg -Palliative care on board Visit type - Emergency Visit Emergency Visit: Yes ED Registration Date: 12/10/18 Care time: The patient presented to the Emergency Department on the above date and was hospitalized for further evaluation of their emergent condition. - New Patient This patient is new to me today: No - Critical Care Critical Care patient: No
[2018-12-12] MEDS ORDERED: POTASSIUM CHLORIDE ORAL LIQUID 20 MEQ/15 ML GT ONE (18:07)
[2018-12-12] MEDS ORDERED: POTASSIUM CHLORIDE ORAL LIQUID 20 MEQ/15 ML PO ONE (18:07)
[2018-12-13 07:17] LABS: HEMATOCRIT 28.9 % (32.4-45.2); HEMOGLOBIN 9.7 GM/dL (10.7-15.3); MCH 30.4 pg (25.7-33.7); MCHC 33.5 g/dl (32.0-36.0); MEAN CELL VOLUME 90.7 fl (80-96); MEAN PLT VOLUME 9.2 fl (7.5-11.1); PLATELET COUNT 199 K/MM3 (134-434); RBC 3.19 M/mm3 (3.60-5.2); RDW 13.1 % (11.6-15.6); WHITE BLOOD COUNT 7.6 K/mm3 (4.0-10.0)
[2018-12-13 07:52] LABS: ANION GAP 9 MMOL/L (8-16); BLOOD UREA NITROGEN 14 mg/dL (7-18); CALCIUM 7.5 mg/dL (8.5-10.1); CHLORIDE 117 mmol/L (98-107); CO2 21 mmol/L (21-32); CREATININE 0.2 mg/dL (0.55-1.3); GLUCOSE,RANDOM 63 mg/dL (74-106); MAGNESIUM 2.4 mg/dL (1.8-2.4); PHOSPHOROUS 1.7 mg/dL (2.5-4.9); POTASSIUM 3.5 mmol/L (3.5-5.1); SODIUM 147 mmol/L (136-145)
[2018-12-13] MEDS ORDERED: DEXTROSE 5%-WATER - 50 ML IVPB ONE (10:15)
[2018-12-13] MEDS ORDERED: cefTRIAXone SODIUM 1 GM VIAL ONE (10:15)
[2018-12-13] MEDS ORDERED: NAPH,MB-DB/K PH,MBDB POWDER PACKET GT ONE (10:20)
[2018-12-13] MEDS: CARBIDOPA PO SCH ×2 (10:31)
[2018-12-13] MEDS: LEVODOPA PO SCH ×2 (10:31)
[2018-12-13] MEDS: PIMAVANSERIN TARTRATE PO SCH (10:31)
[2018-12-13] MEDS: LOSARTAN POTASSIUM 25 MG TABLET PO SCH (10:31)
[2018-12-13] MEDS: RASAGILINE MESYLATE 1 MG TABLET PO SCH (10:31)
[2018-12-13] MEDS: CARBIDOPA/LEVODOPA 25/100 TABLET (FP) PO SCH (10:32)
[2018-12-13] MEDS: CEFTRIAXONE 1 GM in DEXTROSE 5%-WATER - 50 ML IVPB SCH (10:32)
[2018-12-13] MEDS: OLANZapine 2.5 MG TABLET PO SCH (10:32)
[2018-12-13] MEDS: ENOXAPARIN NA (PORCINE) 60 MG/0.6 ML DISP.SYRIN SQ SCH ×2 (10:33→21:48)
[2018-12-13] MEDS: SODIUM CHLORIDE 0.45% 1,000 ML IV SCH ×2 (10:41→17:42)
[2018-12-13] MEDS ORDERED: POTASSIUM CHLORIDE ORAL LIQUID 20 MEQ/15 ML GT ONE (10:45)
--- NOTE | 2018-12-13 10:57 | PN ---
Progress Note, CANOE INSPECTOR FINAL - Note Progress Note: Selected Entries 12/11/18 12/11/18 12/11/18 02:00 06:00 10:39 Lunch Temperature 98.5 F 99.3 F 99.2 F 12/11/18 12/11/18 12/12/18 14:09 21:00 05:49 Lunch NPO Temperature 98.5 F 98.6 F 98.8 F 12/12/18 12/12/18 12/12/18 09:12 16:04 18:00 Lunch Temperature 98.1 F 98.8 F 100.0 F H 12/13/18 12/13/18 12/13/18 00:00 02:00 09:14 Lunch Temperature 99 F 98.3 F 98.3 F Laboratory Tests 12/10/18 12/11/18 12/12/18 13:49 06:30 08:00 WBC 11.2 H 10.2 H 9.2 12/13/18 06:20 WBC 7.6 Pt is lethargic, NGT for some medication. Time-released PD meds on hold. Pt too lethargic for PO meds or MBS today. Suggest: Nutrition via NGT ,. Neurology f/u re PD Meds. MBS Sunday if pt improves. POA will come to hospital today with meeting planned with Palliative care.
[2018-12-13] MEDS: [UNRECOGNIZED DRUG - OTHER] TD SCH ×2 (11:02→12:16)
[2018-12-13] MEDS: CARBIDOPA/LEVODOPA 25/100 TABLET (FP) GT SCH ×3 (13:12→21:37)
[2018-12-13] MEDS ORDERED: LOSARTAN POTASSIUM 25 MG TABLET GT SCH (15:36)
--- NOTE | 2018-12-13 17:40 | PN ---
Teaching Attending Note Name of Resident: Adele Lowery ATTENDING PHYSICIAN STATEMENT I saw and evaluated the patient. I reviewed the resident's note and discussed the case with the resident. I agree with the resident's findings and plan as documented. SUBJECTIVE: Not able to obtain any hx as pt is lethargic. OBJECTIVE: NAD, opens eyes but does not react CV; RRR. No MRG Abd: soft, NT, ND, Nl BS Lungs: poor inspiratory effort, otherwise clear EXT: contracted, no edema or erythema ASSESSMENT AND PLAN: 63 y/o lady with h/o dementia, Parkinson's, NICM, PAF, psychosis, CHF, who presented with poor po intake and was found to have UTI and severe dehydration. 1- Acute UTI: cont with ceftriaxone. Fever last night 2- Severe dehydration, and hypernatremia, due to poor po intake. Free water deficit 1.2 L and Na is decreasing in an appropriate rate < 0.5 meq/ dl/hr . - decrease IVF to 80 Cc/hr since TF are started 3- Poor po intake, due to acute illness and worsening parkinson's sx . Start TF through NG . Place nutrition consult 4- H/o PAF: Cont Lovenox in case family decides on PEG tube placement 5- Parkinson's: cont cinemet. case d/w Dr. Carvajal by resident. cont 25/100 dosing for now and then he will evaluate tomorrow Palliative care consult. Seen by Vicki. Appreciate help, awaiting note and Recs Spoke to family extensively. clinical status discussed , prognosis discussed. al questions answered
--- NOTE | 2018-12-13 17:50 | PN ---
Physical Exam: SUBJECTIVE: Patient seen and examined at bedside this morning. No acute events overnight. Patient lethargic today. OBJECTIVE: Vital Signs Period Temp Pulse Resp BP Sys/German Pulse Ox Last 24 Hr 97.9 F-100.0 F 93-109 18-20 101-117/58-76 98 GENERAL: lethargic, arousable to voice and touch HEAD: Normal with no signs of trauma. EYES: PERRLA, sclera anicteric, conjunctiva clear. EARS, NOSE, THROAT: Dry mucous membranes. LUNGS: Breath sounds equal, clear to auscultation bilaterally. HEART: Tachycardic, normal S1 and S2 without murmur, rub or gallop. ABDOMEN: Soft, nontender, not distended, normoactive bowel sounds. UPPER EXTREMITIES: 2+ pulses, warm, well-perfused. No peripheral edema. LOWER EXTREMITIES: 2+ pulses, warm, well-perfused. No peripheral edema. NEUROLOGICAL:Lethargic, arousable to voice and touch, barely follows commands. SKIN: Warm, dry, normal turgor, no rashes or lesions. Laboratory Results - last 24 hr 12/13/18 12/13/18 06:20 06:20 WBC 7.6 RBC 3.19 L Hgb 9.7 L Hct 28.9 L D MCV 90.7 MCH 30.4 MCHC 33.5 RDW 13.1 Plt Count 199 MPV 9.2 Sodium 147 H Potassium 3.5 Chloride 117 H Carbon Dioxide 21 Anion Gap 9 BUN 14 Creatinine 0.2 L Creat Clearance w eGFR > 60 Random Glucose 63 L Calcium 7.5 L Phosphorus 1.7 L Magnesium 2.4 Active Medications Generic Name Dose Route Start Last Admin Trade Name Freq PRN Reason Stop Dose Admin Carbidopa/Levodopa 1 each 12/13/18 11:03 12/13/18 17:42 Sinemet 25/100 - GT 1 each QID JOE Administration Enoxaparin Sodium 50 mg 12/10/18 22:00 12/13/18 10:33 Lovenox - SQ 50 mg BID JOE Administration Ceftriaxone Sodium 1 gm/ 50 mls @ 100 mls/hr 12/11/18 10:00 12/13/18 10:32 Dextrose IVPB 100 mls/hr DAILY JOE Administration Sodium Chloride 1,000 mls @ 80 mls/hr 12/13/18 17:32 12/13/18 17:42 1/2 Normal Saline IV 80 mls/hr ASDIR JOE Administration Losartan Potassium 25 mg 12/13/18 17:32 Cozaar - GT DAILY JOE Metoprolol Tartrate 50 mg 12/13/18 22:00 Lopressor - GT BID JOE Pnt's Own Med( 1 each 12/11/18 18:00 12/13/18 10:31 Carbidopa/Levodopa [ PO Not Given Rytary Er 23.75 Mg- QID JOE 95 Mg Cap Pnt's Own Med( 1 each 12/11/18 18:00 12/13/18 10:31 Carbidopa/Levodopa [ PO Not Given Rytary Er 36.25 Mg- QID JOE 145 Mg Ca Ptnt's Own Med( 1 each 12/12/18 10:00 12/13/18 12:16 Rotigotine [Neupro] TD 1 each 1 Each) DAILY JOE Administration Non-Formulary Medication 1 tab 12/13/18 15:36 Pimavanserin Tartrate [Nuplazid] GT DAILY JOE Olanzapine 2.5 mg 12/13/18 15:36 Zyprexa - GT DAILY JOE Rasagiline 1 mg 12/13/18 15:36 Azilect - PO DAILY JOE ASSESSMENT/PLAN: Patient is a 63 year old female with past medical history of NICM s/p ICD, paroxysmal Afib (on Xarelto), HTN, Parkinson's, Psychosis and CHF, BIBA from home due to lethargy and poor oral intake. #Sepsis likely 2/2 UTI -UA: 1+NORA 1+ LE, 13 wBC -Blood cultures - no growth -Urine culture - kessler sensitive E.coli -IV ceftriaxone 1gm daily day 4 -IV hydration #Hypernatremia likely 2/2 poor oral intake, dehydration: improving -Na 147 -Free water deficit 1.4L -IV 1/2 NS @125cc/hr -Routine bmp monitoring #Failure to thrive -Speech and swallow evaluation -NGT inserted for meds. -Tube feeding started -Nutrition evaluation -Palliative care on board #Acute metabolic encephalopathy probably 2/2 sepsis, hyperNa -On IV Ceftriaxone and IV fluids -Aspiration precautions -HOB > 30-45degrees #Parkinson's -Continue home medications: -Rasagiline, Sinemet, Nuplazid, Olanzapine, Quetiapine, Neupro patch #Paroxysmal Atrial fibrillation -Hold xarelto for now -Lovenox 50mg sq BID -Metoprolol 50mg BID through GT #CHF -Not in exacerbation -Will hold lasix #FEN -IV 11/06 NS @125cc/hr -Routine bmp monitoring -NPO except meds #Prophylaxis -Lovenox 50mg sq BID #Disposition -admit to med-surg -Palliative care on board Visit type - Emergency Visit Emergency Visit: Yes ED Registration Date: 12/10/18 Care time: The patient presented to the Emergency Department on the above date and was hospitalized for further evaluation of their emergent condition. - New Patient This patient is new to me today: No - Critical Care Critical Care patient: No
[2018-12-13] MEDS: PIMAVANSERIN TARTRATE GT SCH (19:00)
[2018-12-13] MEDS: METOPROLOL TARTRATE 50 MG TABLET (FP) GT SCH (21:37)
[2018-12-13] MEDS ORDERED: METOPROLOL TARTRATE 50 MG TABLET (FP) GT SCH (22:00)
--- NOTE | 2018-12-14 04:12 | PN ---
Physical Exam: SUBJECTIVE: Patient seen and examined at bed side , no acute events over night , no fever or chills reported , on Tube feeding @ 35 CC/hr , no BM , no abdominal pain ,pt is mumbling open her eyes when talking to her. OBJECTIVE: Vital Signs Period Temp Pulse Resp BP Sys/German Pulse Ox Last 24 Hr 97.9 F-98.6 F 64-108 18-20 111-142/62-78 98-99 GENERAL: lethargic, arousable to voice and touch HEAD: Normal with no signs of trauma. EYES: PERRLA, sclera anicteric, conjunctiva clear. EARS, NOSE, THROAT: Dry mucous membranes. LUNGS: Breath sounds equal, clear to auscultation bilaterally. HEART: Tachycardic, normal S1 and S2 without murmur, rub or gallop. ABDOMEN: Soft, nontender, not distended, normoactive bowel sounds. UPPER EXTREMITIES: 2+ pulses, warm, well-perfused. No peripheral edema. LOWER EXTREMITIES: 2+ pulses, warm, well-perfused. No peripheral edema. NEUROLOGICAL:Lethargic, arousable to voice and touch, barely follows commands. SKIN: Warm, dry, normal turgor, no rashes or lesions. Laboratory Results - last 24 hr 12/13/18 12/13/18 06:20 06:20 WBC 7.6 RBC 3.19 L Hgb 9.7 L Hct 28.9 L D MCV 90.7 MCH 30.4 MCHC 33.5 RDW 13.1 Plt Count 199 MPV 9.2 Sodium 147 H Potassium 3.5 Chloride 117 H Carbon Dioxide 21 Anion Gap 9 BUN 14 Creatinine 0.2 L Creat Clearance w eGFR > 60 Random Glucose 63 L Calcium 7.5 L Phosphorus 1.7 L Magnesium 2.4 Active Medications Generic Name Dose Route Start Last Admin Trade Name Freq PRN Reason Stop Dose Admin Carbidopa/Levodopa 1 each 12/13/18 11:03 12/13/18 21:37 Sinemet 25/100 - GT 1 each QID JOE Administration Enoxaparin Sodium 50 mg 12/10/18 22:00 12/13/18 21:48 Lovenox - SQ 50 mg BID JOE Administration Ceftriaxone Sodium 1 gm/ 50 mls @ 100 mls/hr 12/11/18 10:00 12/13/18 10:32 Dextrose IVPB 100 mls/hr DAILY JOE Administration Sodium Chloride 1,000 mls @ 80 mls/hr 12/13/18 17:32 12/13/18 17:42 1/2 Normal Saline IV 80 mls/hr ASDIR JOE Administration Losartan Potassium 25 mg 12/13/18 17:32 Cozaar - GT DAILY JOE Metoprolol Tartrate 50 mg 12/13/18 22:00 12/13/18 21:37 Lopressor - GT 50 mg BID JOE Administration Pnt's Own Med( 1 each 12/11/18 18:00 12/13/18 10:31 Carbidopa/Levodopa [ PO Not Given Rytary Er 23.75 Mg- QID JOE 95 Mg Cap Pnt's Own Med( 1 each 12/11/18 18:00 12/13/18 10:31 Carbidopa/Levodopa [ PO Not Given Rytary Er 36.25 Mg- QID JOE 145 Mg Ca Ptnt's Own Med( 1 each 12/12/18 10:00 12/13/18 12:16 Rotigotine [Neupro] TD 1 each 1 Each) DAILY JOE Administration Non-Formulary Medication 1 tab 12/13/18 18:15 12/13/18 19:00 Pimavanserin Tartrate [Nuplazid] GT 1 tab DAILY JOE Administration Olanzapine 2.5 mg 12/13/18 15:36 Zyprexa - GT DAILY JOE Rasagiline 1 mg 12/13/18 15:36 Azilect - PO DAILY JOE CBC, BMP 12/14/18 06:30 12/14/18 06:30 ASSESSMENT/PLAN: Patient is a 63 year old female with past medical history of NICM s/p ICD, paroxysmal Afib (on Xarelto), HTN, Parkinson's, Psychosis and CHF, BIBA from home due to lethargy and poor oral intake. #Sepsis likely 2/2 UTI * UA: 1+NORA 1+ LE, 13 wBC,Blood cultures - no growth,Urine culture - kessler sensitive E.coli * cont IV ceftriaxone 1gm daily day 5 * IV hydration 1/2 NS @ 83 cc /hr #Hypernatremia likely 2/2 poor oral intake, dehydration: improving * Na 147.....144,Free water deficit 0,5 L for NA 140 * IV 1/2 NS @83 cc/hr * Routine bmp monitoring #Failure to thrive * Speech and swallow evaluation,NGT inserted for meds. Tube feeding started * Nutrition evaluation * Palliative care on board # Constipation , chronic no BM for 4 days will give miralax , senna and enema #Acute metabolic encephalopathy probably 2/2 sepsis, hyperNa * On IV Ceftriaxone and IV fluids * Aspiration precautions * HOB > 30-45degrees #Parkinson's * Continue home medications: * Rasagiline, Sinemet, Nuplazid, Olanzapine, Quetiapine, Neupro patch * Dr Carvajal will adjust meds for NGT tube #Paroxysmal Atrial fibrillation * Hold xarelto for now, cont Lovenox 50mg sq BID * cont Metoprolol 50mg BID through GT #CHF, stable Not in exacerbation,Will hold lasix #FEN * IV 1/2 NS @ 83 cc/hr * Routine bmp monitoring, electrolyte replenished Hypophosphatemia hypokalemia * tube feed #Prophylaxis * Lovenox 50mg sq BID #Disposition * admit to med-surg * Palliative care on board Visit type - Emergency Visit Emergency Visit: Yes ED Registration Date: 12/10/18 Care time: The patient presented to the Emergency Department on the above date and was hospitalized for further evaluation of their emergent condition. - New Patient This patient is new to me today: Yes Date on this admission: 12/14/18 - Critical Care Critical Care patient: No
[2018-12-14 07:47] LABS: HEMATOCRIT 27.6 % (32.4-45.2); HEMOGLOBIN 9.4 GM/dL (10.7-15.3); MCH 30.3 pg (25.7-33.7); MEAN CELL VOLUME 89.1 fl (80-96); MEAN PLT VOLUME 9.8 fl (7.5-11.1); PLATELET COUNT 199 K/MM3 (134-434); RBC 3.09 M/mm3 (3.60-5.2); RDW 12.8 % (11.6-15.6); WHITE BLOOD COUNT 7.3 K/mm3 (4.0-10.0)
[2018-12-14 08:13] LABS: ANION GAP 7 MMOL/L (8-16); BLOOD UREA NITROGEN 5 mg/dL (7-18); CHLORIDE 113 mmol/L (98-107); CO2 24 mmol/L (21-32); GLUCOSE,RANDOM 119 mg/dL (74-106); PHOSPHOROUS 1.8 mg/dL (2.5-4.9); POTASSIUM 3.3 mmol/L (3.5-5.1); SODIUM 144 mmol/L (136-145)
[2018-12-14 08:50] LABS: CREATININE < 0.6 mg/dL (0.55-1.3)
[2018-12-14] MEDS ORDERED: cefTRIAXone SODIUM 1 GM VIAL ONE (09:28)
[2018-12-14] MEDS ORDERED: DEXTROSE 5%-WATER - 50 ML IVPB ONE (09:29)
[2018-12-14] MEDS ORDERED: NAPH,MB-DB/K PH,MBDB POWDER PACKET PO ONE (09:30)
[2018-12-14] MEDS: CEFTRIAXONE 1 GM in DEXTROSE 5%-WATER - 50 ML IVPB SCH (09:31)
[2018-12-14] MEDS: ENOXAPARIN NA (PORCINE) 60 MG/0.6 ML DISP.SYRIN SQ SCH ×2 (09:32→22:21)
[2018-12-14] MEDS: METOPROLOL TARTRATE 50 MG TABLET (FP) GT SCH ×2 (09:34→22:21)
[2018-12-14] MEDS: OLANZapine 2.5 MG TABLET GT SCH (09:34)
[2018-12-14] MEDS: CARBIDOPA/LEVODOPA 25/100 TABLET (FP) GT SCH (09:34)
[2018-12-14] MEDS: LOSARTAN POTASSIUM 25 MG TABLET GT SCH (09:35)
[2018-12-14] MEDS: [UNRECOGNIZED DRUG - OTHER] TD SCH (09:35)
[2018-12-14] MEDS: RASAGILINE MESYLATE 1 MG TABLET PO SCH (09:36)
[2018-12-14] MEDS: POLYETHYLENE GLYCOL 3350 119 GM BTL NGT SCH (09:39)
[2018-12-14] MEDS ORDERED: KCL 10 MEQ IVPB 10 MEQ/100 ML INFUS.BAG IVPB SCH (09:45)
[2018-12-14] MEDS ORDERED: SODIUM PHOSPHATE/NA BIPHOS 133 ML ENEMA PR ONE (12:34)
--- NOTE | 2018-12-14 12:41 | PN ---
Progress Note (short form) - Note Progress Note: 63 year old female with past medical history of NICM s/p ICD, paroxysmal Afib ( on Xarelto), HTN, DX in 2005 Parkinson's (outpt neuro DR WALTERS) , Psychosis and CHF, BIBA from home due to lethargy and poor oral intake. Patient is a poor historian as she is occasionally incomprehensible at baseline. History from brother, Solo, who lives with the patient, and with her 24-hour home health aide. Brother reported in the last 4 days, patient was noted to have poor oral intake, chewing some of her food and drinking some of her water but then spitting out or refusing to swallow the rest. Patient has not been complaining of anything, but they noted she was warm this morning. No vomiting, no shortness of breath, no diarrhea. Dx with +UTI. 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 ) - Past Surgical History Past Surgical History: Yes: Joint Replacement (TKR, bilaterally) - Alcohol/Substance Use Hx Alcohol Use: No - Smoking History Smoking history: Never smoked Have you smoked in the past 12 months: No - Social History Usual Living Arrangement: Alone ADL: Support Services (8 hour day home health aid) History of Recent Travel: No Home Medications - Allergies Allergies/Adverse Reactions: Allergies Allergy/AdvReac Type Severity Reaction Status Date / Time No Known Allergies Allergy Verified 07/22/17 07:42 - Home Medications Home Medications: Ambulatory Orders Carbidopa/Levodopa [Carbidopa-Levodopa 25-100 Tab] 1 each PO QID 12/10/18 Carbidopa/Levodopa [Rytary ER 23.75 mg-95 mg Cap] 1 each PO QID 12/10/18 Carbidopa/Levodopa [Rytary ER 36.25 mg-145 mg Cap] 1 each PO QID 12/10/18 Docusate Sodium [Colace] 100 mg PO BID 12/10/18 Furosemide [Lasix -] 20 mg PO DAILY 12/10/18 Losartan Potassium [Cozaar -] 25 mg PO DAILY 12/10/18 Metoprolol Succinate 100 mg PO DAILY 12/10/18 Olanzapine [Zyprexa -] 2.5 mg PO DAILY 12/10/18 Pimavanserin Tartrate [Nuplazid] 2 tab PO DAILY 12/10/18 Quetiapine Fumarate [Quetiapine Fumarate ER] 50 mg PO DAILY 12/10/18 Rasagiline Mesylate [Azilect -] 1 mg PO DAILY 12/10/18 Rivaroxaban [Xarelto -] 20 mg PO DAILY 12/10/18 Rotigotine [Neupro] 1 each TD DAILY 12/10/18 Sennosides [Senna Laxative] 2 tab PO DAILY 12/10/18 Spironolactone [Aldactone] 25 mg PO DAILY 12/10/18 Family Disease History - Family Disease History Family Disease History: Other: Brother (CAD), Sister (DVT thought to be related to inactivity and control pills. She is now off anticoagulation) Physical Exam-Neuro Vital Signs: Vital Signs Temperature 98.5 F 12/14/18 02:00 Pulse Rate 64 12/14/18 02:00 Respiratory Rate 18 12/14/18 02:00 Blood Pressure 142/74 12/14/18 02:00 O2 Sat by Pulse Oximetry (%) 98 12/13/18 21:00 Constitutional: Yes: Pallor, Thin Neck: Yes: Decreased ROM Labs: CBCD WBC 7.3 K/mm3 (4.0-10.0) 12/14/18 06:30 RBC 3.09 M/mm3 (3.60-5.2) L 12/14/18 06:30 Hgb 9.4 GM/dL (10.7-15.3) L 12/14/18 06:30 Hct 27.6 % (32.4-45.2) L 12/14/18 06:30 MCV 89.1 fl (80-96) 12/14/18 06:30 MCHC 34.0 g/dl (32.0-36.0) 12/14/18 06:30 RDW 12.8 % (11.6-15.6) 12/14/18 06:30 Plt Count 199 K/MM3 (134-434) 12/14/18 06:30 MPV 9.8 fl (7.5-11.1) 12/14/18 06:30 CMP Sodium 144 mmol/L (136-145) 12/14/18 06:30 Potassium 3.3 mmol/L (3.5-5.1) L 12/14/18 06:30 Chloride 113 mmol/L (98-107) H 12/14/18 06:30 Carbon Dioxide 24 mmol/L (21-32) 12/14/18 06:30 Anion Gap 7 MMOL/L (8-16) L 12/14/18 06:30 BUN 5 mg/dL (7-18) L 12/14/18 06:30 Creatinine < 0.6 mg/dL (0.55-1.3) 12/14/18 06:30 Creat Clearance w eGFR > 60 (>60) 12/14/18 06:30 Calcium 8.0 mg/dL (8.5-10.1) L 12/14/18 06:30 Total Bilirubin 0.4 mg/dL (0.2-1) 12/11/18 06:30 AST 23 U/L (15-37) 12/11/18 06:30 ALT 14 U/L (13-61) 12/11/18 06:30 Alkaline Phosphatase 147 U/L (45-117) H 12/11/18 06:30 Total Protein 6.3 g/dl (6.4-8.2) L 12/11/18 06:30 Albumin 2.6 g/dl (3.4-5.0) L 12/11/18 06:30 - Neuro Exam Level Of Consciousness: Yes: Sedated (arousable , but poorly attentive, dec verbal outpt, ansers name, hypophonic, diff making needs known, blinks to threat , + cogwheeling and ++Tremor, inc tone in all EXE , plantars dwn ) Imaging - Results Cat Scan: Report Reviewed, Image Reviewed Problem List - Problems (1) Decreased oral intake Code(s): R63.8 - OTHER SYMPTOMS AND SIGNS CONCERNING FOOD AND FLUID INTAKE (2) Atrial fibrillation Code(s): I48.91 - UNSPECIFIED ATRIAL FIBRILLATION (3) Parkinson disease Code(s): G20 - PARKINSON'S DISEASE Assessment/Plan 63 year old female with past medical history of NICM s/p ICD, paroxysmal Afib ( on Xarelto), HTN, DX in 2005 Parkinson's (outpt neuro DR WALTERS) , Psychosis and CHF, BIBA from home due to lethargy and poor oral intake. Patient is a poor historian as she is occasionally incomprehensible at baseline. History from brother, Solo, who lives with the patient, and with her 24-hour home health aide. Brother reported in the last 4 days, patient was noted to have poor oral intake, chewing some of her food and drinking some of her water but then spitting out or refusing to swallow the rest. Patient has not been complaining of anything, but they noted she was warm this morning. No vomiting, no shortness of breath, no diarrhea. Dx with +UTI. spoke to sister today PD DX in 2005 ( not formally Dx with LBD as per sister) dec PO intake, progressive decline last walked in 2016, lives home 24 hour aides, brother lives her well as per speech pathologist, cog impaired as well oupt NEURO as NUPLZID, AZILECT and SINEMET, Nuepro 8/day AP : Decompensated PD , ? ;possible LBD given age/progression, hx of hallucinations ; +UTI/dehyrrated and hypernatremia ? 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
[2018-12-14] MEDS ORDERED: CARBIDOPA/LEVODOPA 25/100 TABLET (FP) NGT SCH (14:00)
[2018-12-14] MEDS ORDERED: CARBIDOPA/LEVODOPA 25/250 TABLET (FP) NGT SCH (14:00)
--- NOTE | 2018-12-14 14:03 | PN ---
Teaching Attending Note Name of Resident: Jerry Bartholomew ATTENDING PHYSICIAN STATEMENT I saw and evaluated the patient. I reviewed the resident's note and discussed the case with the resident. I agree with the resident's findings and plan as documented. SUBJECTIVE: No events over night. OBJECTIVE: NAD, opens eyes but does not react CV; RRR. No MRG Abd: soft, NT, ND, Nl BS Lungs: poor inspiratory effort, otherwise clear EXT: contracted, no edema or erythema ASSESSMENT AND PLAN: 63 y/o lady with h/o dementia, Parkinson's, NICM, PAF, psychosis, CHF, who presented with poor po intake and was found to have UTI and severe dehydration. 1- Acute UTI: cont with ceftriaxone. 2- Severe dehydration, and hypernatremia, due to poor po intake. - cont 1/2 NS at 80 cc /hr 3- Poor po intake, due to acute illness and worsening parkinson's sx . TF through NG . decision on PEG is pending. d/w family. palliative care consult is appreciated, to help with ethical aspect 4- H/o PAF: Cont Lovenox in case family decides on PEG tube placement 5- Parkinson's: Appreciate neuro help. Cont increased dose of Sinemet , and rest of meds Goals of care discussion is progress.
[2018-12-14] MEDS ORDERED: PT OWN MED DRAWER 7, Y5N ONE (15:25)
[2018-12-14] MEDS: PIMAVANSERIN TARTRATE GT SCH (15:26)
[2018-12-14] MEDS: CARBIDOPA/LEVODOPA 25/250 TABLET (FP) PO SCH ×2 (15:31→22:21)
[2018-12-14] MEDS ORDERED: BISACODYL 10 MG SUPP.RECT PR PRN (17:27)
[2018-12-14] MEDS: SODIUM CHLORIDE 0.45% 1,000 ML IV SCH (19:16)
[2018-12-14] MEDS: SENNOSIDES 8.8 MG/5 ML BULK BOTTLE NGT SCH (22:21)
[2018-12-15] MEDS: SODIUM CHLORIDE 0.45% 1,000 ML IV SCH ×3 (02:38→18:25)
[2018-12-15] MEDS: CARBIDOPA/LEVODOPA 25/250 TABLET (FP) PO SCH ×3 (06:22→21:41)
[2018-12-15] MEDS ORDERED: DEXTROSE 5%-WATER - 50 ML IVPB ONE (09:44)
[2018-12-15] MEDS ORDERED: cefTRIAXone SODIUM 1 GM VIAL ONE (09:44)
[2018-12-15] MEDS: LOSARTAN POTASSIUM 25 MG TABLET GT SCH (09:51)
[2018-12-15] MEDS: OLANZapine 2.5 MG TABLET GT SCH (09:51)
[2018-12-15] MEDS: ENOXAPARIN NA (PORCINE) 60 MG/0.6 ML DISP.SYRIN SQ SCH ×2 (09:51→21:41)
[2018-12-15] MEDS: METOPROLOL TARTRATE 50 MG TABLET (FP) GT SCH ×2 (09:52→21:40)
[2018-12-15] MEDS: CEFTRIAXONE 1 GM in DEXTROSE 5%-WATER - 50 ML IVPB SCH (09:52)
[2018-12-15] MEDS: [UNRECOGNIZED DRUG - OTHER] TD SCH (09:52)
[2018-12-15] MEDS: RASAGILINE MESYLATE 1 MG TABLET PO SCH (09:53)
[2018-12-15] MEDS: POLYETHYLENE GLYCOL 3350 119 GM BTL NGT SCH (09:53)
[2018-12-15] MEDS: PIMAVANSERIN TARTRATE GT SCH ×2 (09:55→18:31)
--- NOTE | 2018-12-15 15:01 | PN ---
Progress Note (short form) - Note Progress Note: Subjective: No events over night Objective: Vital Signs: Last Vital Signs Temp Pulse Resp BP Pulse Ox 98.2 F 101 H 18 96/63 98 12/15/18 06:00 12/15/18 06:00 12/15/18 06:00 12/15/18 06:00 12/14/18 21:00 Physical Exam: NAD, opens eyes, answers yes /no questions CV; RRR. No MRG Abd: soft, NT, ND, Nl BS. Lungs: poor inspiratory effort, otherwise clear EXT: contracted, no edema or erythema ASSESSMENT AND PLAN: 63 y/o lady with h/o dementia, Parkinson's, NICM, PAF, psychosis, CHF, who presented with poor po intake and was found to have UTI and severe dehydration. 1- Acute UTI: cont with ceftriaxone. 2- Severe dehydration, and hypernatremia, due to poor po intake. improved - cont 1/2 NS and TF 3- Poor po intake, due to acute illness and worsening parkinson's sx . appreciate dietitian guillermo,. change rate to 45 cc/hr 4- H/o PAF: Cont Lovenox in case family decides on PEG tube placement 5- Parkinson's: Appreciate neuro help. Cont increased dose of Sinemet , and rest of meds Goals of care discussion is progress. Visit type - Emergency Visit Emergency Visit: Yes ED Registration Date: 12/10/18 Care time: The patient presented to the Emergency Department on the above date and was hospitalized for further evaluation of their emergent condition. - New Patient This patient is new to me today: No - Critical Care Critical Care patient: No
[2018-12-15] MEDS: SENNOSIDES 8.8 MG/5 ML BULK BOTTLE NGT SCH (21:41)
[2018-12-16] MEDS: SODIUM CHLORIDE 0.45% 1,000 ML IV SCH ×3 (06:22→21:37)
[2018-12-16] MEDS: CARBIDOPA/LEVODOPA 25/250 TABLET (FP) PO SCH ×2 (06:22→14:33)
[2018-12-16 09:39] LABS: ANION GAP 6 MMOL/L (8-16); BLOOD UREA NITROGEN 6 mg/dL (7-18); CALCIUM 7.9 mg/dL (8.5-10.1); CHLORIDE 108 mmol/L (98-107); CO2 29 mmol/L (21-32); CREATININE 0.2 mg/dL (0.55-1.3); GLUCOSE,RANDOM 139 mg/dL (74-106); POTASSIUM 3.8 mmol/L (3.5-5.1); SODIUM 142 mmol/L (136-145)
[2018-12-16] MEDS ORDERED: DEXTROSE 5%-WATER - 50 ML IVPB ONE (11:24)
[2018-12-16] MEDS ORDERED: cefTRIAXone SODIUM 1 GM VIAL ONE (11:24)
[2018-12-16] MEDS: RASAGILINE MESYLATE 1 MG TABLET PO SCH (11:30)
[2018-12-16] MEDS: LOSARTAN POTASSIUM 25 MG TABLET GT SCH (11:30)
[2018-12-16] MEDS: METOPROLOL TARTRATE 50 MG TABLET (FP) GT SCH ×2 (11:31→21:35)
[2018-12-16] MEDS: ENOXAPARIN NA (PORCINE) 60 MG/0.6 ML DISP.SYRIN SQ SCH ×2 (11:31→21:39)
[2018-12-16] MEDS: OLANZapine 2.5 MG TABLET GT SCH (11:31)
[2018-12-16] MEDS: CEFTRIAXONE 1 GM in DEXTROSE 5%-WATER - 50 ML IVPB SCH (11:31)
[2018-12-16] MEDS: PIMAVANSERIN TARTRATE GT SCH (11:32)
[2018-12-16] MEDS: POLYETHYLENE GLYCOL 3350 119 GM BTL NGT SCH (11:32)
[2018-12-16] MEDS: [UNRECOGNIZED DRUG - OTHER] TD SCH (11:34)
--- NOTE | 2018-12-16 15:15 | PN ---
Teaching Attending Note Name of Resident: Jerry Bartholomew ATTENDING PHYSICIAN STATEMENT I saw and evaluated the patient. I reviewed the resident's note and discussed the case with the resident. I agree with the resident's findings and plan as documented. SUBJECTIVE: limited communication, but denies pain or SOB. OBJECTIVE: NAD, opens eyes, answers yes /no questions CV; RRR. No MRG Abd: soft, NT, ND, Nl BS. Lungs: poor inspiratory effort, otherwise clear EXT: contracted, no edema or erythema ASSESSMENT AND PLAN: 63 y/o lady with h/o dementia, Parkinson's, NICM, PAF, psychosis, CHF, who presented with poor po intake and was found to have UTI and severe dehydration. 1- Acute UTI: day 7 of ceftriaxone ( started on 12/10). will stop 2- Severe dehydration, and hypernatremia, resolved. - cont 1/2 NS 3- Poor po intake, Passed MBS today. will dc TF and NGT, and start puree diet with calori count 4- H/o PAF: Cont Lovenox in case PEG tube is needed after calori count is done 5- Parkinson's: since she is able to take pills again, will change her regimen to her home dose meds ( rytary, and Sinemet) in addition to Neupro patch and Azilect. 6- H/o HTN: dc losartan. BP on lower side. cont BB . can adjust dose if needed had another meeting with family ( brother and sister ) today. if she does not meet her nutritional requirement after Calori count. they are interested in PEG tube placement .
[2018-12-16] MEDS ORDERED: PT OWN MED DRAWER 7, Y5N ONE (15:20)
--- NOTE | 2018-12-16 15:42 | PN ---
Physical Exam: SUBJECTIVE: Patient seen and examined no acute events over night tolerating tube feeding .no N/V no BM since the no fever, chills, or cp or sob pass MBS will dc tube feed and start on Buree diet with thin liquid and magic cup Palliative care on the case per pt willing she will refuse tube or PEG tube is she is in irreversible condition and intractable for treatment and need agreement of 2 doctors but she is not in that condition yet. OBJECTIVE: Vital Signs Period Temp Pulse Resp BP Sys/German Pulse Ox Last 24 Hr 97.5 F-99.3 F 63-109 18-20 80-121/55-74 96 GENERAL: lethargic, arousable to voice and touch, more awake yesterday when family was around HEAD: Normal with no signs of trauma. EYES: PERRLA, sclera anicteric, conjunctiva clear. EARS, NOSE, THROAT: Dry mucous membranes. LUNGS: Breath sounds equal, clear to auscultation bilaterally. HEART: Tachycardic, normal S1 and S2 without murmur, rub or gallop. ABDOMEN: Soft, nontender, not distended, normoactive bowel sounds. UPPER EXTREMITIES: 2+ pulses, warm, well-perfused. No peripheral edema. LOWER EXTREMITIES: 2+ pulses, warm, well-perfused. No peripheral edema. NEUROLOGICAL:Lethargic, arousable to voice and touch, barely follows commands. SKIN: Warm, dry, normal turgor, Laboratory Results - last 24 hr 12/16/18 08:30 Sodium 142 Potassium 3.8 Chloride 108 H Carbon Dioxide 29 Anion Gap 6 L BUN 6 L Creatinine 0.2 L Creat Clearance w eGFR > 60 Random Glucose 139 H Calcium 7.9 L Active Medications Generic Name Dose Route Start Last Admin Trade Name Freq PRN Reason Stop Dose Admin Bisacodyl 10 mg 12/14/18 17:27 Dulcolax Suppository - [place] PRN PRN CONSTIPATION Carbidopa/Levodopa 1 each 12/16/18 18:00 Sinemet 25/100 - PO QID JOE Enoxaparin Sodium 50 mg 12/10/18 22:00 12/16/18 11:31 Lovenox - SQ 50 mg BID JOE Administration Sodium Chloride 1,000 mls @ 80 mls/hr 12/13/18 17:32 12/16/18 06:22 1/2 Normal Saline IV 80 mls/hr ASDIR JOE Administration Metoprolol Tartrate 50 mg 12/13/18 22:00 12/16/18 11:31 Lopressor - GT Not Given BID JOE Ptnt's Own Med( 1 each 12/12/18 10:00 12/16/18 11:34 Rotigotine [Neupro] TD 1 each 1 Each) DAILY JOE Administration Non-Formulary Medication 1 tab 12/13/18 18:15 12/16/18 11:32 Pimavanserin Tartrate [Nuplazid] GT 1 tab DAILY JOE Administration Rytary Er 36.25m/ 1 each 12/16/18 18:00 145mg- Patient's Own PO Medication QID JOE Non-Formulary Medication 1 each 12/16/18 18:00 Patient's Own Med PO QID JOE Olanzapine 2.5 mg 12/13/18 15:36 12/16/18 11:31 Zyprexa - GT 2.5 mg DAILY JOE Administration Polyethylene Glycol 17 gm 12/14/18 10:00 12/16/18 11:32 Miralax (For Daily Use) - NGT 17 grams DAILY JOE Administration Rasagiline 1 mg 12/13/18 15:36 12/16/18 11:30 Azilect - PO 1 mg DAILY JOE Administration Senna 8.8 mg 12/14/18 22:00 12/15/18 21:41 Senna Oral Solution - NGT 8.8 mg HS JOE Administration CBC, BMP 12/14/18 06:30 12/16/18 08:30 ASSESSMENT/PLAN: Patient is a 63 year old female with past medical history of NICM s/p ICD, paroxysmal Afib (on Xarelto), HTN, Parkinson's, Psychosis and CHF, BIBA from home due to lethargy and poor oral intake. #Sepsis likely 2/2 UTI * UA: 1+NORA 1+ LE, 13 wBC,Blood cultures - no growth,Urine culture - kessler sensitive E.coli * cont IV ceftriaxone 1gm daily day7, completed course * IV hydration 1/2 NS @ 83 cc /hr #Hypernatremia likely 2/2 poor oral intake, dehydration: resolved * Na 147.....144, * IV 1/2 NS @83 cc/hr * Routine bmp monitoring #Failure to thrive * pass MBS , will start dysphagia buree diet with thin liquid and magic cup * Nutrition evaluation for calories count * Palliative care on board # Constipation , chronic no BM for 4 days will give miralax , senna and enema #Acute metabolic encephalopathy probably 2/2 sepsis, hyperNa * On IV Ceftriaxone and IV fluids * Aspiration precautions * HOB > 60degrees #Parkinson's * Continue home medications: * Rasagiline, Sinemet, Nuplazid, Olanzapine, Quetiapine, Neupro patch home doses #Paroxysmal Atrial fibrillation * Hold xarelto for now, cont Lovenox 50mg sq BID * cont Metoprolol 50mg BID through GT #CHF, stable Not in exacerbation,Will hold lasix #FEN * IV 1/2 NS @ 83 cc/hr * Routine bmp monitoring, electrolyte replenished Hypophosphatemia hypokalemia * Buree diet with thin liquid and Magic cup , keep head of bed elvated 60 degree after meals. #Prophylaxis * Lovenox 50mg sq BID #Disposition * admit to med-surg * Palliative care on board Visit type - Emergency Visit Emergency Visit: Yes ED Registration Date: 12/10/18 Care time: The patient presented to the Emergency Department on the above date and was hospitalized for further evaluation of their emergent condition. - New Patient This patient is new to me today: No - Critical Care Critical Care patient: No
[2018-12-16] MEDS: [UNRECOGNIZED DRUG - OTHER] PO SCH ×2 (18:05→21:38)
[2018-12-16] MEDS: RYTARY PO SCH ×4 (18:05→21:38)
[2018-12-16] MEDS: CARBIDOPA/LEVODOPA 25/100 TABLET (FP) PO SCH ×2 (18:05→21:40)
[2018-12-16] MEDS: SENNOSIDES 8.8 MG/5 ML BULK BOTTLE NGT SCH (21:39)
--- NOTE | 2018-12-17 08:05 | PN ---
Physical Exam: SUBJECTIVE: Patient seen and examined at bedside. no acute events overnight; patient seems more alert and awake than she has been the past few days as per the nurse. patient passed modified barium swallow yesterday so tube feeds were stopped and patient will now be started on a pureed diet. OBJECTIVE: Vital Signs Period Temp Pulse Resp BP Sys/German Pulse Ox Last 24 Hr 98.2 F-99.6 F 99-109 20-24 97-111/53-74 98-99 GENERAL: The patient is awake, alert, in no acute distress.. EYES: no scleral icterus; EOMI; PEERLA NECK: no JVD; no lymphadenopathy. LUNGS: CTA B/; no rales, rhonchi or wheezing HEART: Regular rate and rhythm, S1, S2 without murmur, rub or gallop. ABDOMEN: Soft, nontender, nondistended, normoactive bowel sounds, no guarding, no rebound, no hepatosplenomegaly, no masses. EXTREMITIES: 2+ pulses, warm, well-perfused, no edema. PSYCH: Normal mood, normal affect. SKIN: Warm, dry, normal turgor, no rashes or lesions noted Laboratory Results - last 24 hr 12/16/18 08:30 Sodium 142 Potassium 3.8 Chloride 108 H Carbon Dioxide 29 Anion Gap 6 L BUN 6 L Creatinine 0.2 L Creat Clearance w eGFR > 60 Random Glucose 139 H Calcium 7.9 L Active Medications Generic Name Dose Route Start Last Admin Trade Name Freq PRN Reason Stop Dose Admin Bisacodyl 10 mg 12/14/18 17:27 Dulcolax Suppository - [place] PRN PRN CONSTIPATION Carbidopa/Levodopa 1 each 12/16/18 18:00 12/16/18 21:40 Sinemet 25/100 - PO 1 each QID JOE Administration Enoxaparin Sodium 50 mg 12/10/18 22:00 12/16/18 21:39 Lovenox - SQ 50 mg BID JOE Administration Sodium Chloride 1,000 mls @ 80 mls/hr 12/13/18 17:32 12/16/18 21:37 1/2 Normal Saline IV 80 mls/hr ASDIR JOE Administration Metoprolol Tartrate 50 mg 12/13/18 22:00 12/16/18 21:35 Lopressor - GT Not Given BID JOE Ptnt's Own Med( 1 each 12/12/18 10:00 12/16/18 11:34 Rotigotine [Neupro] TD 1 each 1 Each) DAILY JOE Administration Non-Formulary Medication 1 tab 12/13/18 18:15 12/16/18 11:32 Pimavanserin Tartrate [Nuplazid] GT 1 tab DAILY JOE Administration Rytary Er 36.25m/ 1 each 12/16/18 18:00 12/16/18 21:38 145mg- Patient's Own PO 1 each Medication QID JOE Administration Rytary Er 23.75- 1 each 12/16/18 18:00 12/16/18 21:38 95mgpatient's Own PO 1 each Medication (Non- QID JOE Administration Formulary) Olanzapine 2.5 mg 12/13/18 15:36 12/16/18 11:31 Zyprexa - GT 2.5 mg DAILY JOE Administration Polyethylene Glycol 17 gm 12/14/18 10:00 12/16/18 11:32 Miralax (For Daily Use) - NGT 17 grams DAILY JOE Administration Rasagiline 1 mg 12/13/18 15:36 12/16/18 11:30 Azilect - PO 1 mg DAILY JOE Administration Senna 8.8 mg 12/14/18 22:00 12/16/18 21:39 Senna Oral Solution - NGT 8.8 mg HS JOE Administration ASSESSMENT/PLAN: Patient is a 63 year old female with past medical history of NICM s/p ICD, paroxysmal Afib (on Xarelto), HTN, Parkinson's, Psychosis and CHF, BIBA from home due to lethargy and poor oral intake. #Sepsis likely 2/2 UTI * UA: 1+NORA 1+ LE, 13 wBC,Blood cultures - no growth,Urine culture - kessler sensitive E.coli * finished ceftriaxone yesterday * IV hydration 1/2 NS @ 83 cc /hr #Hypernatremia likely 2/2 poor oral intake, dehydration:resolved * IV 1/2 NS @83 cc/hr * Routine bmp monitoring #Failure to thrive * passed barium swallow yesterday * c/w calorie count * Palliative care on board #Parkinson's * Continue home medications: * Rasagiline, Sinemet, Nuplazid, Olanzapine, Quetiapine, Neupro patch * Dr Carvajal will adjust meds for NGT tube #Paroxysmal Atrial fibrillation * Hold xarelto for now, cont Lovenox 50mg sq BID * cont Metoprolol 50mg BID #CHF, stable Not in exacerbation,Will hold lasix #FEN * IV 1/2 NS @ 83 cc/hr * Routine bmp monitoring, * tube feed #Prophylaxis * Lovenox 50mg sq BID #Disposition * admit to med-surg * Palliative care on board Problem List - Problems (1) Decreased oral intake Code(s): R63.8 - OTHER SYMPTOMS AND SIGNS CONCERNING FOOD AND FLUID INTAKE (2) Hypernatremia Code(s): E87.0 - HYPEROSMOLALITY AND HYPERNATREMIA (3) Anticoagulant-induced bleeding Code(s): T45.7X1A - POISN BY ANTICOAG ANTAG, VITAMIN K AND OTH COAG, ACC, INIT; D68.9 - COAGULATION DEFECT, UNSPECIFIED (4) Atrial fibrillation Code(s): I48.91 - UNSPECIFIED ATRIAL FIBRILLATION Visit type - Emergency Visit Emergency Visit: Yes ED Registration Date: 12/10/18 Care time: The patient presented to the Emergency Department on the above date and was hospitalized for further evaluation of their emergent condition. - New Patient This patient is new to me today: Yes Date on this admission: 12/17/18 - Critical Care Critical Care patient: No
[2018-12-17 09:02] LABS: ANION GAP 5 MMOL/L (8-16); CALCIUM 8.1 mg/dL (8.5-10.1); CHLORIDE 107 mmol/L (98-107); CO2 27 mmol/L (21-32); CREATININE < 0.2 mg/dL (0.55-1.3); GLUCOSE,RANDOM 88 mg/dL (74-106); MAGNESIUM 2.1 mg/dL (1.8-2.4); PHOSPHOROUS 2.5 mg/dL (2.5-4.9); SODIUM 139 mmol/L (136-145)
[2018-12-17] MEDS: OLANZapine 2.5 MG TABLET GT SCH (10:32)
[2018-12-17] MEDS: CARBIDOPA/LEVODOPA 25/100 TABLET (FP) PO SCH ×4 (10:32→21:54)
[2018-12-17] MEDS: METOPROLOL TARTRATE 50 MG TABLET (FP) GT SCH ×2 (10:32→21:16)
[2018-12-17] MEDS: RASAGILINE MESYLATE 1 MG TABLET PO SCH (10:33)
[2018-12-17] MEDS: ENOXAPARIN NA (PORCINE) 60 MG/0.6 ML DISP.SYRIN SQ SCH (10:34)
[2018-12-17] MEDS: [UNRECOGNIZED DRUG - OTHER] TD SCH (10:35)
[2018-12-17] MEDS: PIMAVANSERIN TARTRATE GT SCH (10:35)
[2018-12-17] MEDS: RYTARY PO SCH ×8 (10:36→21:55)
[2018-12-17] MEDS: [UNRECOGNIZED DRUG - OTHER] PO SCH ×4 (10:36→21:54)
[2018-12-17] MEDS: SODIUM CHLORIDE 0.45% 1,000 ML IV SCH ×3 (10:37→22:01)
[2018-12-17] MEDS: POLYETHYLENE GLYCOL 3350 119 GM BTL NGT SCH (10:40)
--- NOTE | 2018-12-17 13:56 | PN ---
Progress Note, ADULT DAYCARE COORDINATOR - Note Progress Note: Selected Entries 12/17/18 12/17/18 12/17/18 06:00 09:00 11:37 Breakfast 25% Temperature 98.3 F 98 F Laboratory Tests 12/14/18 06:30 WBC 7.3 Tolerating diet well. Lunch remains on tray, with brother sitting in chair, stating she is not eating much. Pt unable to draw from a straw consistently but did drink single sips of ensure and tsps of magic cup for me well. Swallow is delayed but brisk. No overt signs of aspiration.Taking medication well from nursing. Counseled pt's brother, who she lives with, to give her small bites repeatedly, especially supplements throughout the day to achieve sufficient nutrition and hydration. Possibly pt's PACKAGING ENGINEER can attend and assist with PO intake to facilitate nutritional intake. f/u by palliative care.
--- NOTE | 2018-12-17 16:17 | PN ---
Teaching Attending Note Name of Resident: Nenita Meyer ATTENDING PHYSICIAN STATEMENT I saw and evaluated the patient. I reviewed the resident's note and discussed the case with the resident. I agree with the resident's findings and plan as documented. SUBJECTIVE: limited communication. denies pain. OBJECTIVE: NAD, opens eyes, answers yes /no questions CV; RRR. No MRG Abd: soft, NT, ND, Nl BS. Lungs: poor inspiratory effort, otherwise clear EXT: contracted, no edema or erythema ASSESSMENT AND PLAN: 63 y/o lady with h/o dementia, Parkinson's, NICM, PAF, psychosis, CHF, who presented with poor po intake and was found to have UTI and severe dehydration. 1- Acute UTI: s/p 7 days of abx 2- Severe dehydration, and hypernatremia, resolved. - cont 1/2 NS. assess for need to decrease dose 3- Poor po intake, Passed MBS. calori count in progress to assess need for PEG tube. 4- H/o PAF: Cont Lovenox in case PEG tube is needed after calori count is done 5- Parkinson's: Cont home dose meds ( rytary, and Sinemet) in addition to Neupro patch and Azilect. 6- H/o HTN: off Losartan due to hypotension. . BPimproved. cont BB . can adjust dose if needed. Patient has a living will that indicates no feeding tubes if case is irreversible. If PEG to be placed , 2 Mds need to testify that condition is not permanently irreversible.
[2018-12-17] MEDS: SENNOSIDES 8.8 MG/5 ML BULK BOTTLE NGT SCH (21:53)
--- NOTE | 2018-12-18 07:50 | PN ---
Physical Exam: SUBJECTIVE: Patient seen and examined at bedside- no acute events overnight; patient is more alert this morning and denies any pain OBJECTIVE: Vital Signs Period Temp Pulse Resp BP Sys/German Pulse Ox Last 24 Hr 98 F-99.0 F 98-110 18-20 92-114/63-81 97-99 GENERAL: The patient is very somnolent. EYES: PEERLA; EOMI; no scleral icterus. NECK: no JVD; no lymphadenopathy LUNGS: CTA B/l; no rales, rhonchi or wheezing, however poor inspiratory effort. HEART: Regular rate and rhythm, S1, S2 without murmur, rub or gallop. ABDOMEN: Soft, nontender, nondistended, normoactive bowel sounds, no guarding, no rebound, no hepatosplenomegaly, no masses. EXTREMITIES: 2+ pulses, warm, well-perfused, no edema. NEUROLOGICAL: Cranial nerves II through XII grossly intact. Normal speech, gait not observed. PSYCH: Normal mood, normal affect. SKIN: Warm, dry, normal turgor, no rashes or lesions noted Laboratory Results - last 24 hr 12/17/18 07:00 Sodium 139 Potassium 4.0 Chloride 107 Carbon Dioxide 27 Anion Gap 5 L BUN Creatinine < 0.2 L Creat Clearance w eGFR > 60 Random Glucose 88 Calcium 8.1 L Phosphorus 2.5 Magnesium 2.1 Active Medications Generic Name Dose Route Start Last Admin Trade Name Freq PRN Reason Stop Dose Admin Bisacodyl 10 mg 12/14/18 17:27 Dulcolax Suppository - [place] PRN PRN CONSTIPATION Carbidopa/Levodopa 1 each 12/16/18 18:00 12/17/18 21:54 Sinemet 25/100 - PO 1 each QID JOE Administration Sodium Chloride 1,000 mls @ 80 mls/hr 12/13/18 17:32 12/17/18 22:01 1/2 Normal Saline IV 80 mls/hr ASDIR JOE Administration Metoprolol Tartrate 50 mg 12/13/18 22:00 12/17/18 21:16 Lopressor - GT Not Given BID JOE Ptnt's Own Med( 1 each 12/12/18 10:00 12/17/18 10:35 Rotigotine [Neupro] TD 1 each 1 Each) DAILY JOE Administration Non-Formulary Medication 1 tab 12/13/18 18:15 02/12/19 10:35 Pimavanserin Tartrate [Nuplazid] GT 1 tab DAILY JOE Administration Rytary Er 36.25m/ 1 each 12/16/18 18:00 12/17/18 21:55 145mg- Patient's Own PO 1 each Medication QID JOE Administration Rytary Er 23.75- 1 each 12/16/18 18:00 12/17/18 21:54 95mgpatient's Own PO 1 each Medication (Non- QID JOE Administration Formulary) Olanzapine 2.5 mg 12/13/18 15:36 12/17/18 10:32 Zyprexa - GT 2.5 mg DAILY JOE Administration Polyethylene Glycol 17 gm 12/14/18 10:00 12/17/18 10:40 Miralax (For Daily Use) - NGT 17 grams DAILY JOE Administration Rasagiline 1 mg 12/13/18 15:36 12/17/18 10:33 Azilect - PO 1 mg DAILY JOE Administration Senna 8.8 mg 12/14/18 22:00 12/17/18 21:53 Senna Oral Solution - NGT 8.8 mg HS JOE Administration ASSESSMENT/PLAN: Patient is a 63 year old female with past medical history of NICM s/p ICD, paroxysmal Afib (on Xarelto), HTN, Parkinson's, Psychosis and CHF, BIBA from home due to lethargy and poor oral intake. #Hypernatremia likely 2/2 poor oral intake, dehydration:resolved * IV 1/2 NS @83 cc/hr * Routine bmp monitoring #Failure to thrive * passed barium swallow yesterday * c/w calorie count * Palliative care on board * if calories count is not sufficent; potential need for PEG tube * need to have palliative meeting as patient did not eat today and did not take her parkinsons meds; need long-term plan #Parkinson's * Continue home medications: * Rasagiline, Sinemet, Nuplazid, Olanzapine, Quetiapine, Neupro patch * Dr Carvajal adjusted meds today #Paroxysmal Atrial fibrillation * Hold xarelto for now, cont Lovenox 50mg sq BID in case of need for PEG tube * cont Metoprolol 50mg BID #CHF, stable Not in exacerbation,Will hold lasix #FEN * IV 1/2 NS @ 83 cc/hr * Routine bmp monitoring, * pureed diet #Prophylaxis * Lovenox 50mg sq BID #Disposition * admit to med-surg * Palliative care on board Problem List - Problems (1) Decreased oral intake Code(s): R63.8 - OTHER SYMPTOMS AND SIGNS CONCERNING FOOD AND FLUID INTAKE (2) Hypernatremia Code(s): E87.0 - HYPEROSMOLALITY AND HYPERNATREMIA (3) Anticoagulant-induced bleeding Code(s): T45.7X1A - POISN BY ANTICOAG ANTAG, VITAMIN K AND OTH COAG, ACC, INIT; D68.9 - COAGULATION DEFECT, UNSPECIFIED (4) Atrial fibrillation Code(s): I48.91 - UNSPECIFIED ATRIAL FIBRILLATION Visit type - Emergency Visit Emergency Visit: Yes ED Registration Date: 12/10/18 Care time: The patient presented to the Emergency Department on the above date and was hospitalized for further evaluation of their emergent condition. - New Patient This patient is new to me today: No - Critical Care Critical Care patient: No
[2018-12-18 08:10] LABS: ANION GAP 5 MMOL/L (8-16); BLOOD UREA NITROGEN 6 mg/dL (7-18); CHLORIDE 104 mmol/L (98-107); CO2 28 mmol/L (21-32); CREATININE 0.2 mg/dL (0.55-1.3); GLUCOSE,RANDOM 97 mg/dL (74-106); POTASSIUM 4.4 mmol/L (3.5-5.1); SODIUM 138 mmol/L (136-145)
--- NOTE | 2018-12-18 09:14 | PN ---
Teaching Attending Note Name of Resident: Nenita Meyer ATTENDING PHYSICIAN STATEMENT I saw and evaluated the patient. I reviewed the resident's note and discussed the case with the resident. I agree with the resident's findings and plan as documented. SUBJECTIVE: Patient is comfortable with no acute distress, is better today, able to swallow today. OBJECTIVE: Vital Signs Temperature 98.0 F 12/18/18 06:00 Pulse Rate 99 H 12/18/18 06:00 Respiratory Rate 18 12/18/18 06:00 Blood Pressure 102/64 12/18/18 06:00 O2 Sat by Pulse Oximetry (%) 97 12/17/18 21:00 Initial Vital Signs Temp Pulse Resp BP Pulse Ox 100.2 F H 128 H 16 110/81 95 12/10/18 13:00 12/10/18 13:00 12/10/18 13:00 12/10/18 13:00 12/10/18 13:00 CBCD WBC 7.3 K/mm3 (4.0-10.0) 12/14/18 06:30 RBC 3.09 M/mm3 (3.60-5.2) L 12/14/18 06:30 Hgb 9.4 GM/dL (10.7-15.3) L 12/14/18 06:30 Hct 27.6 % (32.4-45.2) L 12/14/18 06:30 MCV 89.1 fl (80-96) 12/14/18 06:30 MCHC 34.0 g/dl (32.0-36.0) 12/14/18 06:30 RDW 12.8 % (11.6-15.6) 12/14/18 06:30 Plt Count 199 K/MM3 (134-434) 12/14/18 06:30 MPV 9.8 fl (7.5-11.1) 12/14/18 06:30 CMP Sodium 138 mmol/L (136-145) 12/18/18 06:30 Potassium 4.4 mmol/L (3.5-5.1) 12/18/18 06:30 Chloride 104 mmol/L (98-107) 12/18/18 06:30 Carbon Dioxide 28 mmol/L (21-32) 12/18/18 06:30 Anion Gap 5 MMOL/L (8-16) L 12/18/18 06:30 BUN 6 mg/dL (7-18) L 12/18/18 06:30 Creatinine 0.2 mg/dL (0.55-1.3) L 12/18/18 06:30 Creat Clearance w eGFR > 60 (>60) 12/18/18 06:30 Random Glucose 97 mg/dL (74-106) 12/18/18 06:30 Calcium 8.0 mg/dL (8.5-10.1) L 12/18/18 06:30 Total Bilirubin 0.4 mg/dL (0.2-1) 12/11/18 06:30 AST 23 U/L (15-37) 12/11/18 06:30 ALT 14 U/L (13-61) 12/11/18 06:30 Alkaline Phosphatase 147 U/L (45-117) H 12/11/18 06:30 Total Protein 6.3 g/dl (6.4-8.2) L 12/11/18 06:30 Albumin 2.6 g/dl (3.4-5.0) L 12/11/18 06:30 CARDIAC ENZYMES Creatine Kinase 50 U/L (26-192) 12/10/18 13:49 Troponin I < 0.02 ng/ml (0.00-0.05) 12/10/18 13:49 Current Medications Generic Name Dose Route Start Last Admin Trade Name Freq PRN Reason Stop Dose Admin Bisacodyl 10 mg 12/14/18 17:27 Dulcolax Suppository - [place] PRN PRN CONSTIPATION Carbidopa/Levodopa 1 each 12/16/18 18:00 12/17/18 21:54 Sinemet 25/100 - PO 1 each QID JOE Administration Sodium Chloride 1,000 mls @ 80 mls/hr 12/13/18 17:32 12/17/18 22:01 1/2 Normal Saline IV 80 mls/hr ASDIR JOE Administration Metoprolol Tartrate 50 mg 12/13/18 22:00 12/17/18 21:16 Lopressor - [place] Not Given BID JOE Ptnt's Own Med( 1 each 12/12/18 10:00 12/17/18 10:35 Rotigotine [Neupro] TD 1 each 1 Each) DAILY JOE Administration Non-Formulary Medication 1 tab 12/13/18 18:15 12/17/18 10:35 Pimavanserin Tartrate [Nuplazid] GT 1 tab DAILY JOE Administration Rytary Er 36.25m/ 1 each 12/16/18 18:00 12/17/18 21:55 145mg- Patient's Own PO 1 each Medication QID JOE Administration Rytary Er 23.75- 1 each 12/16/18 18:00 12/17/18 21:54 95mgpatient's Own PO 1 each Medication (Non- QID JOE Administration Formulary) Olanzapine 2.5 mg 12/13/18 15:36 12/17/18 10:32 Zyprexa - GT 2.5 mg DAILY JOE Administration Polyethylene Glycol 17 gm 12/14/18 10:00 12/17/18 10:40 Miralax (For Daily Use) - NGT 17 grams DAILY JOE Administration Rasagiline 1 mg 12/13/18 15:36 12/17/18 10:33 Azilect - PO 1 mg DAILY JOE Administration Senna 8.8 mg 12/14/18 22:00 12/17/18 21:53 Senna Oral Solution - NGT 8.8 mg HS JOE Administration Home Medications Medication Instructions Recorded Carbidopa/Levodopa 1 each PO QID 12/10/18 [Carbidopa-Levodopa 25-100 Tab] Carbidopa/Levodopa [Rytary ER 1 each PO QID 12/10/18 23.75 mg-95 mg Cap] Carbidopa/Levodopa [Rytary ER 1 each PO QID 12/10/18 36.25 mg-145 mg Cap] Docusate Sodium [Colace] 100 mg PO BID 12/10/18 Furosemide [Lasix -] 20 mg PO DAILY 12/10/18 Losartan Potassium [Cozaar -] 25 mg PO DAILY 12/10/18 Metoprolol Succinate 100 mg PO DAILY 12/10/18 Olanzapine [Zyprexa -] 2.5 mg PO DAILY 12/10/18 Pimavanserin Tartrate [Nuplazid] 2 tab PO DAILY 12/10/18 Quetiapine Fumarate [Quetiapine 50 mg PO DAILY 12/10/18 Fumarate ER] Rasagiline Mesylate [Azilect -] 1 mg PO DAILY 12/10/18 Rivaroxaban [Xarelto -] 20 mg PO DAILY 12/10/18 Rotigotine [Neupro] 1 each TD DAILY 12/10/18 Sennosides [Senna Laxative] 2 tab PO DAILY 12/10/18 Spironolactone [Aldactone] 25 mg PO DAILY 12/10/18 Rotigotine [Neupro] 1 patch TD DAILY 12/11/18 ASSESSMENT AND PLAN: Patient is a 63 y/o lady with h/o dementia, Parkinson's, NICM, PAF, psychosis, CHF, who presented with poor po intake and was found to have UTI and severe dehydration. # Poor po intake, Passed MBS. calori count to continue, patient's family is thinking of PEG tube placement. # Acute UTI: s/p 7 days of abx # Acute severe dehydration, and hypernatremia, resolved. # H/o PAF: on Lovenox in case PEG tube is needed after calori count is done # Parkinson's: Cont home dose meds ( rytary, and Sinemet) in addition to Neupro patch and Azilect. # H/o HTN: off Losartan due to hypotension. . BPimproved. cont BB . can adjust dose if needed. Patient has a living will that indicates no feeding tubes if it is irreversible.
[2018-12-18] MEDS: [UNRECOGNIZED DRUG - OTHER] TD SCH (10:10)
[2018-12-18] MEDS: OLANZapine 2.5 MG TABLET GT SCH (10:11)
[2018-12-18] MEDS: RASAGILINE MESYLATE 1 MG TABLET PO SCH (10:11)
[2018-12-18] MEDS: CARBIDOPA/LEVODOPA 25/100 TABLET (FP) PO SCH ×4 (10:11→22:39)
[2018-12-18] MEDS: METOPROLOL TARTRATE 50 MG TABLET (FP) GT SCH ×2 (10:11→21:57)
[2018-12-18] MEDS: POLYETHYLENE GLYCOL 3350 119 GM BTL NGT SCH (10:12)
[2018-12-18] MEDS: PIMAVANSERIN TARTRATE GT SCH (10:12)
[2018-12-18] MEDS: RYTARY PO SCH ×2 (10:19→11:12)
--- NOTE | 2018-12-18 10:49 | PN ---
Progress Note (short form) - Note Progress Note: 63 year old female with past medical history of NICM s/p ICD, paroxysmal Afib ( on Xarelto), HTN, DX in 2006 Parkinson's (outpt neuro DR WALTERS) , Psychosis and CHF, BIBA from home due to lethargy and poor oral intake. Patient is a poor historian as she is occasionally incomprehensible at baseline. History from brother, Solo, who lives with the patient, and with her 24-hour home health aide. Brother reported in the last 4 days, patient was noted to have poor oral intake, chewing some of her food and drinking some of her water but then spitting out or refusing to swallow the rest. Patient has not been complaining of anything, but they noted she was warm this morning. No vomiting, no shortness of breath, no diarrhea. Dx with +UTI. 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 ) - Past Surgical History Past Surgical History: Yes: Joint Replacement (TKR, bilaterally) - Alcohol/Substance Use Hx Alcohol Use: No - Smoking History Smoking history: Never smoked Have you smoked in the past 12 months: No - Social History Usual Living Arrangement: Alone ADL: Support Services (8 hour day home health aid) History of Recent Travel: No Home Medications - Allergies Allergies/Adverse Reactions: Allergies Allergy/AdvReac Type Severity Reaction Status Date / Time No Known Allergies Allergy Verified 07/22/17 07:42 - Home Medications Home Medications: Ambulatory Orders Carbidopa/Levodopa [Carbidopa-Levodopa 25-100 Tab] 1 each PO QID 12/10/18 Carbidopa/Levodopa [Rytary ER 23.75 mg-95 mg Cap] 1 each PO QID 12/10/18 Carbidopa/Levodopa [Rytary ER 36.25 mg-145 mg Cap] 1 each PO QID 12/10/18 Docusate Sodium [Colace] 100 mg PO BID 12/10/18 Furosemide [Lasix -] 20 mg PO DAILY 12/10/18 Losartan Potassium [Cozaar -] 25 mg PO DAILY 12/10/18 Metoprolol Succinate 100 mg PO DAILY 12/10/18 Olanzapine [Zyprexa -] 2.5 mg PO DAILY 12/10/18 Pimavanserin Tartrate [Nuplazid] 2 tab PO DAILY 12/10/18 Quetiapine Fumarate [Quetiapine Fumarate ER] 50 mg PO DAILY 12/10/18 Rasagiline Mesylate [Azilect -] 1 mg PO DAILY 12/10/18 Rivaroxaban [Xarelto -] 20 mg PO DAILY 12/10/18 Rotigotine [Neupro] 1 each TD DAILY 12/10/18 Sennosides [Senna Laxative] 2 tab PO DAILY 12/10/18 Spironolactone [Aldactone] 25 mg PO DAILY 12/10/18 Family Disease History - Family Disease History Family Disease History: Other: Brother (CAD), Sister (DVT thought to be related to inactivity and control pills. She is now off anticoagulation) Physical Exam-Neuro Vital Signs: Vital Signs Temperature 98.8 F 12/18/18 10:14 Pulse Rate 100 H 12/18/18 10:14 Respiratory Rate 12/18/18 10:14 Blood Pressure 119/74 12/18/18 10:14 O2 Sat by Pulse Oximetry (%) 97 12/17/18 21:00 Constitutional: Yes: Pallor, Thin Neck: Yes: Decreased ROM Labs: CBCD WBC 7.3 K/mm3 (4.0-10.0) 12/14/18 06:30 RBC 3.09 M/mm3 (3.60-5.2) L 12/14/18 06:30 Hgb 9.4 GM/dL (10.7-15.3) L 12/14/18 06:30 Hct 27.6 % (32.4-45.2) L 12/14/18 06:30 MCV 89.1 fl (80-96) 12/14/18 06:30 MCHC 34.0 g/dl (32.0-36.0) 12/14/18 06:30 RDW 12.8 % (11.6-15.6) 12/14/18 06:30 Plt Count 199 K/MM3 (134-434) 12/14/18 06:30 MPV 9.8 fl (7.5-11.1) 12/14/18 06:30 CMP Sodium 138 mmol/L (136-145) 12/18/18 06:30 Potassium 4.4 mmol/L (3.5-5.1) 12/18/18 06:30 Chloride 104 mmol/L (98-107) 12/18/18 06:30 Carbon Dioxide 28 mmol/L (21-32) 12/18/18 06:30 Anion Gap 5 MMOL/L (8-16) L 12/18/18 06:30 BUN 6 mg/dL (7-18) L 12/18/18 06:30 Creatinine 0.2 mg/dL (0.55-1.3) L 12/18/18 06:30 Creat Clearance w eGFR > 60 (>60) 12/18/18 06:30 Calcium 8.0 mg/dL (8.5-10.1) L 12/18/18 06:30 Total Bilirubin 0.4 mg/dL (0.2-1) 12/11/18 06:30 AST 23 U/L (15-37) 12/11/18 06:30 ALT 14 U/L (13-61) 12/11/18 06:30 Alkaline Phosphatase 147 U/L (45-117) H 12/11/18 06:30 Total Protein 6.3 g/dl (6.4-8.2) L 12/11/18 06:30 Albumin 2.6 g/dl (3.4-5.0) L 12/11/18 06:30 - Neuro Exam Level Of Consciousness: Yes: Sedated (arousable , but poorly attentive, dec verbal outpt, ansers name, hypophonic, diff making needs known, blinks to threat , + cogwheeling and ++Tremor, inc tone in all EXE , plantars dwn ) Imaging - Results Cat Scan: Report Reviewed, Image Reviewed Problem List - Problems (1) Decreased oral intake Code(s): R63.8 - OTHER SYMPTOMS AND SIGNS CONCERNING FOOD AND FLUID INTAKE (2) Atrial fibrillation Code(s): I48.91 - UNSPECIFIED ATRIAL FIBRILLATION (3) Parkinson disease Code(s): G20 - PARKINSON'S DISEASE Assessment/Plan 63 year old female with past medical history of NICM s/p ICD, paroxysmal Afib ( on Xarelto), HTN, DX in 2005 Parkinson's (outpt neuro DR WALTERS) , Psychosis and CHF, BIBA from home due to lethargy and poor oral intake. Patient is a poor historian as she is occasionally incomprehensible at baseline. History from brother, Solo, who lives with the patient, and with her 24-hour home health aide. Brother reported in the last 4 days, patient was noted to have poor oral intake, chewing some of her food and drinking some of her water but then spitting out or refusing to swallow the rest. Patient has not been complaining of anything, but they noted she was warm this morning. No vomiting, no shortness of breath, no diarrhea. Dx with +UTI. spoke to sister today PD DX in 2005 ( not formally Dx with LBD as per sister) dec PO intake, progressive decline last walked in 2016, lives home 24 hour aides, brother lives her well as per speech pathologist, cog impaired as well oupt NEURO as NUPLZID, AZILECT and SINEMET, Nuepro 8/day AP : Decompensated PD , ? ;possible LBD given age/progression, hx of hallucinations ; +UTI/dehyrrated and hypernatremia ? absorption of RX given dysphagia/poor MS -ABX for UTI , IV hydration - necessity for short term PEG to be discussed with palliative and family -IF she is taking RYTARI then can continue current regimen, though IF she is unable to tolerate po intake (RYTARI cant be crushed , though capsules can be opened) will have to adjust SINEMET DOSING (to SINEMET 25/250TID and hold RYTARI) till feeding status clarified-- will speak PMD -cont AZLECT 1mg QD, NEUPRO -LOVENOX -LT/ palliative services DR RANDHAWA Problem List - Problems (1) Decreased oral intake Code(s): R63.8 - OTHER SYMPTOMS AND SIGNS CONCERNING FOOD AND FLUID INTAKE (2) Atrial fibrillation Code(s): I48.91 - UNSPECIFIED ATRIAL FIBRILLATION (3) Parkinson disease Code(s): G20 - PARKINSON'S DISEASE
[2018-12-18] MEDS: [UNRECOGNIZED DRUG - OTHER] PO SCH (11:12)
[2018-12-18] MEDS ORDERED: SODIUM CHLORIDE 0.9% 500 ML INFUS.BAG IV ONE (14:01)
[2018-12-18 15:01] LABS: BASO % 0.9 % (0-2.0); EOS % 4.1 % (0-4.5); HEMATOCRIT 29.2 % (32.4-45.2); HEMOGLOBIN 9.8 GM/dL (10.7-15.3); LYMPH % 19.5 % (8-40); MCH 30.1 pg (25.7-33.7); MCHC 33.6 g/dl (32.0-36.0); MEAN CELL VOLUME 89.7 fl (80-96); MEAN PLT VOLUME 9.7 fl (7.5-11.1); MONO % 8.1 % (3.8-10.2); NEUT % 67.4 % (42.8-82.8); PLATELET COUNT 252 K/MM3 (134-434); RBC 3.26 M/mm3 (3.60-5.2); RDW 13.8 % (11.6-15.6); WHITE BLOOD COUNT 5.3 K/mm3 (4.0-10.0)
--- NOTE | 2018-12-18 15:31 | PN ---
Progress Note, MANAGER EMPLOYEE BENEFITS - Note Progress Note: Sleepy this am, but more arousable. Pt taking meds by mouth slowly, over time. No accepting a lot by mouth. PD meds adjusted by neurology. Decision being made regarding possible PEG tube to supplement PO and for consistency of medications. Followed by Palliative care.
[2018-12-18] MEDS: SODIUM CHLORIDE 0.45% 1,000 ML IV SCH (20:19)
[2018-12-18] MEDS: SILVER SULFADIAZINE 1% TOP CREAM 50 GM JAR TP SCH (22:38)
[2018-12-18] MEDS: SENNOSIDES 8.8 MG/5 ML BULK BOTTLE NGT SCH (22:39)
[2018-12-19] MEDS: SODIUM CHLORIDE 0.45% 1,000 ML IV SCH ×3 (04:37→20:09)
[2018-12-19 08:03] LABS: ANION GAP 4 MMOL/L (8-16); BLOOD UREA NITROGEN 5 mg/dL (7-18); CALCIUM 8.4 mg/dL (8.5-10.1); CHLORIDE 103 mmol/L (98-107); CO2 30 mmol/L (21-32); CREATININE 0.2 mg/dL (0.55-1.3); GLUCOSE,RANDOM 97 mg/dL (74-106); POTASSIUM 4.2 mmol/L (3.5-5.1); SODIUM 137 mmol/L (136-145)
--- NOTE | 2018-12-19 08:48 | PN ---
Physical Exam: SUBJECTIVE: Patient seen and examined at bedside- no acute events overnight; limited history however patient denies pain OBJECTIVE: Vital Signs Period Temp Pulse Resp BP Sys/German Pulse Ox Last 24 Hr 97.6 F-98.8 F 72-100 16-20 87-119/54-74 96-97 GENERAL: The patient is very lethargic and somnolent EYES: PEERLA; EOMI; no scleral icterus NECK: no JVD; no lymphadenopathy. LUNGS: CTA B/L; no rales, rhonchi or wheezing. HEART: Regular rate and rhythm, S1, S2 without murmur, rub or gallop. ABDOMEN: Soft, nontender, nondistended, normoactive bowel sounds, no guarding, no rebound, no hepatosplenomegaly, no masses. EXTREMITIES: 2+ pulses, warm, well-perfused, no edema. NEUROLOGICAL: somnolent but arousable and opens eyes PSYCH: Normal mood, normal affect. SKIN: Warm, dry, normal turgor, no rashes or lesions noted Laboratory Results - last 24 hr 12/18/18 12/18/18 12/19/18 13:40 14:15 06:20 WBC 5.3 RBC 3.26 L Hgb 9.8 L Hct 29.2 L MCV 89.7 MCH 30.1 MCHC 33.6 RDW 13.8 Plt Count 252 D MPV 9.7 Absolute Neuts (auto) 3.6 Neutrophils % 67.4 Lymphocytes % 19.5 D Monocytes % 8.1 Eosinophils % 4.1 D Basophils % 0.9 Nucleated RBC % 0 Sodium 137 Potassium 4.2 Chloride 103 Carbon Dioxide 30 Anion Gap 4 L BUN 5 L Creatinine 0.2 L Creat Clearance w eGFR > 60 POC Glucometer 81 Random Glucose 97 Calcium 8.4 L Active Medications Generic Name Dose Route Start Last Admin Trade Name Freq PRN Reason Stop Dose Admin Bisacodyl 10 mg 12/14/18 17:27 Dulcolax Suppository - [place] PRN PRN CONSTIPATION Carbidopa/Levodopa 1 each 12/16/18 18:00 12/18/18 22:39 Sinemet 25/100 - PO 1 each QID JOE Administration Sodium Chloride 1,000 mls @ 80 mls/hr 12/13/18 17:32 12/19/18 04:37 1/2 Normal Saline IV 80 mls/hr ASDIR JOE Administration Metoprolol Tartrate 50 mg 12/13/18 22:00 12/18/18 21:57 Lopressor - GT Not Given BID JOE Ptnt's Own Med( 1 each 12/12/18 10:00 12/18/18 10:10 Rotigotine [Neupro] TD 1 each 1 Each) DAILY JOE Administration Non-Formulary Medication 1 tab 12/13/18 18:15 12/18/18 10:12 Pimavanserin Tartrate [Nuplazid] GT 1 tab DAILY JOE Administration Olanzapine 2.5 mg 12/13/18 15:36 12/18/18 10:11 Zyprexa - GT 2.5 mg DAILY JOE Administration Polyethylene Glycol 17 gm 12/14/18 10:00 12/18/18 10:12 Miralax (For Daily Use) - NGT 17 grams DAILY JOE Administration Rasagiline 1 mg 12/13/18 15:36 12/18/18 10:11 Azilect - PO 1 mg DAILY JOE Administration Senna 8.8 mg 12/14/18 22:00 12/18/18 22:39 Senna Oral Solution - NGT 8.8 mg HS JOE Administration Silver Sulfadiazine 1 applic 12/18/18 16:15 12/18/18 22:38 Silvadene - TP 1 applic DAILY JOE Administration ASSESSMENT/PLAN: Patient is a 63 year old female with past medical history of NICM s/p ICD, paroxysmal Afib (on Xarelto), HTN, Parkinson's, Psychosis and CHF, BIBA from home due to lethargy and poor oral intake. #Hypernatremia likely 2/2 poor oral intake, dehydration:resolved * IV 1/2 NS @83 cc/hr * since resolved * no longer having AMS #Failure to thrive * patient going for PEG tube tomorrow #Parkinson's * Continue home medications: * Rasagiline, Sinemet, Nuplazid, Olanzapine, Quetiapine, Neupro patch #Paroxysmal Atrial fibrillation * Hold xarelto for now, given patient is going for PEG tube tomorrow * cont Metoprolol 50mg BID given hypotension #CHF, stable Not in exacerbation,Will hold lasix #FEN * IV 1/2 NS @ 83 cc/hr * monitor electrolytes, * pureed diet #Prophylaxis * Lovenox 50mg sq BID #Disposition * Palliative care on board\ * home with VNS again Problem List - Problems (1) Decreased oral intake Code(s): R63.8 - OTHER SYMPTOMS AND SIGNS CONCERNING FOOD AND FLUID INTAKE (2) Hypernatremia Code(s): E87.0 - HYPEROSMOLALITY AND HYPERNATREMIA (3) Anticoagulant-induced bleeding Code(s): T45.7X1A - POISN BY ANTICOAG ANTAG, VITAMIN K AND OTH COAG, ACC, INIT; D68.9 - COAGULATION DEFECT, UNSPECIFIED (4) Atrial fibrillation Code(s): I48.91 - UNSPECIFIED ATRIAL FIBRILLATION Visit type - Emergency Visit Emergency Visit: Yes ED Registration Date: 12/10/18 Care time: The patient presented to the Emergency Department on the above date and was hospitalized for further evaluation of their emergent condition. - New Patient This patient is new to me today: No - Critical Care Critical Care patient: No
[2018-12-19] MEDS: CARBIDOPA/LEVODOPA 25/100 TABLET (FP) PO SCH ×4 (11:00→21:52)
[2018-12-19] MEDS: PIMAVANSERIN TARTRATE GT SCH (11:00)
[2018-12-19] MEDS: RASAGILINE MESYLATE 1 MG TABLET PO SCH (11:00)
[2018-12-19] MEDS: [UNRECOGNIZED DRUG - OTHER] TD SCH (11:00)
[2018-12-19] MEDS: OLANZapine 2.5 MG TABLET GT SCH (11:00)
[2018-12-19] MEDS: SILVER SULFADIAZINE 1% TOP CREAM 50 GM JAR TP SCH (11:00)
[2018-12-19] MEDS: METOPROLOL TARTRATE 50 MG TABLET (FP) GT SCH ×2 (11:00→21:51)
[2018-12-19] MEDS: POLYETHYLENE GLYCOL 3350 119 GM BTL NGT SCH (11:00)
[2018-12-19] MEDS ORDERED: PT OWN MED DRAWER 7, Y5N ONE ×2 (11:21→11:44)
--- NOTE | 2018-12-19 12:06 | PN ---
Progress Note (short form) - Note Progress Note: 63 year old female with past medical history of NICM s/p ICD, paroxysmal Afib ( on Xarelto), HTN, DX in 2005 Parkinson's (outpt neuro DR WALTERS) , Psychosis and CHF, BIBA from home due to lethargy and poor oral intake. Patient is a poor historian as she is occasionally incomprehensible at baseline. History from brother, Solo, who lives with the patient, and with her 24-hour home health aide. Brother reported in the last 4 days, patient was noted to have poor oral intake, chewing some of her food and drinking some of her water but then spitting out or refusing to swallow the rest. Patient has not been complaining of anything, but they noted she was warm this morning. No vomiting, no shortness of breath, no diarrhea. Dx with +UTI. 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 ) - Past Surgical History Past Surgical History: Yes: Joint Replacement (TKR, bilaterally) - Alcohol/Substance Use Hx Alcohol Use: No - Smoking History Smoking history: Never smoked Have you smoked in the past 12 months: No - Social History Usual Living Arrangement: Alone ADL: Support Services (8 hour day home health aid) History of Recent Travel: No Home Medications - Allergies Allergies/Adverse Reactions: Allergies Allergy/AdvReac Type Severity Reaction Status Date / Time No Known Allergies Allergy Verified 07/22/17 07:42 - Home Medications Home Medications: Ambulatory Orders Carbidopa/Levodopa [Carbidopa-Levodopa 25-100 Tab] 1 each PO QID 12/10/18 Carbidopa/Levodopa [Rytary ER 23.75 mg-95 mg Cap] 1 each PO QID 12/10/18 Carbidopa/Levodopa [Rytary ER 36.25 mg-145 mg Cap] 1 each PO QID 12/10/18 Docusate Sodium [Colace] 100 mg PO BID 12/10/18 Furosemide [Lasix -] 20 mg PO DAILY 12/10/18 Losartan Potassium [Cozaar -] 25 mg PO DAILY 12/10/18 Metoprolol Succinate 100 mg PO DAILY 12/10/18 Olanzapine [Zyprexa -] 2.5 mg PO DAILY 12/10/18 Pimavanserin Tartrate [Nuplazid] 2 tab PO DAILY 12/10/18 Quetiapine Fumarate [Quetiapine Fumarate ER] 50 mg PO DAILY 12/10/18 Rasagiline Mesylate [Azilect -] 1 mg PO DAILY 12/10/18 Rivaroxaban [Xarelto -] 20 mg PO DAILY 12/10/18 Rotigotine [Neupro] 1 each TD DAILY 12/10/18 Sennosides [Senna Laxative] 2 tab PO DAILY 12/10/18 Spironolactone [Aldactone] 25 mg PO DAILY 12/10/18 Family Disease History - Family Disease History Family Disease History: Other: Brother (CAD), Sister (DVT thought to be related to inactivity and control pills. She is now off anticoagulation) Physical Exam-Neuro Vital Signs: Vital Signs Temperature 98.3 F 12/19/18 11:54 Pulse Rate 99 H 12/19/18 11:54 Respiratory Rate 20 12/19/18 11:54 Blood Pressure 114/66 12/19/18 11:54 O2 Sat by Pulse Oximetry (%) 96 12/18/18 21:00 Constitutional: Yes: Pallor, Thin Neck: Yes: Decreased ROM Labs: CBCD WBC 7.3 K/mm3 (4.0-10.0) 12/14/18 06:30 RBC 3.09 M/mm3 (3.60-5.2) L 12/14/18 06:30 Hgb 9.4 GM/dL (10.7-15.3) L 12/14/18 06:30 Hct 27.6 % (32.4-45.2) L 12/14/18 06:30 MCV 89.1 fl (80-96) 12/14/18 06:30 MCHC 34.0 g/dl (32.0-36.0) 12/14/18 06:30 RDW 12.8 % (11.6-15.6) 12/14/18 06:30 Plt Count 199 K/MM3 (134-434) 12/14/18 06:30 MPV 9.8 fl (7.5-11.1) 12/14/18 06:30 CMP Sodium 138 mmol/L (136-145) 12/18/18 06:30 Potassium 4.4 mmol/L (3.5-5.1) 12/18/18 06:30 Chloride 104 mmol/L (98-107) 12/18/18 06:30 Carbon Dioxide 28 mmol/L (21-32) 12/18/18 06:30 Anion Gap 5 MMOL/L (8-16) L 12/18/18 06:30 BUN 6 mg/dL (7-18) L 12/18/18 06:30 Creatinine 0.2 mg/dL (0.55-1.3) L 12/18/18 06:30 Creat Clearance w eGFR > 60 (>60) 12/18/18 06:30 Calcium 8.0 mg/dL (8.5-10.1) L 12/18/18 06:30 Total Bilirubin 0.4 mg/dL (0.2-1) 12/11/18 06:30 AST 23 U/L (15-37) 12/11/18 06:30 ALT 14 U/L (13-61) 12/11/18 06:30 Alkaline Phosphatase 147 U/L (45-117) H 12/11/18 06:30 Total Protein 6.3 g/dl (6.4-8.2) L 12/11/18 06:30 Albumin 2.6 g/dl (3.4-5.0) L 12/11/18 06:30 - Neuro Exam Level Of Consciousness: Yes: Sedated (arousable , but poorly attentive, dec verbal outpt, ansers name, hypophonic, diff making needs known, blinks to threat , + cogwheeling and ++Tremor, inc tone in all EXE , plantars dwn ) Imaging - Results Cat Scan: Report Reviewed, Image Reviewed Problem List - Problems (1) Decreased oral intake Code(s): R63.8 - OTHER SYMPTOMS AND SIGNS CONCERNING FOOD AND FLUID INTAKE (2) Atrial fibrillation Code(s): I48.91 - UNSPECIFIED ATRIAL FIBRILLATION (3) Parkinson disease Code(s): G20 - PARKINSON'S DISEASE Assessment/Plan 63 year old female with past medical history of NICM s/p ICD, paroxysmal Afib ( on Xarelto), HTN, DX in 2005 Parkinson's (outpt neuro DR WALTERS) , Psychosis and CHF, BIBA from home due to lethargy and poor oral intake. Patient is a poor historian as she is occasionally incomprehensible at baseline. History from brother, Solo, who lives with the patient, and with her 24-hour home health aide. Brother reported in the last 4 days, patient was noted to have poor oral intake, chewing some of her food and drinking some of her water but then spitting out or refusing to swallow the rest. Patient has not been complaining of anything, but they noted she was warm this morning. No vomiting, no shortness of breath, no diarrhea. Dx with +UTI. spoke to sister today PD DX in 2005 ( not formally Dx with LBD as per sister) dec PO intake, progressive decline last walked in 2017, lives home 24 hour aides, brother lives her well as per speech pathologist, cog impaired as well oupt NEURO as NUPLZID, AZILECT and SINEMET, Nuepro 8/day AP : Decompensated PD , ? ;possible LBD given age/progression, hx of hallucinations ; +UTI/dehyrrated and hypernatremia ? absorption of RX given dysphagia/poor MS -ABX for UTI , IV hydration -completed - continue prior PD regimen RYTARI QID, SINEMET QID, NEUPRO and AZILECT - explained to family they may have to consider alt methods nutrional options , in the case she detiorates in future to avoid medication fluctuations neuro cleared for DC and FU DR MITCHELL outpt neuro DR RANDHAWA Problem List - Problems (1) Decreased oral intake Code(s): R63.8 - OTHER SYMPTOMS AND SIGNS CONCERNING FOOD AND FLUID INTAKE (2) Atrial fibrillation Code(s): I48.91 - UNSPECIFIED ATRIAL FIBRILLATION (3) Parkinson disease Code(s): G20 - PARKINSON'S DISEASE
--- NOTE | 2018-12-19 12:33 | PN ---
Progress Note, RN GYN - Note Progress Note: Selected Entries 12/19/18 12/19/18 06:00 11:54 Temperature 97.9 F 98.3 F Laboratory Tests 12/18/18 14:15 WBC 5.3 More alert today, tolerating puree and thin liquid via cup and straw. Reviewed with pt's sister and brother to puree cali with extra liquid in library media specialist , encourage hydration, Ensure BETWEEN meals. Feed slowly, remind pt to swallow. Monitor pulmonary and nutritional status. Coordinate Parkinsons medication with meal time. If VNS planned at home, may benefit from speech path visists at the home for swallowing, continued family education, and communication.
[2018-12-19] MEDS ORDERED: SENNOSIDES/DOCUSATE COMBO (SENNA PLUS) TABLET (UD) PO ONE (13:41)
--- NOTE | 2018-12-19 19:51 | PN ---
Teaching Attending Note Name of Resident: Nenita Meyer ATTENDING PHYSICIAN STATEMENT I saw and evaluated the patient. I reviewed the resident's note and discussed the case with the resident. I agree with the resident's findings and plan as documented. SUBJECTIVE: Patient is better today . Only consuming 50% of her diet. OBJECTIVE: Vital Signs Temperature 98.8 F 12/19/18 18:00 Pulse Rate 95 H 12/19/18 18:00 Respiratory Rate 18 12/19/18 18:00 Blood Pressure 94/66 12/19/18 18:00 O2 Sat by Pulse Oximetry (%) 94 L 12/19/18 13:51 GENERAL: The patient is awake, alert, and oriented, in no acute distress. EYES: PEERLA; EOMI; no scleral icterus. NECK: no JVD; no lymphadenopathy LUNGS: CTA B/l; no rales, rhonchi or wheezing, however poor inspiratory effort. HEART: RRR, S1, S2 positive , without murmur, rub or gallop. ABDOMEN: Soft, nontender, nondistended, normoactive bowel sounds, no guarding, no rebound, no hepatosplenomegaly, no masses. EXTREMITIES: 2+ pulses, warm, well-perfused, no edema. NEUROLOGICAL: Cranial nerves II through XII grossly intact. Normal speech, gait not observed. PSYCH: Normal mood, normal affect. SKIN: Warm, dry, normal turgor, no rashes or lesions noted CBCD WBC 5.3 K/mm3 (4.0-10.0) 12/18/18 14:15 RBC 3.26 M/mm3 (3.60-5.2) L 12/18/18 14:15 Hgb 9.8 GM/dL (10.7-15.3) L 12/18/18 14:15 Hct 29.2 % (32.4-45.2) L 12/18/18 14:15 MCV 89.7 fl (80-96) 12/18/18 14:15 MCHC 33.6 g/dl (32.0-36.0) 12/18/18 14:15 RDW 13.8 % (11.6-15.6) 12/18/18 14:15 Plt Count 252 K/MM3 (134-434) D 12/18/18 14:15 MPV 9.7 fl (7.5-11.1) 12/18/18 14:15 CMP Sodium 137 mmol/L (136-145) 12/19/18 06:20 Potassium 4.2 mmol/L (3.5-5.1) 12/19/18 06:20 Chloride 103 mmol/L (98-107) 12/19/18 06:20 Carbon Dioxide 30 mmol/L (21-32) 12/19/18 06:20 Anion Gap 4 MMOL/L (8-16) L 12/19/18 06:20 BUN 5 mg/dL (7-18) L 12/19/18 06:20 Creatinine 0.2 mg/dL (0.55-1.3) L 12/19/18 06:20 Creat Clearance w eGFR > 60 (>60) 12/19/18 06:20 Random Glucose 97 mg/dL (74-106) 12/19/18 06:20 Calcium 8.4 mg/dL (8.5-10.1) L 12/19/18 06:20 Total Bilirubin 0.4 mg/dL (0.2-1) 12/11/18 06:30 AST 23 U/L (15-37) 12/11/18 06:30 ALT 14 U/L (13-61) 12/11/18 06:30 Alkaline Phosphatase 147 U/L (45-117) H 12/11/18 06:30 Total Protein 6.3 g/dl (6.4-8.2) L 12/11/18 06:30 Albumin 2.6 g/dl (3.4-5.0) L 12/11/18 06:30 CARDIAC ENZYMES Creatine Kinase 50 U/L (26-192) 12/10/18 13:49 Troponin I < 0.02 ng/ml (0.00-0.05) 12/10/18 13:49 Current Medications Generic Name Dose Route Start Last Admin Trade Name Freq PRN Reason Stop Dose Admin Bisacodyl 10 mg 12/14/18 17:27 Dulcolax Suppository - [place] PRN PRN CONSTIPATION Carbidopa/Levodopa 1 each 12/16/18 18:00 12/19/18 14:04 Sinemet 25/100 - PO 1 each QID JOE Administration Sodium Chloride 1,000 mls @ 80 mls/hr 12/13/18 17:32 12/19/18 13:25 1/2 Normal Saline IV 80 mls/hr ASDIR JOE Administration Metoprolol Tartrate 50 mg 12/13/18 22:00 12/19/18 11:00 Lopressor - GT 50 mg BID JOE Administration Ptnt's Own Med( 1 each 12/12/18 10:00 12/19/18 11:00 Rotigotine [Neupro] TD 1 each 1 Each) DAILY JOE Administration Non-Formulary Medication 1 tab 12/13/18 18:15 12/19/18 11:00 Pimavanserin Tartrate [Nuplazid] GT 1 tab DAILY JOE Administration Olanzapine 2.5 mg 12/13/18 15:36 12/19/18 11:00 Zyprexa - GT 2.5 mg DAILY JOE Administration Polyethylene Glycol 17 gm 12/14/18 10:00 12/19/18 11:00 Miralax (For Daily Use) - NGT 17 grams DAILY JOE Administration Rasagiline 1 mg 12/13/18 15:36 12/19/18 11:00 Azilect - PO 1 mg DAILY JOE Administration Senna 8.8 mg 12/14/18 22:00 12/18/18 22:39 Senna Oral Solution - NGT 8.8 mg HS JOE Administration Silver Sulfadiazine 1 applic 12/18/18 16:15 12/19/18 11:00 Silvadene - TP 1 applic DAILY JOE Administration Home Medications Medication Instructions Recorded Carbidopa/Levodopa 1 each PO QID 12/10/18 [Carbidopa-Levodopa 25-100 Tab] Carbidopa/Levodopa [Rytary ER 1 each PO QID 12/10/18 23.75 mg-95 mg Cap] Carbidopa/Levodopa [Rytary ER 1 each PO QID 12/10/18 36.25 mg-145 mg Cap] Docusate Sodium [Colace] 100 mg PO BID 12/10/18 Furosemide [Lasix -] 20 mg PO DAILY 12/10/18 Losartan Potassium [Cozaar -] 25 mg PO DAILY 12/10/18 Metoprolol Succinate 100 mg PO DAILY 12/10/18 Olanzapine [Zyprexa -] 2.5 mg PO DAILY 12/10/18 Pimavanserin Tartrate [Nuplazid] 2 tab PO DAILY 12/10/18 Quetiapine Fumarate [Quetiapine 50 mg PO DAILY 12/10/18 Fumarate ER] Rasagiline Mesylate [Azilect -] 1 mg PO DAILY 12/10/18 Rivaroxaban [Xarelto -] 20 mg PO DAILY 12/10/18 Rotigotine [Neupro] 1 each TD DAILY 12/10/18 Sennosides [Senna Laxative] 2 tab PO DAILY 12/10/18 Spironolactone [Aldactone] 25 mg PO DAILY 12/10/18 Rotigotine [Neupro] 1 patch TD DAILY 12/11/18 ASSESSMENT AND PLAN: Patient is a 63 y/o lady with h/o dementia, Parkinson's, NICM, PAF, psychosis, CHF, who presented with poor po intake and was found to have UTI and severe dehydration. # Functional quadraplegia due to having advanced Parkinsonism. # Poor po intake, Passed MBS. caloric count to continue, patient's family is thinking of PEG tube placement. NPO after midnight, NG tube for G-tube placement by IR, family requesting G-tube placement. NG tube tonight, and for IR in am for G-tube placement. # Acute UTI: s/p 7 days of abx # Acute severe dehydration, and hypernatremia, resolved. # H/o PAF: on Lovenox in case PEG tube is needed after calori count is done # Parkinson's: Cont home dose meds ( rytary, and Sinemet) in addition to Neupro patch and Azilect. # H/o HTN: off Losartan due to hypotension. . BPimproved. cont BB . can adjust dose if needed. DVT Px: SCDs
[2018-12-19] MEDS: SENNOSIDES 8.8 MG/5 ML BULK BOTTLE NGT SCH (21:51)
[2018-12-20 08:35] LABS: BASO % 0.3 % (0-2.0); EOS % 2.2 % (0-4.5); HEMATOCRIT 30.6 % (32.4-45.2); HEMOGLOBIN 10.5 GM/dL (10.7-15.3); LYMPH % 13.2 % (8-40); MCH 30.9 pg (25.7-33.7); MCHC 34.5 g/dl (32.0-36.0); MEAN CELL VOLUME 89.6 fl (80-96); MEAN PLT VOLUME 9.8 fl (7.5-11.1); MONO % 7.4 % (3.8-10.2); NEUT % 76.9 % (42.8-82.8); PLATELET COUNT 291 K/MM3 (134-434); RBC 3.41 M/mm3 (3.60-5.2); RDW 13.9 % (11.6-15.6); WHITE BLOOD COUNT 6.3 K/mm3 (4.0-10.0)
[2018-12-20 08:52] LABS: INR 1.03 (0.83-1.09); PROTHROMBIN TIME (PATIENT) 12.1 SEC (9.7-13.0)
[2018-12-20] MEDS: POLYETHYLENE GLYCOL 3350 119 GM BTL NGT SCH (11:09)
[2018-12-20] MEDS: CARBIDOPA/LEVODOPA 25/100 TABLET (FP) PO SCH ×4 (11:09→22:48)
[2018-12-20] MEDS: METOPROLOL TARTRATE 50 MG TABLET (FP) GT SCH ×2 (11:09→22:48)
[2018-12-20] MEDS: RASAGILINE MESYLATE 1 MG TABLET PO SCH ×2 (11:09→15:03)
[2018-12-20] MEDS: PIMAVANSERIN TARTRATE GT SCH ×2 (11:09→15:03)
[2018-12-20] MEDS: OLANZapine 2.5 MG TABLET GT SCH ×2 (11:10→15:02)
[2018-12-20] MEDS: [UNRECOGNIZED DRUG - OTHER] TD SCH (11:15)
[2018-12-20] MEDS: SILVER SULFADIAZINE 1% TOP CREAM 50 GM JAR TP SCH (11:16)
[2018-12-20] MEDS ORDERED: GLUCAGON 1 MG KIT IVPUSH ONE (13:00)
--- NOTE | 2018-12-20 13:25 | PN ---
Physical Exam: SUBJECTIVE: Patient seen and examined at bedside- no acute events overnight; patient was much alert this AM- patient got NG tube placed last night and went for PEG placement this afternoon- ROS limited however patient denies being in any pain OBJECTIVE: Vital Signs Period Temp Pulse Resp BP Sys/German Pulse Ox Last 24 Hr 97.6 F-98.9 F 78-105 17-20 94-156/56-78 94-100 GENERAL: The patient is awake, alert, EYES:PEERL; EOMI; no scleral icterus. NECK: Trachea midline, full range of motion, supple. LUNGS: poor inspiratory effort; however, CTA B/L; no rales,rhonchi or wheezing. HEART: Regular rate and rhythm, S1, S2 without murmur, rub or gallop. ABDOMEN: Soft, nontender, nondistended, normoactive bowel sounds, no guarding, no rebound, no hepatosplenomegaly, no masses. EXTREMITIES: 2+ pulses, warm, well-perfused, no edema, contracted position. PSYCH: Normal mood, normal affect. SKIN: Warm, dry, normal turgor, no rashes or lesions noted Laboratory Results - last 24 hr 12/20/18 12/20/18 12/20/18 06:20 06:20 06:20 WBC 6.3 RBC 3.41 L Hgb 10.5 L Hct 30.6 L MCV 89.6 MCH 30.9 MCHC 34.5 RDW 13.9 Plt Count 291 MPV 9.8 Absolute Neuts (auto) 4.8 Neutrophils % 76.9 Lymphocytes % 13.2 D Monocytes % 7.4 Eosinophils % 2.2 Basophils % 0.3 Nucleated RBC % 0 PT with INR 12.10 INR 1.03 B-Natriuretic Peptide 101.2 Active Medications Generic Name Dose Route Start Last Admin Trade Name Freq PRN Reason Stop Dose Admin Bisacodyl 10 mg 12/14/18 17:27 Dulcolax Suppository - [place] PRN PRN CONSTIPATION Carbidopa/Levodopa 1 each 12/16/18 18:00 12/20/18 11:09 Sinemet 25/100 - PO Not Given QID JOE Sodium Chloride 1,000 mls @ 80 mls/hr 12/13/18 17:32 12/19/18 20:09 1/2 Normal Saline IV 80 mls/hr ASDIR JOE Administration Metoprolol Tartrate 50 mg 12/13/18 22:00 12/20/18 11:09 Lopressor - GT Not Given BID JOE Ptnt's Own Med( 1 each 12/12/18 10:00 12/20/18 11:15 Rotigotine [Neupro] TD 1 each 1 Each) DAILY JOE Administration Non-Formulary Medication 1 tab 12/13/18 18:15 12/20/18 11:09 Pimavanserin Tartrate [Nuplazid] GT Not Given DAILY JOE Olanzapine 2.5 mg 12/13/18 15:36 12/20/18 11:10 Zyprexa - GT Not Given DAILY JOE Polyethylene Glycol 17 gm 12/14/18 10:00 12/20/18 11:09 Miralax (For Daily Use) - NGT Not Given DAILY JOE Rasagiline 1 mg 12/13/18 15:36 12/20/18 11:09 Azilect - PO Not Given DAILY JOE Senna 8.8 mg 12/14/18 22:00 12/19/18 21:51 Senna Oral Solution - NGT Not Given HS JOE Silver Sulfadiazine 1 applic 12/18/18 16:15 12/20/18 11:16 Silvadene - TP 1 applic DAILY JOE Administration ASSESSMENT/PLAN: Patient is a 63 year old female with past medical history of NICM s/p ICD, paroxysmal Afib (on Xarelto), HTN, Parkinson's, Psychosis and CHF, BIBA from home due to lethargy and poor oral intake. #Hypernatremia likely 2/2 poor oral intake, dehydration:resolved * IV 1/2 NS @83 cc/hr * since resolved * no longer having AMS #Failure to thrive * patient went for PEG tube today * will follow dietary recs on feeding #Parkinson's * Continue home medications: * Rasagiline, Sinemet, Nuplazid, Olanzapine, Quetiapine, Neupro patch #Paroxysmal Atrial fibrillation * will restart Xarelto once getting the ok from IR since patient just got PEG done today * cont Metoprolol 50mg BID given hypotension #CHF, stable Not in exacerbation,Will hold lasix #FEN * IV 1/2 NS @ 83 cc/hr * monitor electrolytes, * tube feeds since patient received PEG tube today #Prophylaxis * Lovenox 50mg sq BID #Disposition * Palliative care on board\ * home with VNS again Problem List - Problems (1) Hypernatremia Code(s): E87.0 - HYPEROSMOLALITY AND HYPERNATREMIA (2) Anticoagulant-induced bleeding Code(s): T45.7X1A - POISN BY ANTICOAG ANTAG, VITAMIN K AND OTH COAG, ACC, INIT; D68.9 - COAGULATION DEFECT, UNSPECIFIED (3) Atrial fibrillation Code(s): I48.91 - UNSPECIFIED ATRIAL FIBRILLATION Visit type - Emergency Visit Emergency Visit: Yes ED Registration Date: 12/10/18 Care time: The patient presented to the Emergency Department on the above date and was hospitalized for further evaluation of their emergent condition. - New Patient This patient is new to me today: No - Critical Care Critical Care patient: No
--- NOTE | 2018-12-20 14:53 | PN ---
Progress Note, SILICATOR - Note Progress Note: Peg placed via IR for trial. Suggest continue PO for pleasure to maintain swallowing function.
[2018-12-20 15:43] VITALS: BMI 22.8
[2018-12-20] MEDS: SODIUM CHLORIDE 0.45% 1,000 ML IV SCH (18:25)
--- NOTE | 2018-12-20 20:00 | PN ---
Teaching Attending Note Name of Resident: Nenita Meyer ATTENDING PHYSICIAN STATEMENT I saw and evaluated the patient. I reviewed the resident's note and discussed the case with the resident. I agree with the resident's findings and plan as documented. SUBJECTIVE: Patient is s/p G-tube placement. OBJECTIVE: Vital Signs Temperature 97.7 F 12/20/18 18:00 Pulse Rate 113 H 12/20/18 18:00 Respiratory Rate 18 12/20/18 18:00 Blood Pressure 120/79 12/20/18 18:00 O2 Sat by Pulse Oximetry (%) 100 12/20/18 12:47 GENERAL: The patient is awake, alert, and fully oriented, in no acute distress. EYES: PEERLA; EOMI; no scleral icterus. NECK: no JVD; no lymphadenopathy LUNGS: CTA B/l; no rales, rhonchi or wheezing, however poor inspiratory effort. HEART: RRR, S1, S2 positive , without murmur, rub or gallop. ABDOMEN: Soft, nontender, nondistended, normoactive bowel sounds, no guarding, no rebound, no hepatosplenomegaly, no masses. EXTREMITIES: 2+ pulses, warm, well-perfused, no edema. NEUROLOGICAL: Cranial nerves II through XII grossly intact. Normal speech, gait not observed. PSYCH: Normal mood, normal affect. SKIN: Warm, dry, normal turgor, no rashes or lesions noted CBCD WBC 6.3 K/mm3 (4.0-10.0) 12/20/18 06:20 RBC 3.41 M/mm3 (3.60-5.2) L 12/20/18 06:20 Hgb 10.5 GM/dL (10.7-15.3) L 12/20/18 06:20 Hct 30.6 % (32.4-45.2) L 12/20/18 06:20 MCV 89.6 fl (80-96) 12/20/18 06:20 MCHC 34.5 g/dl (32.0-36.0) 12/20/18 06:20 RDW 13.9 % (11.6-15.6) 12/20/18 06:20 Plt Count 291 K/MM3 (134-434) 12/20/18 06:20 MPV 9.8 fl (7.5-11.1) 12/20/18 06:20 CMP Sodium 137 mmol/L (136-145) 12/19/18 06:20 Potassium 4.2 mmol/L (3.5-5.1) 12/19/18 06:20 Chloride 103 mmol/L (98-107) 12/19/18 06:20 Carbon Dioxide 30 mmol/L (21-32) 12/19/18 06:20 Anion Gap 4 MMOL/L (8-16) L 12/19/18 06:20 BUN 5 mg/dL (7-18) L 12/19/18 06:20 Creatinine 0.2 mg/dL (0.55-1.3) L 12/19/18 06:20 Creat Clearance w eGFR > 60 (>60) 12/19/18 06:20 Random Glucose 97 mg/dL (74-106) 12/19/18 06:20 Calcium 8.4 mg/dL (8.5-10.1) L 12/19/18 06:20 Total Bilirubin 0.4 mg/dL (0.2-1) 12/11/18 06:30 AST 23 U/L (15-37) 12/11/18 06:30 ALT 14 U/L (13-61) 12/11/18 06:30 Alkaline Phosphatase 147 U/L (45-117) H 12/11/18 06:30 Total Protein 6.3 g/dl (6.4-8.2) L 12/11/18 06:30 Albumin 2.6 g/dl (3.4-5.0) L 12/11/18 06:30 CARDIAC ENZYMES Creatine Kinase 50 U/L (26-192) 12/10/18 13:49 Troponin I < 0.02 ng/ml (0.00-0.05) 12/10/18 13:49 Current Medications Generic Name Dose Route Start Last Admin Trade Name Freq PRN Reason Stop Dose Admin Bisacodyl 10 mg 12/14/18 17:27 Dulcolax Suppository - [place] PRN PRN CONSTIPATION Carbidopa/Levodopa 1 each 12/16/18 18:00 12/20/18 18:25 Sinemet 25/100 - PO 1 each QID JOE Administration Sodium Chloride 1,000 mls @ 80 mls/hr 12/13/18 17:32 12/20/18 18:25 1/2 Normal Saline IV 80 mls/hr ASDIR JOE Administration Metoprolol Tartrate 50 mg 12/13/18 22:00 12/20/18 11:09 Lopressor - GT Not Given BID JOE Ptnt's Own Med( 1 each 12/12/18 10:00 12/20/18 11:15 Rotigotine [Neupro] TD 1 each 1 Each) DAILY JOE Administration Non-Formulary Medication 1 tab 12/13/18 18:15 12/20/18 15:03 Pimavanserin Tartrate [Nuplazid] GT 1 tab DAILY JOE Administration Olanzapine 2.5 mg 12/13/18 15:36 12/20/18 15:02 Zyprexa - GT 2.5 mg DAILY JOE Administration Polyethylene Glycol 17 gm 12/14/18 10:00 12/20/18 11:09 Miralax (For Daily Use) - NGT Not Given DAILY JOE Rasagiline 1 mg 12/13/18 15:36 12/20/18 15:03 Azilect - PO 1 mg DAILY JOE Administration Senna 8.8 mg 12/14/18 22:00 12/19/18 21:51 Senna Oral Solution - NGT Not Given HS JOE Silver Sulfadiazine 1 applic 12/18/18 16:15 12/20/18 11:16 Silvadene - TP 1 applic DAILY JOE Administration Home Medications Medication Instructions Recorded Carbidopa/Levodopa 1 each PO QID 12/10/18 [Carbidopa-Levodopa 25-100 Tab] Carbidopa/Levodopa [Rytary ER 1 each PO QID 12/10/18 23.75 mg-95 mg Cap] Carbidopa/Levodopa [Rytary ER 1 each PO QID 12/10/18 36.25 mg-145 mg Cap] Docusate Sodium [Colace] 100 mg PO BID 12/10/18 Furosemide [Lasix -] 20 mg PO DAILY 12/10/18 Losartan Potassium [Cozaar -] 25 mg PO DAILY 12/10/18 Metoprolol Succinate 100 mg PO DAILY 12/10/18 Olanzapine [Zyprexa -] 2.5 mg PO DAILY 12/10/18 Pimavanserin Tartrate [Nuplazid] 2 tab PO DAILY 12/10/18 Quetiapine Fumarate [Quetiapine 50 mg PO DAILY 12/10/18 Fumarate ER] Rasagiline Mesylate [Azilect -] 1 mg PO DAILY 12/10/18 Rivaroxaban [Xarelto -] 20 mg PO DAILY 12/10/18 Rotigotine [Neupro] 1 each TD DAILY 12/10/18 Sennosides [Senna Laxative] 2 tab PO DAILY 12/10/18 Spironolactone [Aldactone] 25 mg PO DAILY 12/10/18 Rotigotine [Neupro] 1 patch TD DAILY 12/11/18 ASSESSMENT AND PLAN: Patient is a 63 y/o lady with h/o dementia, Parkinson's, NICM, PAF, psychosis, CHF, who presented with poor po intake and was found to have UTI and severe dehydration. # Poor po intake, Passed MBS. Patient had G-tube placement for increASE THE caloriC INTAKE SINCE PATIENT IS NOT TAKING ENOUGH food. G- tube in place. by IR . NPO after midnight, NG tube for Gtube placement by IR, family requesting Gtube placement today. # Acute UTI: s/p 7 days of abx # Acute severe dehydration, and hypernatremia, resolved. # H/o PAF: on Lovenox in case PEG tube is needed after caloric count is done # Parkinson's: Cont home dose meds ( rytary, and Sinemet) in addition to Neupro patch and Azilect. # H/o HTN: off Losartan due to hypotension. . BPimproved. cont BB . can adjust dose if needed. DVT Px: lovenox sq
[2018-12-20] MEDS: SENNOSIDES 8.8 MG/5 ML BULK BOTTLE NGT SCH (22:48)
[2018-12-21] MEDS: SODIUM CHLORIDE 0.45% 1,000 ML IV SCH ×2 (06:08→18:08)
[2018-12-21 07:53] LABS: HEMATOCRIT 30.3 % (32.4-45.2); HEMOGLOBIN 10.4 GM/dL (10.7-15.3); MCH 30.5 pg (25.7-33.7); MCHC 34.2 g/dl (32.0-36.0); MEAN CELL VOLUME 89.2 fl (80-96); MEAN PLT VOLUME 9.1 fl (7.5-11.1); PLATELET COUNT 296 K/MM3 (134-434); RBC 3.39 M/mm3 (3.60-5.2); RDW 13.6 % (11.6-15.6); WHITE BLOOD COUNT 6.6 K/mm3 (4.0-10.0)
[2018-12-21] MEDS: OLANZapine 2.5 MG TABLET GT SCH (10:29)
[2018-12-21] MEDS: CARBIDOPA/LEVODOPA 25/100 TABLET (FP) PO SCH ×4 (10:29→21:23)
[2018-12-21] MEDS: METOPROLOL TARTRATE 50 MG TABLET (FP) GT SCH ×2 (10:29→21:22)
[2018-12-21] MEDS: RASAGILINE MESYLATE 1 MG TABLET PO SCH (10:30)
[2018-12-21] MEDS: PIMAVANSERIN TARTRATE GT SCH (10:30)
[2018-12-21] MEDS: SILVER SULFADIAZINE 1% TOP CREAM 50 GM JAR TP SCH (10:31)
[2018-12-21] MEDS: [UNRECOGNIZED DRUG - OTHER] TD SCH (10:31)
[2018-12-21] MEDS: POLYETHYLENE GLYCOL 3350 119 GM BTL NGT SCH (10:33)
[2018-12-21] MEDS: ACETAMINOPHEN 650 MG/20.3 ML ORAL SOLUTION (CUPS) PO PRN (14:55)
--- NOTE | 2018-12-21 18:12 | PN ---
Progress Note (short form) - Note Progress Note: Patient is lying in bed with no acute distress. Vital Signs Temperature 98.9 F 12/21/18 14:28 Pulse Rate 81 12/21/18 14:28 Respiratory Rate 20 12/21/18 14:28 Blood Pressure 123/67 12/21/18 14:28 O2 Sat by Pulse Oximetry (%) 100 12/21/18 09:00 GENERAL: The patient is awake, eyes open, getting fed by the family member. in no acute distress. EYES: PEERLA; EOMI; no scleral icterus. NECK: no JVD; no lymphadenopathy LUNGS: CTA B/l; no rales, rhonchi or wheezing, however poor inspiratory effort. HEART: RRR, S1, S2 positive , without murmur, rub or gallop. ABDOMEN: Soft, nontender, nondistended, normoactive bowel sounds, no guarding, no rebound, no hepatosplenomegaly, no masses. EXTREMITIES: 2+ pulses, warm, well-perfused, no edema. NEUROLOGICAL: Cranial nerves II through XII grossly intact. Normal speech, gait not observed. PSYCH: Normal mood, normal affect. SKIN: Warm, dry, normal turgor, no rashes or lesions noted CBCD WBC 6.6 K/mm3 (4.0-10.0) 12/21/18 07:00 RBC 3.39 M/mm3 (3.60-5.2) L 12/21/18 07:00 Hgb 10.4 GM/dL (10.7-15.3) L 12/21/18 07:00 Hct 30.3 % (32.4-45.2) L 12/21/18 07:00 MCV 89.2 fl (80-96) 12/21/18 07:00 MCHC 34.2 g/dl (32.0-36.0) 12/21/18 07:00 RDW 13.6 % (11.6-15.6) 12/21/18 07:00 Plt Count 296 K/MM3 (134-434) 12/21/18 07:00 MPV 9.1 fl (7.5-11.1) 12/21/18 07:00 CMP Sodium 137 mmol/L (136-145) 12/19/18 06:20 Potassium 4.2 mmol/L (3.5-5.1) 12/19/18 06:20 Chloride 103 mmol/L (98-107) 12/19/18 06:20 Carbon Dioxide 30 mmol/L (21-32) 12/19/18 06:20 Anion Gap 4 MMOL/L (8-16) L 12/19/18 06:20 BUN 5 mg/dL (7-18) L 12/19/18 06:20 Creatinine 0.2 mg/dL (0.55-1.3) L 12/19/18 06:20 Creat Clearance w eGFR > 60 (>60) 12/19/18 06:20 Random Glucose 97 mg/dL (74-106) 12/19/18 06:20 Calcium 8.4 mg/dL (8.5-10.1) L 12/19/18 06:20 Total Bilirubin 0.4 mg/dL (0.2-1) 12/11/18 06:30 AST 23 U/L (15-37) 12/11/18 06:30 ALT 14 U/L (13-61) 12/11/18 06:30 Alkaline Phosphatase 147 U/L (45-117) H 12/11/18 06:30 Total Protein 6.3 g/dl (6.4-8.2) L 12/11/18 06:30 Albumin 2.6 g/dl (3.4-5.0) L 12/11/18 06:30 CARDIAC ENZYMES Creatine Kinase 50 U/L (26-192) 12/10/18 13:49 Troponin I < 0.02 ng/ml (0.00-0.05) 12/10/18 13:49 Current Medications Generic Name Dose Route Start Last Admin Trade Name Freq PRN Reason Stop Dose Admin Acetaminophen 650 mg 12/21/18 12:22 12/21/18 14:55 Tylenol Oral Solution - PO 650 mg Q6H PRN Administration pain Bisacodyl 10 mg 12/14/18 17:27 Dulcolax Suppository - [place] PRN PRN CONSTIPATION Carbidopa/Levodopa 1 each 12/16/18 18:00 12/21/18 18:08 Sinemet 25/100 - PO 1 each QID JOE Administration Sodium Chloride 1,000 mls @ 80 mls/hr 12/13/18 17:32 12/21/18 18:08 1/2 Normal Saline IV 80 mls/hr ASDIR JOE Administration Metoprolol Tartrate 50 mg 12/13/18 22:00 12/21/18 10:29 Lopressor - GT 50 mg BID JOE Administration Ptnt's Own Med( 1 each 12/12/18 10:00 12/21/18 10:31 Rotigotine [Neupro] TD 1 each 1 Each) DAILY JOE Administration Non-Formulary Medication 1 tab 12/13/18 18:15 12/21/18 10:30 Pimavanserin Tartrate [Nuplazid] GT 1 tab DAILY JOE Administration Olanzapine 2.5 mg 12/13/18 15:36 12/21/18 10:29 Zyprexa - GT 2.5 mg DAILY JOE Administration Polyethylene Glycol 17 gm 12/14/18 10:00 12/21/18 10:33 Miralax (For Daily Use) - NGT 17 grams DAILY JOE Administration Rasagiline 1 mg 12/13/18 15:36 12/21/18 10:30 Azilect - PO 1 mg DAILY JOE Administration Senna 8.8 mg 12/14/18 22:00 12/20/18 22:48 Senna Oral Solution - NGT 8.8 mg HS JOE Administration Silver Sulfadiazine 1 applic 12/18/18 16:15 12/21/18 10:31 Silvadene - TP 1 applic DAILY JOE Administration Home Medications Medication Instructions Recorded Carbidopa/Levodopa 1 each PO QID 12/10/18 [Carbidopa-Levodopa 25-100 Tab] Carbidopa/Levodopa [Rytary ER 1 each PO QID 12/10/18 23.75 mg-95 mg Cap] Carbidopa/Levodopa [Rytary ER 1 each PO QID 12/10/18 36.25 mg-145 mg Cap] Docusate Sodium [Colace] 100 mg PO BID 12/10/18 Furosemide [Lasix -] 20 mg PO DAILY 12/10/18 Losartan Potassium [Cozaar -] 25 mg PO DAILY 12/10/18 Metoprolol Succinate 100 mg PO DAILY 12/10/18 Olanzapine [Zyprexa -] 2.5 mg PO DAILY 12/10/18 Pimavanserin Tartrate [Nuplazid] 2 tab PO DAILY 12/10/18 Quetiapine Fumarate [Quetiapine 50 mg PO DAILY 12/10/18 Fumarate ER] Rasagiline Mesylate [Azilect -] 1 mg PO DAILY 12/10/18 Rivaroxaban [Xarelto -] 20 mg PO DAILY 12/10/18 Rotigotine [Neupro] 1 each TD DAILY 12/10/18 Sennosides [Senna Laxative] 2 tab PO DAILY 12/10/18 Spironolactone [Aldactone] 25 mg PO DAILY 12/10/18 Rotigotine [Neupro] 1 patch TD DAILY 12/11/18 Patient is a 63 y/o lady with h/o dementia, Parkinson's, NICM, PAF, psychosis, CHF, who presented with poor po intake and was found to have UTI and severe dehydration. #POD #1 for G-tube placment due to Poor po intake, Passed MBS. placed by IR . Gtube feed, as per dietition's recommendation. # Acute UTI: s/p 7 days of abx # Acute severe dehydration, and hypernatremia, resolved. # H/o PAF: on Lovenox in case PEG tube is needed after caloric count is done # Parkinson's: Cont home dose meds ( rytary, and Sinemet) in addition to Neupro patch and Azilect. # H/o HTN: off Losartan due to hypotension. . BPimproved. cont BB . can adjust dose if needed. # Functional quadraplegia. DVT Px: lovenox sq Visit type - Emergency Visit Emergency Visit: Yes ED Registration Date: 12/10/18 Care time: The patient presented to the Emergency Department on the above date and was hospitalized for further evaluation of their emergent condition. - New Patient This patient is new to me today: No - Critical Care Critical Care patient: No - Discharge Referral Referred to [facility] No
[2018-12-21] MEDS: ENOXAPARIN NA (PORCINE) 40 MG/0.4 ML DISP.SYRIN SQ SCH (21:22)
[2018-12-21] MEDS: SENNOSIDES 8.8 MG/5 ML BULK BOTTLE NGT SCH (21:23)
[2018-12-22] MEDS: ACETAMINOPHEN 650 MG/20.3 ML ORAL SOLUTION (CUPS) PO PRN ×2 (03:42→15:41)
--- NOTE | 2018-12-22 10:08 | PN ---
Physical Exam: SUBJECTIVE: Patient seen and examined at bedside- no acute events overnight; patients tube feeds were started yesterday and she is tolerating them well. ROS limited however patient denies any pain OBJECTIVE: Vital Signs Period Temp Pulse Resp BP Sys/German Pulse Ox Last 24 Hr 98.1 F-99.2 F 81-102 18-20 119-132/58-77 100 GENERAL: The patient is awake, slightly somnolent but arousable, in no acute distress. EYES: EOMI; PEERLA; no scleral icterus NECK: no JVD; no lymphadenopathy LUNGS: poor inspiratory effort however; lungs CTA B/L; no rales, rhonchi or wheezing appreciated. HEART: Regular rate and rhythm, S1, S2 without murmur, rub or gallop. ABDOMEN: Soft, nontender, nondistended, normoactive bowel sounds, no guarding, no rebound, no hepatosplenomegaly, no masses. EXTREMITIES: 2+ pulses, warm, well-perfused, no edema; . NEUROLOGICAL: Cranial nerves II through XII grossly intact. Normal speech, gait not observed. PSYCH: Normal mood, normal affect. SKIN: Warm, dry, normal turgor, no rashes or lesions noted Active Medications Generic Name Dose Route Start Last Admin Trade Name Freq PRN Reason Stop Dose Admin Acetaminophen 650 mg 12/21/18 12:22 12/22/18 03:42 Tylenol Oral Solution - PO 650 mg Q6H PRN Administration pain Bisacodyl 10 mg 12/14/18 17:27 Dulcolax Suppository - [place] PRN PRN CONSTIPATION Carbidopa/Levodopa 1 each 12/16/18 18:00 12/21/18 21:23 Sinemet 25/100 - PO 1 each QID JOE Administration Enoxaparin Sodium 40 mg 12/21/18 22:00 12/21/18 21:22 Lovenox - SQ 40 mg BID JOE Administration Sodium Chloride 1,000 mls @ 80 mls/hr 12/13/18 17:32 12/21/18 18:08 1/2 Normal Saline IV 80 mls/hr ASDIR JOE Administration Metoprolol Tartrate 50 mg 12/13/18 22:00 12/21/18 21:22 Lopressor - GT 50 mg BID JOE Administration Ptnt's Own Med( 1 each 12/12/18 10:00 12/21/18 10:31 Rotigotine [Neupro] TD 1 each 1 Each) DAILY JOE Administration Non-Formulary Medication 1 tab 12/13/18 18:15 12/21/18 10:30 Pimavanserin Tartrate [Nuplazid] GT 1 tab DAILY JOE Administration Olanzapine 2.5 mg 12/13/18 15:36 12/21/18 10:29 Zyprexa - GT 2.5 mg DAILY JOE Administration Polyethylene Glycol 17 gm 12/14/18 10:00 12/21/18 10:33 Miralax (For Daily Use) - NGT 17 grams DAILY JOE Administration Rasagiline 1 mg 12/13/18 15:36 12/21/18 10:30 Azilect - PO 1 mg DAILY JOE Administration Senna 8.8 mg 12/14/18 22:00 12/21/18 21:23 Senna Oral Solution - NGT 8.8 mg HS JOE Administration Silver Sulfadiazine 1 applic 12/18/18 16:15 12/21/18 10:31 Silvadene - TP 1 applic DAILY JOE Administration ASSESSMENT/PLAN: Patient is a 63 year old female with past medical history of NICM s/p ICD, paroxysmal Afib (on Xarelto), HTN, Parkinson's, Psychosis and CHF, BIBA from home due to lethargy and poor oral intake. #Hypernatremia likely 2/2 poor oral intake, dehydration:resolved * IV 1/2 NS @83 cc/hr * since resolved * no longer having AMS #Failure to thrive * patient is POD #2 from PEG tube * tube feeds started yesterday in addition to dysphagia pureed diet #Parkinson's * Continue home medications: * Rasagiline, Sinemet, Nuplazid, Olanzapine, Quetiapine, Neupro patch #Paroxysmal Atrial fibrillation * will restart Xarelto when given the OK since PEG tube was just placed ; however, need to speak to patients cardiologsit regarding exact dosing * for now; lovenox 40mg BID * holding Metoprolol 50mg BID given hypotension #CHF, stable Not in exacerbation,Will hold lasix #FEN * IV 1/2 NS @ 83 cc/hr * monitor electrolytes, * tube feeds in addition to dysphagia pureed diet #Prophylaxis * Lovenox 40mg sq BID #Disposition * Palliative care on board\ * home with VNS again Problem List - Problems (1) Hypernatremia Code(s): E87.0 - HYPEROSMOLALITY AND HYPERNATREMIA (2) Anticoagulant-induced bleeding Code(s): T45.7X1A - POISN BY ANTICOAG ANTAG, VITAMIN K AND OTH COAG, ACC, INIT; D68.9 - COAGULATION DEFECT, UNSPECIFIED (3) Atrial fibrillation Code(s): I48.91 - UNSPECIFIED ATRIAL FIBRILLATION Visit type - Emergency Visit Emergency Visit: Yes ED Registration Date: 12/10/18 Care time: The patient presented to the Emergency Department on the above date and was hospitalized for further evaluation of their emergent condition. - New Patient This patient is new to me today: No - Critical Care Critical Care patient: No
[2018-12-22] MEDS ORDERED: PT OWN MED DRAWER 7, Y5N ONE (11:05)
[2018-12-22] MEDS: METOPROLOL TARTRATE 50 MG TABLET (FP) GT SCH ×2 (11:27→22:13)
[2018-12-22] MEDS: CARBIDOPA/LEVODOPA 25/100 TABLET (FP) PO SCH ×4 (11:27→22:13)
[2018-12-22] MEDS: OLANZapine 2.5 MG TABLET GT SCH (11:27)
[2018-12-22] MEDS: RASAGILINE MESYLATE 1 MG TABLET PO SCH (11:28)
[2018-12-22] MEDS: PIMAVANSERIN TARTRATE GT SCH (11:31)
[2018-12-22] MEDS: ENOXAPARIN NA (PORCINE) 40 MG/0.4 ML DISP.SYRIN SQ SCH ×2 (11:33→22:13)
[2018-12-22] MEDS: POLYETHYLENE GLYCOL 3350 119 GM BTL NGT SCH (11:33)
[2018-12-22] MEDS: [UNRECOGNIZED DRUG - OTHER] TD SCH (11:34)
[2018-12-22] MEDS: SILVER SULFADIAZINE 1% TOP CREAM 50 GM JAR TP SCH (11:50)
[2018-12-22] MEDS: SODIUM CHLORIDE 0.45% 1,000 ML IV SCH ×2 (11:50→22:12)
--- NOTE | 2018-12-22 17:08 | PN ---
Teaching Attending Note Name of Resident: Nenita Meyer ATTENDING PHYSICIAN STATEMENT I saw and evaluated the patient. I reviewed the resident's note and discussed the case with the resident. I agree with the resident's findings and plan as documented. SUBJECTIVE: Tolerating g-tube well. OBJECTIVE: Vital Signs Temperature 98.7 F 12/22/18 15:07 Pulse Rate 90 12/22/18 15:07 Respiratory Rate 17 12/22/18 15:07 Blood Pressure 111/60 12/22/18 15:07 O2 Sat by Pulse Oximetry (%) 100 12/21/18 21:00 GENERAL: The patient is awake, eyes open, getting fed by the family member. in no acute distress. EYES: PEERLA; EOMI; no scleral icterus. NECK: no JVD; no lymphadenopathy LUNGS: CTA B/l; no rales, rhonchi or wheezing, however poor inspiratory effort. HEART: RRR, S1, S2 positive , without murmur, rub or gallop. ABDOMEN: Soft, nontender, nondistended, normoactive bowel sounds, positive for G -tube. EXTREMITIES: 2+ pulses, warm, well-perfused, no edema. NEUROLOGICAL: Cranial nerves II through XII grossly intact. Normal speech, gait not observed. PSYCH: Normal mood, normal affect. SKIN: Warm, dry, normal turgor, no rashes or lesions noted CBCD WBC 6.6 K/mm3 (4.0-10.0) 12/21/18 07:00 RBC 3.39 M/mm3 (3.60-5.2) L 12/21/18 07:00 Hgb 10.4 GM/dL (10.7-15.3) L 12/21/18 07:00 Hct 30.3 % (32.4-45.2) L 12/21/18 07:00 MCV 89.2 fl (80-96) 12/21/18 07:00 MCHC 34.2 g/dl (32.0-36.0) 12/21/18 07:00 RDW 13.6 % (11.6-15.6) 12/21/18 07:00 Plt Count 296 K/MM3 (134-434) 12/21/18 07:00 MPV 9.1 fl (7.5-11.1) 12/21/18 07:00 CMP Sodium 137 mmol/L (136-145) 12/19/18 06:20 Potassium 4.2 mmol/L (3.5-5.1) 12/19/18 06:20 Chloride 103 mmol/L (98-107) 12/19/18 06:20 Carbon Dioxide 30 mmol/L (21-32) 12/19/18 06:20 Anion Gap 4 MMOL/L (8-16) L 12/19/18 06:20 BUN 5 mg/dL (7-18) L 12/19/18 06:20 Creatinine 0.2 mg/dL (0.55-1.3) L 12/19/18 06:20 Creat Clearance w eGFR > 60 (>60) 12/19/18 06:20 Random Glucose 97 mg/dL (74-106) 12/19/18 06:20 Calcium 8.4 mg/dL (8.5-10.1) L 12/19/18 06:20 Total Bilirubin 0.4 mg/dL (0.2-1) 12/11/18 06:30 AST 23 U/L (15-37) 12/11/18 06:30 ALT 14 U/L (13-61) 12/11/18 06:30 Alkaline Phosphatase 147 U/L (45-117) H 12/11/18 06:30 Total Protein 6.3 g/dl (6.4-8.2) L 12/11/18 06:30 Albumin 2.6 g/dl (3.4-5.0) L 12/11/18 06:30 CARDIAC ENZYMES Creatine Kinase 50 U/L (26-192) 12/10/18 13:49 Troponin I < 0.02 ng/ml (0.00-0.05) 12/10/18 13:49 Current Medications Generic Name Dose Route Start Last Admin Trade Name Freq PRN Reason Stop Dose Admin Acetaminophen 650 mg 12/21/18 12:22 12/22/18 15:41 Tylenol Oral Solution - PO 650 mg Q6H PRN Administration pain Bisacodyl 10 mg 12/14/18 17:27 Dulcolax Suppository - [place] PRN PRN CONSTIPATION Carbidopa/Levodopa 1 each 12/16/18 18:00 12/22/18 15:31 Sinemet 25/100 - PO 1 each QID JOE Administration Enoxaparin Sodium 40 mg 12/21/18 22:00 12/22/18 11:33 Lovenox - SQ 40 mg BID JOE Administration Sodium Chloride 1,000 mls @ 80 mls/hr 12/13/18 17:32 12/21/18 18:08 1/2 Normal Saline IV 80 mls/hr ASDIR JOE Administration Metoprolol Tartrate 50 mg 12/13/18 22:00 12/22/18 11:27 Lopressor - GT 50 mg BID JOE Administration Ptnt's Own Med( 1 each 12/12/18 10:00 12/22/18 11:34 Rotigotine [Neupro] TD 1 each 1 Each) DAILY JOE Administration Non-Formulary Medication 1 tab 12/13/18 18:15 12/22/18 11:31 Pimavanserin Tartrate [Nuplazid] GT 1 tab DAILY JOE Administration Olanzapine 2.5 mg 12/13/18 15:36 12/22/18 11:27 Zyprexa - GT 2.5 mg DAILY JOE Administration Polyethylene Glycol 17 gm 12/14/18 10:00 12/22/18 11:33 Miralax (For Daily Use) - NGT 17 grams DAILY JOE Administration Rasagiline 1 mg 12/13/18 15:36 12/22/18 11:28 Azilect - PO 1 mg DAILY JOE Administration Senna 8.8 mg 12/14/18 22:00 12/21/18 21:23 Senna Oral Solution - NGT 8.8 mg HS JOE Administration Silver Sulfadiazine 1 applic 12/18/18 16:15 12/22/18 11:50 Silvadene - TP 1 applic DAILY JOE Administration Home Medications Medication Instructions Recorded Carbidopa/Levodopa 1 each PO QID 12/10/18 [Carbidopa-Levodopa 25-100 Tab] Carbidopa/Levodopa [Rytary ER 1 each PO QID 12/10/18 23.75 mg-95 mg Cap] Carbidopa/Levodopa [Rytary ER 1 each PO QID 12/10/18 36.25 mg-145 mg Cap] Docusate Sodium [Colace] 100 mg PO BID 12/10/18 Furosemide [Lasix -] 20 mg PO DAILY 12/10/18 Losartan Potassium [Cozaar -] 25 mg PO DAILY 12/10/18 Metoprolol Succinate 100 mg PO DAILY 12/10/18 Olanzapine [Zyprexa -] 2.5 mg PO DAILY 12/10/18 Pimavanserin Tartrate [Nuplazid] 2 tab PO DAILY 12/10/18 Quetiapine Fumarate [Quetiapine 50 mg PO DAILY 12/10/18 Fumarate ER] Rasagiline Mesylate [Azilect -] 1 mg PO DAILY 12/10/18 Rivaroxaban [Xarelto -] 20 mg PO DAILY 12/10/18 Rotigotine [Neupro] 1 each TD DAILY 12/10/18 Sennosides [Senna Laxative] 2 tab PO DAILY 12/10/18 Spironolactone [Aldactone] 25 mg PO DAILY 12/10/18 Rotigotine [Neupro] 1 patch TD DAILY 12/11/18 ASSESSMENT AND PLAN: Patient is a 63 y/o lady with h/o dementia, Parkinson's, NICM, PAF, psychosis, CHF, who presented with poor po intake and was found to have UTI and severe dehydration. #POD #2 for G-tube placement due to Poor po intake, Passed MBS. placed by IR . G-tube feeds are tolerating well, as per dietition's recommendation. # Acute UTI: s/p 7 days of abx # Acute severe dehydration, and hypernatremia, resolved. # H/o PAF: on Lovenox in case PEG tube is needed after caloric count is done # Parkinson's: Cont home dose meds ( rytary, and Sinemet) in addition to Neupro patch and Azilect. # H/o HTN: off Losartan due to hypotension. . BP improved. cont BB . can adjust dose if needed. # Functional quadraplegia. DVT Px: lovenox sq 40mg BID due to weight loss, not having enough calorie. once medically stable will discharge the patient.
[2018-12-22] MEDS: SENNOSIDES 8.8 MG/5 ML BULK BOTTLE NGT SCH (22:13)
[2018-12-23 08:09] LABS: HEMATOCRIT 29.4 % (32.4-45.2); MCH 30.6 pg (25.7-33.7); MCHC 34.1 g/dl (32.0-36.0); MEAN CELL VOLUME 89.7 fl (80-96); MEAN PLT VOLUME 8.7 fl (7.5-11.1); PLATELET COUNT 325 K/MM3 (134-434); RBC 3.28 M/mm3 (3.60-5.2); RDW 14.1 % (11.6-15.6); WHITE BLOOD COUNT 4.7 K/mm3 (4.0-10.0)
[2018-12-23 08:36] LABS: ANION GAP 5 MMOL/L (8-16); BLOOD UREA NITROGEN 5 mg/dL (7-18); CALCIUM 8.2 mg/dL (8.5-10.1); CHLORIDE 108 mmol/L (98-107); CO2 27 mmol/L (21-32); CREATININE 0.2 mg/dL (0.55-1.3); GLUCOSE,RANDOM 83 mg/dL (74-106); POTASSIUM 4.4 mmol/L (3.5-5.1); SODIUM 141 mmol/L (136-145)
--- NOTE | 2018-12-23 11:39 | PN ---
Teaching Attending Note Name of Resident: Nenita Meyer ATTENDING PHYSICIAN STATEMENT I saw and evaluated the patient. I reviewed the resident's note and discussed the case with the resident. I agree with the resident's findings and plan as documented. SUBJECTIVE: Patient is fully awake, not lethargic, looks happy with no acute distress, family at bedside. OBJECTIVE: Vital Signs Temperature 97.7 F 12/23/18 06:00 Pulse Rate 64 12/23/18 06:00 Respiratory Rate 18 12/23/18 06:00 Blood Pressure 93/60 12/23/18 06:00 O2 Sat by Pulse Oximetry (%) 100 12/22/18 21:00 GENERAL: The patient is awake, eyes open, getting fed by the family member. in no acute distress. EYES: PEERLA; EOMI; no scleral icterus. NECK: no JVD; no lymphadenopathy LUNGS: CTA B/l; no rales, rhonchi or wheezing, however poor inspiratory effort. HEART: RRR, S1, S2 positive , without murmur, rub or gallop. ABDOMEN: Soft, nontender, nondistended, normoactive bowel sounds, positive for G -tube. EXTREMITIES: 2+ pulses, warm, well-perfused, no edema. NEUROLOGICAL: Cranial nerves II through XII grossly intact. Normal speech, gait not observed. PSYCH: Normal mood, normal affect. SKIN: Warm, dry, normal turgor, no rashes or lesions noted CBCD WBC 4.7 K/mm3 (4.0-10.0) 12/23/18 06:45 RBC 3.28 M/mm3 (3.60-5.2) L 12/23/18 06:45 Hgb 10.0 GM/dL (10.7-15.3) L 12/23/18 06:45 Hct 29.4 % (32.4-45.2) L 12/23/18 06:45 MCV 89.7 fl (80-96) 12/23/18 06:45 MCHC 34.1 g/dl (32.0-36.0) 12/23/18 06:45 RDW 14.1 % (11.6-15.6) 12/23/18 06:45 Plt Count 325 K/MM3 (134-434) 12/23/18 06:45 MPV 8.7 fl (7.5-11.1) 12/23/18 06:45 CMP Sodium 141 mmol/L (136-145) 12/23/18 06:45 Potassium 4.4 mmol/L (3.5-5.1) 12/23/18 06:45 Chloride 108 mmol/L (98-107) H 12/23/18 06:45 Carbon Dioxide 27 mmol/L (21-32) 12/23/18 06:45 Anion Gap 5 MMOL/L (8-16) L 12/23/18 06:45 BUN 5 mg/dL (7-18) L 12/23/18 06:45 Creatinine 0.2 mg/dL (0.55-1.3) L 12/23/18 06:45 Creat Clearance w eGFR > 60 (>60) 12/23/18 06:45 Random Glucose 83 mg/dL (74-106) 12/23/18 06:45 Calcium 8.2 mg/dL (8.5-10.1) L 12/23/18 06:45 Total Bilirubin 0.4 mg/dL (0.2-1) 12/11/18 06:30 AST 23 U/L (15-37) 12/11/18 06:30 ALT 14 U/L (13-61) 12/11/18 06:30 Alkaline Phosphatase 147 U/L (45-117) H 12/11/18 06:30 Total Protein 6.3 g/dl (6.4-8.2) L 12/11/18 06:30 Albumin 2.6 g/dl (3.4-5.0) L 12/11/18 06:30 CARDIAC ENZYMES Creatine Kinase 50 U/L (26-192) 12/10/18 13:49 Troponin I < 0.02 ng/ml (0.00-0.05) 12/10/18 13:49 Current Medications Generic Name Dose Route Start Last Admin Trade Name Freq PRN Reason Stop Dose Admin Acetaminophen 650 mg 12/21/18 12:22 12/22/18 15:41 Tylenol Oral Solution - PO 650 mg Q6H PRN Administration pain Bisacodyl 10 mg 12/14/18 17:27 Dulcolax Suppository - [place] PRN PRN CONSTIPATION Carbidopa/Levodopa 1 each 12/16/18 18:00 12/22/18 22:13 Sinemet 25/100 - PO 1 each QID JOE Administration Enoxaparin Sodium 40 mg 12/21/18 22:00 12/22/18 22:13 Lovenox - SQ 40 mg BID JOE Administration Sodium Chloride 1,000 mls @ 80 mls/hr 12/13/18 17:32 12/22/18 22:12 1/2 Normal Saline IV 80 mls/hr ASDIR JOE Administration Metoprolol Tartrate 50 mg 12/13/18 22:00 12/22/18 22:13 Lopressor - GT 50 mg BID JOE Administration Ptnt's Own Med( 1 each 12/12/18 10:00 12/22/18 11:34 Rotigotine [Neupro] TD 1 each 1 Each) DAILY JOE Administration Non-Formulary Medication 1 tab 12/13/18 18:15 12/22/18 11:31 Pimavanserin Tartrate [Nuplazid] GT 1 tab DAILY JOE Administration Olanzapine 2.5 mg 12/13/18 15:36 12/22/18 11:27 Zyprexa - GT 2.5 mg DAILY JOE Administration Polyethylene Glycol 17 gm 12/14/18 10:00 12/22/18 11:33 Miralax (For Daily Use) - NGT 17 grams DAILY JOE Administration Rasagiline 1 mg 12/13/18 15:36 12/22/18 11:28 Azilect - PO 1 mg DAILY JOE Administration Senna 8.8 mg 12/14/18 22:00 12/22/18 22:13 Senna Oral Solution - NGT 8.8 mg HS JOE Administration Silver Sulfadiazine 1 applic 12/18/18 16:15 12/22/18 11:50 Silvadene - TP 1 applic DAILY JOE Administration Home Medications Medication Instructions Recorded Carbidopa/Levodopa 1 each PO QID 12/10/18 [Carbidopa-Levodopa 25-100 Tab] Carbidopa/Levodopa [Rytary ER 1 each PO QID 12/10/18 23.75 mg-95 mg Cap] Carbidopa/Levodopa [Rytary ER 1 each PO QID 12/10/18 36.25 mg-145 mg Cap] Docusate Sodium [Colace] 100 mg PO BID 12/10/18 Furosemide [Lasix -] 20 mg PO DAILY 12/10/18 Losartan Potassium [Cozaar -] 25 mg PO DAILY 12/10/18 Metoprolol Succinate 100 mg PO DAILY 12/10/18 Olanzapine [Zyprexa -] 2.5 mg PO DAILY 12/10/18 Pimavanserin Tartrate [Nuplazid] 2 tab PO DAILY 12/10/18 Quetiapine Fumarate [Quetiapine 50 mg PO DAILY 12/10/18 Fumarate ER] Rasagiline Mesylate [Azilect -] 1 mg PO DAILY 12/10/18 Rivaroxaban [Xarelto -] 20 mg PO DAILY 12/10/18 Rotigotine [Neupro] 1 each TD DAILY 12/10/18 Sennosides [Senna Laxative] 2 tab PO DAILY 12/10/18 Spironolactone [Aldactone] 25 mg PO DAILY 12/10/18 Rotigotine [Neupro] 1 patch TD DAILY 12/11/18 ASSESSMENT AND PLAN: Patient is a 63 y/o lady with h/o dementia, Parkinson's, NICM, PAF, psychosis, CHF, who presented with poor po intake and was found to have UTI and severe dehydration. #POD #4 for G-tube placement due to Poor po intake, s/p MBS. s/p G-tube by IR , feeds are tolerating well, as per dietetion's recommendation. # Acute UTI: s/p 7 days of abx # Acute severe dehydration, and hypernatremia, resolved. # H/o PAF: on Lovenox in case PEG tube is needed after caloric count is done # Parkinson's: Cont home dose meds ( rytary, and Sinemet) in addition to Neupro patch and Azilect. # H/o HTN: off Losartan due to hypotension. . BP improved. cont BB . can adjust dose if needed. # Functional quadraplegia. DVT Px: lovenox sq 40mg BID due to weight loss, not having enough calorie. once medically stable will discharge the patient. possible dc patient home in am since needing her g-tube feeds at home.
[2018-12-23] MEDS: OLANZapine 2.5 MG TABLET GT SCH (11:59)
[2018-12-23] MEDS: METOPROLOL TARTRATE 50 MG TABLET (FP) GT SCH ×2 (11:59→21:18)
[2018-12-23] MEDS: CARBIDOPA/LEVODOPA 25/100 TABLET (FP) PO SCH ×4 (11:59→21:47)
[2018-12-23] MEDS: SILVER SULFADIAZINE 1% TOP CREAM 50 GM JAR TP SCH (12:00)
[2018-12-23] MEDS: ENOXAPARIN NA (PORCINE) 40 MG/0.4 ML DISP.SYRIN SQ SCH ×2 (12:01→21:46)
[2018-12-23] MEDS: RASAGILINE MESYLATE 1 MG TABLET PO SCH (12:01)
[2018-12-23] MEDS: POLYETHYLENE GLYCOL 3350 119 GM BTL NGT SCH (12:02)
[2018-12-23] MEDS: [UNRECOGNIZED DRUG - OTHER] TD SCH (12:13)
[2018-12-23] MEDS: PIMAVANSERIN TARTRATE GT SCH (12:19)
--- NOTE | 2018-12-23 14:16 | PN ---
Progress Note, LIME HIDE INSPECTOR - Note Progress Note: Selected Entries 12/22/18 12/22/18 12/22/18 02:00 05:54 11:00 Breakfast Lunch Supper Temperature 98.5 F 98.1 F 98.3 F 12/22/18 12/22/18 12/22/18 15:07 19:55 22:00 Breakfast 0 Lunch 25% Supper 25% Temperature 98.7 F 98.6 F 98.2 F 12/23/18 12/23/18 02:00 06:00 Breakfast Lunch Supper Temperature 98.2 F 97.7 F Laboratory Tests 12/23/18 06:45 WBC 4.7 Alert today, verbal with limited intelligibility (baseline), good appetite and tolerance today. Yesterday pt was lethargic. Reviewed case with family and discussed recommendations. REC: PO diet with PEG used to supplement PO, as indicated, and for medication and hydration. RD f/u consult to educate family on coordinating PO diet with GT feedings ( nocturnal)
[2018-12-23] MEDS: SODIUM CHLORIDE 0.45% 1,000 ML IV SCH (18:19)
[2018-12-23] MEDS: SENNOSIDES 8.8 MG/5 ML BULK BOTTLE NGT SCH (21:47)
[2018-12-24] MEDS: SODIUM CHLORIDE 0.45% 1,000 ML IV SCH (03:01)
[2018-12-24 09:07] VITALS: TEMP 98.4
[2018-12-24] MEDS: POLYETHYLENE GLYCOL 3350 119 GM BTL NGT SCH (09:56)
[2018-12-24] MEDS: ENOXAPARIN NA (PORCINE) 40 MG/0.4 ML DISP.SYRIN SQ SCH (09:56)
[2018-12-24] MEDS: RASAGILINE MESYLATE 1 MG TABLET PO SCH (09:56)
[2018-12-24] MEDS: CARBIDOPA/LEVODOPA 25/100 TABLET (FP) PO SCH ×2 (09:56→13:11)
[2018-12-24] MEDS: METOPROLOL TARTRATE 50 MG TABLET (FP) GT SCH (09:56)
[2018-12-24] MEDS: OLANZapine 2.5 MG TABLET GT SCH (09:56)
[2018-12-24] MEDS: SILVER SULFADIAZINE 1% TOP CREAM 50 GM JAR TP SCH (09:57)
[2018-12-24] MEDS: PIMAVANSERIN TARTRATE GT SCH (09:57)
[2018-12-24] MEDS: [UNRECOGNIZED DRUG - OTHER] TD SCH (09:57)
[2018-12-24] MEDS ORDERED: METOPROLOL TARTRATE 25 MG TABLET (FP) PO ONE (11:00)
--- NOTE | 2018-12-24 11:40 | PN ---
Progress Note, CUFF CUTTER - Note Progress Note: Selected Entries 12/22/18 12/22/18 12/23/18 05:57 19:00 02:00 Intake, Tube 250 500 Feeding Amount Lunch Supper Temperature 98.2 F 12/23/18 12/23/18 12/23/18 05:59 06:00 14:21 Intake, Tube 450 Feeding Amount Lunch 50% Supper Temperature 97.7 F 99.3 F 12/23/18 12/23/18 12/23/18 15:00 18:00 18:20 Intake, Tube 720 Feeding Amount Lunch Supper 25% Temperature 99.2 F 12/24/18 12/24/18 12/24/18 05:53 06:00 09:06 Intake, Tube 100 Feeding Amount Lunch Supper Temperature 98.7 F 98.4 F Case discussed with medical team/RD. Pt requires PEG for nutrition,medication and hydration. RD f/u consult to educate family on coordinating PO trial during the day, with GT for hydration and meds daytime and nocturnal feedings
[2018-12-24] MEDS ORDERED: PT OWN MED DRAWER 7, Y5N ONE (13:06)
--- NOTE | 2018-12-24 13:15 | DS ---
Physical Exam: SUBJECTIVE: Patient seen and examined at bedside- no acute events overnight; patient is tolerating her feeds. ROS limited however she denies any pain OBJECTIVE: Vital Signs Period Temp Pulse Resp BP Sys/German Pulse Ox Last 24 Hr 98.4 F-99.3 F 90-117 18-22 98-128/59-90 95 PHYSICAL EXAM GENERAL: The patient is awake, alert, , in no acute distress. EYES:PEERLA; EOMI; no scleral icterus. NECK: no JVD; no lymphadenopathy LUNGS: poor inspiratory effort; however lungs CTA B/l HEART: tachycardic, S1, S2 without murmur, rub or gallop. ABDOMEN: Soft, nontender, nondistended, normoactive bowel sounds, no guarding, no rebound, no hepatosplenomegaly, no masses. EXTREMITIES: warm; wel-pefused; no clubbing/cyanosis or edema- contracted NEUROLOGICAL: Cranial nerves II through XII grossly intact. Normal speech, gait not observed. PSYCH: Normal mood, normal affect. SKIN: Warm, dry, normal turgor, no rashes or lesions noted. LABS imaging: chest XRAY: Portable AP semierect chest film is limited due to a navigation rotation and the patient's chin and soft tissues overlying a portion of the upper left chest. Catheter has been removed on the right since prior study. There is a left- sided pacemaker as previously. There is some opacity overlying the left apex and it is not clear if this is overlying soft tissues or a true density. There is no acute intrathoracic abnormality otherwise seen. When clinically able, a repeat nonrotated study is suggested for further evaluation. Clinical correlation advised. head CT without contrastL no acute intracranial pathology HOSPITAL COURSE: Date of Admission:12/10/18 Patient is a 63 year old female with past medical history of NICM s/p ICD, paroxysmal Afib (on Xarelto), HTN, Parkinson's, Psychosis and CHF, BIBA from home due to lethargy and poor oral intake. Brother reported in the last 4 days, patient was noted to have poor oral intake, chewing some of her food and drinking some of her water but then spitting out or refusing to swallow the rest.ER course was notable for:(1)UA: 1+NORA, 1+ LE, 13WBC in addition patient was found to be hypernatremic at 159 and had change in mental status. Patient was started on a 7 day course of ceftriaxone for her UTI in addition was started on IV fluids for her hypernatremia. She was decreased PO intake and was seen by speech pathology who recommended an NG tube. an N G tube was placed for a short while. Then patient underwent a modified barium swallow and passed the test. Patients hypernatremia resolved and she completed a 7 day course of ceftriaxone for her UTI. Some changes were made to her parkinsons medications and patient seemed more lethargic than usual and was having poor PO intake once again. A discussion was had with family regarding feedings and the family agreed that a G tube was necessary due to patients failure to thrive and decreed PO intake. Patient was discharged home with a G tube Date of Discharge: 12/24/18 Minutes to complete discharge: 39 Discharge Summary Reason For Visit: SEPSIS DUE TO UTI/ ATRIAL FIBRILLATION/ Current Active Problems Atrial fibrillation (Chronic) HTN (hypertension) (Chronic) Parkinson disease (Chronic) Condition: Stable - Instructions Diet, Activity, Other Instructions: You presented to the hospital due to low oral intake and decreased appetite , you were treated with intravenous fluids and you have improved. you were also found to have Urinary tract infection that was treated with antibiotics and it is now resolved. A G-tube was placed by interventional radiology to ensure that you are getting adequate nutrition and hydration since you were having difficulty taking in an adequate amount of calories. Please resume all your home meds as before admission Except Toprol XR, instead we are giving you Lopressor 25mg G-tube 2x per day since will be going through G -tube. Please follow with Dr. Lehman, your primary care physician with one week Please follow up with Dr Spears your neurologist within one week. If you develop fever, chills, shortness of breath , chest pain or your symptoms worsen please call 911 or return to Emergency room immediately. Referrals: Arelis Lehman [Primary Care Provider] - 1 Week Saul Spears MD [Non Staff, Medical] - 1 Week Disposition: HOME - Home Medications Comprehensive Discharge Medication List: Ambulatory Orders Carbidopa/Levodopa [Carbidopa-Levodopa 25-100 Tab] 1 each PO QID 12/10/18 Carbidopa/Levodopa [Rytary ER 23.75 mg-95 mg Cap] 1 each PO QID 12/10/18 Carbidopa/Levodopa [Rytary ER 36.25 mg-145 mg Cap] 1 each PO QID 12/10/18 Docusate Sodium [Colace] 100 mg PO BID 12/10/18 Furosemide [Lasix -] 20 mg PO DAILY 12/10/18 Losartan Potassium [Cozaar -] 25 mg PO DAILY 12/10/18 Olanzapine [Zyprexa -] 2.5 mg PO DAILY 12/10/18 Pimavanserin Tartrate [Nuplazid] 2 tab PO DAILY 12/10/18 Quetiapine Fumarate [Quetiapine Fumarate ER] 50 mg PO DAILY 12/10/18 Rasagiline Mesylate [Azilect -] 1 mg PO DAILY 12/10/18 Rivaroxaban [Xarelto -] 20 mg PO DAILY 12/10/18 Rotigotine [Neupro] 1 each TD DAILY 12/10/18 Sennosides [Senna Laxative] 2 tab PO DAILY 12/10/18 Spironolactone [Aldactone -] 25 mg PO DAILY 12/10/18 Rotigotine [Neupro] 1 patch TD DAILY 12/11/18 Carbidopa/Levodopa 25/100 [Sinemet 25/100 -] 1 each PO QID tablet 12/24/18 Metoprolol Tartrate [Lopressor -] 25 mg GT BID #60 tablet 12/24/18 Polyethylene Glycol 3350 [Miralax 119 gm Btl -] 17 gm NGT DAILY bottle Silver Sulfadiazine 1% Top Cr [Silvadene -] 1 applic TP DAILY #1 jar 12/24/18 Problem List - Problems (1) Hypernatremia Code(s): E87.0 - HYPEROSMOLALITY AND HYPERNATREMIA (2) Anticoagulant-induced bleeding Code(s): T45.7X1A - POISN BY ANTICOAG ANTAG, VITAMIN K AND OTH COAG, ACC, INIT; D68.9 - COAGULATION DEFECT, UNSPECIFIED (3) Atrial fibrillation Code(s): I48.91 - UNSPECIFIED ATRIAL FIBRILLATION This patient is new to me today: No Emergency Visit: Yes ED Registration Date: 12/10/18 Care time: The patient presented to the Emergency Department on the above date and was hospitalized for further evaluation of their emergent condition. Critical Care patient: No - Discharge Referral Referred to [facility] Med [facility] No
[2018-12-24] MEDS ORDERED: METOPROLOL TARTRATE 50 MG TABLET (FP) GT SCH ×2 (14:00→22:00)
[2018-12-24 14:12] VITALS: BP 108/59; PULSE 80
--- NOTE | 2018-12-24 16:27 | PN ---
Teaching Attending Note Name of Resident: Nenita Meyer ATTENDING PHYSICIAN STATEMENT I saw and evaluated the patient. I reviewed the resident's note and discussed the case with the resident. I agree with the resident's findings and plan as documented. SUBJECTIVE: Patient is feeling better with no acute distress. Tolerating G-tube feeds. OBJECTIVE: Vital Signs Temperature 98.4 F 12/24/18 09:06 Pulse Rate 80 12/24/18 14:12 Respiratory Rate 22 H 12/24/18 14:12 Blood Pressure 108/59 L 12/24/18 14:12 O2 Sat by Pulse Oximetry (%) 97 12/24/18 09:00 GENERAL: The patient is awake, eyes open, getting fed by the family member. in no acute distress. EYES: PEERLA; EOMI; no scleral icterus. NECK: no JVD; no lymphadenopathy LUNGS: CTA B/l; no rales, rhonchi or wheezing, however poor inspiratory effort. HEART: RRR, S1, S2 positive , without murmur, rub or gallop. ABDOMEN: Soft, nontender, nondistended, normoactive bowel sounds, positive for G -tube. site is clean EXTREMITIES: 2+ pulses, warm, well-perfused, no edema. NEUROLOGICAL: Cranial nerves II through XII grossly intact. Normal speech, gait not observed. PSYCH: Normal mood, normal affect. SKIN: Warm, dry, normal turgor, no rashes or lesions noted CBCD WBC 4.7 K/mm3 (4.0-10.0) 12/23/18 06:45 RBC 3.28 M/mm3 (3.60-5.2) L 12/23/18 06:45 Hgb 10.0 GM/dL (10.7-15.3) L 12/23/18 06:45 Hct 29.4 % (32.4-45.2) L 12/23/18 06:45 MCV 89.7 fl (80-96) 12/23/18 06:45 MCHC 34.1 g/dl (32.0-36.0) 12/23/18 06:45 RDW 14.1 % (11.6-15.6) 12/23/18 06:45 Plt Count 325 K/MM3 (134-434) 12/23/18 06:45 MPV 8.7 fl (7.5-11.1) 12/23/18 06:45 CMP Sodium 141 mmol/L (136-145) 12/23/18 06:45 Potassium 4.4 mmol/L (3.5-5.1) 12/23/18 06:45 Chloride 108 mmol/L (98-107) H 12/23/18 06:45 Carbon Dioxide 27 mmol/L (21-32) 12/23/18 06:45 Anion Gap 5 MMOL/L (8-16) L 12/23/18 06:45 BUN 5 mg/dL (7-18) L 12/23/18 06:45 Creatinine 0.2 mg/dL (0.55-1.3) L 12/23/18 06:45 Creat Clearance w eGFR > 60 (>60) 12/23/18 06:45 Random Glucose 83 mg/dL (74-106) 12/23/18 06:45 Calcium 8.2 mg/dL (8.5-10.1) L 12/23/18 06:45 Total Bilirubin 0.4 mg/dL (0.2-1) 12/11/18 06:30 AST 23 U/L (15-37) 12/11/18 06:30 ALT 14 U/L (13-61) 12/11/18 06:30 Alkaline Phosphatase 147 U/L (45-117) H 12/11/18 06:30 Total Protein 6.3 g/dl (6.4-8.2) L 12/11/18 06:30 Albumin 2.6 g/dl (3.4-5.0) L 12/11/18 06:30 CARDIAC ENZYMES Creatine Kinase 50 U/L (26-192) 12/10/18 13:49 Troponin I < 0.02 ng/ml (0.00-0.05) 12/10/18 13:49 Vital Signs Temperature 98.4 F 12/24/18 09:06 Pulse Rate 80 12/24/18 14:12 Respiratory Rate 22 H 12/24/18 14:12 Blood Pressure 108/59 L 12/24/18 14:12 O2 Sat by Pulse Oximetry (%) 97 12/24/18 09:00 Home Medications Medication Instructions Recorded RX: Carbidopa/Levodopa 1 each PO QID 12/10/18 [Carbidopa-Levodopa 25-100 Tab] RX: Carbidopa/Levodopa [Rytary ER 1 each PO QID 12/10/18 23.75 mg-95 mg Cap] RX: Carbidopa/Levodopa [Rytary ER 1 each PO QID 12/10/18 36.25 mg-145 mg Cap] RX: Docusate Sodium [Colace] 100 mg PO BID 12/10/18 RX: Furosemide [Lasix -] 20 mg PO DAILY 12/10/18 RX: Losartan Potassium [Cozaar -] 25 mg PO DAILY 12/10/18 RX: Olanzapine [Zyprexa -] 2.5 mg PO DAILY 12/10/18 RX: Pimavanserin Tartrate 2 tab PO DAILY 12/10/18 [Nuplazid] RX: Quetiapine Fumarate 50 mg PO DAILY 12/10/18 [Quetiapine Fumarate ER] RX: Rasagiline Mesylate [Azilect -] 1 mg PO DAILY 12/10/18 RX: Rivaroxaban [Xarelto -] 20 mg PO DAILY 12/10/18 RX: Rotigotine [Neupro] 1 each TD DAILY 12/10/18 RX: Sennosides [Senna Laxative] 2 tab PO DAILY 12/10/18 RX: Spironolactone [Aldactone -] 25 mg PO DAILY 12/10/18 RX: Rotigotine [Neupro] 1 patch TD DAILY 12/11/18 RX: Carbidopa/Levodopa 25/100 1 each PO QID tablet 12/24/18 [Sinemet 25/100 -] RX: Metoprolol Tartrate [Lopressor 25 mg GT BID #60 tablet 12/24/18 -] RX: Polyethylene Glycol 3350 17 gm NGT DAILY bottle 12/24/18 [Miralax 119 gm Btl -] RX: Silver Sulfadiazine 1% Top Cr 1 applic TP DAILY #1 jar 12/24/18 [Silvadene -] ASSESSMENT AND PLAN: Patient is a 63 y/o lady with h/o dementia, Parkinson's, NICM, PAF, psychosis, CHF, who presented with poor po intake and was found to have UTI and severe dehydration. #POD #6 for G-tube placement due to Poor po intake, s/p MBS. s/p G-tube by IR , feeds are tolerating well, continue the feeds as per as per dietition's recommendation. # Acute UTI: s/p 7 days of abx # Acute severe dehydration, and hypernatremia, resolved. # H/o PAF: on Lovenox in case PEG tube is needed after caloric count is done # Parkinson's: Cont home dose meds ( rytary, and Sinemet) in addition to Neupro patch and Azilect. # H/o HTN: off Losartan due to hypotension. . BP improved. cont BB . # Functional quadraplegia. DVT px: Xarelto ( discussed with the patient's cardio to continue Xarelto ) dc patient home today .
[2018-12-24] MEDS ORDERED: RIVAROXABAN 20 MG TABLET PO SCH (18:00)
[2018-12-24] MEDS ORDERED: METOPROLOL TARTRATE 25 MG TABLET (FP) GT SCH (22:00)
[2018-12-25] MEDS ORDERED: SPIRONOLACTONE 25 MG TABLET (FP) PO SCH (10:00)
== END 2018-12-24 14:27 | disposition home health service (06) | DRG 871 ==
LOC: JER 12:58 → JERBED 14:11 → J5S 18:32
PROVIDERS: ADMIT Internal Medicine; ATTEND Internal Medicine
PROC: 0DH63UZ Insertion of Feeding Device into Stomach, Percutaneous Approach (ICD-10-PCS; principal; 2018-12-20)
PROC: 3E0G76Z Introduction of Nutritional Substance into Upper GI, Via Natural or Artificial Opening (ICD-10-PCS; 2018-12-20)
DX: A41.9 Sepsis, unspecified organism (principal); G93.41 Metabolic encephalopathy; R53.2 Functional quadriplegia; I42.8 Other cardiomyopathies; E87.0 Hyperosmolality and hypernatremia; N39.0 Urinary tract infection, site not specified; I48.0 Paroxysmal atrial fibrillation; Z79.01 Long term (current) use of anticoagulants; G20 Parkinson's disease; F29 Unspecified psychosis not due to a substance or known physiological condition; Z95.810 Presence of automatic (implantable) cardiac defibrillator; E86.0 Dehydration; R62.7 Adult failure to thrive; K59.00 Constipation, unspecified; I11.0 Hypertensive heart disease with heart failure; I50.9 Heart failure, unspecified; I95.9 Hypotension, unspecified
CPT/HCPCS: 36415; 49440; 70450-TC; 71045-TC-FY; 74018-TC-FY; 74230-TC-FY; 80048; 80053; 81003; 81015; 82550; 82553; 82803; 82962; 83605; 83735; 83880; 84100; 84295; 84484; 85025; 85027; 85610; 85730; 87040; 87086; 87186; 92611-GN; 93005; 93010; 94761; 99283-25; J0131; J7030

== ENCOUNTER → 2019-04-14 | Day surgery (SDC) | payer OTHER | END | disposition home or self-care (01) | LOC: JRADIR 12:43 | PROVIDERS: ATTEND Internal Medicine Geriatric Medicine | PROC: 0D20XUZ Change Feeding Device in Upper Intestinal Tract, External Approach (ICD-10-PCS; principal; 2019-04-14) | DX: R13.10 Dysphagia, unspecified (principal) | CPT/HCPCS: 49450; 76000-TC-FY ==